=== PATIENT | male | born 1950 | race Caucasian/White ===

== ENCOUNTER 2023-04-10 21:57 | Outpatient (CLI) | payer MEDICARE, BC, SELFPAY | END 2023-04-10 21:58 | disposition home or self-care (01) | LOC: AMB 04-14 18:31 | PROVIDERS: PCP Family Medicine; Visit Provider Family Medicine | DX: R31.9 Hematuria, unspecified (principal); R10.9 Unspecified abdominal pain | CPT/HCPCS: A0425; A0428 ==

== ENCOUNTER 2023-04-10 22:46 | Inpatient (IN) | payer MEDICARE, BC, SELFPAY ==
[2023-04-10 23:15] VITALS: BP 145/103; PULSE 100; RESP 18; TEMP 36.9; O2SAT 95; BMI 27.1
--- NOTE | 2023-04-10 23:36 | PC.NURSE ---
Admission assessment: pt sated he is loosing 1/2 lb of weight per month without trying in the last years or so
--- NOTE | 2023-04-10 23:53 | P.IMHP_ITS ---
Hospitalist- H&P: HPI History of Present Illness Date Seen: 04/10/23 Chief complaint: bowel obstruction Narrative: Sulaiman Alcantara is a 73 year old diabetic male presents with mid abdominal pain starting at 4:00 p.m. on 04/09/2023. He has had ongoing pain. Had 1 emesis of gastric contents without blood. Had 2 small bowel movements last night. Eventually presented to the [facility] Emergency Department for evaluation where he was found to have a small-bowel obstruction. He was transferred here for ongoing care. Previous abdominal surgery includes remote history of bilateral inguinal hernia repair and umbilical hernia repair. No previous small-bowel obstruction. Last colonoscopy was over 10 years ago and had a few small benign polyps. No other history of gastrointestinal illnesses. He has chronic constipation. Besides abdominal pain he has otherwise been doing well. No other recent illness or injury. [facility] Medical History (Updated 04/11/23 @ 00:05 by Mark Valdes MD) 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 - Varicose veins of other specified sites (ICD-10) Small bowel obstruction ?K56.609 - Unspecified intestinal obstruction, unspecified as to partial versus complete obstruction (ICD-10) Hyperlipidemia ?E78.5 - Hyperlipidemia, unspecified (ICD-10) BPH (benign prostatic hyperplasia) ?N40.0 - Benign prostatic hyperplasia without lower urinary tract symptoms (ICD-10) Diabetes mellitus ?E11.9 - Type 2 diabetes mellitus without complications (ICD-10) Surgical History (Updated 04/10/23 @ 23:59 by Mark Valdes MD) History of bunionectomy ?Z98.890 - Other specified postprocedural states (ICD-10) History of arthroplasty of left shoulder ?Z96.612 - Presence of left artificial shoulder joint (ICD-10) H/O umbilical hernia repair ?Z98.890 - Other specified postprocedural states (ICD-10) ?Z87.19 - Personal history of other diseases of the digestive system (ICD-10) H/O bilateral inguinal hernia repair ?Z98.890 - Other specified postprocedural states (ICD-10) ?Z87.19 - Personal history of other diseases of the digestive system (ICD-10) History of bilateral hip replacements ?Z96.643 - Presence of artificial hip joint, bilateral (ICD-10) Family History (Updated 04/11/23 @ 00:00 by Mark Valdes MD) Father Diabetes Mother CHF (congestive heart failure) Stroke Other Prostate cancer Social History (Updated 04/11/23 @ 00:01 by Mark Valdes MD) Narrative: He lives with his in the farm house [place] the [place] near [place]. 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 He does not smoke. He does not drink alcohol. Code status is DNR. 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 What is your current living situation?: I presently have a place to live Problems where you live: no known problems Problems where you live details: NA In the past 12 months, utilities in danger of being shut off: no In past 12 months, lack of transportation kept you from medical appts, meetings, work, or getting things needed for daily living: no In the past 12 mos, have been you worried that your food would run out before you had money to buy more?: never true In the past 12 mos, the food you bought just didn't last and you didn't have money to buy more?: never true Highest level of school completed/degree received: Bachelor's degree Smoking Status: Never smoker Do you use any of these nicotine containing products: None Second hand tobacco smoke exposure: No How often do you have a drink containing alcohol: never How often do you have six or more drinks on one occasion: Never AUDIT-C Alcohol total score: 0 Non-prescribed substance use: denies use Caffeine: No How often does anyone, including family, friends and others, physically hurt you : never How often does anyone, including family, friends and others, insult or talk down to you: never How often does anyone, including family, friends and others, threaten you with harm: never How often does anyone, including family, friends and others, scream or curse at you: never service: No Meds Home Medications and Allergies Home Medications Medication Instructions Recorded Confirmed Type aspirin 325 mg tablet 325 mg PO DAILY 04/10/23 04/10/23 History glipizide 10 mg tablet 10 mg PO BID 04/10/23 04/10/23 History metformin 500 mg tablet 1,000 mg PO BID 04/10/23 04/10/23 History semaglutide 2 mg/dose (8 mg/3 mL) 2 mg subcut QWEEK 04/10/23 04/10/23 History subcutaneous pen injector (Ozempic) simvastatin 40 mg tablet 40 mg PO QPM 04/10/23 04/10/23 History Exam 2 Narrative: Exam Narrative: He is alert and appears in no distress. He gives his own history. NG tube in place. Draining a clear yellowish gastric fluid. Oropharynx with dry mucous membranes. Neck is supple without mass or adenopathy. Respirations are clear to auscultation. Cardiovascular: S1, S2, regular rate and rhythm. No murmur gallop or rub. Abdomen: Bowel sounds diminished. Abdomen is soft with minimal tenderness. No mass. No peritonitis. Extremities with good pulses and sensation. Good perfusion. No edema. No rash Const: Vital Signs, click to edit/add: Vital Signs - 24 hr 04/10/23 23:15 Temperature 98.5 F Pulse Rate [Pulse Oximeter] 100 Respiratory Rate 18 Blood Pressure [Le ft Radial Artery] 145/103 H Pulse Oximetry 95 Oxygen Delivery Me thod Room Air Documenting provider has reviewed patient's vital signs: yes Hospitalist - H&P: Result Imaging CT scan - abdomen: Radiologist's impression: CT of the abdomen and pelvis with IV contrast from [facility] shows the following: Lung bases are clear. There are multiple bilateral renal cysts. There is abdominal dilatation of the small bowel to an area of bowel wall thickening in the left lower quadrant image 418 of series 7. There is a low dense lesion with in the tail of the pancreas measuring 3.1 x 2.4 cm. There is a diffuse gastric and abdominal varices noted. There is no upper abdominal adenopathy. The upper abdominal vasculature is patent. There is no free fluid in the pelvis. There is moderate prostate enlargement. There is moderate stool burden in the colon. The distal small bowel is dilated. There is no nephro or ureterolithiasis noted. There is arthritic change of the visualized skeleton. There is severe arthritic change of the right sacroiliac joint. There is no worrisome bone lesion. Impression: 1. Small-bowel obstruction with transition point in the mid small bowel in the left lower quadrant. 2. Hypodense mass in the tail the pancreas. Differential diagnosis includes pancreatic malignancy. Recommend multiphasic MRI or CT for further Evaluation. 3. Moderate prostatomegaly. Assessment and Plan Assessment and plan (1) Small bowel obstruction: Problem comment: Suspect this is due to prior hernia surgery, postop adhesions Status: Acute (2) Diabetes mellitus: Problem comment: 02/24/2023 hemoglobin A1c 8.1 Status: Acute (3) BPH (benign prostatic hyperplasia): Problem comment: Nocturia Status: Acute (4) Intra-abdominal varices: Problem comment: Unknown cause. No history of liver disease or portal hypertension. No history of GI bleeding. Status: Acute Plan Admit to the hospital for management of small bowel obstruction, IV fluids, IV antiemetics and pain medicine. Monitoring of electrolytes and blood sugars. Surgical consult. Total time spent is 80 minutes, 50 minutes in coordination of care and discussing with patient and other providers management of small bowel obstruction.
[2023-04-11] VITALS (8 sets, daily range): BP systolic 134–149; BP diastolic 93–107; PULSE 88–100; RESP 16–18; TEMP 36.1–36.9; O2SAT 93–97; BMI 27.1
[2023-04-11] MEDS: LACTATED RINGERS 500 ML 500 ML IV (00:22)
[2023-04-11] MEDS: LACTATED RINGERS 1000 ML 1,000 ML 125 ML IV ×3 (00:22→18:20)
[2023-04-11] MEDS: HYDROmorphone 0.5 mg/0.5 ml inj IVP ×3 (00:56→21:17)
--- NOTE | 2023-04-11 07:02 | PC.NURSE ---
Shift note: Ng tube present on admission, it's at 60cm right nostril. No output since admission, pain treated per eMAR with relief. Pt is independent in the room, alert and oriented. Bowel sounds hypoactive, almost absent, no gas, lots of burps.
--- NOTE | 2023-04-11 07:29 | CRLHL7_ITS ---
For Patients: As a result of the Century Cures Act, medical imaging exams and procedure reports are released immediately into your electronic medical record. You may view this report before your referring provider. If you have questions, please contact your health care provider. Indication: NG tube removed, re-evaluate position Technique: Supine view abdomen was obtained. Comparison: None available. Findings: Satisfactory position of nasogastric tube. Moderate stool seen within the colon. No evidence of free air. Impression: Satisfactory position of nasogastric tube. Dictated by Gustavo Harris MD @ 04/11/2023 8:42:50 AM (Electronically Signed)
[2023-04-11 08:07] LABS: Basophils Absolute Auto 0.03 K/uL (0.00-0.30); Basophils Percent Auto 0.3 % (0.0-3.0); Eosinophils Absolute Auto 0.01 K/uL (0.00-0.50); Eosinophils Percent Auto 0.1 % (0.0-7.0); Hematocrit 40.8 % (37.0-53.0); Hemoglobin* 13.8 gm/dL (13.5-17.5); Immature Granulocytes Abs Auto 0.02 K/uL (0.00-0.30); Immature Granulocytes Pct Auto 0.2 %; Lymphocytes Percent Auto 11.1 % (20-44); Mean Corpuscular HGB Conc 34 gm/dL (32-36); Mean Corpuscular Hemoglobin 31 pg (26-34); Mean Corpuscular Volume 92 fL (80-100); Monocytes Percent Auto 6.6 % (0.0-11.0); Neutrophils Percent Auto 81.7 % (42.0-72.0); Platelet Count* 238 K/uL (140-440); Red Blood Count 4.44 m/uL (4.30-5.90); Slide Review Reflex No; White Blood Count* 8.94 K/uL (4.50-11.00)
[2023-04-11 08:19] LABS: Chloride* 100 mmol/L (96-114); Potassium* 4.5 mmol/L (3.6-5.1); Sodium* 135 mmol/L (135-149)
[2023-04-11 08:22] LABS: Anion Gap 6 mEq/L (7-15); Blood Urea Nitrogen* 21 mg/dL (7-30); Calcium* 9.4 mg/dL (8.4-10.6); Carbon Dioxide* 29 mmol/L (20-32); Creatinine* 0.9 mg/dL (0.5-1.5); Est. Creatinine Clearance* 69.03; Estimated Glomerular Filt Rate 90 ml/min; Glucose* 191 mg/dL (60-115)
--- NOTE | 2023-04-11 12:03 | P.IMPN_ITS ---
Progress Note: A&P Assessment and plan (1) Small bowel obstruction: Problem details: -CT shows SBO with transition point mid small bowel LLQ -suspect due to prior hernia surgery, postop adhesions -NGT in place, plain film shows proper placement, however marginal output noted, nursing staff has attempted adjustment and flushing, continue to monitor -pain and nausea management as needed -NPO, bowel rest, LR IVF -General Surgery consulted, labs appropriate, belly exam benign, recommend ongoing bowel rest, repeat flush NGT, continue to monitor Status: Acute (2) Diabetes mellitus: Problem details: -most recent A1c 8.1 -glucose checks q.6 hours -insulin protocol while NPO -hold Ozempic, glipizide, metformin Status: Acute (3) BPH (benign prostatic hyperplasia): Problem details: -CT shows moderate prostatomegaly. I do not see that he is on an alpha reductase inhibitor. Outpatient follow-up with PCP Status: Acute (4) Mass of pancreas: Problem details: -CT shows hypodense mass tail of the pancreas -discussed with General Surgery, will need outpatient MRI and follow-up Status: Acute Plan CODE: DNR/DNI VTE PPX: Enoxaparin Disposition: Inpatient Time Spent With Patient Total time spent: Total time spent caring for the patient today was 45 minutes. This includes time spent for the visit reviewing the chart, time spent during the visit, time spent after the visit and documentation and planning in coordination of care. Subjective Date Seen: 04/11/23 Interval history: Patient reports feeling better this morning. Pain has improved, now only intermittent and mild. Improves with ambulation. Nausea has resolved. Last vomited at 4:00 a.m. 04/10. Reports passing gas this morning. Has been belching. Last BM also at 4:00 a.m. 04/10. Exam Narrative: Exam Narrative: PHYSICAL EXAM General: Pleasant, conversant, NAD HEENT: Normocephalic, atraumatic, sclera white, EOMI, oral mucosa moist Cardiovascular: RRR, S1S2. No pitting edema Pulmonary: CTA bilaterally without rhonchi, rales, expiratory wheezes. No dyspnea Abdominal: Soft, nondistended, NTTP, no guarding Neurological: Alert, answering questions appropriately, cranial nerves intact, no focal findings Extremities: No gross joint deformity or swelling. AROMI Skin: Warm, dry. No rash Const: Vital Signs, click to edit/add: Vital Signs - 24 hr 04/10/23 23:15 04/11/23 03:00 04/11/23 07:15 Temperature 98.5 F 98.5 F Pulse Rate [Pulse Oximeter] 100 88 97 Respiratory Rate 18 16 16 Blood Pressure [Le ft Radial Artery] 145/103 H 134/93 H 140/97 H Pulse Oximetry 95 95 97 Oxygen Delivery Me thod Room Air Room Air Room Air 04/11/23 07:15 Temperature Pulse Rate [Pulse Oximeter] 97 Respiratory Rate 16 Blood Pressure [Le ft Radial Artery] Pulse Oximetry Oxygen Delivery Me thod Labs Labs: Laboratory Results - last 24 hr 04/11/23 07:58 WBC 8.94 RBC 4.44 Hgb 13.8 Hct 40.8 MCV 92 MCH 31 MCHC 34 RDW Coeff of [place] 12.0 Plt Count 238 Neut % (Auto) 81.7 H Lymph % (Auto) 11.1 L [place] % (Auto) 6.6 Eos % (Auto) 0.1 Baso % (Auto) 0.3 Neut # (Auto) 7.30 H Lymph # (Auto) 1.00 [place] # (Auto) 0.60 Eos # (Auto) 0.01 Baso # (Auto) 0.03 Abs Immat Gran (auto) 0.02 Imm/Tot Granulo (auto) 0.2 Sodium 135 Potassium 4.5 Chloride 100 Carbon Dioxide 29 Anion Gap 6 L BUN 21 Creatinine 0.9 Estimated Creat Clear 69.03 Estimated GFR 90 Glucose 191 H Calcium 9.4
--- NOTE | 2023-04-11 12:30 | PM.GSCN ---
History of Present Illness Consult details Date Seen: 04/11/23 Consult date: 04/11/23 Narrative: patient initially presented to an outside hospital with worsening lower abdominal pain. He states the pain started on Monday during the day. Monday night into Monday he reports that the pain was very severe and he was unable to sleep. He has never had pain like this before. Does report some associated nausea and 1 episode of emesis on Monday. No appetite. His last bowel movement was Monday morning, he had 2 small bowel movements at that time. No diarrhea or constipation. He does report passing a little of gas overnight. His abdominal surgical history is positive for bilateral inguinal hernias and umbilical hernia repair. An NG tube was placed at the outside hospital, minimal output since admission here. Review of Systems Status of ROS: Reports: 10 or more systems reviewed and unremarkable except as noted in History and below [facility] Medical History (Updated 04/11/23 @ 12:22 by Payton Ramirez PA-C) 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 - Varicose veins of other specified sites (ICD-10) Small bowel obstruction ?K56.609 - Unspecified intestinal obstruction, unspecified as to partial versus complete obstruction (ICD-10) Hyperlipidemia ?E78.5 - Hyperlipidemia, unspecified (ICD-10) BPH (benign prostatic hyperplasia) ?N40.0 - Benign prostatic hyperplasia without lower urinary tract symptoms (ICD-10) Diabetes mellitus ?E11.9 - Type 2 diabetes mellitus without complications (ICD-10) Surgical History (Updated 04/10/23 @ 23:59 by Mark Valdes MD) History of bunionectomy ?Z98.890 - Other specified postprocedural states (ICD-10) History of arthroplasty of left shoulder ?Z96.612 - Presence of left artificial shoulder joint (ICD-10) H/O umbilical hernia repair ?Z98.890 - Other specified postprocedural states (ICD-10) ?Z87.19 - Personal history of other diseases of the digestive system (ICD-10) H/O bilateral inguinal hernia repair ?Z98.890 - Other specified postprocedural states (ICD-10) ?Z87.19 - Personal history of other diseases of the digestive system (ICD-10) History of bilateral hip replacements ?Z96.643 - Presence of artificial hip joint, bilateral (ICD-10) Family History (Updated 04/11/23 @ 00:00 by Mark Valdes MD) Father Diabetes Mother CHF (congestive heart failure) Stroke Other Prostate cancer Social History (Updated 04/11/23 @ 00:01 by Mark Valdes MD) Narrative: He lives with his in the farm house [place] the [place] near [place]. 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 He does not smoke. He does not drink alcohol. Code status is DNR. 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 What is your current living situation?: I presently have a place to live Problems where you live: no known problems Problems where you live details: NA In the past 12 months, utilities in danger of being shut off: no In past 12 months, lack of transportation kept you from medical appts, meetings, work, or getting things needed for daily living: no In the past 12 mos, have been you worried that your food would run out before you had money to buy more?: never true In the past 12 mos, the food you bought just didn't last and you didn't have money to buy more?: never true Highest level of school completed/degree received: Bachelor's degree Smoking Status: Never smoker Do you use any of these nicotine containing products: None Second hand tobacco smoke exposure: No How often do you have a drink containing alcohol: never How often do you have six or more drinks on one occasion: Never AUDIT-C Alcohol total score: 0 Non-prescribed substance use: denies use Caffeine: No How often does anyone, including family, friends and others, physically hurt you: never How often does anyone, including family, friends and others, insult or talk down to you: never How often does anyone, including family, friends and others, threaten you with harm: never How often does anyone, including family, friends and others, scream or curse at you: never service: No Meds Home Medications and Allergies Home Medications Medication Instructions Recorded Confirmed Type aspirin 325 mg tablet 325 mg PO DAILY 04/10/23 04/10/23 History glipizide 10 mg tablet 10 mg PO BID 04/10/23 04/10/23 History metformin 500 mg tablet 1,000 mg PO BID 04/10/23 04/10/23 History semaglutide 2 mg/dose (8 mg/3 mL) 2 mg subcut QWEEK 04/10/23 04/10/23 History subcutaneous pen injector (Ozempic) simvastatin 40 mg tablet 40 mg PO QPM 04/10/23 04/10/23 History Allergies Allergy/AdvReac Type Severity Reaction Status Date / Time No Known Drug Allergies Allergy Verified 04/11/23 00:33 Exam Narrative: Exam Narrative: General: Alert and oriented, no acute distress. Nontoxic in appearance. HEENT: NG tube in place, no output present within tube or canister respiratory: Equal breath rise bilaterally, maintained on room air CV: Regular rhythm and rate, well perfused abdomen: Soft, tender to Deep palpation lower quadrants with no guarding or rebound. Nondistended. Const: Vital Signs, click to edit/add: Vital Signs - 24 hr 04/10/23 23:15 04/11/23 03:00 04/11/23 07:15 Temperature 98.5 F 98.5 F Pulse Rate [Pulse Oximeter] 100 88 97 Respiratory Rate 18 16 16 Blood Pressure [Le ft Radial Artery] 145/103 H 134/93 H 140/97 H Pulse Oximetry 95 95 97 Oxygen Delivery Me thod Room Air Room Air Room Air 04/11/23 07:15 Temperature Pulse Rate [Pulse Oximeter] 97 Respiratory Rate 16 Blood Pressure [Le ft Radial Artery] Pulse Oximetry Oxygen Delivery Me thod Results Labs Labs: Abnormal lab results 04/11/23 Range/Units 07:58 Neut % (Auto) 81.7 H (42.0-72.0) % Lymph % (Auto) 11.1 L (20-44) % Neut # (Auto) 7.30 H (1.7-7.0) K/uL Anion Gap 6 L (7-15) mEq/L Glucose 191 H (60-115) mg/dL Diabetes panel 04/11/23 Range/Units 07:58 Sodium 135 (135-149) mmol/L Potassium 4.5 (3.6-5.1) mmol/L Chloride 100 (96-114) mmol/L Carbon Dioxide 29 (20-32) mmol/L BUN 21 (7-30) mg/dL Creatinine 0.9 (0.5-1.5) mg/dL Glucose 191 H (60-115) mg/dL Calcium 9.4 (8.4-10.6) mg/dL Calcium panel 04/11/23 Range/Units 07:58 Calcium 9.4 (8.4-10.6) mg/dL Pituitary panel 04/11/23 Range/Units 07:58 Sodium 135 (135-149) mmol/L Potassium 4.5 (3.6-5.1) mmol/L Chloride 100 (96-114) mmol/L Carbon Dioxide 29 (20-32) mmol/L BUN 21 (7-30) mg/dL Creatinine 0.9 (0.5-1.5) mg/dL Glucose 191 H (60-115) mg/dL Calcium 9.4 (8.4-10.6) mg/dL Adrenal panel 04/11/23 Range/Units 07:58 Sodium 135 (135-149) mmol/L Potassium 4.5 (3.6-5.1) mmol/L Chloride 100 (96-114) mmol/L Carbon Dioxide 29 (20-32) mmol/L BUN 21 (7-30) mg/dL Creatinine 0.9 (0.5-1.5) mg/dL Glucose 191 H (60-115) mg/dL Calcium 9.4 (8.4-10.6) mg/dL All other labs normal. Imaging Abdominal x-ray: report reviewed and image reviewed Abdomen CT scan report/results: report reviewed and image reviewed Assessment and Plan Assessment and plan (1) Small bowel obstruction: Problem comment: -CT shows SBO with transition point mid small bowel LLQ -suspect due to prior hernia surgery, postop adhesions -NGT in place, plain film shows proper placement, however marginal output noted, nursing staff has attempted adjustment and flushing, continue to monitor -pain and nausea management as needed -NPO, bowel rest, LR IVF -General Surgery consulted, labs appropriate, belly exam benign, recommend ongoing bowel rest, repeat flush NGT, continue to monitor Status: Acute Assessment and Plan: Patient is a 73-year-old male who presents with a small-bowel obstruction. Transition point on CT imaging shows within the left lower quadrant. Etiology is likely secondary to adhesions. Currently pursuing medical management with NG tube in place, NPO and encourage ambulation. Benign his exam at this time, vital signs stable and labs within normal limits. Would recommend continuing with the NG tube and medical management with re-evaluation in the morning. Surgery will continue to follow. Please call with any acute clinical changes, questions or concerns. (2) Mass of pancreas: Problem comment: -CT shows hypodense mass tail of the pancreas -discussed with General Surgery, will need outpatient MRI and follow-up Status: Acute Assessment and Plan: Incidentally found hypodense mass of the tail of the pancreas. Recommend outpatient MRI for further evaluation and referral to hepatobiliary surgery.
[2023-04-11] MEDS: PANTOPRAZOLE SODIUM 40 MG INJ IVP ×2 (13:04→20:08)
--- NOTE | 2023-04-11 18:10 | PC.NURSE ---
end of shift. pt has been very pleasant. abd pain over the umbilicus 1-10/31./ he is getting IV pain meds as requested. NG is at LIS. it was at 70 at the right nare and was pulled back to 65 per PA Payton. tired to flush it was water per md and output has not changed much. it was clear liquid and now it is more green/brown. md has been updated on output/ he can have ice chips per md. ,BS are abesnt. he has walked 5 times. he had gas once and is burping alot. bs Q6 and he is getting insulin. IV is patent. abd is soft. xray this am to check placement on NG.
[2023-04-11] MEDS: ENOXAPARIN 40 MG/0.4 ML INJ SUBCUT (20:08)
[2023-04-11] MEDS: SODIUM CHLORIDE 0.9 % (FLUSH) 10 ML SYRINGE 5 ML IVF (20:08)
[2023-04-12] VITALS (9 sets, daily range): BP systolic 128–157; BP diastolic 94–108; PULSE 90–107; RESP 16; TEMP 36.7–37; O2SAT 94–96
[2023-04-12] MEDS: LACTATED RINGERS 1000 ML 1,000 ML 125 ML IV ×2 (01:52→09:45)
--- NOTE | 2023-04-12 02:51 | PC.NURSE ---
Pt rested well this night. Pain controlled. Pt up Walking halls. NG placed at 65cm. Pt states he is passing gas but no BM. NPO with ice chips only.
[2023-04-12 06:18] LABS: Hemoglobin* 13.5 gm/dL (13.5-17.5); Mean Corpuscular HGB Conc 35 gm/dL (32-36); Mean Corpuscular Hemoglobin 32 pg (26-34); Mean Corpuscular Volume 92 fL (80-100); Platelet Count* 224 K/uL (140-440); Red Blood Count 4.23 m/uL (4.30-5.90); White Blood Count* 8.51 K/uL (4.50-11.00)
[2023-04-12 06:20] LABS: Slide Review Reflex No
[2023-04-12 07:00] LABS: Chloride* 101 mmol/L (96-114); Sodium* 135 mmol/L (135-149)
[2023-04-12 07:03] LABS: Anion Gap 7 mEq/L (7-15); Carbon Dioxide* 27 mmol/L (20-32); Creatinine* 0.8 mg/dL (0.5-1.5); Est. Creatinine Clearance* 69.03; Estimated Glomerular Filt Rate 93 ml/min
[2023-04-12 07:04] LABS: Blood Urea Nitrogen* 25 mg/dL (7-30); Calcium* 9.1 mg/dL (8.4-10.6); Glucose* 194 mg/dL (60-115)
[2023-04-12] MEDS: PANTOPRAZOLE SODIUM 40 MG INJ IVP ×2 (07:45→21:28)
[2023-04-12] MEDS: bisacodyL 10 MG SUPP.RECT PR (09:45)
[2023-04-12] MEDS: HYDRALAZINE HCL 20 MG/ML inj 5 MG IVP (11:13)
--- NOTE | 2023-04-12 11:19 | PM.GSPN ---
Subjective Subjective Date Seen: 04/12/23 Interval history: Patient overall doing ok. Pain is still present but has improved. Is ambulating independently. Has passed gas 8-9 times. Minimal output from NGT and denies any nausea. No BM yet, but open to trying a suppository. No concerns. Exam Narrative: Exam Narrative: Gen: Alert and oriented, NAD Abd: soft, non tender and non distended. Const: Vital Signs, click to edit/add: Vital Signs - 24 hr 04/11/23 12:15 04/11/23 15:40 04/11/23 15:40 Temperature 97.0 F L 97.0 F L Pulse Rate [Pulse Oximeter] 100 100 100 Respiratory Rate 18 18 18 Blood Pressure [Le ft Radial Artery] 143/107 H 143/107 H Pulse Oximetry 97 97 Oxygen Delivery Me thod Room Air Room Air 04/11/23 19:07 04/11/23 22:10 04/11/23 22:54 Temperature 97.0 F L 98.3 F Pulse Rate [Pulse Oximeter] 91 91 89 Respiratory Rate 18 18 16 Blood Pressure [Le ft Radial Artery] 145/98 H 149/95 H Pulse Oximetry 94 93 Oxygen Delivery Me thod Room Air Room Air 04/11/23 23:04 04/12/23 04:41 04/12/23 05:31 Temperature Pulse Rate [Pulse Oximeter] Respiratory Rate 16 16 16 Blood Pressure [Le ft Radial Artery] Pulse Oximetry Oxygen Delivery Me thod 04/12/23 07:43 04/12/23 11:04 Temperature 98.1 F 98.2 F Pulse Rate [Pulse Oximeter] 92 107 H Respiratory Rate 16 16 Blood Pressure [Le ft Radial Artery] 143/97 H 157/108 H Pulse Oximetry 94 96 Oxygen Delivery Me thod Room Air Room Air Labs/Imaging Labs Labs: WNL Progress Note: A&P Assessment and plan (1) Small bowel obstruction: Problem details: -CT shows SBO with transition point mid small bowel LLQ -suspect due to prior hernia surgery, postop adhesions -NGT in place, plain film shows proper placement, however marginal output noted, nursing staff has attempted adjustment and flushing, continue to monitor -pain and nausea management as needed -NPO, bowel rest, LR IVF -General Surgery consulted, labs appropriate, belly exam benign, recommend ongoing bowel rest, repeat flush NGT, continue to monitor Status: Acute Assessment and Plan: Patient HD#3 for SBO. Is passing gas with minimal NGT output. Clamping trial this morning with patient reporting no increase in abdominal pain or nausea. NG was removed at bedside and patient started on clears. A moderate BM this morning x2 after suppository. No other concerns.
--- NOTE | 2023-04-12 12:52 | PM.IMPN1 ---
Progress Note: A&P Assessment and plan (1) Small bowel obstruction: Problem details: -CT shows SBO with transition point mid small bowel LLQ -suspect due to prior hernia surgery, postop adhesions -NG tube output essentially only with flushes overnight -General surgery recommendations 04/12: NGT trial clamp and suppository, resulted in BM x2. NGT removed, clear liquid diet ordered, continue to monitor with plan to reassess tomorrow morning -continue IV PPI b.i.d., IVF, encourage ambulation -patient noted to be mildly hypertensive, denies previous history, suspected in setting of acute illness with NG tube. P.r.n. hydralazine for DBP >100, continue to monitor Status: Acute (2) Mass of pancreas: Problem details: -CT shows hypodense mass tail of the pancreas -discussed with General Surgery, will need outpatient MRI and follow-up Status: Acute (3) BPH (benign prostatic hyperplasia): Problem details: -CT shows moderate prostatomegaly. I do not see that he is on an alpha reductase inhibitor. Outpatient follow-up with PCP Status: Acute (4) Diabetes mellitus: Problem details: -most recent A1c 8.1 -glucose checks q.6 hours -insulin protocol in place -hold Ozempic, glipizide, metformin Status: Acute Plan CODE: DNR VTE PPX: Enoxaparin Disposition: Inpatient Time Spent With Patient Total time spent: Total time spent caring for the patient today was 45 minutes. This includes time spent for the visit reviewing the chart, time spent during the visit, time spent after the visit and documentation and planning in coordination of care. Subjective Date Seen: 04/12/23 Interval history: Patient reports feeling about the same this morning. Denies abdominal pain. No further nausea. Tolerating ice chips. Passing gas. Continues to ambulate in the hallways. Exam Narrative: Exam Narrative: PHYSICAL EXAM General: Pleasant, conversant, NAD HEENT: Normocephalic, atraumatic, sclera white, EOMI, oral mucosa moist Cardiovascular: RRR, S1S2. No pitting edema Pulmonary: CTA bilaterally without rhonchi, rales, expiratory wheezes. No dyspnea Abdominal: Soft, nondistended, NTTP, no guarding Neurological: Alert, answering questions appropriately, cranial nerves intact, no focal findings Extremities: No gross joint deformity or swelling. AROMI Skin: Warm, dry. No rash Const: Vital Signs, click to edit/add: Vital Signs - 24 hr 04/11/23 15:40 04/11/23 15:40 04/11/23 19:07 Temperature 97.0 F L 97.0 F L Pulse Rate [Pulse Oximeter] 100 100 91 Respiratory Rate 18 18 18 Blood Pressure [Le ft Radial Artery] 143/107 H 145/98 H Pulse Oximetry 97 94 Oxygen Delivery Me thod Room Air Room Air 04/11/23 22:10 04/11/23 22:54 04/11/23 23:04 Temperature 98.3 F Pulse Rate [Pulse Oximeter] 91 89 Respiratory Rate 18 16 16 Blood Pressure [Le ft Radial Artery] 149/95 H Pulse Oximetry 93 Oxygen Delivery Sc thod Room Air 04/12/23 04:41 04/12/23 05:31 04/12/23 07:43 Temperature 98.1 F Pulse Rate [Pulse Oximeter] 92 Respiratory Rate 16 16 16 Blood Pressure [Le ft Radial Artery] 143/97 H Pulse Oximetry 94 Oxygen Delivery Sc thod Room Air 04/12/23 11:04 04/12/23 12:44 Temperature 98.2 F Pulse Rate [Pulse Oximeter] 107 H Respiratory Rate 16 Blood Pressure [Le ft Radial Artery] 157/108 H 147/107 H Pulse Oximetry 96 Oxygen Delivery Sc thod Room Air Labs Labs: Laboratory Results - last 24 hr 04/12/23 05:55 WBC 8.51 RBC 4.23 L Hgb 13.5 Hct 39.0 MCV 92 MCH 32 MCHC 35 Plt Count 224 Sodium 135 Potassium 4.0 Chloride 101 Carbon Dioxide 27 Anion Gap 7 BUN 25 Creatinine 0.8 Estimated Creat Clear 69.03 Estimated GFR 93 Glucose 194 H Calcium 9.1
[2023-04-12] MEDS: LACTATED RINGERS 1000 ML 1,000 ML 75 ML IV ×2 (13:08→21:29)
--- NOTE | 2023-04-12 13:18 | PC.NURSE ---
End of shift note: Patient is passing gas and has had 2 soft, formed BMs. NGT was removed at 1200. On clear liquids now. Fluids are at 75/hr. Blood sugars QID. Voiding without difficulty. Has been ambulating in hallway independently. Patient is QUINAULT. BP was elevated today. Hydralazine IV X1 given. Hospitalist is aware. PIV patent and intact. Denies nausea. Abdomen soft but patient stated it was tender from being so upset. Able to push without wincing. bowel sounds are hypoactive. Lung sounds clear. Shower set up but pt stated he will do that later.
[2023-04-12] MEDS: SODIUM CHLORIDE 0.9 % (FLUSH) 10 ML SYRINGE 5 ML IVF (21:28)
[2023-04-12] MEDS: ENOXAPARIN 40 MG/0.4 ML INJ SUBCUT (21:28)
--- NOTE | 2023-04-12 22:23 | PC.NURSE ---
Elevated BP, tachycardic, otherwise VSS. RA. Minimal pain, score of 1. Tolerating small amounts of clears, 120 cc in. Insulin given x2- 2 units w/ dinner, 4 units at bedtime. Abdomen soft, slightly distended, upper quadrant hyperactive, lower quadrant hypoactive- no gas or bowel movement this shift. PIV in right FA- LR infusing @ 75 cc/hr. Up independently, frequent walks. Showered. Family visited this evening. Will continue to monitor, follow POC, and keep pt and family updated. Jadyn Renner RN
[2023-04-13] VITALS (8 sets, daily range): BP systolic 143–161; BP diastolic 89–107; PULSE 84–114; RESP 16–22; TEMP 36.6–37.2; O2SAT 94–98
[2023-04-13] MEDS: HYDROmorphone 0.5 mg/0.5 ml inj IVP ×4 (01:26→19:42)
--- NOTE | 2023-04-13 06:17 | PC.NURSE ---
Shift note: At the beginning of the shift pt was active, energetic, bowel sounds (BS) were active, however did not pass gas. After 3 am pt complain of increased bloating/pressure in his abdomen, increased burping, BS are now hyperactive and pt requesting pain medications for his discomfort. He is walking in the hallway independently.
[2023-04-13 06:24] LABS: Hematocrit 40.6 % (37.0-53.0); Mean Corpuscular HGB Conc 35 gm/dL (32-36); Mean Corpuscular Hemoglobin 32 pg (26-34); Mean Corpuscular Volume 92 fL (80-100); Platelet Count* 277 K/uL (140-440); Red Blood Count 4.43 m/uL (4.30-5.90); White Blood Count* 9.13 K/uL (4.50-11.00)
[2023-04-13 06:32] LABS: Chloride* 99 mmol/L (96-114); Sodium* 135 mmol/L (135-149)
[2023-04-13 06:35] LABS: Anion Gap 10 mEq/L (7-15); Carbon Dioxide* 26 mmol/L (20-32); Creatinine* 0.8 mg/dL (0.5-1.5); Est. Creatinine Clearance* 69.03; Estimated Glomerular Filt Rate 93 ml/min
[2023-04-13 06:36] LABS: Blood Urea Nitrogen* 28 mg/dL (7-30); Calcium* 9.4 mg/dL (8.4-10.6); Glucose* 226 mg/dL (60-115)
[2023-04-13 06:42] LABS: Slide Review Reflex No
--- NOTE | 2023-04-13 09:24 | CRLHL7_ITS ---
For Patients: As a result of the Century Cures Act, medical imaging exams and procedure reports are released immediately into your electronic medical record. You may view this report before your referring provider. If you have questions, please contact your health care provider. Indication: Small-bowel obstruction Technique: Abdomen 1 view. Comparison: 04/11/2023 Findings: Bilateral hip replacement hardware. Chronic densities adjacent to the right hip. Degenerative changes lower lumbar spine. Left pelvic phlebolith. Spurring at the left greater trochanter. Atelectasis at the left lung base. Possible trace left pleural effusion. Distended small bowel loops in the midline. Impression: Distended gas-filled loops of small bowel in the midline measuring up to 7 cm consistent with small bowel obstruction. NG tube is no longer present. Dictated by Nicolas Alcantara MD @ 04/13/2023 11:14:49 AM (Electronically Signed)
[2023-04-13] MEDS: PANTOPRAZOLE SODIUM 40 MG INJ IVP ×2 (09:30→20:52)
[2023-04-13] MEDS: SODIUM CHLORIDE 0.9 % (FLUSH) 10 ML SYRINGE 5 ML IVF ×2 (09:33→20:53)
--- NOTE | 2023-04-13 11:32 | P.IMPN_ITS ---
Progress Note: A&P Assessment and plan (1) Small bowel obstruction: Problem details: -updated XR today shows gas-filled loops up to 7cm -suspect due to prior hernia surgery, postop adhesions -NG tube d/c 04/12/23 with resultant increased in abdominal distension. -General surgery recommendations 04/13: check abd film - order gastrograffin study -continue IV PPI b.i.d., IVF, encourage ambulation -patient noted to be mildly hypertensive, denies previous history, suspected in setting of acute illness with NG tube. P.r.n. hydralazine for DBP >100, continue to monitor Status: Acute (2) Mass of pancreas: Problem details: -CT shows hypodense mass tail of the pancreas -discussed with General Surgery, will need outpatient MRI and follow-up Status: Acute (3) BPH (benign prostatic hyperplasia): Problem details: -CT shows moderate prostatomegaly. I do not see that he is on an alpha reductase inhibitor. Outpatient follow-up with PCP Status: Acute (4) Diabetes mellitus: Problem details: -most recent A1c 8.1 -glucose checks q.6 hours -insulin protocol in place -hold Ozempic, glipizide, metformin Status: Acute Subjective Date Seen: 04/13/23 Interval history: Daily Progress Note - Hospital Medicine Day #: 4 CC: SBO OVERNIGHT UPDATES FROM STAFF & MED, LAB, IMAGING UPDATES more pain overnight. less/minimal flatus until this am. no vomiting. rec'd IV narcotics. Objective: Vitals: see above Lungs: Clear. Cardiac: S1S2. Abdomen: more distended by his and general surgeon's report. tenderness minimal. Abdomen 1V Distended gas-filled loops of small bowel in the midline measuring up to 7 cm consistent with small bowel obstruction. NG tube is no longer present. Disposition/Potential discharge - Likely to return to previous living situation. Today I spent 50minutes seeing the patient, reviewing Expanse and EPIC notes/diagnostics, discussing the care plan with our care time that includes social work, PT/OT, pharmacy, RT, residential and documenting my impressions and plan in the medical record. Exam Const: Vital Signs, click to edit/add: Vital Signs - 24 hr 04/12/23 12:44 04/12/23 15:00 04/12/23 15:00 Temperature 98.5 F Pulse Rate [Pulse Oximeter] 105 H Respiratory Rate 16 16 Blood Pressure [Le ft Radial Artery] 147/107 H 154/94 H Pulse Oximetry 96 Oxygen Delivery Me thod Room Air 04/12/23 19:00 04/12/23 23:00 04/12/23 23:00 Temperature 98.6 F 98.6 F Pulse Rate [Pulse Oximeter] 90 95 Respiratory Rate 16 16 16 Blood Pressure [Le ft Radial Artery] 128/94 H 154/98 H Pulse Oximetry 94 94 Oxygen Delivery Dc thod Room Air Room Air 04/12/23 23:30 04/13/23 03:00 04/13/23 05:26 Temperature Pulse Rate [Pulse Oximeter] Respiratory Rate 16 18 16 Blood Pressure [Le ft Radial Artery] Pulse Oximetry Oxygen Delivery Dc thod Labs Labs: Laboratory Results - last 24 hr 04/13/23 06:03 WBC 9.13 RBC 4.43 Hgb 14.0 Hct 40.6 MCV 92 MCH 32 MCHC 35 Plt Count 277 Sodium 135 Potassium 4.0 Chloride 99 Carbon Dioxide 26 Anion Gap 10 BUN 28 Creatinine 0.8 Estimated Creat Clear 69.03 Estimated GFR 93 Glucose 226 H Calcium 9.4
--- NOTE | 2023-04-13 12:30 | CRLHL7_ITS ---
For Patients: As a result of the Century Cures Act, medical imaging exams and procedure reports are released immediately into your electronic medical record. You may view this report before your referring provider. If you have questions, please contact your health care provider. Indication: Small-bowel obstruction. Technique: Abdomen 1 view (2 images). Comparison: 04/13/2023 at 10:21 a.m.. Findings: Oral contrast material is seen within the fundus of the stomach, nondilated duodenum and nondilated proximal jejunum. Persistent dilated loops of small bowel in the epigastric region are noted measuring up to 5.9 cm in caliber. Gas is identified throughout the colon. Intact total bilateral hip prostheses. Lumbar spondylosis. Left pelvic phleboliths. Impression: Oral contrast material is seen within the fundus of the stomach, nondilated duodenum and nondilated proximal jejunum. Persistent dilated loops of small bowel in the epigastric region are noted measuring up to 5.9 cm in caliber. Gas is identified throughout the colon. Dictated by Nav Ortiz MD @ 04/13/2023 1:57:51 PM (Electronically Signed)
--- NOTE | 2023-04-13 18:57 | PC.NURSE ---
shift note: pt up in [place] ambulated x4. Pt medicated x1 with dilaudid this a.m for 4/10 abd pain. pt BS hypo on lt side and absent on rt. pt abd is soft on palpation but tender in RUQ. Dr. Okeefe updated this a.m on pt's condition. pt NPO this afternoon. Gastrograph given and initial KUB done. Pt to have 2nd KUB @ 2039. IV patent. vss stable. pt afeb.
[2023-04-13] MEDS: ONDANSETRON 2 MG/ML inj 4 MG IVP (19:49)
--- NOTE | 2023-04-13 20:29 | PC.NURSE ---
Pt noted to be in w/c going to radiology.
--- NOTE | 2023-04-13 20:40 | CRLHL7_ITS ---
For Patients: As a result of the Century Cures Act, medical imaging exams and procedure reports are released immediately into your electronic medical record. You may view this report before your referring provider. If you have questions, please contact your health care provider. Indication: Small bowel obstruction. Gastrografin challenge. Technique: Abdomen 2 views. Comparison: 04/13/2023. Findings/Impression: A bolus of oral contrast remains in the gastric fundus. Diluted contrast appears in the mid to distal small bowel. Contrast does not appear to have reached the colon. Small bowel obstruction pattern appears to have worsened. No other significant changes. Dictated by Brenden Gooden MD @ 04/14/2023 4:13:38 AM (Electronically Signed)
[2023-04-13] MEDS: ENOXAPARIN 40 MG/0.4 ML INJ SUBCUT (20:52)
[2023-04-13] MEDS: LACTATED RINGERS 1000 ML 1,000 ML 100 ML IV (22:41)
[2023-04-13] MEDS: HYDRALAZINE HCL 20 MG/ML inj 5 MG IVP (22:41)
[2023-04-14] VITALS (28 sets, daily range): BP systolic 128–176; BP diastolic 80–115; PULSE 84–115; RESP 14–20; TEMP 36.6–37.2; O2SAT 91–98; BMI 27.1
[2023-04-14] MEDS: ONDANSETRON 2 MG/ML inj 4 MG IVP ×3 (00:07→16:01)
[2023-04-14] MEDS: HYDROmorphone 0.5 mg/0.5 ml inj IVP ×6 (00:10→17:47)
--- NOTE | 2023-04-14 03:25 | CRLHL7_ITS ---
For Patients: As a result of the Century Cures Act, medical imaging exams and procedure reports are released immediately into your electronic medical record. You may view this report before your referring provider. If you have questions, please contact your health care provider. Indication: Small bowel obstruction. Increased abdominal pain. Technique: Abdomen 4 views. Comparison: 04/13/2023. Findings/Impression: Oral Gastrografin is seen throughout much of the small bowel. The contrast does not appear to have reached the colon. Small bowel obstruction pattern is unchanged. No new abnormality. Dictated by Brenden Gooden MD @ 04/14/2023 4:15:09 AM (Electronically Signed)
[2023-04-14] MEDS: HYDRALAZINE HCL 20 MG/ML inj 5 MG IVP (03:32)
[2023-04-14 06:28] LABS: Hematocrit 39.4 % (37.0-53.0); Hemoglobin* 13.4 gm/dL (13.5-17.5); Mean Corpuscular HGB Conc 34 gm/dL (32-36); Mean Corpuscular Hemoglobin 31 pg (26-34); Mean Corpuscular Volume 92 fL (80-100); Platelet Count* 234 K/uL (140-440); Red Blood Count 4.28 m/uL (4.30-5.90); White Blood Count* 7.95 K/uL (4.50-11.00)
[2023-04-14 07:09] LABS: Chloride* 99 mmol/L (96-114)
[2023-04-14 07:10] LABS: Potassium* 4.3 mmol/L (3.6-5.1); Sodium* 135 mmol/L (135-149)
[2023-04-14 07:12] LABS: Anion Gap 7 mEq/L (7-15); Carbon Dioxide* 29 mmol/L (20-32); Creatinine* 0.8 mg/dL (0.5-1.5); Est. Creatinine Clearance* 69.03; Estimated Glomerular Filt Rate 93 ml/min
[2023-04-14 07:13] LABS: Blood Urea Nitrogen* 33 mg/dL (7-30); Calcium* 9.3 mg/dL (8.4-10.6); Glucose* 270 mg/dL (60-115)
[2023-04-14 07:14] LABS: Slide Review Reflex No
--- NOTE | 2023-04-14 07:27 | PC.NURSE ---
pleasant and cooperative. Indep. 200mL emesis at beginning of shift, Zofran given x 2. c/o pain in abd, prn dilaudid given x 2, aqua K pad on abd. HR 100-115.?BP remained elevated after prn hydralazine given, horizon updated, gave the OK to give another 5mg hydralazine. Pt belching throughout shift, bowels hypoactive at beginning of shift, at 0600 bowels more active and pt stated he feels less bloated. Abd distended.
[2023-04-14] MEDS: SODIUM CHLORIDE 0.9 % (FLUSH) 10 ML SYRINGE 5 ML IVF ×2 (07:49→21:20)
[2023-04-14] MEDS: PANTOPRAZOLE SODIUM 40 MG INJ IVP ×2 (09:02→21:20)
--- NOTE | 2023-04-14 10:53 | PM.GSPN ---
Subjective Subjective Date Seen: 04/14/23 Interval history: Patient had a difficult time yesterday and overnight. He reported increased abdominal pain and distension. One episode of emesis around 4:00 a.m. this morning. Since surrounding up his abdomen ?does feel better?. He did pass gas 1 time this morning. No further bowel movements. Still no appetite. Has been up ambulating and walking the halls. Exam Narrative: Exam Narrative: General: Alert and oriented, no acute distress Respiratory: Equal breath rise bilaterally, maintained on room air CV: Regular rhythm rate, well perfused Abdomen: Soft, tender to palpation left lower quadrant, no guarding or rebound. Mild distention. Const: Vital Signs, click to edit/add: Vital Signs - 24 hr 04/13/23 11:00 04/13/23 15:00 04/13/23 19:00 Temperature 97.8 F 97.9 F 98.8 F Pulse Rate [Pulse Oximeter] 94 88 114 H Respiratory Rate 18 18 22 Blood Pressure [Le ft Radial Artery] 143/105 H 158/89 H 154/105 H Pulse Oximetry 98 94 94 Oxygen Delivery Me thod Room Air Room Air Room Air 04/13/23 22:49 04/13/23 22:49 04/13/23 23:30 Temperature 99 F Pulse Rate [Pulse Oximeter] 104 H 104 H Respiratory Rate 22 20 20 Blood Pressure [Le ft Radial Artery] 161/107 H Pulse Oximetry 95 Oxygen Delivery Me thod Room Air 04/14/23 02:51 04/14/23 06:00 04/14/23 07:39 Temperature 98.2 F 98.1 F Pulse Rate [Pulse Oximeter] 115 H 101 H Respiratory Rate 20 20 14 Blood Pressure [Le ft Radial Artery] 176/115 H 170/103 H Pulse Oximetry 96 95 Oxygen Delivery Me thod Room Air Room Air 04/14/23 07:39 04/14/23 09:07 Temperature Pulse Rate [Pulse Oximeter] 114 H 114 H Respiratory Rate 14 Blood Pressure [Le ft Radial Artery] 128/90 H Pulse Oximetry Oxygen Delivery Me thod Labs/Imaging Labs Labs: No leukocytosis Imaging Imaging: Abdominal x-ray this morning demonstrates contrast within the small bowel, this is not travel to the colon. Progress Note: A&P Assessment and plan (1) Small bowel obstruction: Problem details: -updated XR today shows gas-filled loops up to 7cm -suspect due to prior hernia surgery, postop adhesions -NG tube d/c 04/12/23 with resultant increased in abdominal distension. -General surgery recommendations 04/13: check abd film - order gastrograffin study -continue IV PPI b.i.d., IVF, encourage ambulation -patient noted to be mildly hypertensive, denies previous history, suspected in setting of acute illness with NG tube. P.r.n. hydralazine for DBP >100, continue to monitor Status: Acute Assessment and Plan: Patient HD#4 for SBO. Gastrografin challenge was performed yesterday, with no evidence of contrast to the colon within 24 hours. Patient is also reporting increased abdominal pain and distention. On review of vitals he does have some tachycardia and hypertension this morning. Labs remained within normal limits. Recommend patient go to the operating room for exploratory laparotomy, possible small-bowel obstruction. Risks and benefits of the procedure were discussed at length with the patient. All questions were addressed with him agreeing to proceed.
[2023-04-14] MEDS: LACTATED RINGERS 1000 ML 1,000 ML 100 ML IV (11:24)
[2023-04-14] MEDS: PIPERACILLIN/TAZOBACTAM 3.375 GM in 0.9 % SODIUM CHLORIDE Mini-bag 100 ML IVPB (12:00)
--- NOTE | 2023-04-14 12:20 | P.IMPN_ITS ---
Progress Note: A&P Assessment and plan (1) Small bowel obstruction: Problem details: -failed gastrografin for therapeutic reasons -to the OR with general surgy -ECG reviewed. RBBB. no cardiac concerns. Status: Acute (2) BPH (benign prostatic hyperplasia): Problem details: -CT shows moderate prostatomegaly. I do not see that he is on an alpha reductase inhibitor. 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 No history of liver disease or portal hypertension. No history of GI bleeding. Status: Acute (5) Mass of pancreas: Problem details: -CT shows hypodense mass tail of the pancreas -discussed with General Surgery, will need outpatient MRI and follow-up Status: Acute Subjective Date Seen: 04/14/23 Interval history: Daily Progress Note - Hospital Medicine Day #: 5 CC: SBO OVERNIGHT UPDATES FROM STAFF & MED, LAB, IMAGING UPDATES pain continues overnight. gastrograffin did not pass thru small bowel. emesis, pain, belching. d/w gen surg - to OR Blood sugars have been over 200 since arrival Mildly hypertensive, otherwise vitals stable. No elevation the white blood cell count. Hemoglobin 13.4. Normal electrolytes. Objective: looks miserable with belching and fatigue. Vitals: see above Lungs: Clear. Cardiac: S1S2. Abdomen: generally distended, tender. Disposition/Potential discharge - Likely to return to previous living situation. Today I spent 50minutes seeing the patient, reviewing Expanse and EPIC notes/diagnostics, discussing the care plan with our care time that includes social work, PT/OT, pharmacy, RT, long term and documenting my impressions and plan in the medical record. Exam Const: Vital Signs, click to edit/add: Vital Signs - 24 hr 04/13/23 15:00 04/13/23 19:00 04/13/23 22:49 Temperature 97.9 F 98.8 F Pulse Rate [Pulse Oximeter] 88 114 H 104 H Respiratory Rate 18 22 22 Blood Pressure [Le ft Radial Artery] 158/89 H 154/105 H Pulse Oximetry 94 94 Oxygen Delivery Me thod Room Air Room Air 04/13/23 22:49 04/13/23 23:30 04/14/23 02:51 Temperature 99 F 98.2 F Pulse Rate [Pulse Oximeter] 104 H 115 H Respiratory Rate 20 20 20 Blood Pressure [Le ft Radial Artery] 161/107 H 176/115 H Pulse Oximetry 95 96 Oxygen Delivery Ut thod Room Air Room Air 04/14/23 06:00 04/14/23 07:39 04/14/23 07:39 Temperature 98.1 F Pulse Rate [Pulse Oximeter] 101 H 114 H Respiratory Rate 20 14 14 Blood Pressure [Le ft Radial Artery] 170/103 H Pulse Oximetry 95 Oxygen Delivery Ut thod Room Air 04/14/23 09:07 04/14/23 11:15 Temperature 98.3 F Pulse Rate [Pulse Oximeter] 114 H 90 Respiratory Rate 16 Blood Pressure [Le ft Radial Artery] 128/90 H 145/87 H Pulse Oximetry 95 Oxygen Delivery Ut thod Room Air Labs Labs: Laboratory Results - last 24 hr 04/14/23 06:05 WBC 7.95 RBC 4.28 L Hgb 13.4 L Hct 39.4 MCV 92 MCH 31 MCHC 34 Plt Count 234 Sodium 135 Potassium 4.3 Chloride 99 Carbon Dioxide 29 Anion Gap 7 BUN 33 H Creatinine 0.8 Estimated Creat Clear 69.03 Estimated GFR 93 Glucose 270 H Calcium 9.3
--- NOTE | 2023-04-14 13:28 | W.PM.NB ---
Nerve Block Nerve Block Time Seen by Provider: 11:50 Date Seen: 04/14/23 Type of block requested by surgeon for post-operative analgesia: TAP Side: bilateral Time out performed: Yes Verification of patient name: Yes Verification of date of : Yes Site marking: site marked Name of person performing procedure: Jose Carlos Continuous monitoring Was continuous monitoring of O2 sat, B/P, color television console monitor, recorded every 15 minutes?: Yes Procedure Checklist: sterile prep, needles and gloves Ultrasound guided. Images saved: Yes Medications given in 5ml increments after negative aspiration: Marcaine %: 0.25 mL: 30 Needle gauge: 20 and Exparel mL: 10 Patient tolerated procedure well: Yes Additional comments: Needle noted adjacent to nerve Block Charges Block Charge (with Pro Fee): TAP Bilateral Use of Ultrasound Machine for Block: Yes- US Guidance/pain block
--- NOTE | 2023-04-14 13:29 | W.ANESCHARGE ---
Anesthesia Charges Start Date/Time Anesthesia Start Date: 04/14/23 Anesthesia Start Time: 11:40 Stop Date/Time Anesthesia Stop Date: 04/14/23 Anesthesia Stop Time: 14:17 Summary Extremes of Age - Over 70 or under 1: MDA
--- NOTE | 2023-04-14 14:10 | P.GSOP_ITS ---
Operative Note Pre-op diagnosis: Small bowel obstruction Post-op diagnosis: Same Type of Procedure: 1. Exploratory laparotomy 2. Resection of small bowel with anastomosis Indications: Patient is a 73-year-old male who has been in the hospital with a small-bowel obstruction. A Gastrografin challenge was performed the following day, with no evidence of contrast going into the colon. Patient also is reporting increased abdominal pain and had some tachycardia on his vital signs. Recommendation was to proceed with operative intervention. Risks and benefits of operative intervention were discussed at length with the patient. Risks included but was not limited to: Bleeding, infection, risk of damage to surrounding structures, possible need for additional procedures and postoperative complications such as pneumonia, pulmonary emboli or ND. All questions and concerns were addressed with the patient agreeing to proceed. Procedure Description: After discussing the risks and benefits of the procedure, the patient signed informed consent.? The operative site was marked and the patient was brought to the operating room and placed on the operating table in supine position.? Care was taken to pad the patient's pressure points.?? The patient was then intubated by anesthesia.?? The operative site was then prepped and draped in the usual sterile fashion.? A time-out was then performed. A lower midline incision was made with a 10 blade scalpel. Subcutaneous tissue was dissected down to the anterior fascia with electrocautery. The anterior fascia was incised with electrocautery superior and inferior. The peritoneum had a large varices on it. This was ligated with 3-0 Vicryl ties. The peritoneal layer was then sharply incised to enter into the abdomen. Palpation revealed no adhesions along the anterior abdominal wall. The peritoneal incision was then extended inferior and superior. A large Salo wound retractor was placed within the abdomen. A large amount of serous fluid was found within the abdomen and suctioned. The overlying small bowel was significantly dilated and erythematous, but did not appear ischemic. The bowel was then eviscerated and evaluated. A dilated segment of bowel was twisted within the mesentery, which was elongated. With gentle traction this was able to, loose and become untwisted. Evaluation of this segment revealed a transition point with a small knuckle of ischemic bowel from where at the small bowel was chronically compressed. There was no evidence of internal hernia wi thin that mesentery, this appeared to be caused due to twisting around omentum and an elongated mesentery causing a kink in the bowel and reduced flow. The distal bowel was then followed to the terminal ileum. As it was run more distally it did become of normal caliber and appeared well perfused. The bowel was then run proximally towards terminal ileum. Proximal the bowel was viable but significantly dilated and erythematous. The chronically compressed segment in the proximal ileum was ischemic in appearance and the decision was made to resect this portion of small bowel and perform a primary anastomosis. A healthy segment of small bowel was identified proximal and distal to this area. A mesenteric defect was created along the edge of the small bowel and an 80 mm handheld staple load used to transect small bowel distally and proximally. A few areas of pinpoint bleeding was controlled with 3-0 Vicryl. The mesentery was then sequentially ligated with 2-0 silk ties. The segment of bowel removed was approximately 20 cm in length and passed off to the back table to be sent to pathology. The anti mesenteric border of each small bowel limb was lined up. A small enterotomy was made on each limb of the bowel about 1 cm away from the previous staple line. An 80 mm handheld staple load was placed within the enterotomies and fired to create a [id number], functional end-to-end anastomosis. As the staple apparatus was removed the staple line was inspected with excellent hemostasis. The common enterotomy was then closed with Lembert suture of 0 silk. A single crotch stit ch was applied to relieve tension on the staple line. The mesenteric defect was closed with 3-0 Vicryl. The anastomosis was palpated, appeared patent and widely open. There was adequate perfusion to the newly made anastomosis from the remaining mesentery. The anastomosis was then gently placed back into the abdomen. The abdomen was irrigated with warm normal saline. The fascial defect was cl osed with 2 looped 0 Maxon sutures. During closure the patient's previously placed umbilical mesh was palpated. This was covered with preperitoneal fat. Once the abdominal fascia incision was closed it was cleansed with a mixture of Betadine and saline. The subcutaneous tissue was then closed with interrupted 3 0 Vicryl and running 4-0 Monocryl stitch. Steri-Strips and sterile dressings were applied. ? The patient was then woken and transported to the recovery area in stable condition. ? The patient tolerated the procedure well. Findings: Portion of ischemic bowel of the proximal ileum secondary to twisting of the bowel within the small bowel mesentery and omentum. A portion of small bowel was resected with creation of primary anastomosis. Anesthesia: GETA Surgeon: Otilia Castro MD Estimated blood loss (mL): 10 Additional Specimen Information: Proximal ileum Condition: stable Disposition: PACU Date of procedure: 04/14/23
--- NOTE | 2023-04-14 14:21 | P.ANES_ITS ---
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
[2023-04-14] MEDS: fentaNYL 100 MCG/2 ML inj 50 MCG IVP ×2 (14:40→14:50)
--- NOTE | 2023-04-14 15:12 | CRLHL7_ITS ---
For Patients: As a result of the Century Cures Act, medical imaging exams and procedure reports are released immediately into your electronic medical record. You may view this report before your referring provider. If you have questions, please contact your health care provider. INDICATION: Tube placement. TECHNIQUE: Chest-abdomen 1 view. COMPARISON: Earlier same day. IMPRESSION: NG tube tip projects over the mid stomach. Right upper quadrant pneumoperitoneum, which may relate to recent surgery. Nonspecific bowel gas pattern. Dictated by Pradeep John MD @ 04/14/2023 4:44:32 PM (Electronically Signed)
--- NOTE | 2023-04-14 15:47 | PM.EN ---
Chart Event Note Chart Event Note: discussed case with general surgery. discussed details of the case. -NG to LIS -XR ordered to confirm placement -PICC line ordered -TPN per nutrition and pharmacy -routine labs ordered
[2023-04-14] MEDS: LACTATED RINGERS 1000 ML 1,000 ML 35 ML IV (16:00)
[2023-04-14] MEDS: KETOROLAC 15 MG/ML inj IVP (17:46)
[2023-04-14] MEDS: ACETAMINOPHEN INJ 1,000 MG/100 ML VIAL 400 MG IVPB (18:54)
--- NOTE | 2023-04-14 19:00 | CRLHL7_ITS ---
For Patients: As a result of the Century Cures Act, medical imaging exams and procedure reports are released immediately into your electronic medical record. You may view this report before your referring provider. If you have questions, please contact your health care provider. INDICATION: PICC placement. TECHNIQUE: Chest 1 views. COMPARISON: None. FINDINGS: Cardiovascular and mediastinum: Heart size and vasculature are normal in caliber and appearance. Right PICC with tip in the superior cavoatrial junction. Subdiaphragmatic enteric tube with tip and proximal port in the stomach. Lungs and pleural spaces: Low lung volumes. No sign of infiltrate or mass. No sign of pleural effusion. No pneumothorax. Bones and soft tissues: No significant findings. IMPRESSION: Right PICC with tip in the superior cavoatrial junction. Subdiaphragmatic enteric tube with tip and proximal port in the stomach. Dictated by Darryl Nuñez MD @ 04/14/2023 8:13:38 PM (Electronically Signed)
--- NOTE | 2023-04-14 19:00 | CRLHL7_ITS ---
For Patients: As a result of the Century Cures Act, medical imaging exams and procedure reports are released immediately into your electronic medical record. You may view this report before your referring provider. If you have questions, please contact your health care provider. Indication: PICC line placed Technique: Grayscale images of the right brachial vein and right internal jugular vein. IMPRESSION: Sonographic guidance for right arm PICC line placement. Dictated by Nicolas Alcantara MD @ 04/17/2023 8:23:28 AM (Electronically Signed)
--- NOTE | 2023-04-14 19:36 | PC.NURSE ---
End of Shift: Patient pleasant and cooperative. Patient vitally stable, lungs clear, BS WNL, IV running LR at 100. Patient has urinated once since surgery 525ml, up to side of bed with urinal. NG has had out 140cc from return of surgery til. NG at 74cm in right nare. 1854. Patient has reported abdominal pain at most 6/10, dilauded given x3, toradol x1, and tylenol x1. Patient reports pain to be tolerable. Patient abdominal incision C/D/I.
[2023-04-14] MEDS: AA 5 %/CALCIUM/LYTES/DEXT 20 % 2,000 ML 40 ML IV (21:12)
[2023-04-14] MEDS: LACTATED RINGERS 1000 ML 1,000 ML 60 ML IV (21:19)
[2023-04-14] MEDS: ENOXAPARIN 40 MG/0.4 ML INJ SUBCUT (21:19)
[2023-04-15] VITALS (8 sets, daily range): BP systolic 134–148; BP diastolic 86–99; PULSE 92–115; RESP 16–22; TEMP 36.7–37; O2SAT 92–94
[2023-04-15] MEDS: KETOROLAC 15 MG/ML inj IVP ×4 (00:08→20:48)
[2023-04-15] MEDS: ACETAMINOPHEN INJ 1,000 MG/100 ML VIAL 400 MG IVPB ×4 (02:29→23:42)
[2023-04-15] MEDS: LACTATED RINGERS 1000 ML 1,000 ML 20 ML IV (04:46)
[2023-04-15] MEDS: AA 5 %/CALCIUM/LYTES/DEXT 20 % 2,000 ML 85 ML IV ×2 (05:06→21:06)
[2023-04-15 05:29] LABS: HCO3 VBG 28 mmol/L (21-28); PCO2 VBG 43 mmHG (40-50); PO2 VBG 46.1 mmHG (25-47); pH VBG 7.414 (7.32-7.43)
[2023-04-15 05:31] LABS: Hematocrit 41.7 % (37.0-53.0); Hemoglobin* 13.9 gm/dL (13.5-17.5); Mean Corpuscular HGB Conc 33 gm/dL (32-36); Mean Corpuscular Hemoglobin 31 pg (26-34); Mean Corpuscular Volume 93 fL (80-100); Platelet Count* 257 K/uL (140-440); Red Blood Count 4.48 m/uL (4.30-5.90); White Blood Count* 7.37 K/uL (4.50-11.00)
[2023-04-15 05:32] LABS: Slide Review Reflex No
[2023-04-15 05:49] LABS: Albumin* 3.4 g/dL (3.3-5.0); Chloride* 100 mmol/L (96-114)
[2023-04-15 05:50] LABS: Potassium* 3.6 mmol/L (3.6-5.1); Sodium* 136 mmol/L (135-149)
[2023-04-15 05:52] LABS: Alkaline Phosphatase* 61 U/L (40-150); Anion Gap 8 mEq/L (7-15); Aspartate Amino Transferase* 25 U/L (12-35); Bilirubin Total* 0.8 mg/dL (0.1-1.5); Blood Urea Nitrogen* 32 mg/dL (7-30); Carbon Dioxide* 28 mmol/L (20-32); Creatinine* 0.9 mg/dL (0.5-1.5); Est. Creatinine Clearance* 69.03; Estimated Glomerular Filt Rate 90 ml/min; Lipase* 41 U/L (23-300); Total Protein* 6.2 g/dL (6.0-8.3)
[2023-04-15 05:53] LABS: Alanine Aminotransferase* 16 U/L (4-50); Calcium* 8.6 mg/dL (8.4-10.6); Magnesium* 2.2 mg/dL (1.5-2.6); Phosphorus* 3.6 mg/dL (2.5-4.5)
[2023-04-15 06:00] LABS: Glucose* 370 mg/dL (60-115)
--- NOTE | 2023-04-15 06:45 | PC.NURSE ---
End of shift nursing note, care provided from [id number]: Pt alert and oriented, pleasant and cooperative. KENAITZE. Vitals stable, BP slightly elevated at times sys 140s and diastolic 80-90s. Pt rates pain 2-4/10 this shift, pt states tolerable. PRN Tylenol IVF admin x1 and PRN Toradol 15mg IV x1. Pt amb in room and rosario this AM, con't to belch which pt states improves abd discomfort/pressure. Dressing to abd CDI. Pt started on TPN and Lipids in evening to patent and verified PICC. Blood glucose elevated, 217 prior to TPN 285 after TPN started and 378 at last check, SSI admin per order, continues on Q4hr BG checks per order. Ice pack applied to abd throughout shift. NG tube in place, con't on LIS, 20ml output total overnight. Pt voiding, using urinal, light marlene. Had some nare irritation and scant bleeding in AM, cares done, pt declined to change gown until after he shaves in AM. LR con't, rate now 20ml/hr per order, TPN at goal rate of 85ml/hr and fat at 14ml/hr. Labs obtained this AM. Pt states he slept better than prior nights, slept in between cares. Call light within pt reach, uses appropriately.
[2023-04-15] MEDS: PANTOPRAZOLE SODIUM 40 MG INJ IVP ×2 (09:08→21:03)
[2023-04-15] MEDS: SODIUM CHLORIDE 0.9 % (FLUSH) 10 ML SYRINGE 5 ML IVF ×2 (09:09→21:02)
[2023-04-15] MEDS: HYDROmorphone 0.5 mg/0.5 ml inj IVP (09:23)
--- NOTE | 2023-04-15 10:20 | PM.GSPN ---
Subjective Subjective Date Seen: 04/15/23 Interval history: Patient is postop day 1 exploratory laparotomy with small-bowel resection. Overall doing okay. He was able to sleep on and off last night. He has already walked the rosario twice. His pain is in his lower abdomen around the incision, this is currently well managed. Dressing in place and abdominal binder in place. He continues with the NG tube. He does report feeling very bloated. When he was walking the halls earlier he burped quite a bit, which helped relieve some of this distension. Exam Narrative: Exam Narrative: General: Alert and oriented, no acute distress Respiratory: Equal breath rise, maintained on nasal cannula while laying in bed and resting CV: Regular rhythm and rate Abdomen: Dressing in place clean/dry/intact. Lower abdominal distension was some tenderness to palpation, mild guarding but no rebound. No bowel sounds. Const: Vital Signs, click to edit/add: Vital Signs - 24 hr 04/14/23 11:15 04/14/23 14:15 04/14/23 14:20 Temperature 98.3 F 97.9 F Pulse Rate 90 90 Pulse Rate [Pulse Oximeter] 90 Respiratory Rate 16 18 18 Blood Pressure 156/93 H 158/98 H Blood Pressure [Le ft Arm] Blood Pressure [Le ft Radial Artery] 145/87 H Pulse Oximetry 95 91 97 Oxygen Delivery Me thod Room Air Room Air Nasal Cannula Oxygen Flow Rate 3 04/14/23 14:25 04/14/23 14:30 04/14/23 14:35 Temperature Pulse Rate 100 86 92 Pulse Rate [Pulse Oximeter] Respiratory Rate 18 18 18 Blood Pressure 157/105 H 162/98 H 162/108 H Blood Pressure [Le ft Arm] Blood Pressure [Le ft Radial Artery] Pulse Oximetry 95 95 96 Oxygen Delivery Me thod Nasal Cannula Nasal Cannula Nasal Cannula Oxygen Flow Rate 3 3 3 04/14/23 14:40 04/14/23 14:45 04/14/23 14:50 Temperature Pulse Rate 93 95 87 Pulse Rate [Pulse Oximeter] Respiratory Rate 18 16 16 Blood Pressure 160/99 H 159/97 H 160/96 H Blood Pressure [Le ft Arm] Blood Pressure [Le ft Radial Artery] Pulse Oximetry 97 96 96 Oxygen Delivery Me thod Nasal Cannula Nasal Cannula Nasal Cannula Oxygen Flow Rate 3 3 3 04/14/23 14:55 04/14/23 15:00 04/14/23 15:00 Temperature 98.6 F Pulse Rate 91 91 Pulse Rate [Pulse Oximeter] 94 Respiratory Rate 16 16 16 Blood Pressure 152/97 H 148/92 H Blood Pressure [Le ft Arm] Blood Pressure [Le ft Radial Artery] Pulse Oximetry 98 98 Oxygen Delivery Me thod Nasal Cannula Nasal Cannula Oxygen Flow Rate 3 3 04/14/23 15:14 04/14/23 15:30 04/14/23 15:45 Temperature 98.3 F 98.2 F 98.2 F Pulse Rate 97 Pulse Rate [Pulse Oximeter] 102 H 100 Respiratory Rate 18 16 16 Blood Pressure Blood Pressure [Le ft Arm] Blood Pressure [Le ft Radial Artery] 169/99 H 148/96 H 148/96 H Pulse Oximetry 95 92 Oxygen Delivery Me thod Room Air Room Air Room Air Oxygen Flow Rate 04/14/23 16:00 04/14/23 16:15 04/14/23 16:45 Temperature 98.7 F 98.3 F 98.7 F Pulse Rate Pulse Rate [Pulse Oximeter] 100 102 H 103 H Respiratory Rate 16 16 16 Blood Pressure Blood Pressure [Le ft Arm] Blood Pressure [Le ft Radial Artery] 161/83 H 153/89 H 160/97 H Pulse Oximetry 92 93 94 Oxygen Delivery Me thod Room Air Room Air Room Air Oxygen Flow Rate 04/14/23 17:15 04/14/23 18:15 04/14/23 19:15 Temperature 98.9 F 98.9 F 98.2 F Pulse Rate Pulse Rate [Pulse Oximeter] 94 95 96 Respiratory Rate 16 16 16 Blood Pressure Blood Pressure [Le ft Arm] 153/95 H Blood Pressure [Le ft Radial Artery] 146/81 H 140/80 H Pulse Oximetry 94 93 95 Oxygen Delivery Me thod Room Air Room Air Room Air Oxygen Flow Rate 04/14/23 20:15 04/14/23 21:15 04/14/23 23:00 Temperature 98.2 F 98.5 F Pulse Rate Pulse Rate [Pulse Oximeter] 84 90 93 Respiratory Rate 16 16 16 Blood Pressure Blood Pressure [Le ft Arm] 141/83 H 145/93 H Blood Pressure [Le ft Radial Artery] Pulse Oximetry 95 94 Oxygen Delivery Me thod Room Air Room Air Oxygen Flow Rate 0 0 04/14/23 23:00 04/14/23 23:30 04/15/23 04:15 Temperature 98.5 F 98.6 F Pulse Rate Pulse Rate [Pulse Oximeter] 90 100 Respiratory Rate 16 16 18 Blood Pressure Blood Pressure [Le ft Arm] 148/94 H Blood Pressure [Le ft Radial Artery] 139/88 Pulse Oximetry 93 Oxygen Delivery Me thod Room Air Oxygen Flow Rate 0 04/15/23 06:00 04/15/23 07:48 04/15/23 07:48 Temperature 98.3 F Pulse Rate Pulse Rate [Pulse Oximeter] 115 H 115 H Respiratory Rate 18 20 20 Blood Pressure Blood Pressure [Le ft Arm] 148/99 H Blood Pressure [Le ft Radial Artery] Pulse Oximetry 92 Oxygen Delivery Me thod Room Air Oxygen Flow Rate Labs/Imaging Labs Labs: No evidence of leukocytosis. Imaging Imaging: No new abdominal imaging today. Progress Note: A&P Assessment and plan (1) Small bowel obstruction: Problem details: -failed gastrografin for therapeutic reasons -to the OR with general surgy -ECG reviewed. RBBB. no cardiac concerns. Status: Acute Assessment and Plan: Patient HD#5 for SBO and postop day 1 exploratory laparotomy with small-bowel resection. NG tube remains in place, but 300 mL is in the canister of dark bilious material. Q shift flushes were ordered to prevent clogging. Would expect more output than that given the amount of distention of the small bowel noted intraoperatively. He did have 950 mL via NG removed during the operation. He was started on TPN yesterday for nutrition. Okay for some ice chips and sips of water for comfort, nursing instructed to subtract from total NG tube amount. -encourage ambulation -IV and p.o. pain meds, patient is currently on IV Tylenol and Toradol for nonnarcotic. Creatinine 0.9 this morning, will continue to monitor and DC Toradol if needed. -NG tube low intermittent suction -NPO, TPN. Okay for ice chips and sips of water for comfort -SCDs and Lovenox for DVT prophylaxis Hospitalist continuing to follow for diabetes management and hypertension, appreciate their assistance.
--- NOTE | 2023-04-15 14:14 | PM.IMPN1 ---
Progress Note: A&P Assessment and plan (1) Small bowel obstruction: Problem details: -failed gastrografin challenge 04/14/2023 for therapeutic reasons -postop day 1. Status post exploratory laparotomy and partial resection of affected region of small bowel -ECG reviewed. RBBB. no cardiac concerns. Status: Acute (2) Mass of pancreas: Problem details: -CT shows hypodense mass tail of the pancreas -discussed with General Surgery, will need outpatient MRI and follow-up Status: Acute (3) Intra-abdominal varices: Problem details: Unknown cause. No history of liver disease or portal hypertension. No history of GI bleeding. Status: Acute (4) Diabetes mellitus: Problem details: -most recent A1c 8.1 -glucose checks q.6 hours -insulin protocol in place -hold Ozempic, glipizide, metformin Status: Acute (5) BPH (benign prostatic hyperplasia): Problem details: -CT shows moderate prostatomegaly. I do not see that he is on an alpha reductase inhibitor. Outpatient follow-up with PCP Status: Acute Plan 1. Reviewed impression with patient 2. Ambulating hallways minima 6 times daily 3. Continue with NG tube at low intermittent suctioning 4. Will increase insulin dosing 5. Will continue to follow with General surgery Time Spent With Patient Total time spent: 40 minutes Subjective Time Seen by Provider: 09:00 Date Seen: 04/15/23 Interval history: Hospital day 6. Postoperative day 1, status post exploratory laparotomy and partial excision of small bowel. Generally improved. Notes some postoperative incisional pain. Earlier had gas pain that improved after belching. Tolerating increased activities in hallways. Exam Narrative: Exam Narrative: Exam patient in his hospital room. Appears comfortable and in no acute distress. Hard of hearing with vision grossly normal. Able to engage in conversation easily. NG tube in place. Lungs clear to auscultation. Heart tones with regular rhythm. Scattered bowel sounds. Abdomen distended. Tolerating increased physical activity. No focal motor neurologic deficits aside. Const: Vital Signs, click to edit/add: Vital Signs - 24 hr 04/14/23 14:15 04/14/23 14:20 04/14/23 14:25 Temperature 97.9 F Pulse Rate 90 90 100 Pulse Rate [Pulse Oximeter] Respiratory Rate 18 18 18 Blood Pressure 156/93 H 158/98 H 157/105 H Blood Pressure [Le ft Arm] Blood Pressure [Le ft Radial Artery] Pulse Oximetry 91 97 95 Oxygen Delivery Me thod Room Air Nasal Cannula Nasal Cannula Oxygen Flow Rate 3 3 04/14/23 14:30 04/14/23 14:35 04/14/23 14:40 Temperature Pulse Rate 86 92 93 Pulse Rate [Pulse Oximeter] Respiratory Rate 18 18 18 Blood Pressure 162/98 H 162/108 H 160/99 H Blood Pressure [Le ft Arm] Blood Pressure [Le ft Radial Artery] Pulse Oximetry 95 96 97 Oxygen Delivery Me thod Nasal Cannula Nasal Cannula Nasal Cannula Oxygen Flow Rate 3 3 3 04/14/23 14:45 04/14/23 14:50 04/14/23 14:55 Temperature Pulse Rate 95 87 91 Pulse Rate [Pulse Oximeter] Respiratory Rate 16 16 16 Blood Pressure 159/97 H 160/96 H 152/97 H Blood Pressure [Le ft Arm] Blood Pressure [Le ft Radial Artery] Pulse Oximetry 96 96 98 Oxygen Delivery Me thod Nasal Cannula Nasal Cannula Nasal Cannula Oxygen Flow Rate 3 3 3 04/14/23 15:00 04/14/23 15:00 04/14/23 15:14 Temperature 98.6 F 98.3 F Pulse Rate 91 97 Pulse Rate [Pulse Oximeter] 94 Respiratory Rate 16 16 18 Blood Pressure 148/92 H Blood Pressure [Le ft Arm] Blood Pressure [Le ft Radial Artery] 169/99 H Pulse Oximetry 98 Oxygen Delivery Me thod Nasal Cannula Room Air Oxygen Flow Rate 3 04/14/23 15:30 04/14/23 15:45 04/14/23 16:00 Temperature 98.2 F 98.2 F 98.7 F Pulse Rate Pulse Rate [Pulse Oximeter] 102 H 100 100 Respiratory Rate 16 16 16 Blood Pressure Blood Pressure [Le ft Arm] Blood Pressure [Le ft Radial Artery] 148/96 H 148/96 H 161/83 H Pulse Oximetry 95 92 92 Oxygen Delivery Me thod Room Air Room Air Room Air Oxygen Flow Rate 04/14/23 16:15 04/14/23 16:45 04/14/23 17:15 Temperature 98.3 F 98.7 F 98.9 F Pulse Rate Pulse Rate [Pulse Oximeter] 102 H 103 H 94 Respiratory Rate 16 16 16 Blood Pressure Blood Pressure [Le ft Arm] Blood Pressure [Le ft Radial Artery] 153/89 H 160/97 H 146/81 H Pulse Oximetry 93 94 94 Oxygen Delivery Me thod Room Air Room Air Room Air Oxygen Flow Rate 04/14/23 18:15 04/14/23 19:15 04/14/23 20:15 Temperature 98.9 F 98.2 F 98.2 F Pulse Rate Pulse Rate [Pulse Oximeter] 95 96 84 Respiratory Rate 16 16 16 Blood Pressure Blood Pressure [Le ft Arm] 153/95 H 141/83 H Blood Pressure [Le ft Radial Artery] 140/80 H Pulse Oximetry 93 95 95 Oxygen Delivery Me thod Room Air Room Air Room Air Oxygen Flow Rate 0 04/14/23 21:15 04/14/23 23:00 04/14/23 23:00 Temperature 98.5 F 98.5 F Pulse Rate Pulse Rate [Pulse Oximeter] 90 93 90 Respiratory Rate 16 16 16 Blood Pressure Blood Pressure [Le ft Arm] 145/93 H Blood Pressure [Le ft Radial Artery] 139/88 Pulse Oximetry 94 93 Oxygen Delivery Me thod Room Air Room Air Oxygen Flow Rate 0 0 04/14/23 23:30 04/15/23 04:15 04/15/23 06:00 Temperature 98.6 F Pulse Rate Pulse Rate [Pulse Oximeter] 100 Respiratory Rate 16 18 18 Blood Pressure Blood Pressure [Le ft Arm] 148/94 H Blood Pressure [Le ft Radial Artery] Pulse Oximetry Oxygen Delivery Me thod Oxygen Flow Rate 04/15/23 07:48 04/15/23 07:48 04/15/23 11:02 Temperature 98.3 F 98.1 F Pulse Rate Pulse Rate [Pulse Oximeter] 115 H 115 H 109 H Respiratory Rate 20 20 20 Blood Pressure Blood Pressure [Le ft Arm] 148/99 H 134/88 Blood Pressure [Le ft Radial Artery] Pulse Oximetry 92 92 Oxygen Delivery Me thod Room Air Room Air Oxygen Flow Rate 0 Labs Labs: Laboratory Results - last 24 hr 04/15/23 05:20 WBC 7.37 RBC 4.48 Hgb 13.9 Hct 41.7 MCV 93 MCH 31 MCHC 33 Plt Count 257 VBG pH 7.414 VBG pCO2 43 VBG pO2 46.1 VBG HCO3 28 Sodium 136 Potassium 3.6 Chloride 100 Carbon Dioxide 28 Anion Gap 8 BUN 32 H Creatinine 0.9 Estimated Creat Clear 69.03 Estimated GFR 90 Glucose 370 H* Calcium 8.6 Phosphorus 3.6 Magnesium 2.2 Total Bilirubin 0.8 AST 25 ALT 16 Alkaline Phosphatase 61 Total Protein 6.2 Albumin 3.4 Lipase 41
--- NOTE | 2023-04-15 19:13 | PC.NURSE ---
End of Shift: Patient pleasant and cooperative. Patient vitally stable, lungs clear, BS WNL, IV running LR at 20 and TPN at 85. Patient has rated a pain at most 4/10, tylenol given twice, toradol given twice and dilauded given once. Patient independent in room besides when needing assistance with NG. Patient has walked the halls several times today. Patient urinating and tolerating water and ice chips. Patient's blood sugars were 369, 445, and 359. Patient had total output of 260cc this shift. Patient abdominal dressing, C/D/I. Abdominal binder applied, and active ice used.
[2023-04-15] MEDS: ENOXAPARIN 40 MG/0.4 ML INJ SUBCUT (21:02)
[2023-04-16] VITALS (8 sets, daily range): BP systolic 134–153; BP diastolic 91–99; PULSE 86–119; RESP 14–22; TEMP 36.6–37.5; O2SAT 93–94
[2023-04-16] MEDS: KETOROLAC 15 MG/ML inj IVP (02:44)
[2023-04-16 06:32] LABS: Chloride* 101 mmol/L (96-114); Potassium* 3.6 mmol/L (3.6-5.1); Sodium* 135 mmol/L (135-149)
[2023-04-16 06:34] LABS: Creatinine* 0.8 mg/dL (0.5-1.5); Est. Creatinine Clearance* 69.03; Estimated Glomerular Filt Rate 93 ml/min
[2023-04-16 06:35] LABS: Anion Gap 3 mEq/L (7-15); Blood Urea Nitrogen* 32 mg/dL (7-30); Calcium* 8.4 mg/dL (8.4-10.6); Carbon Dioxide* 31 mmol/L (20-32); Glucose* 308 mg/dL (60-115)
--- NOTE | 2023-04-16 06:36 | PC.NURSE ---
End of shift nursing note, care provided from [id number]: Pt had more restful night. Vitals stable, on RA, afebrile. Pt con?t on TPN, new bag and tubing. BG 301, 304, and 323, SSI admin per order. Tolerating ice chips and sips, and Q shift 60ml flush of NG, intake and output recorded. Suction canister changed. Pt up and amb in hallway and entire unit x2 during shift, pt request SCDs to be off for sleep promotion. Abd dressing CDI. Pt passing flatus. PRN Toradol and Tylenol admin this shift, pt rating pain tolerable at 0-2/10 this shift, at max dose for Tylenol after last admin. Slept in between cares and at rounding checks. Pt voiding. Pt has call light within reach, uses appropriately.
[2023-04-16] MEDS: PANTOPRAZOLE SODIUM 40 MG INJ IVP ×2 (09:22→20:37)
[2023-04-16] MEDS: SODIUM CHLORIDE 0.9 % (FLUSH) 10 ML SYRINGE 5 ML IVF (09:25)
[2023-04-16] MEDS: ACETAMINOPHEN INJ 1,000 MG/100 ML VIAL 400 MG IVPB (13:00)
--- NOTE | 2023-04-16 13:05 | PM.IMPN1 ---
Progress Note: A&P Assessment and plan (1) Small bowel obstruction: Problem details: -failed gastrografin challenge 04/14/2023 for therapeutic reasons -postop day 2. Status post exploratory laparotomy and partial resection of affected region of small bowel -ECG reviewed. RBBB. no cardiac concerns. 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 No history of liver disease or portal hypertension. No history of GI bleeding. Status: Acute (4) Diabetes mellitus: Problem details: -most recent A1c 8.1 -glucose checks q.4 hours -insulin protocol in place plus increasing doses of detemir insulin while on TPN -hold Ozempic, glipizide, metformin Status: Acute (5) BPH (benign prostatic hyperplasia): Problem details: -CT shows moderate prostatomegaly. I do not see that he is on an alpha reductase inhibitor. Outpatient follow-up with PCP Status: Acute (6) Volume overload: Problem details: Due to postop 3rd spacing. Decrease IV fluids being administered, continue TPN at 85 mL/hour and stop lactated Ringer's at 20 mL/hour. Will give a single 1 time dose of furosemide 20 mg IV. Monitor electrolytes. Status: Acute Plan 1. Continue with TPN. Increase phosphorus in TPN. Continue with monitoring of electrolytes. 2. Surgeon will continue to monitor and guide patient's oral intake and NG tube 3. Increase physical activity to walking in the halls minimum 6 times daily 4. Patient agreeable Time Spent With Patient Total time spent: 40 minute Subjective Time Seen by Provider: 08:00 Date Seen: 04/16/23 Interval history: Hospital day 7. Postoperative day 2, status post exploratory laparotomy and partial excision of small bowel due to small bowel obstruction. Minimally improved from yesterday. Postoperative incisional pain. Now passing flatus and belching. Tolerating increased activities in hallways. Exam Narrative: Exam Narrative: Examined patient in his hospital room and as he walks in the hallway. Appears comfortable and in no acute distress. Vision is grossly normal and hearing is chronically decreased but sufficient to carry on a conversation. Alert, oriented to self, place, time, situation. Articulate and cooperative. Mood and affect are congruent. Lungs are clear to auscultation without wheezing, rhonchi, rales. Heart tones with regular rhythm, normal S1-S2, without murmur, gallop, or rub. Abdomen with active bowel sounds. Trace edema in upper and lower extremities. Independent in transfer, station, and gait. No focal motor neurologic deficits. Weight today is 93 kg. Yesterday's weight was 92.3 kg. Admission weight was 88.3 kg. He has gained a total of 4.7 kg since admission. Const: Vital Signs, click to edit/add: Vital Signs - 24 hr 04/15/23 15:00 04/15/23 15:00 04/15/23 19:45 Temperature 98.5 F 98.0 F Pulse Rate [Pulse Oximeter] 101 H 101 H 97 Respiratory Rate 22 22 16 Blood Pressure [Le ft Arm] 142/93 H 146/93 H Pulse Oximetry 92 93 Oxygen Delivery Me thod Room Air Room Air Oxygen Flow Rate 04/15/23 23:30 04/15/23 23:45 04/15/23 23:45 Temperature 98.5 F Pulse Rate [Pulse Oximeter] 92 92 Respiratory Rate 16 16 16 Blood Pressure [Le ft Arm] 134/86 Pulse Oximetry 94 Oxygen Delivery Me thod Room Air Oxygen Flow Rate 0 04/16/23 04:15 04/16/23 06:00 04/16/23 07:00 Temperature 98.6 F 99 F Pulse Rate [Pulse Oximeter] 86 108 H Respiratory Rate 14 14 20 Blood Pressure [Le ft Arm] 144/93 H 153/99 H Pulse Oximetry 94 93 Oxygen Delivery Me thod Room Air Room Air Oxygen Flow Rate 0 04/16/23 07:00 04/16/23 11:58 Temperature 97.9 F Pulse Rate [Pulse Oximeter] 108 H 119 H Respiratory Rate 20 22 Blood Pressure [Le ft Arm] 134/95 H Pulse Oximetry 94 Oxygen Delivery Me thod Room Air Oxygen Flow Rate Labs Labs: Laboratory Results - last 24 hr 04/16/23 06:10 Sodium 135 Potassium 3.6 Chloride 101 Carbon Dioxide 31 Anion Gap 3 L BUN 32 H Creatinine 0.8 Estimated Creat Clear 69.03 Estimated GFR 93 Glucose 308 H Calcium 8.4 Phosphorus 2.0 L
[2023-04-16] MEDS: FUROSEMIDE 10 MG/ML inj 20 MG IVP (13:55)
--- NOTE | 2023-04-16 15:46 | PM.GSPN ---
Subjective Subjective Date Seen: 04/16/23 Interval history: Patient is doing well today. He was able to walk the hallways several times. He has passed gas ?at least 10 times?. He does still feel very distended. Denies any appetite. He is most bothered by the NG tube, which continues to have a large amount of dark bilious output. Denies any fevers. No other concerns. Exam Narrative: Exam Narrative: General: Alert and oriented, no acute distress. Lying comfortably in bed. Respiratory: Equal breath rise bilaterally, maintained on room air HEENT: NG tube in place dark bilious output CV: Regular rhythm and rate Abdomen: Distended abdomen, tympanic. No bowel sounds. Outer dressing removed incision clean/dry/intact with Steri-Strips in place. Nontender to palpation and soft. Const: Vital Signs, click to edit/add: Vital Signs - 24 hr 04/15/23 19:45 04/15/23 23:30 04/15/23 23:45 Temperature 98.0 F Pulse Rate [Pulse Oximeter] 97 92 Respiratory Rate 16 16 16 Blood Pressure [Le ft Arm] 146/93 H Pulse Oximetry 93 Oxygen Delivery Me thod Room Air Oxygen Flow Rate 04/15/23 23:45 04/16/23 04:15 04/16/23 06:00 Temperature 98.5 F 98.6 F Pulse Rate [Pulse Oximeter] 92 86 Respiratory Rate 16 14 14 Blood Pressure [Le ft Arm] 134/86 144/93 H Pulse Oximetry 94 94 Oxygen Delivery Me thod Room Air Room Air Oxygen Flow Rate 0 04/16/23 07:00 04/16/23 07:00 04/16/23 11:58 Temperature 99 F 97.9 F Pulse Rate [Pulse Oximeter] 108 H 108 H 119 H Respiratory Rate 20 20 22 Blood Pressure [Le ft Arm] 153/99 H 134/95 H Pulse Oximetry 93 94 Oxygen Delivery Me thod Room Air Room Air Oxygen Flow Rate 0 Labs/Imaging Labs Labs: Reviewed, hypophosphatemia. No leukocytosis. Imaging Imaging: No new imaging Progress Note: A&P Assessment and plan (1) Small bowel obstruction: Problem details: -failed gastrografin challenge 04/14/2023 for therapeutic reasons -postop day 2. Status post exploratory laparotomy and partial resection of affected region of small bowel -ECG reviewed. RBBB. no cardiac concerns. -ambulate in hallways a minimum of 6 times daily Status: Acute Assessment and Plan: Patient HD#6 for SBO and postop day 2 exploratory laparotomy with small-bowel resection. NG tube remains in place, continues to have dark bilious output. Patient does report passing gas but abdomen is still distended. Will continue with NG tube to low intermittent suction. Vital signs demonstrate persistent tachycardia, hypertension and Afebrile. Spoke with hospitalist who is managing TPN and fluids. He was given Lasix this afternoon, retention of fluids is likely secondary to the operation would expect diuresis over the next 1-2 days. -encourage ambulation -IV and p.o. pain meds, patient is currently on IV Tylenol and IV narcotic as needed -NG tube low intermittent suction -NPO, TPN -SCDs and Lovenox for DVT prophylaxis Hospitalist continuing to follow for diabetes management and hypertension, appreciate their assistance.
[2023-04-16] MEDS: BENZOCAINE/MENTHOL 1 EACH LOZENGE MUCOUS MEM (18:55)
--- NOTE | 2023-04-16 19:15 | PC.NURSE ---
End of Shift: Patient pleasant and cooperative. Patient vitally stable, lungs clear, BS WNL, abdomen distended, PICC running TPN at 85, IV SL. Patient has rated pain at most 1/10, tylenol given once. Patient has walked the halls multiple times today and urinating. Patient now NPO, may use mouth swabs. Patient has had much more sleep today. NG at 77, intact and draining, dark brown almost black output.
[2023-04-16] MEDS: AA 5 %/CALCIUM/LYTES/DEXT 20 % 2,000 ML 85 ML IV (20:37)
[2023-04-16] MEDS: ENOXAPARIN 40 MG/0.4 ML INJ SUBCUT (20:37)
[2023-04-17] VITALS (8 sets, daily range): BP systolic 133–150; BP diastolic 87–98; PULSE 94–123; RESP 16–24; TEMP 36.8–37.4; O2SAT 92–96
[2023-04-17] MEDS: AA 5 %/CALCIUM/LYTES/DEXT 20 % 2,000 ML 85 ML IV ×2 (01:26→18:24)
[2023-04-17] MEDS: SODIUM CHLORIDE 0.9 % (FLUSH) 10 ML SYRINGE 5 ML IVF ×3 (01:30→21:09)
[2023-04-17] MEDS: BENZOCAINE/MENTHOL 1 EACH LOZENGE MUCOUS MEM ×3 (01:36→19:11)
[2023-04-17] MEDS: ACETAMINOPHEN INJ 1,000 MG/100 ML VIAL 400 MG IVPB ×2 (04:49→11:26)
--- NOTE | 2023-04-17 06:44 | PC.NURSE ---
End of shift nursing summary, care provided from [id number]: Pt alert and oriented, vitals stable, on RA. Pt c/o pain rating as high of 2-3/10, PRN Tylenol IV admin. Pt declined need/offer for PRN Dilaudid. Had x1 walk in hallway during night, helped with abd discomfort by belching. Total NG output 200ml, con't to be dark in color, con't on LIS. Ice pack applied to abd. Steri-strips to abd intact, small old drainage present. PICC and IV patent. Labs drawn in AM. TPN infusing at 85ml/hr. BS 239 and 256, SSI admin per order. Pt up voiding in urinal. Weight 203.4lb this AM, down from 205.0lb yesterday AM. Pt has call light within reach and uses appropriately.
[2023-04-17 07:01] LABS: Albumin* 2.9 g/dL (3.3-5.0); Chloride* 102 mmol/L (96-114); Sodium* 137 mmol/L (135-149)
[2023-04-17 07:02] LABS: Potassium* 3.5 mmol/L (3.6-5.1)
[2023-04-17 07:04] LABS: Alkaline Phosphatase* 49 U/L (40-150); Anion Gap 5 mEq/L (7-15); Aspartate Amino Transferase* 18 U/L (12-35); Bilirubin Total* 0.3 mg/dL (0.1-1.5); Blood Urea Nitrogen* 27 mg/dL (7-30); Carbon Dioxide* 30 mmol/L (20-32); Creatinine* 0.6 mg/dL (0.5-1.5); Est. Creatinine Clearance* 69.03; Estimated Glomerular Filt Rate 101 ml/min; Total Protein* 5.7 g/dL (6.0-8.3)
[2023-04-17 07:05] LABS: Alanine Aminotransferase* 15 U/L (4-50); Calcium* 8.5 mg/dL (8.4-10.6); Glucose* 208 mg/dL (60-115); Phosphorus* 2.5 mg/dL (2.5-4.5)
[2023-04-17] MEDS: HYDROmorphone 0.5 mg/0.5 ml inj IVP (07:13)
[2023-04-17] MEDS: PANTOPRAZOLE SODIUM 40 MG INJ IVP ×2 (09:12→21:08)
--- NOTE | 2023-04-17 11:43 | CRLHL7_ITS ---
For Patients: As a result of the Cures Act, medical imaging exams and procedure reports are released immediately into your electronic medical record. You may view this report before your referring provider. If you have questions, please contact your health care provider. INDICATION: tachycardia TECHNIQUE: Chest 1 view COMPARISON: 04/14/2023 FINDINGS: Left shoulder replacement. Degenerative changes at the right shoulder. Right-sided PICC line. Aortic tortuosity. NG tube. No dense infiltrate. No CHF or effusion. IMPRESSION: No acute findings. Dictated by Nicolas Alcantara MD @ 04/17/2023 3:15:35 PM (Electronically Signed)
--- NOTE | 2023-04-17 12:13 | P.GSPN_ITS ---
Subjective Subjective Date Seen: 04/17/23 Interval history: Patient is having some more abdominal pain this morning, needing narcotic pain medicine x1. Was able to walk the hallways three times. Overall feels more fatigued and did not get good sleep overnight. Still feels bloated. Is passing gas, but doing a lot of belching as well. No appetite. Exam Narrative: Exam Narrative: Gen: Patient lying in bed, non toxic Resp: maintained on RA CV: Tachycadric, sinus rhythm HEENT: dark green output, 200cc since this morning Abd: Moderate distension, tender to palpation RUQ and over incision site. Steri strips in place c/d/i Const: Vital Signs, click to edit/add: Vital Signs - 24 hr 04/16/23 15:38 04/16/23 15:38 04/16/23 19:00 Temperature 99.5 F Pulse Rate [Pulse Oximeter] 113 H 113 H 95 Respiratory Rate 20 20 16 Blood Pressure [Le ft Arm] 134/91 H Pulse Oximetry 93 93 Oxygen Delivery Me thod Room Air Room Air Oxygen Flow Rate 0 04/16/23 23:30 04/17/23 04:15 04/17/23 06:00 Temperature 98.6 F Pulse Rate [Pulse Oximeter] 99 Respiratory Rate 16 16 16 Blood Pressure [Le ft Arm] 144/98 H Pulse Oximetry 94 Oxygen Delivery Me thod Room Air Oxygen Flow Rate 04/17/23 08:33 04/17/23 11:00 Temperature 98.5 F 99.4 F Pulse Rate [Pulse Oximeter] 108 H 123 H Respiratory Rate 20 20 Blood Pressure [Le ft Arm] 150/96 H 138/87 Pulse Oximetry 96 92 Oxygen Delivery Me thod Room Air Room Air Oxygen Flow Rate Labs/Imaging Labs Labs: CBC pending this morning Imaging Imaging: CXR: small amount of air under the liver, expected in post op state. NGT in the stomach. Atelectasis bilateral lower lungs Progress Note: A&P Assessment and plan (1) Small bowel obstruction: Problem details: -failed gastrografin challenge 04/14/2023 for therapeutic reasons -postop day 2. Status post exploratory laparotomy and partial resection of affected region of small bowel -ECG reviewed. RBBB. no cardiac concerns. -ambulate in hallways a minimum of 6 times daily Status: Acute Assessment and Plan: Patient HD#7 for SBO and postop day 3 exploratory laparotomy with small-bowel resection. Abdominal distension and pain worse this morning. NGT continues to put out dark bilious output. Tachycardic, sinus rhythm, adequate pressure with low grade temp this afternoon 99.6. CXR was obtained, final read pending. There is a small amount of pneumoperitoneum within the abdomen, not unexpected in light of recent surgery. NGT in stomach. CBC added on to morning labs and pending. Fever and tachycardia could be secondary to intravascular depletion. Patient did receive a one time dose of lasix yesterday and has increased insensible losses associated with NGT. Differential also includes atelectasis, blood clot, UTI. No evidence of wound infection at this time on exam. I am also concerned about a possible anastomotic leak given clinical picture described above. Abdomen is currently not peritoneal with no emergent indication to proceed to the operating room. Will continue to trend fever curve, CBC and abdominal exam. -encourage ambulation - trend WBC and fever curve -IV and p.o. 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
--- NOTE | 2023-04-17 12:20 | PM.IMPN1 ---
Progress Note: A&P Assessment and plan (1) Small bowel obstruction: Problem details: -failed gastrografin challenge 04/14/2023 for therapeutic reasons -postop day 2. Status post exploratory laparotomy and partial resection of affected region of small bowel -ECG reviewed. RBBB. no cardiac concerns. -ambulate in hallways a minimum of 6 times daily Status: Acute (2) Volume overload: Problem details: Due to postop 3rd spacing. Decrease IV fluids being administered, continue TPN at 85 mL/hour and stop lactated Ringer's at 20 mL/hour. Will give a single 1 time dose of furosemide 20 mg IV. Monitor electrolytes. Status: Acute (3) Mass of pancreas: Problem details: -CT shows hypodense mass tail of the pancreas -discussed with General Surgery, will need outpatient MRI and follow-up Status: Acute (4) Intra-abdominal varices: Problem details: Unknown cause. No history of liver disease or portal hypertension. No history of GI bleeding. Status: Acute (5) BPH (benign prostatic hyperplasia): Problem details: -CT shows moderate prostatomegaly. I do not see that he is on an alpha reductase inhibitor. Outpatient follow-up with PCP Status: Acute (6) Diabetes mellitus: Problem details: -most recent A1c 8.1 -glucose checks q.4 hours -insulin protocol in place plus increasing doses of detemir insulin while on TPN -hold Ozempic, glipizide, metformin Status: Acute Plan 1. Reviewed impression with patient. 2. Discuss situation with patient's general surgeon, Dr. Castro. 3. Continue close monitoring of patient condition with Dr. Castro. 4. Patient agreeable to above stated plans and recommendations. Time Spent With Patient Total time spent: 50 minutes Subjective Date Seen: 04/17/23 Interval history: Hospital day 8. Postoperative day 3, status post exploratory laparotomy and partial excision of small bowel due to small bowel obstruction. Subjectively not improved from yesterday. Persistent postoperative incisional pain and minimal to moderate abdominal distension. Still passing flatus and belching. NG tube in place and attached to suction with dark green output. Tolerating increased activities in hallways, but with persistent sign tachycardia. Was administered 20 mg IV dose of furosemide yesterday evening. Denies orthostasis, chest heaviness, pressure, tightness, or pain, syncope or near syncope, nausea vomiting, cough, dyspnea, palpitations. No fever. Exam Narrative: Exam Narrative: I examine him in his hospital room and also as he walks in the hallway. Appears comfortable and in no acute distress. Vision and hearing are grossly adequate. Alert and oriented to self, place, time, situation. Remains talkative, alert, articulate. Appropriately anxious. T-max yesterday 99.5? F. Most recent temperature today 99.4? F. Lungs actually clear to auscultation. Heart tones with regular rhythm, tachycardia. Abdomen is [id number] distended with active bowel sounds. Subjective discomfort to palpation. Extremities without edema. Independent transfer, station, and gait. No focal motor neurologic deficit. Const: Vital Signs, click to edit/add: Vital Signs - 24 hr 04/16/23 15:38 04/16/23 15:38 04/16/23 19:00 Temperature 99.5 F Pulse Rate [Pulse Oximeter] 113 H 113 H 95 Respiratory Rate 20 20 16 Blood Pressure [Le ft Arm] 134/91 H Pulse Oximetry 93 93 Oxygen Delivery Me thod Room Air Room Air Oxygen Flow Rate 0 04/16/23 23:30 04/17/23 04:15 04/17/23 06:00 Temperature 98.6 F Pulse Rate [Pulse Oximeter] 99 Respiratory Rate 16 16 16 Blood Pressure [Le ft Arm] 144/98 H Pulse Oximetry 94 Oxygen Delivery Me thod Room Air Oxygen Flow Rate 04/17/23 08:33 04/17/23 11:00 Temperature 98.5 F 99.4 F Pulse Rate [Pulse Oximeter] 108 H 123 H Respiratory Rate 20 20 Blood Pressure [Le ft Arm] 150/96 H 138/87 Pulse Oximetry 96 92 Oxygen Delivery Me thod Room Air Room Air Oxygen Flow Rate Labs Labs: Laboratory Results - last 24 hr 04/17/23 04/17/23 04/17/23 10:33 12:02 Unknown Sodium 137 Potassium 3.5 L Chloride 102 Carbon Dioxide 30 Anion Gap 5 L BUN 27 Creatinine 0.6 Estimated Creat Clear 69.03 Estimated GFR 101 Glucose 208 H Calcium 8.5 Phosphorus 2.5 Magnesium 2.0 Total Bilirubin 0.3 AST 18 ALT 15 Alkaline Phosphatase 49 Total Protein 5.7 L Albumin 2.9 L Lab Acknowledgement Test Added Test Added Imaging Chest x-ray: Attestation: I have reviewed the pertinent imaging results. Radiologist's impression: Radiologist report not available yet. My own review of the x-ray suggests mild volume overloaded state, minimal free air under the diaphragm consistent with recent exploratory laparotomy, no pneumothorax, minimal bilateral atelectasis, possible mild left pleural effusion. NG tube in place. Central line in place. ECG Attestation: I personally reviewed and interpreted this ECG as follows: Interpretation: Sinus tachycardia, heart rate 125-128, without ischemic changes or infarction pattern.
[2023-04-17 12:54] LABS: NT Pro B Type NatriureticPept* 264 pg/mL; Troponin I* < 0.01 ng/mL (0.01-0.04)
[2023-04-17] MEDS: 0.9 % SODIUM CHLORIDE 500 ML 500 ML IV ×2 (13:52→15:39)
[2023-04-17 14:20] LABS: Basophils Percent Auto 0.3 % (0.0-3.0); Eosinophils Percent Auto 2.4 % (0.0-7.0); Lymphocytes Percent Auto 13.6 % (20-44); Mean Corpuscular HGB Conc 33 gm/dL (32-36); Mean Corpuscular Hemoglobin 32 pg (26-34); Mean Corpuscular Volume 95 fL (80-100); Monocytes Percent Auto 11.5 % (0.0-11.0); Neutrophils Percent Auto 72.2 % (42.0-72.0); Platelet Count* 186 K/uL (140-440); RDW Coefficient of Variation % 12.4 % (11.5-15.5); Red Blood Count 3.78 m/uL (4.30-5.90); White Blood Count* 3.75 K/uL (4.50-11.00)
[2023-04-17 14:54] LABS: Slide Review Reflex No
--- NOTE | 2023-04-17 16:40 | PC.NURSE ---
Pt alert and oriented to person, place, and time. Pt ambulates independently, requests help to maneuver IV pole. Pt voids independently using urinal, last reported BM on 04/12/2023. Pt has NG tube in place, length verified during shift. NG is connected to intermittent suction, fluid is dark green/black in color. Pt reports passing flatus and burping frequently. Pt reports of pain and discomfort addressed per orders in MAR and with ice pack, improvement verbalized by patient. Pt on NPO diet, can have ice chips per orders, and is tolerating well. Consulted MD regarding increase in resting heart rate during shift, applied interventions per MD orders.
[2023-04-17 17:24] LABS: Lactate* 1.2 mmol/L (0.5-1.9)
[2023-04-17] MEDS: ENOXAPARIN 40 MG/0.4 ML INJ SUBCUT (21:09)
[2023-04-17] MEDS: diphenhydrAMINE 50 MG/ML inj 25 MG IVP (21:09)
--- NOTE | 2023-04-17 21:47 | CRLHL7_ITS ---
For Patients: As a result of the Century Cures Act, medical imaging exams and procedure reports are released immediately into your electronic medical record. You may view this report before your referring provider. If you have questions, please contact your health care provider. INDICATION: abdominal distention post 8 inches of intestine recently removed and current NG TECHNIQUE: CT abdomen and pelvis acquired with 100 cc Isovue 370 IV contrast. Permanently recorded images are archived. COMPARISON: None. FINDINGS: Lower chest: Tiny bilateral pleural effusions with passive atelectasis. Coronary artery calcification. Liver: Unremarkable. Normal in size and attenuation. No suspicious masses. Gallbladder and bile ducts: Unremarkable. No stones or inflammation. No biliary dilatation. Pancreas: Unremarkable. No mass or inflammation. Spleen: Unremarkable. Normal in size. No masses. Adrenal glands: Unremarkable. No nodules. Kidneys, Ureters, and Bladder: Bilateral simple renal cysts, measuring up to 6.4 cm on the right. No suspicious masses, stones, or hydronephrosis. The proximal ureters are unremarkable. Evaluation of the distal ureters and urinary bladder is limited due to streak artifact. GI tract: Enteric tube tip in the stomach. Oral contrast within the colon. Chain suture in the left lower quadrant anteriorly, compatible with prior bowel resection. Multiple dilated loops of small bowel without a discrete transition point. No pneumatosis. The appendix is not visualized. Vasculature: Abdominal aorta is normal in caliber. Mesenteric arteries are patent. Lymph nodes: No lymphadenopathy. Peritoneum/Abdominal Wall: Small volume pneumomediastinum. Small amount of free fluid throughout the abdomen and pelvis. No focal drainable fluid collection. Postsurgical changes of the anterior abdominal wall, to include the periumbilical region. Pelvis: Not well evaluated due to streak artifact Bones: Bilateral total hip prostheses. Right sacroiliac joint ankylosis. Otherwise, unremarkable for age. IMPRESSION: Postsurgical changes of recent partial bowel resection, to include small volume pneumoperitoneum and small volume free fluid throughout the abdomen. Multiple dilated loops of small bowel without discrete transition point, likely representing a postoperative ileus. No pneumatosis or evidence for an intra-abdominal abscess. Please note that all CT scans at this facility use dose modulation, iterative reconstruction, and/or weight-based dosing when appropriate to reduce radiation dose to as low as reasonably achievable. Dictated by Sukhdev Bronson MD @ 04/17/2023 11:36:22 PM (Electronically Signed)
--- NOTE | 2023-04-17 21:51 | W.PM.CROSSCO ---
Subjective Subjective Interval history: patient with abdominal pain and distention; lactate ordered but continues to have pain at this point discussed with patient re ct ap, patient agreeable; Dr Aparicio telehospitalist sign out given for f/u CT AP with notification of surgery as warranted
--- NOTE | 2023-04-17 23:32 | PC.NURSE ---
Elevated BP, tachycardic, otherwise VSS. RA. Pt c/o increase in pain- some relief w/ IV tylenol, aqua K. Abdomen distended, firm, tender upon palpation- abdominal binder on. NG to LIS- 500 cc, black/brown output. Blood sugars elevated. LS coarse. Ice chips- did not take any in on evening shift. 400 cc dark yellow urine out. PICC in right UA- TPN infusing at 85 cc/hr, lipids @ 14 cc/hr. PIV in right AC, SL'd. Incision with steri-strips & moderate dried blood. CT ordered- awaiting results. Will continue to monitor, follow POC, and keep pt and family updated. Jadyn Renner RN
[2023-04-18 03:00] VITALS: BP 150/85; PULSE 103; RESP 16; TEMP 37.1; O2SAT 95
--- NOTE | 2023-04-18 05:25 | PC.NURSE ---
End of Shift Note: Took over patient's care at 0300. When I first arrived took his blood sugar 221 and gave insulin see MAR. NG output at this time was 200. 0515 took patient for a walk and he is now sitting up in his chair. Will continue to monitor.
[2023-04-18 06:36] LABS: Hematocrit 34.7 % (37.0-53.0); Hemoglobin* 11.6 gm/dL (13.5-17.5); Mean Corpuscular HGB Conc 33 gm/dL (32-36); Mean Corpuscular Hemoglobin 32 pg (26-34); Mean Corpuscular Volume 95 fL (80-100); Platelet Count* 218 K/uL (140-440); Red Blood Count 3.66 m/uL (4.30-5.90); White Blood Count* 5.36 K/uL (4.50-11.00)
[2023-04-18 06:43] LABS: Slide Review Reflex No
[2023-04-18 06:53] LABS: Chloride* 102 mmol/L (96-114); Potassium* 3.5 mmol/L (3.6-5.1); Sodium* 137 mmol/L (135-149)
[2023-04-18 06:56] LABS: Anion Gap 5 mEq/L (7-15); Blood Urea Nitrogen* 24 mg/dL (7-30); Calcium* 8.3 mg/dL (8.4-10.6); Carbon Dioxide* 30 mmol/L (20-32); Creatinine* 0.6 mg/dL (0.5-1.5); Est. Creatinine Clearance* 69.03; Estimated Glomerular Filt Rate 101 ml/min; Glucose* 164 mg/dL (60-115); Phosphorus* 2.9 mg/dL (2.5-4.5)
[2023-04-18 07:19] VITALS: BP 149/88; PULSE 102; RESP 24; TEMP 37.4; O2SAT 93
[2023-04-18] MEDS: ACETAMINOPHEN INJ 1,000 MG/100 ML VIAL 400 MG IVPB ×3 (07:45→22:18)
[2023-04-18] MEDS: 0.9 % SODIUM CHLORIDE 250 ml IV (07:45)
[2023-04-18] MEDS: SODIUM CHLORIDE 0.9 % (FLUSH) 10 ML SYRINGE 5 ML IVF (07:46)
[2023-04-18] MEDS: PANTOPRAZOLE SODIUM 40 MG INJ IVP ×2 (08:48→20:22)
--- NOTE | 2023-04-18 09:36 | P.GSPN_ITS ---
Subjective Subjective Date Seen: 04/18/23 Interval history: Patient reports that he ?feels much better this morning?. He has walked the halls several times. He did have a bowel movement this morning, which made him feel much better. Still feels slightly bloated, abdominal pain is there but he describes it as 2/10. Overnight per nursing report he did have increasing abdominal pain and distension. Patient reports that is largest frustration overnight was being unable to sleep. He denies feeling hungry. Continues to pass gas. Denies any nausea or vomiting. Is bothered by the NG tube. No fevers overnight. Exam Narrative: Exam Narrative: General: Alert and oriented, no acute distress. Sitting in bed Respiratory: Equal breath rise bilaterally, maintained on room air CV: Regular rhythm rate HEENT: NG tube right nares, output is bile tinged Abdomen: Mild distention, appropriately tender to palpation with no guarding or rebound. Soft Const: Vital Signs, click to edit/add: Vital Signs - 24 hr 04/17/23 11:00 04/17/23 14:53 04/17/23 15:00 Temperature 99.4 F 98.2 F Pulse Rate [Pulse Oximeter] 123 H 110 H 110 H Respiratory Rate 20 24 20 Blood Pressure [Le ft Arm] 138/87 133/92 H Pulse Oximetry 92 94 Oxygen Delivery Me thod Room Air Room Air Oxygen Flow Rate 04/17/23 19:00 04/17/23 23:00 04/17/23 23:00 Temperature 98.3 F 98.6 F Pulse Rate [Pulse Oximeter] 111 H 99 94 Respiratory Rate 18 18 18 Blood Pressure [Le ft Arm] 145/94 H 148/93 H Pulse Oximetry 93 94 Oxygen Delivery Me thod Room Air Room Air Oxygen Flow Rate 0 04/18/23 03:00 04/18/23 07:19 04/18/23 07:19 Temperature 98.8 F 99.4 F Pulse Rate [Pulse Oximeter] 103 H 102 H 102 H Respiratory Rate 16 24 24 Blood Pressure [Le ft Arm] 150/85 H 149/88 H Pulse Oximetry 95 93 Oxygen Delivery Me thod Room Air Room Air Oxygen Flow Rate Labs/Imaging Labs Labs: No leukocytosis. Lactate 1.2 Imaging Imaging: CT abdomen/pelvis. Small amount fluid in the abdomen and air, consistent with recent surgery. Diffusely dilated small bowel with no transition point consistent with postop ileus. Anastomosis visualized, no large fluid collection or air surrounding it. Progress Note: A&P Assessment and plan (1) Small bowel obstruction: Status: Acute Assessment and Plan: Patient HD#8 for SBO and postop day 4 exploratory laparotomy with small-bowel resection. Vital signs are stable, mild tachycardia but improved compared to yesterday. Pressures remain elevated (140-150). Afebrile, no leukocytosis. Patient did have a bowel movement this morning and abdominal exam is improved. Will continue with NG tube to low intermittent suction at this time. On CT imaging there was evidence of postoperative ileus and diffusely dilated small bowel. He also continues to have large output from his NG tube with a bile tinged color. Possible clamping trial tomorrow. -encourage ambulation - trend WBC and fever curve -IV and p.o. pain meds, patient is currently on IV Tylenol and IV narcotic as needed -NG tube low intermittent suction -NPO, TPN -SCDs and Lovenox for DVT prophylaxis Please call digital solutions architect surgeon with any acute clinical changes or concerns.
[2023-04-18 11:41] VITALS: BP 148/92; PULSE 103; RESP 18; TEMP 36.7; O2SAT 95
--- NOTE | 2023-04-18 13:16 | PM.IMPN1 ---
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 No history of liver disease or portal hypertension. No history of GI bleeding. Status: Acute (4) Diabetes mellitus: Problem details: -most recent A1c 8.1 -glucose checks q.4 hours -insulin protocol in place plus increasing doses of detemir insulin while on TPN -hold Ozempic, glipizide, metformin Status: Acute (5) Mass of pancreas: Problem details: -CT shows hypodense mass tail of the pancreas -discussed with General Surgery, will need outpatient MRI and follow-up Status: Acute (6) BPH (benign prostatic hyperplasia): Problem details: -CT shows moderate prostatomegaly. I do not see that he is on an alpha reductase inhibitor. Outpatient follow-up with PCP Status: Acute (7) Protein-calorie malnutrition, moderate: Problem details: on TPN Status: Acute (8) Fluid imbalance: Problem details: 3rd spacing due to small-bowel obstruction, surgery, and postoperative paralytic ileus Status: Acute Plan 1. Continue TPN. 2. Decrease dose of detemir insulin. 3. Continue with mobilization efforts. 4. Per general surgery, continue with NG tube for now. 5. Will increase IV fluids. 6. Patient agreeable Time Spent With Patient Total time spent: 35 minutes Subjective Time Seen by Provider: 09:00 Date Seen: 04/18/23 Interval history: Hospital day 9. Postoperative day 4. Had increasing abdominal distension yesterday evening with accompanying pain. CT scan of abdomen and pelvis demonstrated diffusely dilated loops of small bowel without any transition point, consistent with postop ileus. Today continues to have belching and flatus. Past small bowel movement earlier today for the 1st time. Still has NG tube in place. Actually feels a little better today. Continues to tolerate walking in the halls. Anxious to have NG tube removed. No other complaints. Exam Narrative: Exam Narrative: Examining patient room and hallway. Appears comfortable and in no acute distress. Appropriately anxious about his clinical situation stating he would like to get better. NG tube in place. Vision and hearing are grossly adequate. Alert and oriented to self, place, time, situation. Lungs clear to auscultation. Heart tones with regular rhythm, rate 100. Active bowel sounds. Less distended. Independent transfer, station, and gait. Intake and output yesterday were 5700/2000 Weight today 92.8 kg, yesterday 92.7 kg, admission weight 89.9 kg. Const: Vital Signs, click to edit/add: Vital Signs - 24 hr 04/17/23 14:53 04/17/23 15:00 04/17/23 19:00 Temperature 98.2 F 98.3 F Pulse Rate [Pulse Oximeter] 110 H 110 H 111 H Respiratory Rate 24 20 18 Blood Pressure [Le ft Arm] 133/92 H 145/94 H Pulse Oximetry 94 93 Oxygen Delivery Me thod Room Air Room Air Oxygen Flow Rate 04/17/23 23:00 04/17/23 23:00 04/18/23 03:00 Temperature 98.6 F 98.8 F Pulse Rate [Pulse Oximeter] 99 94 103 H Respiratory Rate 18 18 16 Blood Pressure [Le ft Arm] 148/93 H 150/85 H Pulse Oximetry 94 95 Oxygen Delivery Me thod Room Air Room Air Oxygen Flow Rate 0 04/18/23 07:19 04/18/23 07:19 04/18/23 11:41 Temperature 99.4 F 98.1 F Pulse Rate [Pulse Oximeter] 102 H 102 H 103 H Respiratory Rate 24 24 18 Blood Pressure [Le ft Arm] 149/88 H 148/92 H Pulse Oximetry 93 95 Oxygen Delivery Me thod Room Air Room Air Oxygen Flow Rate 0 Documenting provider has reviewed patient's vital signs: yes Labs Labs: Laboratory Results - last 24 hr 04/17/23 04/17/23 04/18/23 17:20 Unknown Unknown WBC 3.75 L 5.36 RBC 3.78 L 3.66 L Hgb 12.0 L 11.6 L Hct 36.0 L 34.7 L MCV 95 95 MCH 32 32 MCHC 33 33 RDW Coeff of [place] 12.4 Plt Count 186 218 Neut % (Auto) 72.2 H Lymph % (Auto) 13.6 L [place] % (Auto) 11.5 H Eos % (Auto) 2.4 Baso % (Auto) 0.3 Neut # (Auto) 2.70 Lymph # (Auto) 0.50 L [place] # (Auto) 0.40 Eos # (Auto) 0.10 Baso # (Auto) 0.00 Abs Immat Gran (auto) 0.00 Imm/Tot Granulo (auto) 0.0 Sodium 137 Potassium 3.5 L Chloride 102 Carbon Dioxide 30 Anion Gap 5 L BUN 24 Creatinine 0.6 Estimated Creat Clear 69.03 Estimated GFR 101 Glucose 164 H Lactate 1.2 Calcium 8.3 L Phosphorus 2.[address] scan - abdomen: Attestation: I have reviewed the pertinent imaging results. Radiologist's impression: IMPRESSION: Postsurgical changes of recent partial bowel resection, to include small volume pneumoperitoneum and small volume free fluid throughout the abdomen. Multiple dilated loops of small bowel without discrete transition point, likely representing a postoperative ileus. No pneumatosis or evidence for an intra-abdominal abscess.
--- NOTE | 2023-04-18 14:02 | PC.NURSE ---
INSECTICIDE SPRAYER ATTEMPTED 20G IV START TO LEFT INNER FOREARM THOUGH WAS UNSUCCESSFUL UPON FIRST ATTEMPT. SCRAP HANDLER THEN ATTEMPTED 18G IV START AND WAS SUCCESSFUL WITH STARTING IV TO LEFT INNER FOREARM. IV TO L INNER FOREARM FLUSHED WITHOUT DIFFICULTY. INSECTICIDE SPRAYER ALSO REMOVED NONFUNCTIONAL 20G IV FROM R INNER FOREARM- CATHETER NOTED TO BE INTACT. PRESSURE HELD ON SITE BEFORE COVERING WITH 2X2 GAUZE AND BAND-AID.
[2023-04-18] MEDS: 0.9 % SODIUM CHLORIDE 1000 ml 1,000 ML 75 ML IV (14:16)
[2023-04-18] MEDS: 0.9 % SODIUM CHLORIDE 500 ML 500 ML IV (14:17)
[2023-04-18] MEDS: POTASSIUM CHLORIDE 10 MEQ/100 ML PIGGYBACK 100 MEQ IVPB ×4 (15:29→18:53)
--- NOTE | 2023-04-18 15:36 | PC.NURSE ---
End of Shift: Patient pleasant and cooperative. Patient vitally stable, lungs course, BS WNL, IV running TPN at 85 and NS at 75 with an NS bolus currently running. Patient rates pain 1/10, tylenol given once. Patient has walked the halls and showered today. NG at 74, draining light green/brown output per in tubing. Patient has 1 large/mod formed BM. Patient had 1 purple popsicle this shift. Abdominal incision C/D/I.
[2023-04-18 15:40] VITALS: BP 157/96; PULSE 92; RESP 18; TEMP 37.1; O2SAT 94
[2023-04-18] MEDS: AA 5 %/CALCIUM/LYTES/DEXT 20 % 2,000 ML 85 ML IV (18:49)
[2023-04-18 19:00] VITALS: BP 139/98; PULSE 96; RESP 18; TEMP 36.6; O2SAT 97
[2023-04-18] MEDS: ENOXAPARIN 40 MG/0.4 ML INJ SUBCUT (20:22)
[2023-04-18 23:00] VITALS: BP 147/90; PULSE 92; RESP 18; TEMP 37.2; O2SAT 96
--- NOTE | 2023-04-18 23:33 | PC.NURSE ---
Shift [id number]- Patient is up with SBA/independent and is proactive about walking hallways. He is somewhat distended in abdomen- bowel sounds active, ab binder in place. Incision to abdomen with steri strips and open to air. He states eating popsicle earlier made him feel hungry. He does not complain of nausea. Requests tylenol for pain management.
--- NOTE | 2023-04-18 23:43 | PC.NURSE ---
Patient has 175mLs output from NG tube from [id number].
[2023-04-19] MEDS: MELATONIN 3 MG TABLET PO (00:20)
[2023-04-19] MEDS: LORazepam 2 MG/ML inj 0.5 MG IVP (01:39)
[2023-04-19 04:00] VITALS: BP 157/90; PULSE 98; RESP 18; TEMP 37.2; O2SAT 95
[2023-04-19] MEDS: ACETAMINOPHEN INJ 1,000 MG/100 ML VIAL 400 MG IVPB ×3 (04:02→18:35)
--- NOTE | 2023-04-19 06:41 | PC.NURSE ---
SHIFT NOTE 23-: Pt pleasant and cooperative, reported minimal pain 1-2/10. PRN IV Tylenol administered with pt reporting adequate relief. Up SBA, took one walk around the unit this AM. Blood sugars 173 and 173, SS insulin given per eMAR. Pt denies N/V, SOB, and CP. NG patent hooked to LIS at 74 in the right nare, 450ml greenish colored ouput from NG overnight.
[2023-04-19 07:13] LABS: Chloride* 103 mmol/L (96-114); Potassium* 3.9 mmol/L (3.6-5.1); Sodium* 135 mmol/L (135-149)
[2023-04-19 07:16] LABS: Anion Gap 3 mEq/L (7-15); Blood Urea Nitrogen* 20 mg/dL (7-30); Carbon Dioxide* 29 mmol/L (20-32); Creatinine* 0.6 mg/dL (0.5-1.5); Est. Creatinine Clearance* 69.03; Estimated Glomerular Filt Rate 101 ml/min
[2023-04-19 07:17] LABS: Calcium* 8.2 mg/dL (8.4-10.6); Glucose* 159 mg/dL (60-115); Phosphorus* 3.2 mg/dL (2.5-4.5)
[2023-04-19 07:45] VITALS: BP 146/94; PULSE 99; RESP 18; TEMP 36.6; O2SAT 96
--- NOTE | 2023-04-19 08:15 | CRLHL7_ITS ---
For Patients: As a result of the Cures Act, medical imaging exams and procedure reports are released immediately into your electronic medical record. You may view this report before your referring provider. If you have questions, please contact your health care provider. Indication: checking dilation of bowel Technique: Abdomen 1 view. Comparison: CT 04/17/2023 Findings: Postop changes of partial small-bowel resection. Residual contrast within the colon. Gaseous distention of small bowel loops in the mid abdomen are similar to the prior CT. No free air. NG tube in the stomach. Impression: Postoperative adynamic ileus remains similar. Dictated by Nicolas Alcantara MD @ 04/19/2023 9:50:16 AM (Electronically Signed)
[2023-04-19] MEDS: SODIUM CHLORIDE 0.9 % (FLUSH) 10 ML SYRINGE 5 ML IVF ×2 (09:13→21:07)
[2023-04-19] MEDS: PANTOPRAZOLE SODIUM 40 MG INJ IVP ×2 (09:14→21:07)
--- NOTE | 2023-04-19 10:01 | PM.GSPN ---
Subjective Subjective Date Seen: 04/19/23 Interval history: Patient was able to sleep well last night. Feels good this morning, is getting tired of being in the hospital. Continues to pass gas and walk the halls. Exam Narrative: Exam Narrative: Gen: alert and oriented, sitting in chair Abd: mild distension some tenderness with palpation, no guarding or rebound. Exam stable compared to yesterday. Steri strips in place c/d/i. Const: Vital Signs, click to edit/add: Vital Signs - 24 hr 04/18/23 11:41 04/18/23 15:40 04/18/23 19:00 Temperature 98.1 F 98.7 F 97.9 F Pulse Rate [Pulse Oximeter] 103 H 92 96 Respiratory Rate 18 18 18 Blood Pressure [Le ft Arm] 148/92 H 157/96 H 139/98 H Pulse Oximetry 95 94 97 Oxygen Delivery Me thod Room Air Room Air Room Air Oxygen Flow Rate 0 04/18/23 23:00 04/19/23 04:00 04/19/23 07:45 Temperature 98.9 F 99 F Pulse Rate [Pulse Oximeter] 92 98 99 Respiratory Rate 18 18 18 Blood Pressure [Le ft Arm] 147/90 H 157/90 H Pulse Oximetry 96 95 Oxygen Delivery Me thod Room Air Room Air Oxygen Flow Rate 0 0 04/19/23 07:45 Temperature 97.8 F Pulse Rate [Pulse Oximeter] 99 Respiratory Rate 18 Blood Pressure [Le ft Arm] 146/94 H Pulse Oximetry 96 Oxygen Delivery Me thod Room Air Oxygen Flow Rate 0 Labs/Imaging Imaging Imaging: AXR: contrast within colon. Small bowel remains dilated, but no air fluid levels, no evidence of transition point and does appear improved compared to CT scan. Some air within rectum. Progress Note: A&P Assessment and plan (1) Small bowel obstruction: Problem details: s/p expl lap and partial sm bowel resection 04/14/2023 Status: Acute Assessment and Plan: Patient HD#9 for SBO and postop day 5 exploratory laparotomy with small-bowel resection. VSS. Did have one bowel movement yesterday morning and continues to pass gas. High NGT outputs overnight (450), with 150 already on morning shift. Bile tinged fluid. AXR does show continued diffuse dilation and contrast within colon consistent with adynamic process/post op ileus. Will continue with NGT to LIS and TPN. -encourage ambulation -IV and p.o. pain meds, patient is currently on IV Tylenol and IV narcotic as needed -NG tube low intermittent suction -NPO, TPN -SCDs and Lovenox for DVT prophylaxis Please call mechatronics technologist surgeon with any acute clinical changes or concerns.
[2023-04-19 10:19] VITALS: BMI 29.1
[2023-04-19 11:10] VITALS: BP 146/90; PULSE 98; RESP 18; TEMP 36.8; O2SAT 96
--- NOTE | 2023-04-19 12:11 | PM.IMPN1 ---
Progress Note: A&P Assessment and plan (1) Small bowel obstruction: Problem details: s/p expl lap and partial sm bowel resection 04/14/2023 Status: Acute (2) Postoperative paralytic ileus: Problem details: Continue with NG tube for now per general surgery Status: Acute (3) Protein-calorie malnutrition, moderate: Problem details: on TPN, continue Status: Acute (4) Fluid imbalance: Problem details: 3rd spacing due to small-bowel obstruction, surgery, and postoperative paralytic ileus Status: Acute (5) Mass of pancreas: Problem details: -CT shows hypodense mass tail of the pancreas -discussed with General Surgery, will need outpatient MRI and follow-up Status: Acute (6) Intra-abdominal varices: Problem details: Unknown cause. No history of liver disease or portal hypertension. No history of GI bleeding. Status: Acute (7) BPH (benign prostatic hyperplasia): Problem details: -CT shows moderate prostatomegaly. I do not see that he is on an alpha reductase inhibitor. Outpatient follow-up with PCP Status: Acute (8) Diabetes mellitus: Problem details: -most recent A1c 8.1 -glucose checks q.4 hours -insulin protocol in place plus increasing doses of detemir insulin while on TPN -hold Ozempic, glipizide, metformin Status: Acute Plan 1. Reviewed above with patient. 2. Answered his questions. 3. Continue with current plan. 4. Continue with insulin dosing adjustments as warranted Time Spent With Patient Total time spent: 30 minutes Subjective Time Seen by Provider: 09:00 Date Seen: 04/19/23 Interval history: Hospital day 10. Postoperative day 5, status post exploratory laparotomy and resection of portion of small bowel. Still has postoperative ileus with NG tube in. Still passing flatus and belching. Had 1 episode of bowel movement yesterday, none since. NG tube output 700 mL yesterday. Appropriately anxious to have NG tube removed. Tolerating ambulating in hospital hallways. Exam Narrative: Exam Narrative: Examined patient in his hospital room and as he walks in the hallways. Appears comfortable and in no acute distress. NG tube still in place. NG tube output yesterday was 700 mL. Intake and output yesterday was 3000/2100. T-max yesterday 99.4? F. His temperature this morning still 99? F. Weight today 94.8 kg. Yesterday's weight was 92.8 kg. Admission weight was 88.3 kg. Alert and oriented to self, place, time, situation. Friendly, articulate, cooperative. Mood and affect are congruent. Lungs are clear to auscultation. Heart tones with regular rhythm, normal S1-S2. Abdomen with active bowel sounds, mildly distended, no rebound or guarding. Extremities without edema. Independent transfer, station, and gait. Skin is warm, dry, intact. I do not examine the surgical site. Const: Vital Signs, click to edit/add: Vital Signs - 24 hr 04/18/23 15:40 04/18/23 19:00 04/18/23 23:00 Temperature 98.7 F 97.9 F 98.9 F Pulse Rate [Pulse Oximeter] 92 96 92 Respiratory Rate 18 18 18 Blood Pressure [Le ft Arm] 157/96 H 139/98 H 147/90 H Pulse Oximetry 94 97 96 Oxygen Delivery Me thod Room Air Room Air Room Air Oxygen Flow Rate 0 04/19/23 04:00 04/19/23 07:45 04/19/23 07:45 Temperature 99 F 97.8 F Pulse Rate [Pulse Oximeter] 98 99 99 Respiratory Rate 18 18 18 Blood Pressure [Le ft Arm] 157/90 H 146/94 H Pulse Oximetry 95 96 Oxygen Delivery Me thod Room Air Room Air Oxygen Flow Rate 0 0 Documenting provider has reviewed patient's vital signs: yes Labs Labs: Laboratory Results - last 24 hr 04/19/23 06:20 Sodium 135 Potassium 3.9 Chloride 103 Carbon Dioxide 29 Anion Gap 3 L BUN 20 Creatinine 0.6 Estimated Creat Clear 69.03 Estimated GFR 101 Glucose 159 H Calcium 8.2 L Phosphorus 3.2 Imaging Abdominal x-ray: Attestation: I have reviewed the pertinent imaging results. Radiologist's impression: Comparison: CT 04/17/2023 Findings: Postop changes of partial small-bowel resection. Residual contrast within the colon. Gaseous distention of small bowel loops in the mid abdomen are similar to the prior CT. No free air. NG tube in the stomach. Impression: Postoperative adynamic ileus remains similar.
--- NOTE | 2023-04-19 15:37 | PC.NURSE ---
End of shift nursing note, care provided from [id number]: Pt alert and oriented, pleasant and cooperative. Vitals stable, on RA. Pain 1-2/10, PRN Tylenol admin. Pt con't on TPN at 85ml/hr. Blood glucose 166 and 217, SSI admin. Had small formed BM this AM. 600ml output total today per NG tube, lotteries agent in color, lotteries agent brown. Abd XR done this AM, reviewed. Order for NG tube to be clamped at 1400 for clamping trial, pt updated and educated on being mindful to go slow and minimal with ice chips to avoid distention. Pt con't to amb on unit, voiding. Pt has call light within reach, able to use approprately.
[2023-04-19 15:45] VITALS: BP 148/80; PULSE 96; RESP 18; TEMP 36.9; O2SAT 95
[2023-04-19] MEDS: AA 5 %/CALCIUM/LYTES/DEXT 20 % 1,000 ML 85 ML IV (17:43)
[2023-04-19 19:03] VITALS: BP 144/90; PULSE 99; RESP 18; TEMP 36.6; O2SAT 95
[2023-04-19] MEDS: ENOXAPARIN 40 MG/0.4 ML INJ SUBCUT (21:07)
[2023-04-19 23:00] VITALS: BP 155/102; PULSE 100; RESP 18; TEMP 37; O2SAT 96
--- NOTE | 2023-04-19 23:20 | PC.NURSE ---
Shift [id number]- Patient states pain is not particularly increased throughout shift, also denies nausea. NG remains clamped. Small BM this evening. He is up and walking in the hallways. Tolerating ice chips without issue.
[2023-04-20] MEDS: diphenhydrAMINE 50 MG/ML inj 25 MG IVP (00:13)
[2023-04-20] MEDS: MELATONIN 3 MG TABLET PO ×2 (00:13→19:58)
[2023-04-20] MEDS: HYDRALAZINE HCL 20 MG/ML inj 5 MG IVP (00:13)
[2023-04-20 03:00] VITALS: BP 146/94; PULSE 100; RESP 22; TEMP 37.1; O2SAT 94
[2023-04-20] MEDS: AA 5 %/CALCIUM/LYTES/DEXT 20 % 1,000 ML 85 ML IV (05:19)
[2023-04-20] MEDS: ACETAMINOPHEN INJ 1,000 MG/100 ML VIAL 400 MG IVPB ×2 (05:43→12:33)
[2023-04-20 06:53] LABS: Basophils Absolute Auto 0.01 K/uL (0.00-0.30); Basophils Percent Auto 0.1 % (0.0-3.0); Eosinophils Absolute Auto 0.22 K/uL (0.00-0.50); Eosinophils Percent Auto 2.8 % (0.0-7.0); Hematocrit 33.7 % (37.0-53.0); Hemoglobin* 11.2 gm/dL (13.5-17.5); Immature Granulocytes Abs Auto 0.08 K/uL (0.00-0.30); Lymphocytes Percent Auto 9.9 % (20-44); Mean Corpuscular HGB Conc 33 gm/dL (32-36); Mean Corpuscular Hemoglobin 31 pg (26-34); Mean Corpuscular Volume 94 fL (80-100); Monocytes Percent Auto 12.1 % (0.0-11.0); Neutrophils Percent Auto 74.1 % (42.0-72.0); Platelet Count* 258 K/uL (140-440); RDW Coefficient of Variation % 12.4 % (11.5-15.5); Red Blood Count 3.57 m/uL (4.30-5.90)
--- NOTE | 2023-04-20 06:54 | PC.NURSE ---
End of shift report [id number]: Alert and oriented x 4. Pain to medial abdomen reported at 1/10 throughout the shift, pain managed with positioning, heat and PRN tylenol. Patient reporting pain is managed at an acceptable rate. Up ad dia in room, patient will utilize call light appropriately for assistance with managing IV pole. Incision to abdomen clean, dry and open to air. Abdomen is firm, slight tenderness with palpation. Denies passing flatus but patient did have a bowel movement on evening shift. Ambulated hallway with assist of KALEY. NG continued to be clamped throughout the night, denies any nausea or vomiting. Tolerating ice chips and one popsicle.
[2023-04-20 07:02] LABS: Slide Review Reflex No
[2023-04-20 07:32] LABS: Albumin* 2.7 g/dL (3.3-5.0)
[2023-04-20 07:33] LABS: Chloride* 100 mmol/L (96-114); Potassium* 3.9 mmol/L (3.6-5.1); Sodium* 134 mmol/L (135-149)
[2023-04-20 07:35] LABS: Alkaline Phosphatase* 59 U/L (40-150); Anion Gap 10 mEq/L (7-15); Aspartate Amino Transferase* 17 U/L (12-35); Bilirubin Total* 0.3 mg/dL (0.1-1.5); Blood Urea Nitrogen* 17 mg/dL (7-30); Carbon Dioxide* 24 mmol/L (20-32); Creatinine* 0.6 mg/dL (0.5-1.5); Est. Creatinine Clearance* 69.03; Estimated Glomerular Filt Rate 101 ml/min; Total Protein* 5.6 g/dL (6.0-8.3)
[2023-04-20 07:36] LABS: Alanine Aminotransferase* 17 U/L (4-50); Calcium* 8.3 mg/dL (8.4-10.6); Glucose* 192 mg/dL (60-115); Phosphorus* 3.3 mg/dL (2.5-4.5); Triglycerides* 155 mg/dL (40-149)
[2023-04-20 07:50] LABS: INR 1.04 (0.91-1.10); Prothrombin Time 14.2 Seconds
[2023-04-20 08:00] VITALS: BP 145/92; PULSE 100; RESP 18; RESP 20; TEMP 36.6; O2SAT 96
[2023-04-20] MEDS: PANTOPRAZOLE SODIUM 40 MG INJ IVP ×2 (09:06→19:59)
[2023-04-20] MEDS: SODIUM CHLORIDE 0.9 % (FLUSH) 10 ML SYRINGE 5 ML IVF ×2 (09:07→19:59)
--- NOTE | 2023-04-20 09:42 | PM.GSPN ---
Subjective Subjective Date Seen: 04/20/23 Interval history: Patient is doing great this morning. NGT was clamped overnight with no nausea or abdominal distension. Had some gas pain around 430 am, this improved with passing gas. He had a bowel movement overnight and a large one this morning. Is feeling hungry. Continues to walk the halls. Family is in room and supportive. Exam Narrative: Exam Narrative: Gen: alert and oriented, NAD Abd: soft, non tender to palpation with no guarding or rebound. distension improved compared to yesterday. Const: Vital Signs, click to edit/add: Vital Signs - 24 hr 04/19/23 11:10 04/19/23 15:45 04/19/23 19:03 Temperature 98.2 F 98.4 F 98 F Pulse Rate [Pulse Oximeter] 98 96 99 Respiratory Rate 18 18 18 Blood Pressure [Le ft Arm] 146/90 H 148/80 H 144/90 H Pulse Oximetry 96 95 95 Oxygen Delivery Me thod Room Air Room Air Room Air Oxygen Flow Rate 0 04/19/23 23:00 04/20/23 03:00 Temperature 98.6 F 98.7 F Pulse Rate [Pulse Oximeter] 100 100 Respiratory Rate 18 22 Blood Pressure [Le ft Arm] 155/102 H 146/94 H Pulse Oximetry 96 94 Oxygen Delivery Me thod Room Air Room Air Oxygen Flow Rate Labs/Imaging Labs Labs: No leukocytosis Imaging Imaging: No new imaging. Progress Note: A&P Assessment and plan (1) Small bowel obstruction: Problem details: s/p expl lap and partial sm bowel resection 04/14/2023 Status: Acute Assessment and Plan: Patient HD#10 for SBO and postop day 6 exploratory laparotomy with small-bowel resection. VSS. Clamping trial overnight with patient tolerating well. BM overnight and this morning, continues to pass gas. NGT removed at bedside this morning. -encourage ambulation -IV and p.o. pain meds, patient is currently on IV Tylenol and IV narcotic as needed - clear liquid diabetic diet, ADAT - hospitalist to taper off TPN -SCDs and Lovenox for DVT prophylaxis Anticipate discharge in next 1-2 days.
[2023-04-20] MEDS: AA 5 %/CALCIUM/LYTES/DEXT 20 % 1,000 ML 40 ML IV (10:30)
[2023-04-20 12:00] VITALS: BP 138/89; PULSE 97; RESP 16; TEMP 36.6; O2SAT 97
--- NOTE | 2023-04-20 14:02 | PM.IMPN1 ---
Progress Note: A&P Assessment and plan (1) Small bowel obstruction: Problem details: s/p expl lap and partial sm bowel resection 04/14/2023 Status: Acute Assessment and Plan: Improving. NG tube removed today. (2) Protein-calorie malnutrition, moderate: Problem details: on TPN. Will decrease the dose to 40 mL/hour and stop TPN when this bag runs out. Status: Acute (3) Postoperative paralytic ileus: Problem details: NG tube removed 04/20/2023. Status: Acute (4) Mass of pancreas: Problem details: -CT shows hypodense mass tail of the pancreas -discussed with General Surgery, will need outpatient MRI and follow-up Status: Acute (5) Intra-abdominal varices: Problem details: Unknown cause. No history of liver disease or portal hypertension. No history of GI bleeding. Status: Acute (6) BPH (benign prostatic hyperplasia): Problem details: -CT shows moderate prostatomegaly. I do not see that he is on an alpha reductase inhibitor. Outpatient follow-up with PCP Status: Acute (7) Diabetes mellitus: Problem details: -most recent A1c 8.1 -glucose checks q.4 hours -insulin sliding scale protocol in place plus detemir insulin while on TPN - will discontinue detemir insulin at midnight and continue with sliding scale only, given that the TPN will be stopped -hold Ozempic, glipizide, metformin Status: Acute (8) Fluid imbalance: Problem details: 3rd spacing due to small-bowel obstruction, surgery, and postoperative paralytic ileus. Starting to mobilize fluids as of 04/20/2023, weight 93.3 kilos compared to 94.8 kilos yesterday. Status: Acute Plan 1. Reviewed above with patient. 2. Reviewed above with Dr. Castro. 3. Proceed as indicated. 4. Consider restarting oral hypoglycemic and anti-hyperglycemic agents in the near future. 5. Will continue to follow with General surgery while in hospital. Time Spent With Patient Total time spent: 40 minutes Subjective Time Seen by Provider: 08:30 Date Seen: 04/20/23 Interval history: Hospital day 11. Postoperative day 6, status post exploratory laparotomy and resection of portion of small bowel. Post-op ileus is resolving. Passing flatus, belching, and passing stool. NGT clamped overnight without symptoms, tolerated well. NGT removed today and doing well. Tolerating a clear liquid diet. Continues to be active, walking the hallways easily and without difficulties. Denies angina, syncope, N/V, palpitations, diaphoresis, palpitations, or claudication. Exam Narrative: Exam Narrative: Examined patient in his hospital room and as he is walking in the hallways. Appears comfortable and in no acute distress. Vision and hearing are grossly normal. Alert and oriented to self, place, time, situation. Friendly, articulate, cooperative. Mood and affect congruent. More hopeful. NG tube in place this morning. NG tube removed by this afternoon. He much prefers to not have the NG tube in place. TPN still running. Lungs remain clear to auscultation. Heart tones with regular rhythm, normal S1-S2. Abdomen with active bowel sounds, soft, nontender. Much less distention than previously. Extremities with minimal edema. Independent in transfer, station, and gait. No focal motor neurologic deficits. Const: Vital Signs, click to edit/add: Vital Signs - 24 hr 04/19/23 15:45 04/19/23 19:03 04/19/23 23:00 Temperature 98.4 F 98 F 98.6 F Pulse Rate [Pulse Oximeter] 96 99 100 Respiratory Rate 18 18 18 Blood Pressure [Le ft Arm] 148/80 H 144/90 H 155/102 H Pulse Oximetry 95 95 96 Oxygen Delivery Me thod Room Air Room Air Room Air Oxygen Flow Rate 04/20/23 03:00 04/20/23 08:00 04/20/23 08:00 Temperature 98.7 F 97.9 F Pulse Rate [Pulse Oximeter] 100 100 100 Respiratory Rate 22 18 20 Blood Pressure [Le ft Arm] 146/94 H 145/92 H Pulse Oximetry 94 96 Oxygen Delivery Me thod Room Air Room Air Oxygen Flow Rate 0 04/20/23 12:00 Temperature 97.8 F Pulse Rate [Pulse Oximeter] 97 Respiratory Rate 16 Blood Pressure [Le ft Arm] 138/89 Pulse Oximetry 97 Oxygen Delivery Me thod Room Air Oxygen Flow Rate Documenting provider has reviewed patient's vital signs: yes Labs Labs: Laboratory Results - last 24 hr 04/20/23 06:39 WBC 7.80 RBC 3.57 L Hgb 11.2 L Hct 33.7 L MCV 94 MCH 31 MCHC 33 RDW Coeff of Torey 12.4 Plt Count 258 Neut % (Auto) 74.1 H Lymph % (Auto) 9.9 L Kingfisher % (Auto) 12.1 H Eos % (Auto) 2.8 Baso % (Auto) 0.1 Neut # (Auto) 5.80 Lymph # (Auto) 0.80 L [place]isher # (Auto) 0.90 Eos # (Auto) 0.22 Baso # (Auto) 0.01 Abs Immat Gran (auto) 0.08 Imm/Tot Granulo (auto) 1.0 INR 1.04 Sodium 134 L Potassium 3.9 Chloride 100 Carbon Dioxide 24 Anion Gap 10 BUN 17 Creatinine 0.6 Estimated Creat Clear 69.03 Estimated GFR 101 Glucose 192 H Calcium 8.3 L Phosphorus 3.3 Total Bilirubin 0.3 AST 17 ALT 17 Alkaline Phosphatase 59 Total Protein 5.6 L Albumin 2.7 L Triglycerides 155 H
[2023-04-20 15:19] VITALS: BP 138/86; PULSE 92; RESP 16; TEMP 36.8; O2SAT 98
--- NOTE | 2023-04-20 15:31 | PC.NURSE ---
End of shift nursing note: Pt alert and oriented, pleasant. Vitals stable, on RA. Pain 0-2/10 to abd, PRN IV Tylenol admin and Aqua K pad utilized. NG tube removed this AM by surgeon, pt placed on clear liquid diabetic diet w/ ADAT. Pt up ambulating in hallway. BG 165 and 188, SSI admin per order. Pt had x3 BMs on day shift, voiding. Uses call light appropriately.
--- NOTE | 2023-04-20 18:37 | PC.NURSE ---
End of Shift (0350-0510): Patient pleasant and cooperative. Patient vitally stable, lungs clear, BS WNL, PICC running TPN at 40, left arm IV SL. Patient rates pain 1/10, no pain med given this shift. Patient tolerating full liquids. Patient showered this shift, and patient went for a walk outside with family. Abdominal incision C/D/I.
[2023-04-20 19:43] VITALS: BP 146/94; PULSE 99; RESP 16; TEMP 36.8; O2SAT 98
[2023-04-20] MEDS: ACETAMINOPHEN 325 MG TABLET 650 MG PO (19:57)
[2023-04-20] MEDS: LORazepam 0.5 MG TABLET PO (19:58)
[2023-04-20] MEDS: ENOXAPARIN 40 MG/0.4 ML INJ SUBCUT (20:00)
[2023-04-20 20:52] VITALS: TEMP 36.8
[2023-04-21 01:20] VITALS: BP 149/88; PULSE 95; PULSE 99; RESP 16; TEMP 36.9; O2SAT 95
[2023-04-21] MEDS: ACETAMINOPHEN 325 MG TABLET 650 MG PO ×2 (03:26→09:48)
[2023-04-21 03:50] VITALS: BP 131/78; PULSE 111; RESP 16; TEMP 36.8; O2SAT 96
[2023-04-21 07:18] LABS: Chloride* 100 mmol/L (96-114)
[2023-04-21 07:19] LABS: Potassium* 4.3 mmol/L (3.6-5.1); Sodium* 134 mmol/L (135-149)
[2023-04-21 07:21] LABS: Creatinine* 0.6 mg/dL (0.5-1.5); Est. Creatinine Clearance* 69.03; Estimated Glomerular Filt Rate 101 ml/min
[2023-04-21 07:22] LABS: Anion Gap 5 mEq/L (7-15); Blood Urea Nitrogen* 16 mg/dL (7-30); Carbon Dioxide* 29 mmol/L (20-32); Glucose* 83 mg/dL (60-115); Phosphorus* 3.5 mg/dL (2.5-4.5)
[2023-04-21 07:23] LABS: Calcium* 8.7 mg/dL (8.4-10.6)
[2023-04-21 07:33] VITALS: BP 118/80; PULSE 118; RESP 22; TEMP 36.8; O2SAT 95
--- NOTE | 2023-04-21 08:23 | PC.NURSE ---
Shift report [id number]: Pt is alert and oriented x3. Afebrile. Pt reports 1/10 pain in abdomen, pain managed with PRN Tylenol. Pt was taken off TPN 04/21/23 around 0500. Pt PICC line in right upper arm is patent and saline locked. Pt's abdominal dressing is CDI. Pt is up IND, took x3 walks overnight. Pt is tolerating a full liquid diet. Pt slept intermittently throughout night.
[2023-04-21] MEDS: PANTOPRAZOLE SODIUM 40 MG INJ IVP (08:46)
[2023-04-21] MEDS: SODIUM CHLORIDE 0.9 % (FLUSH) 10 ML SYRINGE 5 ML IVF (08:46)
--- NOTE | 2023-04-21 09:05 | PM.DS1 ---
DS: Providers Provider Date Seen: 04/21/23 Date of admission: 04/10/23 23:42 Primary care physician: Mark Valdes MD Admitting Clinician: Mark Valdes MD Consults: 04/10/23 23:44 Consult to Physician [CONS] Routine Comment: Consulting Provider: Otilia Castro Has provider been notified: Yes 04/14/23 14:27 Consult to Nutrition [CONS] Routine Comment: Reason for consult:: Miscellaneous Comment: TPN for surgical SBO patient Attending Physician on discharge: Mark Valdes MD DS: Diagnosis Discharge Diagnosis (1) Small bowel obstruction: Status: Acute Problem details: s/p expl lap and partial sm bowel resection 04/14/2023 DS: Summary Hospital Course Hospital Course: Patient was admitted to the hospital with small-bowel obstruction. Patient was initially managed conservatively but then underwent exploratory laparotomy with small-bowel resection for small-bowel obstruction. Patient was slow to recover from his postoperative ileus. Patient's nutrition was managed with TPN. Patient's bowel function returned and his diet was advanced. On the day of discharge he was tolerating regular diet. Time Spent with Patient Time attestation: Total time spent providing and/or coordinating discharge services: Exam Narrative: Exam Narrative: Abdomen is soft, slightly distended, not tender to palpation. Surgical incision is healing well with no surrounding erythema. Const: Vital Signs, click to edit/add: Vital Signs - 24 hr 04/20/23 12:00 04/20/23 15:19 04/20/23 15:19 Temperature 97.8 F 98.2 F Pulse Rate [Pulse Oximeter] 97 92 92 Respiratory Rate 16 16 16 Blood Pressure [Le ft Arm] 138/89 138/86 Pulse Oximetry 97 98 Oxygen Delivery Me thod Room Air Room Air Oxygen Flow Rate 04/20/23 19:43 04/20/23 20:52 04/21/23 01:20 Temperature 98.2 F 98.2 F Pulse Rate [Pulse Oximeter] 99 99 Respiratory Rate 16 16 Blood Pressure [Le ft Arm] 146/94 H Pulse Oximetry 98 Oxygen Delivery Me thod Room Air Oxygen Flow Rate 0 04/21/23 01:20 04/21/23 03:50 04/21/23 07:33 Temperature 98.4 F 98.3 F 98.2 F Pulse Rate [Pulse Oximeter] 95 111 H 118 H Respiratory Rate 16 16 22 Blood Pressure [Le ft Arm] 149/88 H 131/78 118/80 Pulse Oximetry 95 96 95 Oxygen Delivery Me thod Room Air Room Air Room Air Oxygen Flow Rate 0 04/21/23 07:33 Temperature Pulse Rate [Pulse Oximeter] 118 H Respiratory Rate 22 Blood Pressure [Le ft Arm] Pulse Oximetry Oxygen Delivery Me thod Oxygen Flow Rate DS: Data Data Completed and Pending Labs on day of discharge: Labs from last 24 hours 04/21/23 06:48 Sodium 134 L Potassium 4.3 Chloride 100 Carbon Dioxide 29 Anion Gap 5 L BUN 16 Creatinine 0.6 Estimated Creat Clear 69.03 Estimated GFR 101 Glucose 83 Calcium 8.7 Phosphorus 3.5 Discharge Plan Discharge Disposition: Home, Self-Care Date of Admission: 04/10/23 23:42 Attending Provider on Discharge: Tisha East Consulting Providers: Otilia Castro Primary Care Provider: Mark Valdes Condition: Improved Anticipated Discharge Date/Time: 04/21/23 12:00 Discharge Medications: Continued simvastatin 40 mg tablet 40 mg PO QPM aspirin 325 mg tablet 325 mg PO DAILY Discontinued metformin 500 mg tablet 1,000 mg PO BID glipizide 10 mg tablet 10 mg PO BID Ozempic 2 mg/dose (8 mg/3 mL) pen injector 2 mg subcut QWEEK Discharge Orders: Discharge Order (Routine); Ordered 04/21/23 Ordered By: Tisha East Consulting provider completed their portion of the discharge: Yes Patient Education: Aspirin (By mouth), Simvastatin (By mouth), Bowel Obstruction (DC) Additional Instructions: You were prescribed a narcotic pain medication. In addition you may supplement with Tylenol and/or ibuprofen. Be sure to not exceed greater than 4 g of Tylenol in a 24 hour period. While on narcotic pain medicine you can become constipated. If you have not had a bowel movement or have harder stools please take an [id number] stool softener. You can shower. Do not soak in a bathtub or swim for 2 weeks. Allow Steri-Strips to fall off on their own. There was a pancreatic mass seen on your CT imaging. This was found incidentally, but should be worked up further. An order for an MRI of the abdomen has been placed, for you to complete as an outpatient. Activity Level: No strenuous activity Activity Detail: Activity as tolerated. Avoid strenuous activity. No lifting greater than 20 lb for 6 weeks. Discharge Diet: Regular Follow Up Appointments: Otilia Castro MD [Staff Physician] - 05/04/23 2:45 pm (Follow-up in 2 weeks, [facility]) Forms: [employer] Info Instructions Discharge Comments: Schedule follow-up appointment with PCP early next week
[2023-04-21 11:13] VITALS: BMI 29.1
[2023-04-21 11:25] VITALS: BP 127/82; PULSE 97; RESP 18; TEMP 36.7; O2SAT 95
--- NOTE | 2023-04-21 12:43 | PC.NURSE ---
Discharge: Patient pleasant and cooperative. Patient vitally stable, lungs clear, BS WNL, IV and PICC removed, catheters intact. Patient independent in room, rating abdominal pain /10, tylenol given once. Patient abdominal incision with steri strips C/D/I. Patient had 1 small BM and urinating. Patient tolerating regular diet eating an omelette and hot cereal. Patient showered today. Patient signed belongings sheet and discharge form. Patient had no further questions regarding discharge. Patient left the floor by foot to home at 1240.
--- NOTE | 2023-04-21 15:36 | PM.DS1 ---
DS: Providers Provider Time Seen by Provider: 10:00 Date Seen: 04/21/23 Date of admission: 04/10/23 23:42 Primary care physician: Mark Valdes MD Admitting Clinician: Mark Valdes MD Consults: 04/10/23 23:44 Consult to Physician [CONS] Routine Comment: Consulting Provider: Otilia Castro Has provider been notified: Yes 04/14/23 14:27 Consult to Nutrition [CONS] Routine Comment: Reason for consult:: Miscellaneous Comment: TPN for surgical SBO patient Attending Physician on discharge: Preston Rodriguez MD Date of Discharge: 04/21/23 DS: Diagnosis Discharge Diagnosis (1) Small bowel obstruction: Status: Acute Problem details: s/p expl lap and partial sm bowel resection 04/14/2023 (2) Postoperative paralytic ileus: Status: Acute Problem details: NG tube removed 04/20/2023. (3) Protein-calorie malnutrition, moderate: Status: Acute Problem details: on TPN. Will decrease the dose to 40 mL/hour and stop TPN when this bag runs out. (4) Fluid imbalance: Status: Acute Problem details: 3rd spacing due to small-bowel obstruction, surgery, and postoperative paralytic ileus. Starting to mobilize fluids as of 04/20/2023, weight 93.3 kilos compared to 94.8 kilos yesterday. (5) Mass of pancreas: Status: Acute Problem details: -CT shows hypodense mass tail of the pancreas -discussed with General Surgery, will need outpatient MRI and follow-up (6) Intra-abdominal varices: Status: Acute Problem details: Unknown cause. No history of liver disease or portal hypertension. No history of GI bleeding. (7) Diabetes mellitus: Status: Acute Problem details: -most recent A1c 8.1 -glucose checks q.4 hours -insulin sliding scale protocol in place plus detemir insulin while on TPN - will discontinue detemir insulin at midnight and continue with sliding scale only, given that the TPN will be stopped -hold Ozempic, glipizide, metformin (8) BPH (benign prostatic hyperplasia): Status: Acute Problem details: -CT shows moderate prostatomegaly. I do not see that he is on an alpha reductase inhibitor. Outpatient follow-up with PCP DS: Summary Hospital Course Hospital Course: Patient was admitted to the hospital with small-bowel obstruction. Patient was initially managed conservatively but then underwent exploratory laparotomy with small-bowel resection for small-bowel obstruction. Patient was slow to recover from his postoperative ileus. Patient's nutrition was managed with TPN. Patient's bowel function returned and his diet was advanced. On the day of discharge he was tolerating regular diet. Status at Discharge Functional status at discharge: independent ambulation Overall status at discharge: patient is progressing back to baseline Time Spent with Patient Time attestation: Total time spent providing and/or coordinating discharge services: Time spent: Greater than 30 minutes Exam Narrative: Exam Narrative: Examined patient in his hospital room and as he is walking in the hallways. Appears comfortable and in no acute distress. Vision and hearing are grossly normal. Alert and oriented to self, place, time, situation. Friendly, articulate, cooperative. Mood and affect congruent. More hopeful. NG tube has been out for greater than 24 hours, with patient tolerating. TPN is no longer running, having completed roughly 24 hours ago. Lungs remain clear to auscultation. Heart tones with regular rhythm, normal S1-S2. Abdomen with active bowel sounds, soft, nontender. Much less distention than previously. Extremities with minimal edema. Independent in transfer, station, and gait. No focal motor neurologic deficits. Const: Vital Signs, click to edit/add: Vital Signs - 24 hr 04/20/23 19:43 04/20/23 20:52 04/21/23 01:20 Temperature 98.2 F 98.2 F Pulse Rate [Pulse Oximeter] 99 99 Respiratory Rate 16 16 Blood Pressure [Le ft Arm] 146/94 H Pulse Oximetry 98 Oxygen Delivery Me thod Room Air Oxygen Flow Rate 0 04/21/23 01:20 04/21/23 03:50 04/21/23 07:33 Temperature 98.4 F 98.3 F 98.2 F Pulse Rate [Pulse Oximeter] 95 111 H 118 H Respiratory Rate 16 16 22 Blood Pressure [Le ft Arm] 149/88 H 131/78 118/80 Pulse Oximetry 95 96 95 Oxygen Delivery Me thod Room Air Room Air Room Air Oxygen Flow Rate 0 04/21/23 07:33 04/21/23 11:25 Temperature 98.1 F Pulse Rate [Pulse Oximeter] 118 H 97 Respiratory Rate 22 18 Blood Pressure [Le ft Arm] 127/82 Pulse Oximetry 95 Oxygen Delivery Me thod Room Air Oxygen Flow Rate Documenting provider has reviewed patient's vital signs: yes DS: Data Data Completed and Pending Labs on day of discharge: Labs from last 24 hours 04/21/23 06:48 Sodium 134 L Potassium 4.3 Chloride 100 Carbon Dioxide 29 Anion Gap 5 L BUN 16 Creatinine 0.6 Estimated Creat Clear 69.03 Estimated GFR 101 Glucose 83 Calcium 8.7 Phosphorus 3.5 Discharge Plan Discharge Disposition: Home, Self-Care Date of Admission: 04/10/23 23:42 Attending Provider on Discharge: Tisha East Consulting Providers: Otilia Castro Primary Care Provider: Mark Valdes Condition: Improved Anticipated Discharge Date/Time: 04/21/23 12:00 Discharge Medications: Continued simvastatin 40 mg tablet 40 mg PO QPM aspirin 325 mg tablet 325 mg PO DAILY Discontinued metformin 500 mg tablet 1,000 mg PO BID glipizide 10 mg tablet 10 mg PO BID Ozempic 2 mg/dose (8 mg/3 mL) pen injector 2 mg subcut QWEEK Discharge Orders: Discharge Order (Routine); Ordered 04/21/23 Ordered By: Tisha East Consulting provider completed their portion of the discharge: Yes Patient Education: Aspirin (By mouth), Simvastatin (By mouth), Bowel Obstruction (DC) Additional Instructions: You were prescribed a narcotic pain medication. In addition you may supplement with Tylenol and/or ibuprofen. Be sure to not exceed greater than 4 g of Tylenol in a 24 hour period. While on narcotic pain medicine you can become constipated. If you have not had a bowel movement or have harder stools please take an [id number] stool softener. You can shower. Do not soak in a bathtub or swim for 2 weeks. Allow Steri-Strips to fall off on their own. There was a pancreatic mass seen on your CT imaging. This was found incidentally, but should be worked up further. An order for an MRI of the abdomen has been placed, for you to complete as an outpatient. Activity Level: No strenuous activity Activity Detail: Activity as tolerated. Avoid strenuous activity. No lifting greater than 20 lb for 6 weeks. Discharge Diet: Regular Follow Up Appointments: Otilia Castro MD [Staff Physician] - 05/04/23 2:45 pm (Follow-up in 2 weeks, [facility]) Forms: MyHealth Info Instructions Discharge Comments: Schedule follow-up appointment with PCP early next week
[2023-04-21 23:44] LABS: Prealbumin 11.8 mg/dL (20.0-40.0)
== END 2023-04-21 12:40 | disposition home or self-care (01) | DRG 330 ==
PROVIDERS: Family Medicine; Hospitalist; Internal Medicine; Physician Assistant; Surgery; Admitting Provider Family Medicine; PCP Family Medicine; Visit Provider Family Medicine
PROC: 0DTB0ZZ Resection of Ileum, Open Approach (ICD-10-PCS; CPT 49000; principal; 2023-04-14 12:00)
DX: K56.609 Unspecified intestinal obstruction, unspecified as to partial versus complete obstruction (principal); E44.0 Moderate protein-calorie malnutrition; J98.11 Atelectasis; K55.9 Vascular disorder of intestine, unspecified; K56.2 Volvulus; K56.0 Paralytic ileus; K86.89 Other specified diseases of pancreas; G89.18 Other acute postprocedural pain; E87.70 Fluid overload, unspecified; R00.0 Tachycardia, unspecified; E11.9 Type 2 diabetes mellitus without complications; Z96.643 Presence of artificial hip joint, bilateral; Z96.612 Presence of left artificial shoulder joint; N40.1 Benign prostatic hyperplasia with lower urinary tract symptoms; R35.1 Nocturia; I86.4 Gastric varices; I86.8 Varicose veins of other specified sites; Z79.85 Long-term (current) use of injectable non-insulin antidiabetic drugs; Z79.84 Long term (current) use of oral hypoglycemic drugs; I10 Essential (primary) hypertension; Z68.28 Body mass index [BMI] 28.0-28.9, adult; E78.5 Hyperlipidemia, unspecified
CPT/HCPCS: 00790; 00840; 36415; 36573; 64488; 71045; 74018; 74019; 74177; 76942; 80048; 80053; 82803; 82962; 83605; 83690; 83735; 83880; 84100; 84134; 84478; 84484; 85025; 85027; 85610; 88307; 93005; 99100; A4221; A4467; A9270; B4185; B4189; C1751; C9113; C9290; J0131; J0330; J0360; J0665; J1100; J1170; J1200; J1650; J1885; J1940; J2060; J2405; J2543; J2704; J3010; J3475; J3480; J3490; J7030; J7050; J7120; Q9967

== ENCOUNTER 2023-05-01 16:23 | Inpatient (IN) | payer MEDICARE, BC, SELFPAY ==
[2023-05-01] VITALS (22 sets, daily range): BP systolic 119–141; BP diastolic 74–87; PULSE 94–122; RESP 18–20; TEMP 36.9; O2SAT 93–96; BMI 26.5; BMI 28.0
--- NOTE | 2023-05-01 17:09 | ED_ITS ---
HPI - General Adult General Time Seen by Provider: 17:09 Date Seen: 05/01/23 Chief complaint: Abdominal Pain Stated complaint: Bowel surgery 2 weeks ago-pain in abdomen and temp Time Seen by Provider: 05/01/23 16:59 History of Present Illness HPI narrative: This is a 73-year-old gentleman with a past medical history including recent small-bowel obstruction with laparotomy and small-bowel resection, also previous inguinal hernia, umbilical hernia, abdominal varices, BPH, bilateral hip replacements, pancreatic mass. Hospital Course: Patient was admitted to the hospital with small-bowel obstruction. Patient was initially managed conservatively but then underwent exploratory laparotomy with small-bowel resection for small-bowel obstruction. Patient was slow to recover from his postoperative ileus. Patient's nutrition was managed with TPN. Patient's bowel function returned and his diet was advanced. On the day of discharge he was tolerating regular diet. Since the patient was discharged from the hospital about a week ago he has been doing reasonably well. He has been down to taking 4 doses of Tylenol per day up until Monday when he has had a little bit more pain so now he has been taking 6 doses of Tylenol per day. He notes that his bowel movements are much less frequent than preoperatively. He is booked roughly once every 3 days. When he poops his bowel movements are normal-brown, formed, nonmelanotic, nonbloody, not diarrhea. His pattern is that he will experience about 12-24 hours of abdominal cramping and pain, primary lower pain, and then have a bowel movement. That causes improvement in his pain. He will then be pretty good for a day or 2 and then have escalating pain that then gets better after he passes a BM.. He had pain picking up on Monday and did have a bowel movement on Monday. However this time his pain did not get better. He still having some bilateral lower abdominal pain. He also notes that he has urinary burning. This is worse when he is constipated but is present even on days when he has not needed past a BM. He has had a fever up to 101.4 at home. Heart rate has been elevated. He is feeling a bit weaker than normal, but that is not really changed since he left the hospital. No cough. No sore throat. No earache. No shortness of breath. No swelling in his legs. No rash. His daughter is a nurse and she has been helping check his postoperative wound. It has been well apposed. No drainage or bleeding. There is a small 1 cm rim of erythema affecting the skin on the upper and the incision that they had not noted at home, but is present on my exam today. Related Data Home Medications Medication Instructions Recorded Confirmed aspirin 325 mg tablet 325 mg PO DAILY 04/10/23 04/10/23 simvastatin 40 mg tablet 40 mg PO QPM 04/10/23 04/10/23 Allergies Allergy/AdvReac Type Severity Reaction Status Date / Time No Known Drug Allergies Allergy Verified 05/01/23 18:18 [facility] Medical History (Updated 05/01/23 @ 21:33 by Preston Rodriguez MD) Volume overload ?E87.70 - Fluid overload, unspecified (ICD-10) 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 - Varicose veins of other specified sites (ICD-10) Small bowel obstruction ?K56.609 - Unspecified intestinal obstruction, unspecified as to partial versus complete obstruction (ICD-10) Hyperlipidemia ?E78.5 - Hyperlipidemia, unspecified (ICD-10) BPH (benign prostatic hyperplasia) ?N40.0 - Benign prostatic hyperplasia without lower urinary tract symptoms (ICD-10) Diabetes mellitus ?E11.9 - Type 2 diabetes mellitus without complications (ICD-10) Surgical History History of bunionectomy ?Z98.890 - Other specified postprocedural states (ICD-10) History of arthroplasty of left shoulder ?Z96.612 - Presence of left artificial shoulder joint (ICD-10) H/O umbilical hernia repair ?Z98.890 - Other specified postprocedural states (ICD-10) ?Z87.19 - Personal history of other diseases of the digestive system (ICD-10) H/O bilateral inguinal hernia repair ?Z98.890 - Other specified postprocedural states (ICD-10) ?Z87.19 - Personal history of other diseases of the digestive system (ICD-10) History of bilateral hip replacements ?Z96.643 - Presence of artificial hip joint, bilateral (ICD-10) Family History Father Diabetes Mother CHF (congestive heart failure) Stroke Other Prostate cancer Social History Narrative: He lives with his in [place]. 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 He does not smoke. He does not drink alcohol. Code status is DNR. 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 What is your current living situation?: I presently have a place to live Problems where you live: no known problems Problems where you live details: NA In the past 12 months, utilities in danger of being shut off: no In past 12 months, lack of transportation kept you from medical appts, meetings, work, or getting things needed for daily living: no In the past 12 mos, have been you worried that your food would run out before you had money to buy more?: never true In the past 12 mos, the food you bought just didn't last and you didn't have money to buy more?: never true Smoking Status: Never smoker Do you use any of these nicotine containing products: None Second hand tobacco smoke exposure: No How often do you have a drink containing alcohol: never How often do you have six or more drinks on one occasion: Never AUDIT-C Alcohol total score: 0 Non-prescribed substance use: denies use Caffeine: No How often does anyone, including family, friends and others, physically hurt you : never How often does anyone, including family, friends and others, insult or talk down to you: never How often does anyone, including family, friends and others, threaten you with harm: never How often does anyone, including family, friends and others, scream or curse at you: never service: No Exam Narrative: Exam Narrative: Constitutional: Appears well-developed and well-nourished. Alert. Conversant. Non toxic. HENT: Head: Atraumatic. Nose: Nose normal. Mouth/Throat: Oral mucosa is clear . Lips and mucous membranes are dry. no trismus. Pharynx normal. Tonsils symmetric. No tonsillar enlargement, erythema, or exudate. Eyes: Conjunctivae normal. EOM normal. Pupils equal, round, and reactive to light. No scleral icterus. Neck: Normal range of motion. Neck supple. No tracheal deviation present. Cardiovascular: Normal rate, regular rhythm. No gallop. No friction rub. No murmur heard. Symmetric radial artery pulses Pulmonary/Chest: Effort normal. No stridor. No respiratory distress. No wheezes. No rales. No rhonchi . No tenderness. Abdominal: Soft. Bowel sounds normal. No distension. No mass. Mild left lower quadrant> right lower quadrant tenderness. Midline lower incision. Steri- Strips present. Wound is dry and well opposed. There is a 1 cm rim of erythema affecting the upper 1/3 of his incision. No rebound. No guarding. No CVA tenderness Musculoskeletal: RUE: Normal range of motion. No tenderness. No deformity LUE: Normal range of motion. No tenderness. No deformity RLE: Normal range of motion. No edema. No tenderness. No deformity LLE: Normal range of motion. No edema. No tenderness. No deformity Lymph: No cervical adenopathy. Neurological: Alert and oriented to person, place, and time. Normal strength. CN II-VII intact. No sensory deficit. GCS eye subscore is 4. GCS verbal subscore is 5. GCS motor subscore is 6. Normal coordination Skin: Skin is warm and dry. No rash noted. No pallor. Normal capillary refill. Psychiatric: Normal mood. Normal affect. Const: Vital Signs, click to edit/add: Vital Signs - 24 hr 05/01/23 16:32 05/01/23 17:21 05/01/23 17:30 Temperature 98.5 F Pulse Rate 112 H 109 H Pulse Rate [Right Pulse Oximeter] 122 H Respiratory Rate 18 Blood Pressure Blood Pressure [Ri ght Upper Arm] 131/74 Pulse Oximetry 96 95 95 Oxygen Delivery Me thod Room Air 05/01/23 17:31 05/01/23 17:32 05/01/23 18:00 Temperature Pulse Rate 112 H 111 H 105 H Pulse Rate [Right Pulse Oximeter] Respiratory Rate Blood Pressure 129/81 Blood Pressure [Ri ght Upper Arm] Pulse Oximetry 94 95 94 Oxygen Delivery Me thod 05/01/23 18:01 05/01/23 18:31 05/01/23 18:32 Temperature Pulse Rate 109 H 110 H 111 H Pulse Rate [Right Pulse Oximeter] Respiratory Rate Blood Pressure 129/82 141/82 H Blood Pressure [Ri ght Upper Arm] Pulse Oximetry 94 94 94 Oxygen Delivery Ri thod 05/01/23 19:00 05/01/23 19:01 05/01/23 19:02 Temperature Pulse Rate 109 H 110 H 109 H Pulse Rate [Right Pulse Oximeter] Respiratory Rate Blood Pressure 121/80 Blood Pressure [Ri ght Upper Arm] Pulse Oximetry 94 94 94 Oxygen Delivery Me thod 05/01/23 19:32 05/01/23 19:34 05/01/23 20:11 Temperature Pulse Rate 94 Pulse Rate [Right Pulse Oximeter] Respiratory Rate Blood Pressure 119/77 139/87 Blood Pressure [Ri ght Upper Arm] Pulse Oximetry 94 Oxygen Delivery Me thod 05/01/23 20:31 05/01/23 21:01 05/01/23 21:02 Temperature Pulse Rate 103 H 105 H Pulse Rate [Right Pulse Oximeter] Respiratory Rate Blood Pressure 125/78 140/84 H Blood Pressure [Ri ght Upper Arm] Pulse Oximetry 93 94 Oxygen Delivery Me thod 05/01/23 21:30 05/01/23 21:31 Temperature Pulse Rate 99 102 H Pulse Rate [Right Pulse Oximeter] Respiratory Rate Blood Pressure 129/85 Blood Pressure [Ri ght Upper Arm] Pulse Oximetry 94 95 Oxygen Delivery Me thod Course Vital Signs Vital signs: Initial Vital Signs Temperature 98.5 F 05/01/23 16:32 Temperature Source Temporal Artery Scan 05/01/23 16:32 Pulse Rate 122 H 05/01/23 16:32 Respiratory Rate 18 05/01/23 16:32 Blood Pressure 131/74 05/01/23 16:32 Blood Pressure Mean 93 05/01/23 16:32 Blood Pressure Position Sitting 05/01/23 16:32 Pulse Oximetry 96 05/01/23 16:32 Oxygen Delivery Method Room Air 05/01/23 16:32 Vital Signs Temperature 98.5 F 05/01/23 16:32 Pulse Rate 122 H 05/01/23 16:32 Respiratory Rate 18 05/01/23 16:32 Blood Pressure 131/74 05/01/23 16:32 Pulse Oximetry 96 05/01/23 16:32 Oxygen Delivery Method Room Air 05/01/23 16:32 Temperature 98.5 F 05/01/23 21:50 Pulse Rate 99 05/01/23 22:26 Respiratory Rate 20 05/01/23 21:50 Blood Pressure 140/85 H 05/01/23 21:50 Pulse Oximetry 94 05/01/23 21:50 Oxygen Delivery Method Room Air 05/01/23 21:50 Medical Decision Making MDM Narrative Medical decision making narrative: Procedure: Incision and drainage Indication: Abdominal wall abscess Procedure: Verbal consent obtained from the patient and his daughter. Sterile preparation using Betadine on the skin. We initiated local anesthesia with local injection of 5 mL of 0.5% bupivacaine. Good anesthesia was achieved. I removed the Steri-Strips. The wound did not dehisce. Using 11 blade scalpel we made a 2 cm linear stab incision following the course of the healing surgical incision. We encountered copious amounts of purulent drainage. We were able to express purulent drainage from the of abscess cavity by applying gentle pressure to the abdominal wall. We then irrigated the patient's abscess cavity with sterile saline until return was clear to pink. We obtained a wound culture using sterile technique from the abscess cavity after irrigation. I packed the patient's abscess cavity with half-inch iodoform gauze. A dressing was applied to the abdominal wall of. Patient tolerated the procedure without discomfort. No complications noted. This is a very pleasant 73-year-old male presenting to the ER today about 2 weeks status post small-bowel surgery for small bowel obstruction now with worsening abdominal pain and fever. Differential for his fever was broad including intra-abdominal infection, postop infection, urinary tract infection, pulmonary infection, cellulitis, among others. Workup here in the ER so far shows evidence for an abdominal wall abscess just below his lower abdominal incision. Discussed with surgery. She requests that I open up the abscess here in the ER, wash it out, culture, and start antibiotics, specifically Cipro and Flagyl. I did incise the the patient's abdominal wall abscess, as above. Patient was started on IV antibiotics here in the ER. He was tachycardic but heart rate improving after 1 L of IV fluids. 2 L infusing at the time of admission. Lactic acid is normal. White blood cell count 9.8. He also has diabetes. Labs show glucose of 280. No evidence for DKA are nonketotic hyperosmolar state. Sodium slightly low at 131, likely corresponding to hyperglycemia. He is accepted for admission by the hospitalist. Lab Data Labs: Lab Results 05/01/23 05/01/23 05/01/23 Range/Units 18:00 18:11 18:23 WBC 9.86 (4.50-11.00) K/uL RBC 3.15 L (4.30-5.90) m/uL Hgb 10.0 L (13.5-17.5) gm/dL Hct 30.0 L (37.0-53.0) % MCV 95 (80-100) fL MCH 32 (26-34) pg MCHC 33 (32-36) gm/dL RDW Coeff of Torey 12.2 (11.5-15.5) % Plt Count 456 H (140-440) K/uL Neut % (Auto) 83.2 H (42.0-72.0) % Lymph % (Auto) 8.2 L (20-44) % [place] % (Auto) 7.9 (0.0-11.0) % Eos % (Auto) 0.4 (0.0-7.0) % Baso % (Auto) 0.1 (0.0-3.0) % Neut # (Auto) 8.20 H (1.7-7.0) K/uL Lymph # (Auto) 0.80 L (0.90-2.90) K/uL [place] # (Auto) 0.80 (0.00-0.90) K/UL Eos # (Auto) 0.04 (0.00-0.50) K/uL Baso # (Auto) 0.01 (0.00-0.30) K/uL Abs Immat Gran (auto) 0.02 (0.00-0.30) K/uL Imm/Tot Granulo (auto) 0.2 % VBG pH 7.427 (7.32-7.43) VBG pCO2 46 (40-50) mmHG VBG pO2 24.0 L (25-47) mmHG VBG HCO3 30 H (21-28) mmol/L Sodium 131 L (135-149) mmol/L Potassium 4.1 (3.6-5.1) mmol/L Chloride 95 L (96-114) mmol/L Carbon Dioxide 28 (20-32) mmol/L Anion Gap 8 (7-15) mEq/L BUN 18 (7-30) mg/dL Creatinine 0.8 (0.5-1.5) mg/dL Estimated Creat Clear 69.03 Estimated GFR 93 ml/min Glucose 260 H (60-115) mg/dL Lactate 0.8 (0.5-1.9) mmol/L Calcium 8.3 L (8.4-10.6) mg/dL Total Bilirubin 0.4 (0.1-1.5) mg/dL AST 17 (12-35) U/L ALT 16 (4-50) U/L Alkaline Phosphatase 84 (40-150) U/L Total Protein 6.3 (6.0-8.3) g/dL Albumin 3.1 L (3.3-5.0) g/dL Lipase 71 (23-300) U/L Urine Color Yellow (Yellow) Urine Appearance Clear (Clear) Urine pH 7.0 (5.0-8.5) Ur Specific Lotus 1.020 (1.000-1.030) Urine Protein Negative (Negative) Urine Glucose (UA) Trace A (Negative) Urine Ketones Trace A (Negative) Urine Blood Trace-lysed A (Negative) Urine Nitrite Negative (Negative) Urine Bilirubin Negative (Negative) Urine Urobilinogen 1.0 (0.2-1.0) Ur Leukocyte Esterase Negative (Negative) Urine RBC 0-2 (0-2) Urine WBC 0-2 (0-5) Ur Squamous Epith Cells Few (None-Few) Urine Bacteria None (None) SARS-CoV-2 (PCR) Negative SARS-CoV-2 (Negative) Influenza Type A (PCR) Negative PCR FLU A (Negative) Influenza Type B (PCR) Negative PCR FLU B (Negative) RSV (PCR) Negative PCR RSV (Negative) Imaging Data CT scan - abdomen: Attestation: I have reviewed the pertinent imaging results. My impression: I reviewed the images with Dr. Castro, surgery. It does show evidence for a fluid collection in the anterior lower midline consistent with an incisional abscess. Radiologist's impression: Impression: Demonstration of a 4.2 x 5.0 centimeter rim enhancing abscess within the superficial subcutaneous soft tissues of the low midline abdomen without definite evidence of additional intra-abdominal abscess. Otherwise postoperative change status post bowel resection without evidence of recurrent obstruction. Discharge Plan Discharge Patient Disposition: Admitted As Observation
--- NOTE | 2023-05-01 17:37 | CRLHL7_ITS ---
For Patients: As a result of the 21st Century Cures Act, medical imaging exams and procedure reports are released immediately into your electronic medical record. You may view this report before your referring provider. If you have questions, please contact your health care provider. Indication: Abdominal pain, fever, 2 weeks status post laparotomy for SBO, history of pancreatic mass Technique: Volumetric multidetector CT images of the abdomen and pelvis were obtained after the administration of intravenous contrast. 93 cc Isovue 370 low osmolar intravenous contrast Comparison: CT abdomen and pelvis April 17, 2023 Findings: The lung bases are clear. The liver is enlarged with subcentimeter hypodensities in the right liver. There is no other focal abnormality. The portal vein is patent. Extensive varices within left upper quadrant abdomen are appreciated similar to previous exam. The gallbladder is unremarkable without evidence of radiopaque calculus. There is no significant common biliary ductal dilatation or abrupt cut off. The spleen is normal in enhancement and size. The stomach and duodenum are grossly unremarkable. There is mild prominence of the main pancreatic duct. Redemonstration of pancreatic mass within the tail measuring 3.3 centimeters. The adrenal glands are unremarkable. Cystic changes of the kidneys are appreciated with otherwise preserved corticomedullary differentiation. There is overall decompressed appearance of the small bowel from comparison consistent with history of small-bowel obstruction and surgical change. There is moderate stool seen throughout the colon. The appendix is not visualized. There is no significant mesenteric, retroperitoneal, or pelvic sidewall lymph nodes. The aorta is nonaneurysmal. There is no significant atherosclerotic disease appreciated. Beam hardening artifact obscures the central pelvis with thickening of the bladder lumen. There is no free fluid or free air. There is demonstration of a rim enhancing abscess within the low midline anterior abdominal wall measuring 4.2 x 5.0 centimeters in greatest axial dimension. This appears superficial to the rectus musculature without definite evidence of additional rim enhancing fluid within the intra-abdominal compartment. However, lack of oral contrast mildly limits evaluation of mesenteric spaces between bowel loops. The lumbar vertebral body heights are grossly maintained in satisfactory alignment without evidence of displaced fracture, lytic or blastic lesion. Impression: Demonstration of a 4.2 x 5.0 centimeter rim enhancing abscess within the superficial subcutaneous soft tissues of the low midline abdomen without definite evidence of additional intra-abdominal abscess. Otherwise postoperative change status post bowel resection without evidence of recurrent obstruction. Please note that all CT scans at this facility use dose modulation, iterative reconstruction, and/or weight-based dosing when appropriate to reduce radiation dose to as low as reasonably achievable. Dictated by Gustavo Harris MD @ 05/01/2023 7:11:21 PM (Electronically Signed)
[2023-05-01] MEDS: ACETAMINOPHEN 500 MG TABLET 1000 MG PO (18:00)
[2023-05-01 18:16] LABS: Basophils Absolute Auto 0.01 K/uL (0.00-0.30); Basophils Percent Auto 0.1 % (0.0-3.0); Eosinophils Absolute Auto 0.04 K/uL (0.00-0.50); Eosinophils Percent Auto 0.4 % (0.0-7.0); HCO3 VBG 30 mmol/L (21-28); Immature Granulocytes Abs Auto 0.02 K/uL (0.00-0.30); Immature Granulocytes Pct Auto 0.2 %; Lactate* 0.8 mmol/L (0.5-1.9); Lymphocytes Percent Auto 8.2 % (20-44); Mean Corpuscular HGB Conc 33 gm/dL (32-36); Mean Corpuscular Hemoglobin 32 pg (26-34); Mean Corpuscular Volume 95 fL (80-100); Monocytes Percent Auto 7.9 % (0.0-11.0); Neutrophils Percent Auto 83.2 % (42.0-72.0); PCO2 VBG 46 mmHG (40-50); Platelet Count* 456 K/uL (140-440); RDW Coefficient of Variation % 12.2 % (11.5-15.5); Red Blood Count 3.15 m/uL (4.30-5.90); White Blood Count* 9.86 K/uL (4.50-11.00); pH VBG 7.427 (7.32-7.43)
[2023-05-01 18:19] LABS: Slide Review Reflex No
[2023-05-01 18:31] LABS: Appearance Urine Clear (Clear); Bilirubin Urine Negative (Negative); Blood Urine Trace-lysed (Negative); Color Urine Yellow (Yellow); Glucose Urine Trace (Negative); Ketones Urine Trace (Negative); Leukocyte Esterase Urine Negative (Negative); Nitrite Urine Negative (Negative); Protein Urine Negative (Negative)
[2023-05-01 18:32] LABS: Albumin* 3.1 g/dL (3.3-5.0); Chloride* 95 mmol/L (96-114); Potassium* 4.1 mmol/L (3.6-5.1); Sodium* 131 mmol/L (135-149)
[2023-05-01 18:34] LABS: Creatinine* 0.8 mg/dL (0.5-1.5); Est. Creatinine Clearance* 69.03; Estimated Glomerular Filt Rate 93 ml/min
[2023-05-01 18:35] LABS: Alanine Aminotransferase* 16 U/L (4-50); Alkaline Phosphatase* 84 U/L (40-150); Anion Gap 8 mEq/L (7-15); Aspartate Amino Transferase* 17 U/L (12-35); Bilirubin Total* 0.4 mg/dL (0.1-1.5); Blood Urea Nitrogen* 18 mg/dL (7-30); Calcium* 8.3 mg/dL (8.4-10.6); Carbon Dioxide* 28 mmol/L (20-32); Glucose* 260 mg/dL (60-115); Lipase* 71 U/L (23-300); Total Protein* 6.3 g/dL (6.0-8.3)
[2023-05-01] MEDS: 0.9 % SODIUM CHLORIDE 1000 ml 1,000 ML IV (18:36)
[2023-05-01 18:53] LABS: RBC Urine 0-2 (0-2); Squamous Epithelial Cell Urine Few (None-Few); WBC Urine 0-2 (0-5)
[2023-05-01 19:09] LABS: PCR FLU A Negative PCR FLU A (Negative); PCR FLU B Negative PCR FLU B (Negative); PCR RSV Negative PCR RSV (Negative); SARS PCR* Negative SARS-CoV-2 (Negative)
--- NOTE | 2023-05-01 20:57 | PM.IMHP1 ---
Hospitalist- H&P: HPI History of Present Illness Time Seen by Provider: 20:00 Date Seen: 05/01/23 Chief complaint: abd pain and fever Narrative: Sulaiman Alcantara is a 73 year old man who presented with a small-bowel obstruction and mid to latter portion of March 2023, ultimately underwent an exploratory laparoscopy with excision of short-segment of small bowel and lysis of adhesions due to bowel obstruction on 04/14/2023, then had a protracted hospitalization due to slow to recover postoperative ileus. Was treated with TPN during that hospitalization until such time as his diet normalized. Did require insulin therapy while on TPN. Ultimately was discharged home on 04/21/2023, doing well at that time. Has had less frequent bowel movements since discharge from the hospital, approximately once every 3 days. He has had a pattern of his abdominal discomfort slowly worsening until such time as he has a bowel movement, then the abdominal discomfort subsides, and the pattern would repeat itself. Oral intake has been less than what he ordinarily consumes. This pattern continued until yesterday when he developed a fever at home with a temperature of a 101.4? F and increasing abdominal pain despite having had a bowel movement. He continued to have a fever today and abdominal discomfort did not resolve even after bowel movement, thus he comes in for assessment in the emergency department. Denies diarrhea, blood loss. Denies nausea or vomiting. Incision wound has been monitored throughout this recovery time and had been doing well until this morning there was obvious rim of erythema around the incision. Additionally his blood sugars at home have been monitored and they have started to rise over the last 2-3 days despite him having a decreased appetite and decreased oral intake. Specifically denies fevers, rigors, diaphoresis. Acknowledges that he remains weak compared to usual, but indicates he has generally starting to feel little stronger than when he 1st left the hospital on 04/21/2023.. Review of Systems Status of ROS: Reports: 10 or more systems reviewed and unremarkable except as noted in History and below Narrative: Denies angina, syncope, lightheadedness, dizziness, vomiting, diarrhea, palpitations or chest fluttering, cough, shortness of breath, dysuria, urgency, frequency, hematuria. No focal motor neurologic deficits. 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 - Varicose veins of other specified sites (ICD-10) Small bowel obstruction ?K56.609 - Unspecified intestinal obstruction, unspecified as to partial versus complete obstruction (ICD-10) Hyperlipidemia ?E78.5 - Hyperlipidemia, unspecified (ICD-10) BPH (benign prostatic hyperplasia) ?N40.0 - Benign prostatic hyperplasia without lower urinary tract symptoms (ICD-10) Diabetes mellitus ?E11.9 - Type 2 diabetes mellitus without complications (ICD-10) Surgical History History of bunionectomy ?Z98.890 - Other specified postprocedural states (ICD-10) History of arthroplasty of left shoulder ?Z96.612 - Presence of left artificial shoulder joint (ICD-10) H/O umbilical hernia repair ?Z98.890 - Other specified postprocedural states (ICD-10) ?Z87.19 - Personal history of other diseases of the digestive system (ICD-10) H/O bilateral inguinal hernia repair ?Z98.890 - Other specified postprocedural states (ICD-10) ?Z87.19 - Personal history of other diseases of the digestive system (ICD-10) History of bilateral hip replacements ?Z96.643 - Presence of artificial hip joint, bilateral (ICD-10) Family History Father Diabetes Mother CHF (congestive heart failure) Stroke Other Prostate cancer Social History Narrative: He lives with his in the [place] near [place]. 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 He does not smoke. He does not drink alcohol. Code status is DNR. is healthcare power of [place] attorney. What is your current living situation?: I presently have a place to live Problems where you live: no known problems Problems where you live details: NA In the past 12 months, utilities in danger of being shut off: no In past 12 months, lack of transportation kept you from medical appts, meetings, work, or getting things needed for daily living: no In the past 12 mos, have been you worried that your food would run out before you had money to buy more?: never true In the past 12 mos, the food you bought just didn't last and you didn't have money to buy more?: never true Highest level of school completed/degree received: Bachelor's degree Smoking Status: Never smoker Do you use any of these nicotine containing products: None Second hand tobacco smoke exposure: No How often do you have a drink containing alcohol: never How often do you have six or more drinks on one occasion: Never AUDIT-C Alcohol total score: 0 Non-prescribed substance use: denies use Caffeine: No How often does anyone, including family, friends and others, physically hurt you: never How often does anyone, including family, friends and others, insult or talk down to you: never How often does anyone, including family, friends and others, threaten you with harm: never How often does anyone, including family, friends and others, scream or curse at you: never service: No Meds Home Medications and Allergies Home Medications Medication Instructions Recorded Confirmed Type aspirin 325 mg tablet 325 mg PO DAILY 04/10/23 04/10/23 History simvastatin 40 mg tablet 40 mg PO QPM 04/10/23 04/10/23 History Allergies Allergy/AdvReac Type Severity Reaction Status Date / Time No Known Drug Allergies Allergy Verified 05/01/23 18:18 Exam Narrative: Exam Narrative: I examined him in the emergency department. He appears comfortable and in no acute distress. Is moderately hard of hearing with vision grossly normal. Alert and oriented to self, place, time, situation. Friendly, articulate, cooperative. Mood and affect are congruent. Midline nasal septum, normal nasal mucosa. Buccal mucosa is moist. Dentition in good repair. Neck is supple. Midline trachea. No JVD or hepatojugular reflux. No head and neck lymphadenopathy. Lungs are clear to auscultation without wheezing, rhonchi, or rales. Chest wall excursions are full. Heart tones with regular rhythm, normal S1-S2, without murmur, gallop, or rub. PMI is not laterally displaced. Abdomen with active bowel sounds, soft. Subjective discomfort to palpation below the umbilicus. Incision wound below the umbilicus has mild rim of erythema extending about 1 cm on either side. No obvious fluctuance, induration, but with mild warmth around the abdominal incision site below the umbilicus. Independent in transfer, station, gait. No focal motor neurologic deficits. Cranial nerves 3-12 grossly normal. No tremor, asterixis, or ataxia. Const: Vital Signs, click to edit/add: Vital Signs - 24 hr 05/01/23 16:32 05/01/23 17:21 05/01/23 17:30 Temperature 98.5 F Pulse Rate 112 H 109 H Pulse Rate [Right Pulse Oximeter] 122 H Respiratory Rate 18 Blood Pressure Blood Pressure [Ri ght Upper Arm] 131/74 Pulse Oximetry 96 95 95 Oxygen Delivery Me thod Room Air 05/01/23 17:31 05/01/23 17:32 05/01/23 18:00 Temperature Pulse Rate 112 H 111 H 105 H Pulse Rate [Right Pulse Oximeter] Respiratory Rate Blood Pressure 129/81 Blood Pressure [Ri ght Upper Arm] Pulse Oximetry 94 95 94 Oxygen Delivery Me thod 05/01/23 18:01 05/01/23 18:31 05/01/23 18:32 Temperature Pulse Rate 109 H 110 H 111 H Pulse Rate [Right Pulse Oximeter] Respiratory Rate Blood Pressure 129/82 141/82 H Blood Pressure [Ri ght Upper Arm] Pulse Oximetry 94 94 94 Oxygen Delivery Me thod 05/01/23 19:00 05/01/23 19:01 Temperature Pulse Rate 109 H 110 H Pulse Rate [Right Pulse Oximeter] Respiratory Rate Blood Pressure 121/80 Blood Pressure [Ri ght Upper Arm] Pulse Oximetry 94 94 Oxygen Delivery Me thod Documenting provider has reviewed patient's vital signs: yes Hospitalist - H&P: Result Labs Labs: Short CBC 05/01/23 Range/Units 18:11 WBC 9.86 (4.50-11.00) K/uL Hgb 10.0 L (13.5-17.5) gm/dL Hct 30.0 L (37.0-53.0) % Plt Count 456 H (140-440) K/uL BMP 05/01/23 18:11 Sodium 131 L Potassium 4.1 Chloride 95 L Carbon Dioxide 28 BUN 18 Creatinine 0.8 Glucose 260 H Calcium 8.3 L Liver Function 05/01/23 Range/Units 18:11 Total Bilirubin 0.4 (0.1-1.5) mg/dL AST 17 (12-35) U/L ALT 16 (4-50) U/L Alkaline Phosphatase 84 (40-150) U/L Albumin 3.1 L (3.3-5.0) g/dL Urine 05/01/23 Range/Units 18:23 Urine Color Yellow (Yellow) Urine Appearance Clear (Clear) Urine pH 7.0 (5.0-8.5) Ur Specific [place] 1.020 (1.000-1.030) Urine Protein Negative (Negative) Urine Glucose (UA) Trace A (Negative) Imaging CT scan - abdomen: Attestation: I have reviewed the pertinent imaging results. Radiologist's impression: Impression: Demonstration of a 4.2 x 5.0 centimeter rim enhancing abscess within the superficial subcutaneous soft tissues of the low midline abdomen without definite evidence of additional intra-abdominal abscess. Otherwise postoperative change status post bowel resection without evidence of recurrent obstruction. Assessment and Plan Assessment and plan (1) Postoperative fever: Problem comment: - urine and blood cultures ordered - likely due to abdominal wall abscess at surgical wound site Status: Acute (2) Postoperative abdominal pain with fever: Status: Acute (3) Abdominal wall abscess at site of surgical wound: Problem comment: - CT scan of abdomen and pelvis, on 05/01/2023: Demonstrates a 4.2 x 5.0 centimeter rim enhancing abscess within the superficial subcutaneous soft tissues of the low midline abdomen without definite evidence of additional intra-abdominal abscess. Otherwise postoperative change status post bowel resection without evidence of recurrent obstruction. - emergency department physician, Dr. Sukhdev Carroll, will be removing the Steri-Strips and the sutures, opening up the surgical wound, washing it out, obtain wound culture, then employ appropriate dressing - general surgeon, Dr. Castro, will be consulting in the morning - for now initiate IV ciprofloxacin 400 mg q.12 hours and IV metronidazole 500 mg q.8 hours Status: Acute (4) Diabetes mellitus: Problem comment: -most recent A1c 8.1 -glucose checks QID ac/hs -insulin sliding scale protocol in place -hold Ozempic, glipizide, metformin Status: Acute (5) Hyponatremia: Problem comment: - normal saline IV for now - monitor serum sodium - consider fluid restriction diet Status: Acute Plan 1. Reviewed impression with patient and his daughter who accompanies him 2. Answered their questions 3. Proceed with plan as outlined above
[2023-05-01] MEDS: 0.9 % SODIUM CHLORIDE 1000 ml 1,000 ML 125 ML IV (22:44)
[2023-05-01] MEDS: metroNIDAZOLE 500 MG/100 ML PIGGYBACK 100 MG IVPB (22:45)
[2023-05-02] MEDS: CIPROFLOXACIN 400 MG/200 ML PIGGYBACK 200 MG IVPB ×2 (00:29→13:12)
[2023-05-02 03:00] VITALS: BP 126/84; PULSE 89; RESP 20; TEMP 36.8; O2SAT 93
[2023-05-02 04:23] VITALS: BP 126/79; BP 126/84; BP 144/91; PULSE 102; PULSE 111; PULSE 89
[2023-05-02] MEDS: metroNIDAZOLE 500 MG/100 ML PIGGYBACK 100 MG IVPB ×2 (05:44→14:22)
[2023-05-02 07:03] LABS: Lactate* 0.6 mmol/L (0.5-1.9)
--- NOTE | 2023-05-02 07:05 | PC.NURSE ---
[id number] Pt to floor at 2150. Pleasant and cooperative. No c/o pain. Pt refused SCDs, pt walks halls frequently. NPO since midnight. BG was 184, 2 units given per sliding scale. Pt states he checks his BG at home 3x/day (high 200s, he stated it has been elevated the last couple days), pt stated he gives himself 25units of long-acting insulin at 6pm daily and that this is new for him, he started this on Monday, 04/28. Medial abd incision covered with ABD pad, moderate amount drainage. New ABD dressing applied. Bowel tones active. Last bm 10/8 am, states BM Q3days has been his new normal. Tele ? NSR. BLE pitting edema, pt states it is normal for his legs to swell up by HS, & by morning the swelling is gone. AFebrile. ? EKG shows NSR.
[2023-05-02 07:12] LABS: Hematocrit 31.6 % (37.0-53.0); Hemoglobin* 10.3 gm/dL (13.5-17.5); Mean Corpuscular HGB Conc 33 gm/dL (32-36); Mean Corpuscular Hemoglobin 31 pg (26-34); Mean Corpuscular Volume 95 fL (80-100); Platelet Count* 405 K/uL (140-440); Red Blood Count 3.33 m/uL (4.30-5.90); Slide Review Reflex No; White Blood Count* 7.53 K/uL (4.50-11.00)
[2023-05-02 07:29] LABS: Chloride* 100 mmol/L (96-114); Sodium* 132 mmol/L (135-149)
[2023-05-02 07:30] LABS: Potassium* 4.2 mmol/L (3.6-5.1)
[2023-05-02 07:32] LABS: Creatinine* 0.6 mg/dL (0.5-1.5); Est. Creatinine Clearance* 69.03; Estimated Glomerular Filt Rate 101 ml/min
[2023-05-02 07:33] LABS: Anion Gap 4 mEq/L (7-15); Blood Urea Nitrogen* 11 mg/dL (7-30); Calcium* 8.1 mg/dL (8.4-10.6); Carbon Dioxide* 28 mmol/L (20-32); Glucose* 236 mg/dL (60-115); Lipase* 56 U/L (23-300); Magnesium* 1.7 mg/dL (1.5-2.6); Phosphorus* 2.8 mg/dL (2.5-4.5)
[2023-05-02 07:36] LABS: C Reactive Protein* 8.7 mg/dL (0.5-1.0)
[2023-05-02 08:17] VITALS: BP 152/82; PULSE 94; RESP 16; TEMP 36.6; O2SAT 93
[2023-05-02] MEDS: ACETAMINOPHEN 325 MG TABLET 650 MG PO ×2 (09:04→16:14)
[2023-05-02] MEDS: polyethylene glycoL 3350 17 GM PACK PO (09:04)
[2023-05-02] MEDS: 0.9 % SODIUM CHLORIDE 1000 ml 1,000 ML 125 ML IV (09:04)
--- NOTE | 2023-05-02 09:33 | P.GSCN_ITS ---
History of Present Illness Consult details Date Seen: 05/02/23 Consult date: 05/02/23 Narrative: Patient presented to the emergency department last night with abdominal pain and fevers. Initially he states that he was doing well after surgery. He had been tolerating a regular diet and suffering from constipation, but having regular bowel movements about once every 2-3 days. He has been intermittently taking stool softeners to help with this. On Monday he started to have a little bit more pain around his incision and yesterday developed a fever (101.4) at home. He has been taking Tylenol for pain control. Denies any nausea or vomiting. Has a good appetite this morning. No other concerns. Workup was performed in the emergency department, no evidence of leukocytosis. CT scan demonstrated a surgical site infection of the lower midline incision w ith subcutaneous abscess measuring 6 x 5 cm in size. A small incision the previously well-healed incision was made in the emergency department with drainage of the abscess. Since being drained he has had saturation of the dressings x2. No fevers since admission and pain has improved. 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 - Varicose veins of other specified sites (ICD-10) Small bowel obstruction ?K56.609 - Unspecified intestinal obstruction, unspecified as to partial versus complete obstruction (ICD-10) Hyperlipidemia ?E78.5 - Hyperlipidemia, unspecified (ICD-10) BPH (benign prostatic hyperplasia) ?N40.0 - Benign prostatic hyperplasia without lower urinary tract symptoms (ICD-10) Diabetes mellitus ?E11.9 - Type 2 diabetes mellitus without complications (ICD-10) Surgical History History of bunionectomy ?Z98.890 - Other specified postprocedural states (ICD-10) History of arthroplasty of left shoulder ?Z96.612 - Presence of left artificial shoulder joint (ICD-10) H/O umbilical hernia repair ?Z98.890 - Other specified postprocedural states (ICD-10) ?Z87.19 - Personal history of other diseases of the digestive system (ICD-10) H/O bilateral inguinal hernia repair ?Z98.890 - Other specified postprocedural states (ICD-10) ?Z87.19 - Personal history of other diseases of the digestive system (ICD-10) History of bilateral hip replacements ?Z96.643 - Presence of artificial hip joint, bilateral (ICD-10) Family History Father Diabetes Mother CHF (congestive heart failure) Stroke Other Prostate cancer Social History Narrative: He lives with his [place]. 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 He does not smoke. He does not drink alcohol. Code status is DNR. 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 What is your current living situation?: I presently have a place to live Problems where you live: no known problems Problems where you live details: NA In the past 12 months, utilities in danger of being shut off: no In past 12 months, lack of transportation kept you from medical appts, meetings, work, or getting things needed for daily living: no In the past 12 mos, have been you worried that your food would run out before you had money to buy more?: never true In the past 12 mos, the food you bought just didn't last and you didn't have money to buy more?: never true Smoking Status: Never smoker Do you use any of these nicotine containing products: None Second hand tobacco smoke exposure: No How often do you have a drink containing alcohol: never How often do you have six or more drinks on one occasion: Never AUDIT-C Alcohol total score: 0 Non-prescribed substance use: denies use Caffeine: No How often does anyone, including family, friends and others, physically hurt you : never How often does anyone, including family, friends and others, insult or talk down to you: never How often does anyone, including family, friends and others, threaten you with harm: never How often does anyone, including family, friends and others, scream or curse at you: never service: No Meds Home Medications and Allergies Home Medications Medication Instructions Recorded Confirmed Type aspirin 325 mg tablet 325 mg PO DAILY 04/10/23 05/02/23 History simvastatin 40 mg tablet 40 mg PO QPM 04/10/23 05/02/23 History Allergies Allergy/AdvReac Type Severity Reaction Status Date / Time No Known Drug Allergies Allergy Verified 05/01/23 18:18 Exam Narrative: Exam Narrative: General: Alert and oriented, no acute distress. Nontoxic in appearance. Respiratory: Equal breath rise bilaterally, maintained on room air CV: Well perfused Abdomen: Dressings removed from lower midline incision. No surrounding erythema or induration concerning for cellulitis. A 2 cm incision of the upper portion of the scar is present, there is expulsion of purulent material with palpation. The incision was extended at bedside and area irrigated thoroughly. The underlying fascia was palpated, I am able to palpate the fascial sutures, but there is no communication within the abdomen. Const: Vital Signs, click to edit/add: Vital Signs - 24 hr 05/01/23 16:32 05/01/23 17:21 05/01/23 17:30 Temperature 98.5 F Pulse Rate 112 H 109 H Pulse Rate [Pulse Oximeter] Pulse Rate [Right Pulse Oximeter] 122 H Pulse Rate [orthos tatic lying Pulse Oximeter] Pulse Rate [orthos tatic sitting Puls e Oximeter] Pulse Rate [orthos tatic standing Pul se Oximeter] Respiratory Rate 18 Blood Pressure Blood Pressure [Ri ght Arm] Blood Pressure [Ri ght Upper Arm] 131/74 Blood Pressure [or thostatic lying Ri ght Arm] Blood Pressure [or thostatic standing Right Arm] Pulse Oximetry 96 95 95 Oxygen Delivery Me thod Room Air 05/01/23 17:31 05/01/23 17:32 05/01/23 18:00 Temperature Pulse Rate 112 H 111 H 105 H Pulse Rate [Pulse Oximeter] Pulse Rate [Right Pulse Oximeter] Pulse Rate [orthos tatic lying Pulse Oximeter] Pulse Rate [orthos tatic sitting Puls e Oximeter] Pulse Rate [orthos tatic standing Pul se Oximeter] Respiratory Rate Blood Pressure 129/81 Blood Pressure [Ri ght Arm] Blood Pressure [Ri ght Upper Arm] Blood Pressure [or thostatic lying Ri ght Arm] Blood Pressure [or thostatic standing Right Arm] Pulse Oximetry 94 95 94 Oxygen Delivery Me thod 05/01/23 18:01 05/01/23 18:31 05/01/23 18:32 Temperature Pulse Rate 109 H 110 H 111 H Pulse Rate [Pulse Oximeter] Pulse Rate [Right Pulse Oximeter] Pulse Rate [orthos tatic lying Pulse Oximeter] Pulse Rate [orthos tatic sitting Puls e Oximeter] Pulse Rate [orthos tatic standing Pul se Oximeter] Respiratory Rate Blood Pressure 129/82 141/82 H Blood Pressure [Ri ght Arm] Blood Pressure [Ri ght Upper Arm] Blood Pressure [or thostatic lying Ri ght Arm] Blood Pressure [or thostatic standing Right Arm] Pulse Oximetry [address] thod 05/01/23 19:00 05/01/23 19:01 05/01/23 19:02 Temperature Pulse Rate 109 H 110 H 109 H Pulse Rate [Pulse Oximeter] Pulse Rate [Right Pulse Oximeter] Pulse Rate [orthos tatic lying Pulse Oximeter] Pulse Rate [orthos tatic sitting Puls e Oximeter] Pulse Rate [orthos tatic standing Pul se Oximeter] Respiratory Rate Blood Pressure 121/80 Blood Pressure [Ri ght Arm] Blood Pressure [Ri ght Upper Arm] Blood Pressure [or thostatic lying Ri ght Arm] Blood Pressure [or thostatic standing Right Arm] Pulse Oximetry 94 [address] thod 05/01/23 19:32 05/01/23 19:34 05/01/23 20:11 Temperature Pulse Rate 94 Pulse Rate [Pulse Oximeter] Pulse Rate [Right Pulse Oximeter] Pulse Rate [orthos tatic lying Pulse Oximeter] Pulse Rate [orthos tatic sitting Puls e Oximeter] Pulse Rate [orthos tatic standing Pul se Oximeter] Respiratory Rate Blood Pressure 119/77 139/87 Blood Pressure [Ri ght Arm] Blood Pressure [Ri ght Upper Arm] Blood Pressure [or thostatic lying Ri ght Arm] Blood Pressure [or thostatic standing Right Arm] Pulse Oximetry [address] thod 05/01/23 20:31 05/01/23 21:01 05/01/23 21:02 Temperature Pulse Rate 103 H 105 H Pulse Rate [Pulse Oximeter] Pulse Rate [Right Pulse Oximeter] Pulse Rate [orthos tatic lying Pulse Oximeter] Pulse Rate [orthos tatic sitting Puls e Oximeter] Pulse Rate [orthos tatic standing Pul se Oximeter] Respiratory Rate Blood Pressure 125/78 140/84 H Blood Pressure [Ri ght Arm] Blood Pressure [Ri ght Upper Arm] Blood Pressure [or thostatic lying Ri ght Arm] Blood Pressure [or thostatic standing Right Arm] Pulse Oximetry 93 94 Oxygen Delivery Me thod 05/01/23 21:30 05/01/23 21:31 05/01/23 21:50 Temperature 98.5 F Pulse Rate 99 102 H Pulse Rate [Pulse Oximeter] 97 Pulse Rate [Right Pulse Oximeter] Pulse Rate [orthos tatic lying Pulse Oximeter] Pulse Rate [orthos tatic sitting Puls e Oximeter] Pulse Rate [orthos tatic standing Pul se Oximeter] Respiratory Rate 20 Blood Pressure 129/85 Blood Pressure [Ri ght Arm] 140/85 H Blood Pressure [Ri ght Upper Arm] Blood Pressure [or thostatic lying Ri ght Arm] Blood Pressure [or thostatic standing Right Arm] Pulse Oximetry 94 95 94 Oxygen Delivery Me thod Room Air 05/01/23 22:26 05/02/23 03:00 05/02/23 04:23 Temperature 98.2 F Pulse Rate 99 Pulse Rate [Pulse Oximeter] 89 Pulse Rate [Right Pulse Oximeter] Pulse Rate [orthos tatic lying Pulse Oximeter] 89 Pulse Rate [orthos tatic sitting Puls e Oximeter] 102 H Pulse Rate [orthos tatic standing Pul se Oximeter] 111 H Respiratory Rate 20 Blood Pressure Blood Pressure [Ri ght Arm] 126/84 126/79 Blood Pressure [Ri ght Upper Arm] Blood Pressure [or thostatic lying Ri ght Arm] 126/84 Blood Pressure [or thostatic standing Right Arm] 144/91 H Pulse Oximetry 93 Oxygen Delivery Me thod Room Air Results Labs Labs: Abnormal lab results 05/01/23 05/01/23 05/02/23 Range/Units 18:11 18:23 06:19 RBC 3.15 L 3.33 L (4.30-5.90) m/uL Hgb 10.0 L 10.3 L (13.5-17.5) gm/dL Hct 30.0 L 31.6 L (37.0-53.0) % Plt Count 456 H (140-440) K/uL Neut % (Auto) 83.2 H (42.0-72.0) % Lymph % (Auto) 8.2 L (20-44) % Neut # (Auto) 8.20 H (1.7-7.0) K/uL Lymph # (Auto) 0.80 L (0.90-2.90) K/uL VBG pO2 24.0 L (25-47) mmHG VBG HCO3 30 H (21-28) mmol/L Sodium 131 L 132 L (135-149) mmol/L Chloride 95 L (96-114) mmol/L Anion Gap 4 L (7-15) mEq/L Glucose 260 H 236 H (60-115) mg/dL Calcium 8.3 L 8.1 L (8.4-10.6) mg/dL C-Reactive Protein 8.7 H (0.5-1.0) mg/dL Albumin 3.1 L (3.3-5.0) g/dL Urine Glucose (UA) Trace A (Negative) Urine Ketones Trace A (Negative) Urine Blood Trace-lysed A (Negative) Diabetes panel 05/01/23 05/02/23 Range/Units 18:11 06:19 Sodium 131 L 132 L (135-149) mmol/L Potassium 4.1 4.2 (3.6-5.1) mmol/L Chloride 95 L 100 (96-114) mmol/L Carbon Dioxide 28 28 (20-32) mmol/L BUN 18 11 (7-30) mg/dL Creatinine 0.8 0.6 (0.5-1.5) mg/dL Glucose 260 H 236 H (60-115) mg/dL Calcium 8.3 L 8.1 L (8.4-10.6) mg/dL AST 17 (12-35) U/L ALT 16 (4-50) U/L Alkaline Phosphatase 84 (40-150) U/L Total Protein 6.3 (6.0-8.3) g/dL Albumin 3.1 L (3.3-5.0) g/dL Calcium panel 05/01/23 05/02/23 Range/Units 18:11 06:19 Calcium 8.3 L 8.1 L (8.4-10.6) mg/dL Phosphorus 2.8 (2.5-4.5) mg/dL Albumin 3.1 L (3.3-5.0) g/dL Pituitary panel 05/01/23 05/02/23 Range/Units 18:11 06:19 Sodium 131 L 132 L (135-149) mmol/L Potassium 4.1 4.2 (3.6-5.1) mmol/L Chloride 95 L 100 (96-114) mmol/L Carbon Dioxide 28 28 (20-32) mmol/L BUN 18 11 (7-30) mg/dL Creatinine 0.8 0.6 (0.5-1.5) mg/dL Glucose 260 H 236 H (60-115) mg/dL Calcium 8.3 L 8.1 L (8.4-10.6) mg/dL Adrenal panel 05/01/23 05/02/23 Range/Units 18:11 06:19 Sodium 131 L 132 L (135-149) mmol/L Potassium 4.1 4.2 (3.6-5.1) mmol/L Chloride 95 L 100 (96-114) mmol/L Carbon Dioxide 28 28 (20-32) mmol/L BUN 18 11 (7-30) mg/dL Creatinine 0.8 0.6 (0.5-1.5) mg/dL Glucose 260 H 236 H (60-115) mg/dL Calcium 8.3 L 8.1 L (8.4-10.6) mg/dL Total Bilirubin 0.4 (0.1-1.5) mg/dL AST 17 (12-35) U/L ALT 16 (4-50) U/L Alkaline Phosphatase 84 (40-150) U/L Total Protein 6.3 (6.0-8.3) g/dL Albumin 3.1 L (3.3-5.0) g/dL All other labs normal. Imaging Additional studies: Cultures are pending. A swab with Gram stain was sent this morning. Assessment and Plan Assessment and plan (1) Abdominal wall abscess at site of surgical wound: Problem comment: - CT scan of abdomen and pelvis, on 05/01/2023: Demonstrates a 4.2 x 5.0 centimeter rim enhancing abscess within the superficial subcutaneous soft tissues of the low midline abdomen without definite evidence of additional intra-abdominal abscess. Otherwise postoperative change status post bowel resection without evidence of recurrent obstruction. - emergency department physician, Dr. Sukhdev Carroll, will be removing the Steri-Strips and the sutures, opening up the surgical wound, washing it out, obtain wound culture, then employ appropriate dressing - general surgeon, Dr. Castro, will be consulting in the morning - for now initiate IV ciprofloxacin 400 mg q.12 hours and IV metronidazole 500 mg q.8 hours Status: Acute Plan Patient is status post exploratory laparotomy and small-bowel resection from 2 weeks earlier. He presented to the emergency department last night with evidence of a surgical site infection. The incision was opened at bedside drained and irrigated. Packing of Vashe soaked Kerlix was placed into the area with an outer dressing of 4 x 4 and ABD. His daughter is a nurse and will be doing dressing changes at home. Recommend b.i.d. dressing changes for the next few days. Patient already has an appointment to see me in surgery clinic , will keep this appointment to evaluate the wound. Would recommend a course of antibiotics. Gram stain is pending, but will likely need Gram-negative and positive coverage. Okay for regular diet, encourage ambulation. Anticipate discharge later today. General Surgery Procedures I/D Type: abscess Site: abdomen Anesthetic used: lidocaine 1% Amount of fluid (mL): 25 Irrigation: Yes Packing used?: plain (Kerlix soaked in Vashe)
[2023-05-02 09:50] VITALS: PULSE 91
--- NOTE | 2023-05-02 12:19 | P.DS_ITS ---
DS: Providers Provider Date Seen: 05/02/23 Date of admission: 05/02/23 09:07 Primary care physician: Mark Valdes MD Admitting Clinician: Preston Rodriguez MD Consults: 05/01/23 21:35 Consult to Physician [CONS] Urgent Comment: Consulting Provider: Otilia Castro Has provider been notified: Yes Attending Physician on discharge: Payton Ramirez [facility] [place] [facility] Date of Discharge: 05/02/23 DS: Diagnosis Discharge Diagnosis (1) Abdominal wall abscess at site of surgical wound: Status: Acute Problem details: - CT scan of abdomen and pelvis, on 05/01/2023: Demonstrates a 4.2 x 5.0 centimeter rim enhancing abscess within the superficial subcutaneous soft tissues of the low midline abdomen without definite evidence of additional intra-abdominal abscess. Otherwise postoperative change status post bowel resection without evidence of recurrent obstruction. - emergency department physician, Dr. Sukhdev Carroll, will be removing the Steri-Strips and the sutures, opening up the surgical wound, washing it out, obtain wound culture, then employ appropriate dressing - initiated on IV ciprofloxacin 400 mg q.12 hours and IV metronidazole 500 mg q.8 hours -General Surgery consulted, Dr. Castro. Incision was opened at bedside drained and irrigated. Packing of Vashe soaked Kerlix was placed into the area with an outer dressing of 4 x 4 and ABD. Gram stain of the wound was obtained showing MODERATE GRAM NEG LUCERO, MANY GRAM POS COCCI MA & IN CHAINs, MANY WHITE BLOOD CELLS. -General Surgery recommendations as follows: Recommend b.i.d. dressing changes for the next few days (daughter will assist with this). Follow-up appointment in surgery clinic afternoon (05/04/2023) to evaluate the wound. Augmentin and doxycycline twice daily x7 day course. -Pain management as needed with Tylenol and oxycodone. (2) Postoperative abdominal pain with fever: Status: Acute Problem details: -findings and management as above. Fever resolved. (3) Hyponatremia: Status: Acute Problem details: -sodium 131 on admission, 132 on recheck the morning of discharge following normal saline IV hydration. Noted previously 134 DS: Summary Hospital Course Hospital Course: [age] year old male past medical history significant for diabetes mellitus type 2, BPH, pancreatic mass, malnutrition, small-bowel obstruction/ileus with surgical intervention (03/2023) was admitted to the medical floor for management of postoperative fever with surgical site infection of the lower midline incision with subcutaneous abscess. Course of care and details as noted above. Remainder of chronic medical comorbidities were monitored and managed with home medications. Status at Discharge Functional status at discharge: independent ambulation Overall status at discharge: patient is back to baseline Time Spent with Patient Time attestation: Total time spent providing and/or coordinating discharge services: Time spent: Greater than 30 minutes Exam Narrative: Exam Narrative: PHYSICAL EXAM General: Very pleasant, conversant, NAD HEENT: Normocephalic, atraumatic, sclera white, EOMI, oral mucosa moist Cardiovascular: RRR, S1S2. No pitting edema Pulmonary: CTA bilaterally without rhonchi, rales, expiratory wheezes. No dyspnea Abdominal: Soft, new, clean abdominal packing and dressing in place, dry without drainage. No surrounding erythema or tenderness Neurological: Alert, answering questions appropriately, cranial nerves intact, no focal findings Extremities: No gross joint deformity or swelling. AROMI. Neurovascularly intact Skin: Warm, dry. Const: Vital Signs, click to edit/add: Vital Signs - 24 hr 05/01/23 16:32 05/01/23 17:21 05/01/23 17:30 Temperature 98.5 F Pulse Rate 112 H 109 H Pulse Rate [Pulse Oximeter] Pulse Rate [Right Pulse Oximeter] 122 H Pulse Rate [orthos tatic lying Pulse Oximeter] Pulse Rate [orthos tatic sitting Puls e Oximeter] Pulse Rate [orthos tatic standing Pul se Oximeter] Respiratory Rate 18 Blood Pressure Blood Pressure [Ri ght Arm] Blood Pressure [Ri ght Upper Arm] 131/74 Blood Pressure [or thostatic lying Ri ght Arm] Blood Pressure [or thostatic standing Right Arm] Pulse Oximetry 96 95 95 Oxygen Delivery Me thod Room Air 05/01/23 17:31 05/01/23 17:32 05/01/23 18:00 Temperature Pulse Rate 112 H 111 H 105 H Pulse Rate [Pulse Oximeter] Pulse Rate [Right Pulse Oximeter] Pulse Rate [orthos tatic lying Pulse Oximeter] Pulse Rate [orthos tatic sitting Puls e Oximeter] Pulse Rate [orthos tatic standing Pul se Oximeter] Respiratory Rate Blood Pressure 129/81 Blood Pressure [Ri ght Arm] Blood Pressure [Ri ght Upper Arm] Blood Pressure [or thostatic lying Ri ght Arm] Blood Pressure [or thostatic standing Right Arm] Pulse Oximetry 94 95 94 Oxygen Delivery Me thod 05/01/23 18:01 05/01/23 18:31 05/01/23 18:32 Temperature Pulse Rate 109 H 110 H 111 H Pulse Rate [Pulse Oximeter] Pulse Rate [Right Pulse Oximeter] Pulse Rate [orthos tatic lying Pulse Oximeter] Pulse Rate [orthos tatic sitting Puls e Oximeter] Pulse Rate [orthos tatic standing Pul se Oximeter] Respiratory Rate Blood Pressure 129/82 141/82 H Blood Pressure [Ri ght Arm] Blood Pressure [Ri ght Upper Arm] Blood Pressure [or thostatic lying Ri ght Arm] Blood Pressure [or thostatic standing Right Arm] Pulse Oximetry 94 94 94 Oxygen Delivery Mt thod 05/01/23 19:00 05/01/23 19:01 05/01/23 19:02 Temperature Pulse Rate 109 H 110 H 109 H Pulse Rate [Pulse Oximeter] Pulse Rate [Right Pulse Oximeter] Pulse Rate [orthos tatic lying Pulse Oximeter] Pulse Rate [orthos tatic sitting Puls e Oximeter] Pulse Rate [orthos tatic standing Pul se Oximeter] Respiratory Rate Blood Pressure 121/80 Blood Pressure [Ri ght Arm] Blood Pressure [Ri ght Upper Arm] Blood Pressure [or thostatic lying Ri ght Arm] Blood Pressure [or thostatic standing Right Arm] Pulse Oximetry 94 94 94 Oxygen Delivery Me thod 05/01/23 19:32 05/01/23 19:34 05/01/23 20:11 Temperature Pulse Rate 94 Pulse Rate [Pulse Oximeter] Pulse Rate [Right Pulse Oximeter] Pulse Rate [orthos tatic lying Pulse Oximeter] Pulse Rate [orthos tatic sitting Puls e Oximeter] Pulse Rate [orthos tatic standing Pul se Oximeter] Respiratory Rate Blood Pressure 119/77 139/87 Blood Pressure [Ri ght Arm] Blood Pressure [Ri ght Upper Arm] Blood Pressure [or thostatic lying Ri ght Arm] Blood Pressure [or thostatic standing Right Arm] Pulse Oximetry 94 Oxygen Delivery Me thod 05/01/23 20:31 05/01/23 21:01 05/01/23 21:02 Temperature Pulse Rate 103 H 105 H Pulse Rate [Pulse Oximeter] Pulse Rate [Right Pulse Oximeter] Pulse Rate [orthos tatic lying Pulse Oximeter] Pulse Rate [orthos tatic sitting Puls e Oximeter] Pulse Rate [orthos tatic standing Pul se Oximeter] Respiratory Rate Blood Pressure 125/78 140/84 H Blood Pressure [Ri ght Arm] Blood Pressure [Ri ght Upper Arm] Blood Pressure [or thostatic lying Ri ght Arm] Blood Pressure [or thostatic standing Right Arm] Pulse Oximetry 93 94 Oxygen Delivery Me thod 05/01/23 21:30 05/01/23 21:31 05/01/23 21:50 Temperature 98.5 F Pulse Rate 99 102 H Pulse Rate [Pulse Oximeter] 97 Pulse Rate [Right Pulse Oximeter] Pulse Rate [orthos tatic lying Pulse Oximeter] Pulse Rate [orthos tatic sitting Puls e Oximeter] Pulse Rate [orthos tatic standing Pul se Oximeter] Respiratory Rate 20 Blood Pressure 129/85 Blood Pressure [Ri ght Arm] 140/85 H Blood Pressure [Ri ght Upper Arm] Blood Pressure [or thostatic lying Ri ght Arm] Blood Pressure [or thostatic standing Right Arm] Pulse Oximetry 94 95 94 Oxygen Delivery Me thod Room Air 05/01/23 22:26 05/02/23 03:00 05/02/23 04:23 Temperature 98.2 F Pulse Rate 99 Pulse Rate [Pulse Oximeter] 89 Pulse Rate [Right Pulse Oximeter] Pulse Rate [orthos tatic lying Pulse Oximeter] 89 Pulse Rate [orthos tatic sitting Puls e Oximeter] 102 H Pulse Rate [orthos tatic standing Pul se Oximeter] 111 H Respiratory Rate 20 Blood Pressure Blood Pressure [Ri ght Arm] 126/84 126/79 Blood Pressure [Ri ght Upper Arm] Blood Pressure [or thostatic lying Ri ght Arm] 126/84 Blood Pressure [or thostatic standing Right Arm] 144/91 H Pulse Oximetry 93 Oxygen Delivery Me thod Room Air 05/02/23 08:17 05/02/23 09:50 Temperature 97.9 F Pulse Rate 91 Pulse Rate [Pulse Oximeter] 94 Pulse Rate [Right Pulse Oximeter] Pulse Rate [orthos tatic lying Pulse Oximeter] Pulse Rate [orthos tatic sitting Puls e Oximeter] Pulse Rate [orthos tatic standing Pul se Oximeter] Respiratory Rate 16 Blood Pressure Blood Pressure [Ri ght Arm] 152/82 H Blood Pressure [Ri ght Upper Arm] Blood Pressure [or thostatic lying Ri ght Arm] Blood Pressure [or thostatic standing Right Arm] Pulse Oximetry 93 Oxygen Delivery Me thod Room Air DS: Data Data Completed and Pending Completed studies during hospitalization: Procedures Drainage of Stomach with Drainage Device, Via Natural or Artificial Opening (04/10/23) Insertion of Infusion Device into Superior Vena Cava, Percutaneous Approach (04/10/23) Resection of Ileum, Open Approach (04/10/23) Ultrasonography of Superior Vena Cava, Guidance (04/10/23) Labs on day of discharge: Labs from last 24 hours 05/02/23 05/01/23 05/01/23 06:19 18:23 18:11 WBC 7.53 9.86 RBC 3.33 L 3.15 L Hgb 10.3 L 10.0 L Hct 31.6 L 30.0 L MCV 95 95 MCH 31 32 MCHC 33 33 RDW Coeff of [place] 12.2 Plt Count 405 456 H Neut % (Auto) 83.2 H Lymph % (Auto) 8.2 L [place] % (Auto) 7.9 Eos % (Auto) 0.4 Baso % (Auto) 0.1 Neut # (Auto) 8.20 H Lymph # (Auto) 0.80 L [place] # (Auto) 0.80 Eos # (Auto) 0.04 Baso # (Auto) 0.01 Abs Immat Gran (auto) 0.02 Imm/Tot Granulo (auto) 0.2 VBG pH 7.427 VBG pCO2 46 VBG pO2 24.0 L VBG HCO3 30 H Sodium 132 L 131 L Potassium 4.2 4.1 Chloride 100 95 L Carbon Dioxide 28 28 Anion Gap 4 L 8 BUN 11 18 Creatinine 0.6 0.8 Estimated Creat Clear 69.03 69.03 Estimated GFR 101 93 Glucose 236 H 260 H Lactate 0.6 0.8 Calcium 8.1 L 8.3 L Phosphorus 2.8 Magnesium 1.7 Total Bilirubin 0.4 AST 17 ALT 16 Alkaline Phosphatase 84 C-Reactive Protein 8.7 H Total Protein 6.3 Albumin 3.1 L Lipase 56 71 Urine Color Yellow Urine Appearance Clear Urine pH 7.0 Ur Specific [place] 1.020 Urine Protein Negative Urine Glucose (UA) Trace A Urine Ketones Trace A Urine Blood Trace-lysed A Urine Nitrite Negative Urine Bilirubin Negative Urine Urobilinogen 1.0 Ur Leukocyte Esterase Negative Urine RBC 0-2 Urine WBC 0-2 Ur Squamous Epith Cells Few Urine Bacteria None SARS-CoV-2 (PCR) Influenza Type A (PCR) Influenza Type B (PCR) RSV (PCR) 05/01/23 18:00 WBC RBC Hgb Hct MCV MCH MCHC RDW Coeff of [place] Plt Count Neut % (Auto) Lymph % (Auto) [place] % (Auto) Eos % (Auto) Baso % (Auto) Neut # (Auto) Lymph # (Auto) [place] # (Auto) Eos # (Auto) Baso # (Auto) Abs Immat Gran (auto) Imm/Tot Granulo (auto) VBG pH VBG pCO2 VBG pO2 VBG HCO3 Sodium Potassium Chloride Carbon Dioxide Anion Gap BUN Creatinine Estimated Creat Clear Estimated GFR Glucose Lactate Calcium Phosphorus Magnesium Total Bilirubin AST ALT Alkaline Phosphatase C-Reactive Protein Total Protein Albumin Lipase Urine Color Urine Appearance Urine pH Ur Specific [place] Urine Protein Urine Glucose (UA) Urine Ketones Urine Blood Urine Nitrite Urine Bilirubin Urine Urobilinogen Ur Leukocyte Esterase Urine RBC Urine WBC Ur Squamous Epith Cells Urine Bacteria SARS-CoV-2 (PCR) Negative SARS-CoV-2 Influenza Type A (PCR) Negative PCR FLU A Influenza Type B (PCR) Negative PCR FLU B RSV (PCR) Negative PCR RSV Preliminary micro results at discharge 05/02/23 00:15 Urine Culture - Preliminary Urine,Clean Catch Culture in Progress 05/01/23 19:14 Wound Culture - Preliminary Abdomen Culture in Progress Discharge Plan Discharge Disposition: Home, Self-Care Date of Admission: 05/02/23 09:07 Attending Provider on Discharge: Payton Ramirez Consulting Providers: Otilia Castro Primary Care Provider: Mark Valdes Condition: Improved Anticipated Discharge Date/Time: 05/02/23 11:44 Discharge Medications: New oxycodone 5 mg Tablet 5 mg PO Q4H PRNQty: 12 0RF amoxicillin-pot clavulanate [Augmentin] 500-125 mg tablet 1 tab PO BID Qty: 14 0RF doxycycline hyclate 100 mg capsule 100 mg PO BID Qty: 14 0RF Continued simvastatin 40 mg tablet 40 mg PO QPM aspirin 325 mg tablet 325 mg PO DAILY Discharge Orders: Discharge Order (Routine); Ordered 05/02/23 Ordered By: Payton Ramirez Patient Education: Doxycycline (By mouth), Amoxicillin/Clavulanate Potassium (By mouth), Oxycodone, Rapid Release (By mouth), Abscess (GEN) Additional Instructions: Wound cares: Pack wound with Vashe soaked Kerlix. Then dress with 4x4s and ABD pad. Do this twice daily as instructed by General Surgery. Keep area clean and dry. Follow up in the General Surgery clinic on 05/04/23. Restricted activity as below. Complete your antibiotics. You may take Tylenol 1000mg every 6 hours as needed for pain. Oxycodone as needed for increased pain. Consider taking Senna twice daily to keep stools soft while you heal this abdominal wound. May remove dressing shower and then replace dressing. Activity Level: No strenuous activity Activity Detail: No lifting, pushing, pulling until follow up with General Sugery and further recommendations provided Discharge Diet: Regular Follow Up Appointments: Otilia Castro MD [Staff Physician] - 05/04/23 (Post hospital follow up) Mark Valdes MD [Primary Care Provider] - Forms: [facility] Info Instructions
[2023-05-02] MEDS: OXYCODONE 5 MG TABLET PO (14:39)
[2023-05-02 15:30] VITALS: BP 132/84; PULSE 93; RESP 18; TEMP 36.5; O2SAT 95
--- NOTE | 2023-05-02 16:48 | PC.NURSE ---
Discharge 1615- Patient abdominal dressing changed with daughter Barbara RN at discharge. IV removed with catheter intact. He states some pain with dressing change and positional changes. Discharge instructions given verbally and in-print to patient and daughter. PRN tylenol given before discharge. He is wheeled out with all belongings.
== END 2023-05-02 16:15 | disposition home or self-care (01) | DRG 863 ==
LOC: ED 21:00 → MEDSURG 21:45
PROVIDERS: Admitting Provider Internal Medicine; Emergency Provider Emergency Medicine; PCP Family Medicine; Visit Provider Internal Medicine
DX: T81.41XA Infection following a procedure, superficial incisional surgical site, initial encounter (principal); L02.211 Cutaneous abscess of abdominal wall; E87.1 Hypo-osmolality and hyponatremia; B96.1 Klebsiella pneumoniae [K. pneumoniae] as the cause of diseases classified elsewhere; R10.9 Unspecified abdominal pain; E86.0 Dehydration; E11.9 Type 2 diabetes mellitus without complications; N40.0 Benign prostatic hyperplasia without lower urinary tract symptoms; E78.5 Hyperlipidemia, unspecified
CPT/HCPCS: 10060; 36415; 74177; 80048; 80053; 81001; 82803; 82962; 83605; 83690; 83735; 84100; 85025; 85027; 86140; 87040; 87070; 87086; 87186; 87205; 87631; 93005; 99284; 99285; G0378; A9270; J0744; J7030; Q9967; S0030

== ENCOUNTER 2023-05-04 09:03 | Outpatient (CLI) | payer MEDICARE, BC, SELFPAY ==
--- OUTSIDE RECORDS SUMMARY | 2023-05-04 09:10 | XMS_ITS | Continuity of Care Document ---
Author Name Unknown Organization [facility] Address [address] [address] [place] [address] Phone Care Team Providers Care Trimming Assembler Name Role Phone Nicolas Curry MD Unavailable Unavailable Procedures Procedure Date Colonoscopy Flex; W/remov Les- 08 Advance Directives Directive Yes / No Effective Date File Name No Information Encounters Encounter Description Practice Location Reason(s) For Visit Diagnoses Date Provider Providers Copied on Encounter [facility], [address] [address], [place], [place], [id number], [place] tel:[phone] [facility] Jeanette No Information Patricio Valenzuela. [address] [facility], [place] [address], [place], [place], [id number], [place]. tel:[phone] Referring Provider: Rio Powell, [address] [place] [address], [address]. tel:[phone] Family History Family Member Type Diagnosis Age At Onset No Information Payers Payer name Insurance type Covered democrat ID Authorarnoldoa tinasra(s) [employer] Of [facility] [id number] Social History Type Description Quantity Date Captured Comments Sex Male Smoking Status No Information Chief Complaint And Reason For Visit No Information Reason For Referral Reason For Referral No Information History Of Present Illness Encounter Date Complaint History Of Prese nt Illness No Information Functional Status Date Functional Assessmen t No Information Instructions Date Instruction Additional Infor mation No Information Assessments Type Assessment Date No Information Patient Care Teams Name Effective Dates (start - stop) Status Members No Information
--- NOTE | 2023-05-04 09:15 | CRLHL7_ITS ---
For Patients: As a result of the Century Cures Act, medical imaging exams and procedure reports are released immediately into your electronic medical record. You may view this report before your referring provider. If you have questions, please contact your health care provider. INDICATION: Abdominal mass; rule out neoplasm. COMPARISON: CT abdomen and pelvis with intravenous contrast April 17, 2023 and May 01, 2023. TECHNIQUE: Precontrast T1 and T2 weighted imaging; T2 haste imaging; diffusion weighted imaging; in and out of phase imaging; postcontrast imaging including subtraction; 15 cc of Dotarem contrast was injected. Findings: A 3.7 x 3.3 cm septated lobulated cystic lesion tail of the pancreas with high signal on the precontrast T2 haste imaging and intermediate signal on the precontrast T1 weighted imaging without any enhancement postcontrast administration. Rim enhancement identified surrounding this mass. Pancreatic duct measures 6.6 mm in diameter. No obvious peripancreatic inflammatory changes. 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 Mild diffuse fatty infiltration of the liver. No splenic pathology. Gallbladder is unremarkable. Nondilated common bile duct without any evidence of choledocholithiasis. A 6.6 x 5.8 cm cortical cyst upper pole right kidney. A 5.5 x 4.3 cm cortical cyst lower pole left kidney. 6.1 x 3 cm fluid collections possibly with enhancing rim identified in the anterior abdominal wall below the umbilicus in the midline; presumed infected fluid collection. Impression : 1. A 3.7 x 3.3 cm septated complex fluid collection in the tail of the pancreas possibly with some hemorrhagic components and enhancement of the rim; rule out pancreatic pseudocyst; this need to be followed closely until resolution to make sure there is no underlying neoplasm. 2. 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 3. Mild dilatation of the pancreatic duct measuring 6.6 mm in diameter. 4. A 6.1 x 3 cm fluid collection in the anterior abdominal wall midline below the umbilicus; rule out infected fluid collection. Dictated by Iraj Allen MD @ 05/07/2023 1:13:11 PM (Electronically Signed)
== END 2023-05-04 09:04 | disposition home or self-care (01) ==
LOC: MRI 09:05
PROVIDERS: PCP Family Medicine; Visit Provider Surgery
DX: R19.00 Intra-abdominal and pelvic swelling, mass and lump, unspecified site (principal)
CPT/HCPCS: 74183; A9575

== ENCOUNTER 2023-06-29 13:43 | Outpatient (CLI) | payer MEDICARE, BC, SELFPAY ==
--- NOTE | 2023-06-29 14:00 | CRLHL7_ITS ---
For Patients: As a result of the Century Cures Act, medical imaging exams and procedure reports are released immediately into your electronic medical record. You may view this report before your referring provider. If you have questions, please contact your health care provider. INDICATION: Follow up pancreatic fluid signal lesion in splenic vein occlusion. TECHNIQUE : Abdominal MRI. T1 in phase and out of phase. T2 weighted imaging and diffusion/ADC. Fat suppressed T1 weighted images obtained after injection of IV gadolinium. 20 cc DOTAREM IV. COMPARISON : MRI abdomen 05/04/2023 IMPRESSION : 1. Stable fluid signal lesion in the pancreatic tail possibly a pseudocyst. Continued follow-up. This could be obtained in 6-12 months. 2. 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 3. No additional fluid collections. FINDINGS: Pancreas: Stable fluid signal lesion septations pancreatic tail 3.0 x 1.8 cm. No overall change. Mildly prominent pancreatic duct. Atrophic tissue in the pancreatic tail. No additional pancreatic mass. Liver: No change. Small lesion in segment VII medial is either a cyst or a cavernous hemangioma. Spleen: No change. Splenic vein occlusion with collateral vessels. Gallbladder: No change. Biliary tree: Normal caliber. Kidneys and adrenal glands: Large renal cysts right greater than left. No hydronephrosis. Adrenal glands are Unremarkable. Ascites: Absent. Fluid collections: No additional abdominal fluid collections. The infraumbilical region was not included on this imaging exam (there was a previous described fluid collection). Lymph nodes: No suspicious enlargement. Dictated by Isaias Alberto MD @ 07/02/2023 12:27:15 PM (Electronically Signed)
== END 2023-06-29 13:44 | disposition home or self-care (01) ==
LOC: MRI 13:44
PROVIDERS: PCP Family Medicine; Visit Provider Surgery
DX: K86.89 Other specified diseases of pancreas (principal)
CPT/HCPCS: 74183; A9575

== ENCOUNTER 2024-04-24 08:47 | Outpatient (CLI) | payer MEDICARE, BC, SELFPAY ==
--- OUTSIDE RECORDS SUMMARY | 2024-04-24 08:52 | XMS_ITS | Continuity of Care Document ---
Author Organization [facility] Address [address] [place] [address] Care Team Providers Care Communications Controller Name Role Phone Rio Duggan M.D. Primary Care Provider [phone] Source Comments Patient records contain information from all sites at [facility]. For routine questions regarding patient records, call [phone] during business hours, M-F 8:00 AM - 5:00 PM Central Time. Record requests for emergency care only can be directed to [phone] at any time.[facility] Encounters Date Type Department Care Team Description 02/27/2024 Orders Only [facility] Rio Duggan M.D. Diabetes Mellitus Type 2 (HCC) 12/26/2023 10:30 AM CDT Office Visit Department of Family Medicine in [place], [place] [address] [place] [address] Rio Duggan M.D. Diabetes Mellitus Type 2 Without Complication (HCC) (Primary Dx) 12/26/2023 10:00 AM CDT Office Visit Department of Family Medicine in [place], [place] [address] [place] [phone] Rio Duggan M.D. Fonseca, Nicole A, R.N. Annual Medicare Examination Return (Primary Dx) 12/26/2023 9:30 AM CDT - 12/26/2023 11:59 PM CDT Hospital Encounter Department of Laboratory Medicine in [place], [place] [address] [place] [address] Rio Duggan M.D. Diabetes Mellitus Type 2 (HCC) Discharge Disposition: Home or Self Care 11/30/2023 8:35 AM CDT - 11/30/2023 11:59 PM CDT Hospital Encounter Department of Laboratory Medicine in [address] [phone] Rio Duggan M.D. Diabetes Mellitus Type 2 (HCC) Discharge Disposition: Home or Self Care 11/30/2023 8:00 AM CDT Nurse Only Department of Urology in [address] [phone] Raul Acevedo M.D. Mayer, Paula R REsteban Nurse Visit (Pt is here today for fill and pull per order after HoLEP procedure with Dr. Acevedo on 11/29/23.) Discharge Disposition: Home or Self Care 11/29/2023 10:15 AM CDT Ancillary Procedure Department of General Surgery 11/29/2023 10:26 AM CDT - 11/29/2023 12:46 PM CDT Surgery Outpatient Procedure Center in [address] [phone] Raul Acevedo M.D. ENUCLEATION HOLMIUM LASER PROSTATE 70 - 150 GRAMS (100 cc) 11/29/2023 10:45 AM CDT Anesthesia Event Outpatient Procedure Center in [address] [phone] Veronica Bowman APRN, Vaishali Drummond APRN, CRNA 11/29/2023 8:53 AM CDT - 11/29/2023 3:57 PM CDT Hospital Encounter Outpatient Procedure Center in [address] [phone] Raul Acevedo M.D. Benign Prostatic Hyperplasia With Lower Urinary Tract Symptom (Primary Dx) Discharge Disposition: Home or Self Care 11/14/2023 9:30 AM CDT Nurse Only Department of Urology in [place], [place] [address] [place] [address] Raul Acevedo M.D. Mayer, Paula R, R.N. Nurse Visit (Pt is here today with daughter Kendra for HoLEP procedure surgery education teaching for upcoming procedure on 11/29/[address] Acevedo. ) Discharge Disposition: Home or Self Care 11/14/2023 9:14 AM CDT Hospital Encounter Department of Laboratory Medicine in [place], [place] [address] [place] [address] Raul Acevedo M.D. Benign Prostatic Hyperplasia With Lower Urinary Tract Symptom Discharge Disposition: Home or Self Care 11/14/2023 9:15 AM CDT - 11/14/2023 11:59 PM CDT Hospital Encounter Department of Laboratory Medicine in [place] [address] [place] [address] Raul Acevedo M.D. Benign Prostatic Hyperplasia With Lower Urinary Tract Symptom Discharge Disposition: Home or Self Care 11/14/2023 9:15 AM CDT - 11/14/2023 11:59 PM CDT Hospital Encounter Department of Laboratory Medicine in [place] [address] [place] [address] Raul Acevedo M.D. Benign Prostatic Hyperplasia With Lower Urinary Tract Symptom Discharge Disposition: Home or Self Care 11/07/2023 Orders Only Department of Urology in [address] [address] Raul Acevedo M.D. Benign Prostatic Hyperplasia With Lower Urinary Tract Symptom (Primary Dx) 11/06/2023 Clinical Communication Department of Urology in [address] [address] Raul Acevedo M.D. 11/06/2023 1:30 PM CDT Office Visit Department of Family Medicine in [place], [place] [address] [place] [address] Kris Vargas M.D. Preoperative Exam (Primary Dx); Retention Urinary; Hematuria Gross; Hyperplasia Prostate Benign Localized Without Obstruction 10/30/2023 Clinical Communication Department of Urology in [address] [address] Raul Acevedo M.D. Upcoming appts 10/23/2023 Clinical Communication Department of Urology in [place] [address] [place] [address] Raul Acevedo M.D. 10/19/2023 10:00 AM CDT Procedure visit Department of Urology in [address] [address] Raul Acevedo M.D. Hematuria Gross Discharge Disposition: Home or Self Care 10/19/2023 10:30 AM CDT Office Visit Department of Urology in [address] [address] Raul Acevedo M.D. Retention Urinary (Primary Dx); Benign Prostatic Hyperplasia With Lower Urinary Tract Symptom; Hematuria Gross; Diabetes Mellitus Type 2 (HCC) 09/27/2023 2:00 PM [facility] Comprehensive Visit Department of Urology in [address] [address] Alejandro oLpez M.D. Hematuria Gross (Primary Dx); Retention Urinary; Benign Prostatic Hyperplasia With Lower Urinary Tract Symptom Discharge Disposition: Home or Self Care 09/26/2023 2:26 PM [facility] - 09/26/2023 11:59 PM [facility] Hospital Encounter Department of Laboratory Medicine in [address] [address] Rio Duggan M.D. Hematuria Gross Discharge Disposition: Home or Self Care 09/26/2023 Clinical Communication Department of Family Medicine in [place] [address] [place] [address] Rio Duggan M.D. Follow-up (Rx discrepency) 09/19/2023 3:40 PM [facility] - 09/19/2023 11:59 PM [facility] Hospital Encounter Department of Radiology in [place], [place] [address] [place] [address] Rio Duggan M.D. Hematuria Gross Discharge Disposition: Home or Self Care 09/14/2023 9:30 AM [facility] Office Visit Department of Family Medicine in [place], [place] [address] [place] [address] Rio Duggan M.D. Hematuria Gross (Primary Dx); Diabetes Mellitus Type 2 (HCC) 09/07/2023 12:15 PM [facility] Office Visit Urgent Care, [facility], in [place], [place] [address] [place] [phone] Saba Lerma APRN, C.N.P., D.N.P., M.S.N. Hematuria (Primary Dx) Discharge Disposition: Home or Self Care 09/07/2023 Nurse Triage Department of Family Medicine in [place], [place] [address] [place] [address] Ekta Moy M.S., R.N. Blood in Urine 09/01/2023 Orders Only Department of Family Medicine in [place], [place] [address] [place] [address] Rio Duggan M.D. 09/01/2023 Clinical Communication Department of Family Medicine in [place], [place] [address] [place] [address] Rio Duggan M.D. 09/01/2023 8:22 AM [facility] - 09/01/2023 11:59 PM [facility] Hospital Encounter Department of Laboratory Medicine in [place], [place] [address] [place] [address] Rio Duggan M.D. Diabetes Mellitus Type 2 (HCC) Discharge Disposition: Home or Self Care 08/29/2023 Orders Only [facility] Rio Duggan M.D. Diabetes Mellitus Type 2 (HCC) 07/11/2023 Orders Only [facility] [address] [place] [address] Rio Duggan M.D. Screening Cancer Colon 06/27/2023 Orders Only [facility] SELF TEST [facility] [address] [place] [address] Rio Duggan M.D. Screening Cancer Colon 06/19/2023 3:30 PM [facility] Virtual Visit Department of Family Medicine in [place], [place] [address] [place] [address] Rio Duggan M.D. Kelly, Ellen S, Tom., R.Ph. Diabetes Mellitus Type 2 (HCC) (Primary Dx) 06/05/2023 Refill Department of Family Medicine in [place] [address] [place] [address] Rio Duggan M.D. Med Refill 06/02/2023 1:30 PM [facility] Office Visit Department of Family Medicine in [place] [address] [place] [address] Rio Duggan M.D. Frequency Urinary (Primary Dx) 05/30/2023 Refill Department of Family Medicine in [place] [address] [place] [address] Rio Duggan M.D. Med Refill 05/30/2023 Clinical Communication Department of Family [facility] in [address] [address] Rio Duggan M.D. 05/29/2023 Refill Department of Family [facility] in [place] [address] [place] [address] Rio Duggan M.D. Med Refill 05/26/2023 2:00 PM CDT Virtual Visit Department of Family Medicine in [place] [address] [place] [address] Rio Duggan M.D. Kelly, Ellen S, Pharm.D., R.Ph. Diabetes Mellitus Type 2 (HCC) (Primary Dx) 05/16/2023 2:00 PM CDT Virtual Visit Department of Family Medicine in [place] [address] [place] [address] Rio Duggan M.D. Courtney Nielson, Pharm.D., R.Ph. Diabetes Mellitus Type 2 (HCC) (Primary Dx) 05/10/2023 Clinical Communication Department of Family [facility] in [place] [address] [place] [address] Courtney Nielson, Pharm.D., R.Ph. 05/04/2023 Clinical Communication Department of Family [facility] in [address] [address] Rio Duggan M.D. High Blood sugars 05/01/2023 Nurse Triage Department of Family [facility] in [place] [address] [place] [address] Puja Malcolm RAlli. Nurse Assessment 05/01/2023 Clinical Communication Department of Family [facility] in [address] [address] Rio Duggan M.D. After Visit Question 04/28/2023 Clinical Communication Department of Family [facility] in [address] [address] Rio Duggan M.D. Med Question 04/28/2023 2:00 PM CDT Office Visit Department of Family [facility] in [address] [phone] Rio Duggan M.D. Diabetes Mellitus Type 2 (HCC) (Primary Dx); Laparotomy Exploratory Status Post 04/25/2023 Nurse Triage Department of Family Medicine in [place], [place] [address] [place] [address] Puja Fox R.N. Blood Sugar Problem 04/24/2023 3:30 PM CDT Virtual Visit Department of Family Medicine in [place], [place] [address] [place] [address] Rio Duggan M.D. Kelly, Ellen S, Pharm.D., R.Ph. Diabetes Mellitus Type 2 (HCC) (Primary Dx) 04/10/2023 Intake T TRAN[facility] 04/10/2023 2:42 PM CDT - 04/10/2023 9:58 PM CDT Emergency [facility] [address] [place] [address] Bebo Allison M.D. Nancy De Dios M.D., M.P.H. Hematuria (Primary Dx); Obstruction Intestinal (HCC) Discharge Disposition: Acute Care Hospital 04/10/2023 Nurse Triage Department of Family Medicine in [place], [place] [address] [place] [address] Buster Diaz R.N. Abdominal Pain 03/03/2023 10:30 AM CDT Virtual Visit Department of Family Medicine in [place], [place] [address] [place] [address] Rio Duggan M.D. Kelly, Ellen S, Pharm.D., R.Ph. Diabetes Mellitus Type 2 (HCC) (Primary Dx) 02/24/2023 8:32 AM CDT - 02/24/2023 11:59 PM CDT Hospital Encounter Department of Laboratory Medicine in [place], [place] [address] [place] [address] Rio Duggan M.D. Diabetes Mellitus Type 2 (HCC) Discharge Disposition: Home or Self Care 02/07/2023 Refill Department of Family Medicine in [place], [place] [address] [place] [address] Rio Duggan M.D. Med Refill 12/16/2022 10:30 AM CDT Virtual Visit Department of Family Medicine in [place] [address] [place] [address] Rio Duggan M.D. Kelly, Ellen S, Pharm.D., R.Ph. Diabetes Mellitus Type 2 (HCC) (Primary Dx) 12/15/2022 Orders Only [facility] Rio Duggan M.D. 11/24/2022 Orders Only Department of Family Medicine in [place], [place] [address] [place] [address] Rio Duggan M.D. Diabetes Mellitus Type 2 (HCC) (Primary Dx) 11/23/2022 Orders Only Department of Family Medicine in [place], [place] [address] [place] [address] Rio Duggan M.D. 11/16/2022 1:00 PM CDT Virtual Visit Department of Family Medicine in [place] [address] [place] [address] Rio Duggan M.D. Kelly, Ellen S, PharmAnnieD., R.Ph. Diabetes Mellitus Type 2 (HCC) (Primary Dx) 11/14/2022 8:37 AM CDT - 11/14/2022 11:59 PM CDT Hospital Encounter Department of Laboratory Medicine in [place], [place] [address] [place] [address] Rio Duggan M.D. Diabetes Mellitus Type 2 (HCC); Diabetes Mellitus Type 2 (HCC) Discharge Disposition: Home or Self Care 09/19/2022 1:00 PM [facility] Virtual Visit Department of Family Medicine in [place] [address] [place] [address] Rio Duggan M.D. Kelly, Ellen S, Pharm.D., R.Ph. Diabetes Mellitus Type 2 (HCC) (Primary Dx) 08/30/2022 Orders Only [facility] Rio Duggan M.D. Diabetes Mellitus Type 2 (HCC) 08/16/2022 11:30 AM [facility] Office Visit Department of Family Medicine in [place], [place] [address] [place] [address] Rio Duggan M.D. Diabetes Mellitus Type 2 (HCC) 08/05/2022 9:30 AM [facility] Virtual Visit Department of Family Medicine in [place], [place] [address] [place] [address] Rio Duggan M.D. Kelly, Ellen S, Pharm.D., R.Ph. Diabetes Mellitus Type 2 (HCC) (Primary Dx) 08/02/2022 10:05 AM [facility] - 08/02/2022 11:59 PM [facility] Hospital Encounter Department of Laboratory Medicine in [place], [place] [address] [place] [address] Rio Duggan M.D. Diabetes Mellitus Type 2 (HCC) Discharge Disposition: Home or Self Care 07/11/2022 1:30 PM [facility] Virtual Visit Department of Family Medicine in [place] [address] [place] [address] Rio Duggan M.D. Kelly, Ellen S, Pharm.D., R.Ph. Diabetes Mellitus Type 2 (HCC) 06/21/2022 1:00 PM [facility] Office Visit Department of Family Medicine in [place], [place] [address] [place] [address] Rio Duggan M.D. Kelly, Ellen S, Pharm.D., R.Ph. Diabetes Mellitus Type 2 (HCC) 06/07/2022 Orders Only [facility] [address] [place] [address] Rio Duggan M.D. Screening Cancer Colon 05/24/2022 Orders Only [facility]F [facility] [address] [place] [address] Rio Duggan M.D. Screening Cancer Colon 05/24/2022 2:00 PM CDT Office Visit Department of Family Medicine in [place], [place] [address] [place] [address] Rio Duggan M.D. Kelly, Ellen S, Pharm.D., R.Ph. Diabetes Mellitus Type 2 (HCC) (Primary Dx) 05/03/2022 Refill Department of Family Medicine in [place], [place] [address] [place] [address] Rio Duggan M.D. Med Refill 04/12/2022 Orders Only Department of Family Medicine in [place], [place] [address] [place] [address] Rio Duggan M.D. Diabetes Mellitus Type 2 (HCC) (Primary Dx) 04/08/2022 8:23 AM CDT - 04/08/2022 11:59 PM CDT Hospital Encounter Department of Laboratory Medicine in [place], [place] [address] [place] [address] Rio Duggan M.D. Diabetes Mellitus Type 2 (HCC) Discharge Disposition: Home or Self Care 02/27/2022 Refill Department of Family Medicine in [place], [place] [address] [place] [address] Rio Duggan M.D. Med Refill 12/14/2021 Orders Only Department of Family Medicine in [place], [place] [address] [place] [address] Rio Duggan M.D. Diabetes Mellitus Type 2 (HCC) (Primary Dx) 12/14/2021 Orders Only Department of Family Medicine in [address] [address] Rio Duggan M.D. 12/13/2021 8:12 AM CDT - 12/13/2021 11:59 PM CDT Hospital Encounter Department of Laboratory Medicine in [address] [address] Rio Duggan M.D. Diabetes Mellitus Type 2 (HCC) Discharge Disposition: Home or Self Care 09/13/2021 9:00 AM [facility] Office Visit Department of Family Medicine in [address] [address] Rio Duggan M.D. Hyperlipidemia (Primary Dx); Diabetes Mellitus Type 2 (HCC) 09/10/2021 8:29 AM [facility] - 09/10/2021 11:59 PM [facility] Hospital Encounter Department of Laboratory Medicine in [address] [address] Rio Duggan M.D. Diabetes Mellitus Type 2 (HCC); Hyperlipidemia Discharge Disposition: Home or Self Care 06/08/2021 Orders Only Department of Family Medicine in [address] [address] Rio Duggan M.D. Diabetes Mellitus Type 2 (HCC) (Primary Dx); Hyperlipidemia 06/04/2021 Refill Department of Family Medicine in [address] [address] Rio Duggan M.D. Med Refill 06/04/2021 8:40 AM [facility] - 06/04/2021 11:59 PM [facility] Hospital Encounter Department of Laboratory Medicine in [address] [address] Rio Duggan M.D. Diabetes Mellitus Type 2 (HCC) Discharge Disposition: Home or Self Care 03/04/2021 Orders Only Department of Family Medicine [place] [address] [place] [address] Rio Duggan M.D. Diabetes Mellitus Type 2 (HCC) (Primary Dx) 03/01/2021 Orders Only [facility]CP [facility] Rio Zheng M.D. Diabetes Mellitus Type 2 (HCC) 02/22/2021 8:55 AM CDT - 02/22/2021 11:59 PM CDT Hospital Encounter Department of Laboratory Medicine in [address] [address] Rio Duggan M.D. Diabetes Mellitus Type 2 (HCC) Discharge Disposition: Home or Self Care 10/21/2020 12:46 PM CDT - 10/21/2020 11:59 PM CDT Hospital Encounter Department of Laboratory Medicine in [address] [address] Rio Duggan M.D. Screening Cancer Colon Discharge Disposition: Home or Self Care 09/16/2020 Orders Only [facility] Juan Luis Sanchez Jr., M.D. 08/24/2020 9:15 AM [facility] Office Visit Department of Family Medicine in [address] [address] Rio Duggan M.D. Screening Cancer Colon (Primary Dx); Diabetes Mellitus Type 2 (HCC); Hyperlipidemia 08/21/2020 8:37 AM [facility] - 08/21/2020 11:59 PM [facility] Hospital Encounter Department of Laboratory Medicine in [address] [address] Rio Duggan M.D. Diabetes Mellitus Type 2 (HCC) Discharge Disposition: Home or Self Care 06/27/2020 Refill Department of Family Medicine in [address] [address] Emely Douglass APRN, C.N.P. Med Refill 05/28/2020 Refill Department of Family Medicine in [place] [address] [place] [address] Rio Duggan M.D. Med Refill 05/21/2020 Orders Only Department of Family Medicine in [place] [address] [place] [address] Rio Duggan M.D. Diabetes Mellitus Type 2 (HCC) (Primary Dx) 05/19/2020 8:30 AM CDT - 05/19/2020 11:59 PM CDT Hospital Encounter Department of Laboratory Medicine in [place] [address] [place] [address] Rio Duggan M.D. Diabetes Mellitus Type 2 (HCC); Hyperlipidemia Discharge Disposition: Home or Self Care 11/18/2019 Orders Only Department of Family Medicine in [place] [address] [place] [address] Rio Duggan M.D. Hyperlipidemia (Primary Dx); Diabetes Mellitus Type 2 (HCC) 11/18/2019 9:10 AM CDT - 11/18/2019 11:59 PM CDT Hospital Encounter Department of Laboratory Medicine in [address] [address] Rio Duggan M.D. Diabetes Mellitus Type 2 (HCC) Discharge Disposition: Home or Self Care 09/17/2019 Clinical Communication Department of Nutrition in [place] [address] [place] [address] Liliam Augustine, R.NAnnie Diabetes ( 3 month A1C follow up) 09/17/2019 10:00 AM [facility] Clinical Support Department of Nutrition in [place] [address] [place] [address] Rio Duggan M.D. Schema, Julie A, R.NAnnie Diabetes Mellitus Type 2 (HCC) (Primary Dx) 09/03/2019 12:30 PM [facility] Clinical Support Department of Nutrition in [place] [address] [place] [address] Rio Duggan M.D. Schema, Julie A, R.N. Diabetes Mellitus Type 2 (HCC) 08/22/2019 Orders Only Department of Family Medicine in [address] [address] Rio Duggan M.D. Diabetes Mellitus Type 2 (HCC) (Primary Dx) 08/19/2019 8:25 AM [facility] - 08/19/2019 11:59 PM [facility] Hospital Encounter Department of Laboratory Medicine in [address] [address] Rio Duggan M.D. Screening Colon Cancer Average Risk Discharge Disposition: Home or Self Care 08/19/2019 8:24 AM [facility] Hospital Encounter Department of Laboratory Medicine in [address] [address] Rio Duggan M.D. Diabetes Mellitus Type 2 (HCC) Discharge Disposition: Home or Self Care 05/20/2019 9:30 AM CDT Office Visit Department of Family Medicine in [address] [address] Rio Duggan M.D. Diabetes Mellitus Type 2 (HCC) (Primary Dx); Hyperlipidemia; Screening Colon Cancer Average Risk; Need Vaccine Immunization 05/06/2019 8:26 AM CDT - 05/06/2019 11:59 PM CDT Hospital Encounter Department of Laboratory Medicine in [address] [address] Rio Duggan M.D. Diabetes Mellitus Type 2 (HCC) Discharge Disposition: Home or Self Care 11/30/2018 Orders Only Department of Family Medicine in [address] [address] Tamar Nguyễn 11/06/2018 9:00 AM CDT Office Visit Department of Family Medicine in [address] [address] Rio Duggan M.D. Screening Cancer Colon (Primary Dx); Diabetes Mellitus Type 2 (HCC) 10/31/2018 9:15 AM CDT Office Visit Department of Family Medicine in [address] [address] Rio Duggan M.D. [place], Nancy A, R.N. Annual Medicare Examination Return 10/31/2018 8:51 AM CDT - 10/31/2018 11:59 PM CDT Hospital Encounter Department of Laboratory Medicine in [address] [address] Rio Duggan M.D. Diabetes Mellitus Type 2 (HCC) Discharge Disposition: Home or Self Care 09/21/2018 Clinical Communication Department of Family [facility] in [address] [address] Christine Simms R.N., [facility]- RN Medicare Visit 08/21/2018 Clinical Communication Department of Family Medicine in [address] [address] Rio Duggan M.D. 08/09/2018 Clinical Communication Department of Family Medicine in [address] [address] Rio Duggan M.D. Communication (change of pharmacy) 05/28/2018 Refill Department of Family Medicine in [address] [address] Rio Duggan M.D. Med Refill (Januvia and Simastatin) 05/02/2018 2:45 PM CDT Office Visit Department of Family Medicine in [address] [address] Rio Duggan M.D. Hyperlipidemia (Primary Dx); Diabetes Mellitus Type 2 (HCC) 04/26/2018 8:58 AM CDT - 04/26/2018 11:59 PM CDT Hospital Encounter Department of Laboratory Medicine in [place] [address] [place] [address] Rio Duggan M.D. Diabetes Mellitus Type 2 Without Complication (HCC) Discharge Disposition: Home or Self Care 04/26/2018 8:58 AM CDT - 04/26/2018 11:59 PM CDT Hospital Encounter Department of Laboratory Medicine in [place] [address] [place] [address] Rio Duggan M.D. Diabetes Mellitus Type 2 Without Complication (HCC) Discharge Disposition: Home or Self Care 02/14/2018 Refill Department of Family Medicine in [place] [address] [place] [address] Rio Duggan M.D. Med Refill 01/31/2018 Clinical Communication Department of Family Medicine in [place] [address] [place] [address] Teagan Carroll R.N. 01/31/2018 Clinical Communication Department of Family Medicine in [address] [address] Rio Santos Med Refill 11/30/2017 Orders Only Department of Family Medicine in [place] [address] [place] [address] Tamar Nguyễn 10/18/2017 1:12 PM CDT - 10/18/2017 11:59 PM CDT Hospital Encounter Department of Radiology, [facility], in [place], [place] [address] [place] [address] Archie Hernández M.D. Aftercare Total Hip Arthroplasty Discharge Disposition: Home or Self Care 10/18/2017 1:15 PM CDT Comprehensive Visit Department of Orthopedic Surgery in [place], [place] [address] [place] [address] Archie Hernández M.D. Aftercare Total Hip Arthroplasty (Primary Dx) 10/17/2017 11:30 AM CDT Office Visit Department of Family Medicine in [place], [place] [address] [place] [address] Rio Duggan M.D. Need Vaccine Immunization (Primary Dx); Diabetes Mellitus Type 2 Without Complication (HCC) 09/25/2017 Refill Department of Family Medicine in [place], [place] [address] [place] [address] Rio Duggan M.D. Med Refill 06/05/2017 Refill Department of Family Medicine in [place], [place] [address] [place] [address] Gabriela Swan LAnnieP.N. Med Refill 06/01/2017 Refill Department of Family Medicine in [place], [place] [address] [place] [address] Katherine Isaacs LAnnieP.N. Med Refill 05/29/2017 Abstract Department of Family Medicine in [place], [place] [address] [place] [address] Provider, Historical 05/05/2017 Orders Only Department of Family Medicine in [place], [place] [address] [place] [address] Rio Duggan M.D. Diabetes Mellitus Type 2 Without Complication (HCC) 04/18/2017 4:34 AM CDT - 04/18/2017 11:59 PM CDT Hospital Encounter HX NO MAPPING Rio Duggan M.D. 04/18/2017 8:47 AM CDT - 04/18/2017 11:59 PM CDT Hospital Encounter HX [facility] Rio Reyes M.D. 02/06/2017 4:56 AM CDT - 02/06/2017 11:59 PM CDT Hospital Encounter HX NO MAPPING Marissa Banks, YANETH, C.N.P. 02/06/2017 9:19 AM CDT - 02/06/2017 11:59 PM CDT Hospital Encounter [facility] Marissa Banks APRN, C.N.PAnnie 01/27/2017 1:15 PM CDT - 01/27/2017 11:59 PM CDT Hospital Encounter [facility]X [facility] Layton Santiago D.O. 01/11/2017 9:01 AM CDT - 01/11/2017 11:59 PM CDT Hospital Encounter [facility] Rio Reyes M.D. 2017 9:25 AM CDT - 2017 11:59 PM CDT Hospital Encounter [facility]X [facility] Rio Duggan M.D. 07/15/2016 8:56 AM [facility] - 07/15/2016 11:59 PM [facility] Hospital Encounter [facility]X [facility] Rio Duggan M.D. 04/11/2016 10:21 AM CDT - 04/11/2016 11:59 PM CDT Hospital Encounter [facility]X [facility] Rio Reyes M.D. 04/11/2016 6:17 AM CDT - 04/11/2016 11:59 PM CDT Hospital Encounter [facility]X [facility] Rio Duggan M.D. 10/02/2015 8:28 AM [employer] - 10/02/2015 11:59 PM [facility] Hospital Encounter HX [facility] Rio Hayward M.D. 06/29/2015 9:25 AM [employer] - 06/29/2015 11:59 PM [facility] Hospital Encounter [facility]X [facility] Rio Reyes M.D. 06/22/2015 8:33 AM [employer] - 06/22/2015 11:59 PM [facility] Hospital Encounter [facility] Rio Duggan M.D. 12/16/2014 1:47 PM CDT - 12/16/2014 11:59 PM CDT Hospital Encounter [facility]X [facility] Rio Reyes M.D. 12/08/2014 8:54 AM CDT - 12/08/2014 11:59 PM CDT Hospital Encounter [facility]X [facility] Rio Hayward M.D. 12/08/2014 12:04 AM CDT - 12/08/2014 11:59 PM CDT Hospital Encounter [facility]X [facility] Rio Duggan M.D. 08/15/2014 8:15 AM [employer] - 08/15/2014 11:59 PM [facility] Duggan M.[facility]. 04/17/2014 8:23 AM CDT - 04/17/2014 11:59 PM CDT Hospital Encounter [facility] Rio Duggan M.D. 01/10/2014 1:11 PM CDT - 01/10/2014 11:59 PM CDT Hospital Encounter [facility]X [facility] PERDOMORio Mckenna M.D. 01/10/2014 8:22 AM CDT - 01/10/2014 11:59 PM CDT Hospital Encounter [facility] Rio Duggan M.D. 06/17/2013 1:13 PM [employer] - 06/17/2013 11:59 PM [facility] Hospital Encounter [facility] DEBRAIVELISSERio Mckenna M.D. 06/05/2013 9:23 AM [employer] [facility] - 06/05/2013 11:59 PM [employer] Hospital Encounter [facility]X [facility] Rio Duggan M.D. 03/08/2013 7:04 AM CDT - 03/08/2013 11:59 PM CDT Hospital Encounter [facility] GOSIARio Martell M.D. 02/18/2013 7:57 AM CDT - 02/18/2013 11:59 PM CDT Hospital Encounter [facility]X [facility] LESRio Haywood M.D. 01/30/2013 1:38 PM CDT - 01/30/2013 11:59 PM CDT Hospital Encounter [facility]X [facility] Rio Reyes M.D. 01/10/2013 8:55 AM CDT - 01/10/2013 11:59 PM CDT Hospital Encounter [facility]X [facility] Rio Hayward M.D. 09/03/2012 2:15 PM [employer] - 11/16/2012 5:00 PM CDT Hospital Encounter [facility]X [facility] Vijay Martínez M.D. 11/14/2012 12:14 PM CDT - 11/14/2012 11:59 PM CDT Hospital Encounter HX NO MAPPING Archie Hernández M.D. 08/23/2012 3:04 PM [employer] - 08/23/2012 11:59 PM [employer] [employer] Hospital Encounter [facility]X [facility] Emely Martinez APRN, C.N.P. 08/03/2012 12:37 AM [employer] [facility] - 08/03/2012 11:59 PM [employer] Hospital Encounter HX NO MAPPING Vijay Underwood M.D. 07/04/2012 1:03 AM [employer] [facility] - 07/04/2012 11:59 PM [employer] Hospital Encounter HX NO MAPPING Archie Hernández M.D. Allergies Active Allergy Reactions Criticality Noted Date Comments Yitsalh-Beh-Adb Reductase Inhibitors Hepatic Failure High 12/26/2023 Medications Medication Sig Dispensed Refills Start Date End Date Status amoxicillin (AMOXIL) 500 mg capsule Take 2,000 mg by mouth once. 1 hour before dental appointment 1 04/11/2018 Active pen needle, diabetic (Pen Needle) 31 gauge x 5/16 needleIndications:D iabetes Mellitus Type 2 (HCC) Inject 2 Injection under the skin daily. Use to inject Levemir 100 each 11 06/19/2023 Active insulin glargine (Lantus Solostar U-100 Insulin) 100 unit/mL (3 mL) injection Inject 28 Units under the skin 2 (two) times a day. 28 units twice a day 15 mL 11 09/26/2023 Active acetaminophen (TYLENOL) 500 mg tablet Take 1 tablet (500 mg total) by mouth every 6 (six) hours as needed for pain, mild pain or score 1-3 of 10 or moderate pain or score 4-6 of 10. Do not take continuously for more than 2 weeks Do not take more than 4000 mg in one day 11/29/2023 Active aspirin 325 mg tablet Take 325 mg by mouth every 6 (six) hours as needed for pain. Active Hospital, Clinic, or Other Facility Administered Medication Ordered Dose Route Frequency Start Date End Date Status lidocaine HCL 2 % topical jelly 1 Application (GLYDO) 1 Application urethral Once 11/08/2023 Active Active Problems Problem Noted Date Diagnosed Date Varicose Veins Of Other Specified Sites 12/26/19 24 Obstruction Intestinal 12/26/2023 Malnutrition Moderate Protein-Calorie 12/26/2023 Hyponatremia 12/26/2023 Fluid Overload Unspecified 12/26/2023 Fluid And Electrolyte Disorder 12/26/2023 Fever Postprocedural 12/26/2023 Abdominal Pain 12/26/2023 Benign Prostatic Hyperplasia With Lower Urinary Tract Symptom 11/07/2023 Nodule Prostate 10/19/2023 Laparotomy Exploratory Status Post 05/02/2023 Overview (05/02/2023): SBO with small bowel resection - 04/15. [facility]. Opacity Vitreous Right 03/31/2021 Age Related Nuclear Cataract Bilateral 0 Astigmatism Regular Bilateral 09/25/2017 Diabetes Mellitus Type 2 Without Complication Presbyopia 09/25/2017 Hyperopia Bilateral 09/25/2017 Hyperlipidemia 06/17/2013 Resolved Problems Problem Noted Date Diagnosed Date Resolved Date Infection Following A Proced ure Other Surgical Site Initial Encounter 10/19/2023 12/26/19 24 Other Specified Diseases Of Pancreas 10/19/2023 12/26/2023 Retention Urinary 09/27/2023 12/26/2023 Diabetes Mellitus Type 2 08/27/201210/2023 Overview (12/13/2016): Diabetes Mellitus Type 2 (250.00) Immunizations Name Administration Dates Next Due HepB Adult 08/24/2020(Deferred: Patient Ref used) Influenza, Unspecified 04/18/2017 PCV13 04/11/2016 PPSV23 10/17/2017 RZV (SHINGRIX) 08/24/2020(Deferred: Patient Ref used) Td (Adult), adsorbed 10/03/2003,11/18/1992 Tdap 12/16/2014 influenza trivalent high dose (HD)(PF) 9,04/18/2017 Family History Medical History Relation Name Comments Prostate Brother Diabetes Father Heart failure Mother Stroke Mother Relation Name Status Comments Brother Father Mother Social History Smoking Status as of 04/24/2024 Tobacco Use Types Packs/Day Years Used Date Smoking Tobacco: Never Assessed [facility] Utilities Answer Date Recorded In the past 12 months has th e [employer], gas, oil, or water company threatened to shut off services in your home? No 11/06/2023 PHQ-2 Answer Date Recorded PHQ-2 Score 0 11/06/2023 Exercise Vital Sign Answer Date Recorde d On average, how many days pe r week do you engage in moderate to strenuous exercise (like a brisk walk)? 0 days Minutes of Exercise per Session Not on file 11/06/2023 Hunger Vital Sign Answer Date Recorded Within the past 12 months, y ou worried that your food would run out before you got the money to buy more. Never true 11/06/19 Within the past 12 months, t he food you bought just didn't last and you didn't have money to get more. Never true 11/06/2023 PRAPARE - Transportation Answer Date Re corded In the past 12 months, has l ack of transportation kept you from medical appointments or from getting medications? No 10/22 In the past 12 months, has l ack of transportation kept you from meetings, work, or from getting things needed for daily living? No 11/06/2023 Nutrition Answer Date Recorded On average, how many serving s of fruits and vegetables do you eat per day (serving size is equal to 1 cup or approximately the size of a tennis ball)? 5 or more 11/06/2023 Dental Answer Date Recorded Dental: Regular Dentist Yes 11/06/19 Employment Answer Date Recorded Employment status Retired 11/06/2023 Housing Stability Answer Date Recorded What is your living situation today? I have a [facility] place to live 11/06/2023 Sex and Gender Information Value Date Recorded Sex Assigned at Male 11/06/2023 1:20 PM CDT Gender Identity Male 11/06/2023 1:27 PM CDT Sexual Orientation Straight 11/06/2023 1: 27 PM CDT Last Filed Vital Signs Vital Sign Reading Time Taken Comments Blood Pressure 110/64 12/26/2023 10:00 AM CDT Pulse 60 12/26/2023 10:00 AM CDT Temperature 36.4 ??C (97.5 ??F) 11/29/2023 2:14 PM CD T Respiratory Rate 18 11/29/2023 3:00 PM CDT Oxygen Saturation 96% 12/26/2023 10:00 AM CDT Inhaled Oxygen Concentration - - Weight 94.8 kg (209 lb) 12/26/2023 10:00 AM CDT Height 181 cm (5' 11.26) 12/26/2023 10:00 AM CD T Body Mass Index 28.94 12/26/2023 10:00 AM CDT Plan of Treatment Upcoming Encounters Date Type Department Care Team (Late st Contact Info) Description 05/03/2024 8:50 AM CDT Appointment Department of Laboratory Medicine in [place], [place] [address] [place] [address] Rio Duggan M.D. [address] [place] [address] Procedures Procedure Name Priority Date/Time Associated Diagnosis Comments ALBUMIN, RANDOM, U Routine 12/26/2023 10:06 AM CDT Diabetes Mellitus Type 2 (HCC) HEMOGLOBIN A1C, B Routine 11/30/2023 8:41 AM CDT Diabetes Mellitus Type 2 (HCC) GLUCOSE POCT, B Routine 11/29/2023 1:49 PM CDT SURGICAL PATHOLOGY Routine 11/29/2023 11:08 AM CDT Benign Prostatic Hyperplasia With Lower Urinary Tract Symptom LDA ANE NON-SURGICAL AIRWAY Routine 11/29/2023 10:54 AM CDT ENUCLEATION HOLMIUM LASER PROSTATE 70 - 150 GRAMS 11/29/2023 10:45 AM CDT Benign Prostatic Hyperplasia With Lower Urinary Tract Symptom Case Notes 5/3 PM sent LP 5/1 LM, 4/29 LM BMI 30 GENERAL SURGERY IMAGE EXAM Routine 11/29/2023 10:15 AM CDT GLUCOSE POCT, B Routine 11/29/2023 9:25 AM CDT URINALYSIS WITH MICROSCOPIC Routine 11/14/2023 10:58 AM CDT Benign Prostatic Hyperplasia With Lower Urinary Tract Symptom BACTERIAL CULTURE, AEROBIC + SUSC, URINE Routine 11/14/2023 10:58 AM CDT Benign Prostatic Hyperplasia With Lower Urinary Tract Symptom BASIC METABOLIC PANEL, S/P Routine 11/14/2023 9:34 AM CDT Benign Prostatic Hyperplasia With Lower Urinary Tract Symptom ECG Routine 11/14/2023 9:14 AM CDT Benign Prostatic Hyperplasia With Lower Urinary Tract Symptom VT CYSTOURETHROSCOPY Routine 10/19/2023 10:00 AM CDT Hematuria Gross URINALYSIS WITH MICROSCOPIC Routine 09/26/2023 2:46 PM [employer] [facility] Hematuria Gross CT UROGRAM WITHOUT AND WITH IV CONTRAST RAD - Routine (most inpatients and all outpatients) 09/19/2023 4:20 PM [employer] [facility] Hematuria Gross CREATININE WITH EGFR, S/P Routine 09/14/2023 10:11 AM [employer] [facility] Hematuria Gross HC URINALYSIS AUTO W MICRO STAT 09/07/2023 12:09 PM [employer] [facility] URINALYSIS WITH MICROSCOPIC IF INDICATED, U STAT 09/07/2023 12:09 PM [employer] [facility] Hematuria BACTERIAL CULTURE, AEROBIC + SUSC, URINE STAT 09/07/2023 12:09 PM [employer] [facility] Hematuria HEMOGLOBIN A1C, B Routine 09/01/2023 8:40 AM [employer] Diabetes Mellitus Type 2 (HCC) COLOGUARD Routine 07/18/2023 8:30 AM [employer] Screening Cancer Colon PROSTATE-SPECIFIC AG (PSA) DIAGNOSTIC, S Routine 06/02/2023 2:16 PM [employer] Frequency Urinary GLUCOSE POCT, B Routine 04/10/2023 9:40 PM CDT LACTATE, B/P STAT 04/10/2023 8:16 PM CDT GLUCOSE POCT, B Routine 04/10/2023 7:37 PM CDT DX ABDOMEN PORTABLE ANTERIOR POSTERIOR 1 VIEW RAD - Semiurgent (Fast; most ED patients; some inpatients) 04/10/2023 7:[address] ABDOMEN PELVIS WITH IV CONTRAST RAD - Semiurgent (Fast; most ED patients; some inpatients) 04/10/2023 4:17 PM CDT LIPASE, S/P STAT 04/10/2023 3:25 PM CDT COMPREHENSIVE METABOLIC PANEL, S/P STAT 04/10/2023 3:25 PM CDT CBC WITH DIFFERENTIAL, B STAT 04/10/2023 3:25 PM CDT HC URINALYSIS AUTO W MICRO STAT 04/10/2023 3:13 PM CDT URINALYSIS WITH MICROSCOPIC IF INDICATED, U STAT 04/10/2023 3:13 PM CDT HEMOGLOBIN A1C, B Routine 02/24/2023 8:37 AM CDT Diabetes Mellitus Type 2 (HCC) BASIC METABOLIC PANEL, S/P Routine 11/14/2022 8:57 AM CDT Diabetes Mellitus Type 2 (HCC) ALBUMIN, RANDOM, U Routine 11/14/2022 8:57 AM CDT Diabetes Mellitus Type 2 (HCC) HEMOGLOBIN A1C, B Routine 11/14/2022 8:57 AM CDT Diabetes Mellitus Type 2 (HCC) HEMOGLOBIN A1C, B Routine 08/02/2022 10:14 AM [facility] Diabetes Mellitus Type 2 (HCC) HEMOGLOBIN A1C, B Routine 04/08/2022 8:31 AM CDT Diabetes Mellitus Type 2 (HCC) HEMOGLOBIN A1C, B Routine 12/13/2021 8:16 AM CDT Diabetes Mellitus Type 2 (HCC) HEMOGLOBIN A1C, B Routine 09/10/2021 8:35 AM [facility] Diabetes Mellitus Type 2 (HCC) LIPID PANEL, S Routine 09/10/2021 8:35 AM [employer] Hyperlipidemia COMPREHENSIVE METABOLIC PANEL, S/P Routine 09/10/2021 8:35 AM [employer] [facility] Diabetes Mellitus Type 2 (HCC) Hyperlipidemia CBC WITHOUT DIFFERENTIAL, B Routine 09/10/2021 8:35 AM [employer] [facility] Diabetes Mellitus Type 2 (HCC) ALBUMIN, RANDOM, U Routine 09/10/2021 8:34 AM [employer] [facility] Diabetes Mellitus Type 2 (HCC) HEMOGLOBIN A1C, B Routine 06/04/2021 8:43 AM [employer] [facility] Diabetes Mellitus Type 2 (HCC) HEMOGLOBIN A1C, B Routine 02/22/2021 8:59 AM CDT Diabetes Mellitus Type 2 (HCC) OCCULT BLOOD, QL, IMMUNOCHEMICAL, F Routine 10/21/2020 1:46 PM CDT Screening Cancer Colon HEMOGLOBIN A1C, B Routine 08/21/2020 8:42 AM [employer] [facility] Diabetes Mellitus Type 2 (HCC) ALBUMIN, RANDOM, U Routine 05/19/2020 8:40 AM CDT Diabetes Mellitus Type 2 (HCC) BASIC METABOLIC PANEL, S/P Routine 05/19/2020 8:40 AM CDT Diabetes Mellitus Type 2 (HCC) ALANINE AMINOTRANSFERASE (ALT), S/P Routine 05/19/2020 8:40 AM CDT Hyperlipidemia ASPARTATE AMINOTRANSFERASE (AST), S/P Routine 05/19/2020 8:40 AM CDT Hyperlipidemia LIPID PANEL, S Routine 05/19/2020 8:40 AM CDT Hyperlipidemia HEMOGLOBIN A1C, B Routine 05/19/2020 8:40 AM CDT Diabetes Mellitus Type 2 (HCC) HEMOGLOBIN A1C, B Routine 11/18/2019 9:22 AM CDT Diabetes Mellitus Type 2 (HCC) OCCULT BLOOD, QL, IMMUNOCHEMICAL, F Routine 08/19/2019 8:35 AM [employer] Screening Colon Cancer Average Risk HEMOGLOBIN A1C, B Routine 08/19/2019 8:27 AM [employer] [facility] Diabetes Mellitus Type 2 (HCC) ALBUMIN, RANDOM, U Routine 05/06/2019 8:31 AM CDT Diabetes Mellitus Type 2 (HCC) HEMOGLOBIN A1C, B Routine 05/06/2019 8:31 AM CDT Diabetes Mellitus Type 2 (HCC) LIPID PANEL, S Routine 05/06/2019 8:31 AM CDT Diabetes Mellitus Type 2 (HCC) COMPREHENSIVE METABOLIC PANEL, S/P Routine 05/06/2019 8:31 AM CDT Diabetes Mellitus Type 2 (HCC) CBC WITHOUT DIFFERENTIAL, B Routine 05/06/2019 8:31 AM CDT Diabetes Mellitus Type 2 (HCC) HEMOGLOBIN A1C, B Routine 10/31/2018 9:05 AM CDT Diabetes Mellitus Type 2 (HCC) ALBUMIN, RANDOM, U Routine 04/26/2018 9:08 AM CDT Diabetes Mellitus Type 2 Without Complication (HCC) HEMOGLOBIN A1C, B Routine 04/26/2018 9:08 AM CDT Diabetes Mellitus Type 2 Without Complication (HCC) LIPID PANEL, S Routine 04/26/2018 9:08 AM CDT Diabetes Mellitus Type 2 Without Complication (HCC) CBC WITHOUT DIFFERENTIAL, B Routine 04/26/2018 9:08 AM CDT Diabetes Mellitus Type 2 Without Complication (HCC) COMPREHENSIVE METABOLIC PANEL, S/P Routine 04/26/2018 9:08 AM CDT Diabetes Mellitus Type 2 Without Complication (HCC) DX HIP BILATERAL 2+ VIEWS RAD - Routine (most inpatients and all outpatients) 10/18/2017 1:31 PM CDT Aftercare Total Hip Arthroplasty HEMOGLOBIN A1C, B Routine 10/17/2017 12:05 PM CDT Diabetes Mellitus Type 2 Without Complication (HCC) ALBUMIN, RANDOM, U Routine 04/18/2017 9:35 AM CDT LIPID PANEL, S Routine 04/18/2017 9:30 AM CDT HEMOGLOBIN A1C, B Routine 04/18/2017 9:30 AM CDT URINE MICROSCOPIC Routine 02/06/2017 10:05 AM CDT URINALYSIS, ROUTINE Routine 02/06/2017 10:05 AM CDT AUTOMATED DIFFERENTIAL, B Routine 02/06/2017 9:55 AM CDT CBC WITH DIFFERENTIAL, B Routine 02/06/2017 9:55 AM CDT LIPASE, S/P Routine 02/06/2017 9:55 AM CDT COMPREHENSIVE METABOLIC PANEL, S/P Routine 02/06/2017 9:55 AM CDT DX WRIST LEFT 3+ VIEWS Routine 7 1:44 PM CDT HEMOGLOBIN A1C, B Routine 2017 9:30 AM CDT HEMOGLOBIN A1C, B Routine 07/15/2016 8:55 AM [employer] LIPID PANEL, S Routine 04/11/2016 11:10 AM CDT HEMOGLOBIN A1C, B Routine 04/11/2016 11:10 AM CDT COMPREHENSIVE METABOLIC PANEL, S/P Routine 04/11/2016 11:10 AM CDT ALBUMIN, RANDOM, U Routine 04/11/2016 11:00 AM CDT HEMOGLOBIN A1C, B Routine 10/02/2015 8:30 AM [employer] [facility] HEMOGLOBIN A1C, B Routine 06/22/2015 8:40 AM [employer] ALBUMIN, RANDOM, U Routine 12/08/2014 9:00 AM CDT COMPREHENSIVE METABOLIC PANEL, S/P Routine 12/08/2014 8:55 AM CDT LIPID PANEL, S Routine 12/08/2014 8:55 AM CDT HEMOGLOBIN A1C, B Routine 12/08/2014 8:55 AM CDT HEMOGLOBIN A1C, B Routine 08/15/2014 8:20 AM [employer] HEMOGLOBIN A1C, B Routine 04/17/2014 8:25 AM CDT ALBUMIN, RANDOM, U Routine 01/10/2014 8:30 AM CDT HEMOGLOBIN A1C, B Routine 01/10/2014 8:25 AM CDT LIPID PANEL, S Routine 01/10/2014 8:25 AM CDT COMPREHENSIVE METABOLIC PANEL, S/P Routine 01/10/2014 8:25 AM CDT HEMOGLOBIN A1C, B Routine 06/05/2013 9:25 AM [employer] HEMOGLOBIN A1C, B Routine 01/10/2013 9:05 AM CDT ALANINE AMINOTRANSFERASE (ALT), S/P Routine 01/10/2013 9:05 AM CDT ASPARTATE AMINOTRANSFERASE (AST), S/P Routine 01/10/2013 9:05 AM CDT LIPID PANEL, S Routine 01/10/2013 9:05 AM CDT DX HIP LEFT 2-3 VIEWS Routine 11/14/2012 1:17 PM CDT DX FEMUR RIGHT 2 VIEWS Routine 3 1:15 PM CDT DX HIP RIGHT 2-3 VIEWS Routine 3 1:13 PM CDT ECG Routine 08/23/2012 3:56 PM [employer] AUTOMATED DIFFERENTIAL, B Routine 08/23/2012 3:45 PM [employer] CBC WITH DIFFERENTIAL, B Routine 08/23/2012 3:45 PM [employer] PROTHROMBIN TIME (PT), P Routine 08/23/2012 3:45 PM [employer] HEMOGLOBIN A1C, B Routine 08/23/2012 3:45 PM [employer] BASIC METABOLIC PANEL, S/P Routine 08/23/2012 3:45 PM [employer] MR SHOULDER LEFT WITHOUT IV CONTRAST Routine 08/03/2012 12:19 PM [employer] DX SHOULDER LEFT 2+ VIEWS Routine 07/04/2012 1:13 PM [employer] Results * (ABNORMAL) Albumin, Random, Urine (12/26/2023 10:06 AM CDT) Only the most recent of10 resultswithin the time period is included. Microalbumin 41.0 mg/L 12/26/2023 4:23 PM CDT NPRG Creatinine 72 mg/dL 12/26/2023 4:23 PM CDT NPRG Albumin/Creatinin e Ratio 57(H) <17 mg/g 12/26/2023 4:23 PM CDT NPRG Urine (Urine, Midstream) 12/26/2023 10:06 AM CDT 12/26/2023 3:40 PM CDT Rio Duggan M.D. LAB URINE ORDERAB LES [facility] [address] [place] [address], [facility] NPRG [facility] [address] [place] [address] * (ABNORMAL) Hemoglobin A1c (11/30/2023 8:41 AM CDT) Only the most recent of31 resultswithin the time period is included. Hemoglobin A1c, B 7.8(H) 4.2 - 5.6 % 11/30/2023 9:03 AM CDT NPRG Comment: Hemoglobin A1c values greater than or equal to 6.5 percent are diagnostic for diabetes mellitus. ??Diagnosis should be confirmed by repeat testing. ??In diabetic patients, HbA1c goals should be discussed with healthcare provider. Blood (Blood, Venous) 11/30/2023 8:41 AM CDT 11/30/2023 8:47 AM CDT Rio Duggan M.D. LAB BLOOD ADD-ON [facility] [address] [place] [address], [facility] NPRG [facility] [address] [place] [address] * Glucose, POCT (11/29/2023 1:49 PM CDT) Only the most recent of4 resultswithin the time period is included. Glucose, POCT, B 99 70 - 140 mg/dL 11/29/2023 1:49 PM CDT NPRG Blood 11/29/2023 1:49 PM CDT 11/29/2023 2:01 PM CDT Generic Rals LAB POCT ORDERABLES- MANUAL Performing Organization Address City/[facility]/ZIP Co de Phone Number [facility] [address] [place] [address], [facility] NPRG [facility] [address] [place] [address] * Surgical Pathology (11/29/2023 11:08 AM CDT) 11/30/2023 2:36 PM CDT MKTO Report electronically signed by Nuria Dale MD 11/30/2023 2:36 PM CDT [facility] Specimen Received A. Prostate transurethral (TURP) holmium laser enucleation 11/30/2023 2:36 PM CDT MKTO Clinical History Benign prostatic hyperplasia with lower urinary tract symptom 11/30/2023 2:36 PM CDT MKTO Gross Description Submitted as prostate are light yadav cores, 77 grams and loosely aggregating to 6 x 6 x 2.5 cm. RS, 12 blocks. bh/nm 11/30/2023 2:36 PM CDT MKTO Interpretation FINAL DIAGNOSIS Prostate, holmium laser enucleation of the prostate: Benign prostate tissue with features of hypertrophy / hyperplasia and inflammation. 11/30/2023 2:36 PM CDT MKTO Tissue (Prostate) 11/29/2023 11:08 AM CDT Raul Acevedo M.D. LAB SURG PATH ORDER JAMIR Performing Organization Address City/[facility]/ZIP Co de Phone Number [facility] [address] [place] [address], [facility] MKTO [id number] [place] [address] * LDA ANE NON-SURGICAL AIRWAY (11/29/2023 10:54 AM CDT) Narrative Veronica Bowman APRN CT TECHNICIAN - 11/29/2023 10:54 AM CDT Veronica Bowman APRN, CT TECHNICIAN ? 11/29/2023 11:04 AM Airway Date/Time: 11/29/2023 10:54 AM Performed by: Veronica Bowman APRN, CRNA Authorized by: Veronica Bowman APRN, CRNA ?? Patient location during procedure: OR / Procedure Area PROCEDURE DETAILS: Mask difficulty assessment: easy mask Final airway type: supraglottic airway Device size: 5 Number of attempt to successful placement: 2 Supraglottic device: igel ?? Supraglottic device size: 5 ?? Airway confirmation: bilateral breath sounds, positive ETCO2 and bilateral chest rise Other previous techniques attempted: none PRE PROCEDURE DETAILS: Pre evaluation for airway management: procedure Urgency: elective Preop assessment of probable difficulty: no difficulty anticipated Preoxygenation: bag valve mask SEDATION / ANESTHESIA Anesthesia method: anesthesia POST PROCEDURE DETAILS: ? Procedure outcome: successful ?? Notable Events: no complications Veronica Bowman APRN, CRNA ANESTHESIA ORDER JAMIR * General Surgery Image Exam-General Surgery Image Exam (11/29/2023 10:15 AM CDT) 11/29/2023 10:1 1 AM CDT Narrative IIMS - 11/29/2023 12:26 PM CDT This order has been created and auto-finalized to support the import of images acquired without order. The clinical documentation to support these images can be found on the encounter that produced images. Provider Not In System IMG NON RAD IMAGI NG PROCEDURES Performing Organization Address [facility] Co de Phone Number IINY NA * Bacterial Culture, Aerobic + Susceptibility, Urine (11/14/2023 10:58 AM CDT) Only the most recent of2 resultswithin the time period is included. Urine Culture No growth after 1 day of incubation. 11/15/2023 12:24 PM CDT MKTO Urine (Urine, Midstream) 11/14/2023 10:58 AM CDT 11/14/2023 3:12 PM CDT Comment:Specimen Source Site : Urine Raul Acevedo M.D. LAB MICROBIOLOGY - GENERAL ORDERABLES [facility] [address] [place] [address], [place] MKTO [facility] [place] [address] [place] [address] * Urinalysis, with Microscopic: Urine, Midstream (11/14/2023 10:58 AM CDT) Only the most recent of2 resultswithin the time period is included. Source Urine, Urine, Midstream 11/14/2023 10:58 AM CDT NPRG Clarity Clear Clear 11/14/2023 11:03 AM CDT NPRG Color Yellow 11/14/2023 11:03 AM CDT NPRG Comment: ----REFERENCE VALUE---- Colorless Yellow Gayle Blood Negative Negative 11/14/2023 11:03 AM CDT NPRG Nitrite Negative Negative 11/14/2023 11:03 AM CDT NPRG Leukocyte Esterase Negative Negative 11/14/2023 11:03 AM CDT NPRG Protein Negative mg/dL 11/14/2023 11:03 AM CDT NPRG Comment: ----REFERENCE VALUE---- Negative Trace Glucose Negative Negative mg/dL 11/14/2023 11:03 AM CDT NPRG Ketones, QI(U) Negative Negative mg/dL 11/14/2023 11:03 AM CDT NPRG Bilirubin Negative Negative 11/14/2023 11:03 AM CDT NPRG pH 6.0 5.0 - 8.0 11/14/2023 11:03 AM CDT NPRG Specific [place] 1.015 1.001 - 1.035 11/14/2023 11:03 AM CDT NPRG Urobilinogen 0.2 0.2 - 1.0 mg/dL 11/14/2023 11:03 AM CDT NPRG White Blood Cells None Seen /hpf 11/14/2023 11:36 AM CDT NPRG Comment: ----REFERENCE VALUE---- Males: 0-3 Females: 0-10 Unknown: 0-10 Red Blood Cells None Seen 0 - 2 /hpf 11:36 AM CDT NPRG Urine (Urine, Midstream) 11/14/2023 10:58 AM CDT 11/14/2023 10:58 AM CDT Raul Acevedo M.D. LAB URINE ORDERABLE S [facility] [address] [place] [address], [place] NPRG [facility] [address] [place] [address] * (ABNORMAL) Basic Metabolic Panel (11/14/2023 9:34 AM CDT) Only the most recent of4 resultswithin the time period is included. Potassium, P 4.7 3.6 - 5.2 mmol/L 11/14/2023 10:11 AM CDT NPRG Sodium, P 140 135 - 145 mmol/L 11/14/2023 10:11 AM CDT NPRG Chloride, P 103 98 - 107 mmol/L 11/14/2023 10:11 AM CDT NPRG Bicarbonate, P 29 22 - 29 mmol/L 11/14/2023 10:11 AM CDT NPRG Anion Gap, P 8 7 - 15 11/14/2023 10:11 AM CDT NPRG BUN (Blood Urea Nitrogen), P 24 8 - 24 mg/dL 11/14/2023 10:11 AM CDT NPRG Creatinine 1.02 0.74 - 1.35 mg/dL 11/14/2023 10:11 AM CDT NPRG Estimated GFR (eGFR) 77 >=60 mL/min/BSA 11/14/2023 10:11 AM CDT NPRG Comment: Estimated GFR calculated using the 2020 CKD_EPI creatinine equation. Calcium, Total, P 9.4 8.8 - 10.2 mg/dL 11/14/2023 10:11 AM CDT NPRG Glucose, P 163(H) 70 - 140 mg/dL 11/14/2023 10:11 AM CDT NPRG Blood (Blood, Venous) 11/14/2023 9:34 AM CDT 11/14/2023 9:47 AM CDT Raul Acevedo M.D. LAB BLOOD ADD-ON [facility] [address] [place] [address], [place] NPRG [facility] [address] [place] [address] * ECG 12 Lead (11/14/2023 9:14 AM CDT) Only the most recent of2 resultswithin the time period is included. Ventricular Rate ECG/Min 54 BPM MUSE VT Interval 182 ms MUSE QRSD Interval 104 ms MUSE QT Interval 448 ms MUSE QTC Interval 424 ms MUSE P [place] 27 degrees MUSE R [place] 21 degrees MUSE T Wave [place] 41 degrees MUSE 11/14/2023 9:14 AM CDT 11/14/2023 9:35 AM CDT Impressions MUSE - 11/14/2023 9:35 AM CDT Sinus bradycardia Nonspecific ST abnormality When compared with ECG of 23-Aug-2012 15:56, No significant change was found Reviewed by ILSA Rai Narrative Procedure Note Americo Thompson Jr., M.D. - 11/14/2023 IMPRESSION: Sinus bradycardia Nonspecific ST abnormality When compared with ECG of 23-Aug-2012 15:56, No significant change was found Reviewed by ILAS Rai Raul Acevedo M.D. ECG ORDERABLES Performing Organization Address City/[facility] Co de Phone Number MUSE NA * VT CYSTOURETHROSCOPY (10/19/2023 10:00 AM CDT) Narrative Raul Acevedo M.D. - 10/19/2023 10:00 AM CDT Raul Acevedo M.D. ? 10/19/2023 10:22 AM URO Cystoscopy (general) Performed by: Raul Acevedo M.D. Authorized by: Rio Duggan M.D. ?? IMPRESSION negative cystoscopy Additional procedures performed: cystoscopy ?? PROCEDURE DETAILS: Anterior urethra: ??Normal: yes ?? Posterior urethra: ??Normal: yes ?? Prostate: ??Characteristics: ??High riding and hyperplasia - bilobar Sphincter: ??Characteristics: ??Coapting Ureters: ??Characteristics: ??Effluxing clear urine ??Effluxing clear urine - side: ??Bilateral Bladder: ??Normal: yes ?Capacity: ??Moderate ??Quality of urine: ??Clear ??Residual upon entry: ??Small Retroflex view: ??Normal: yes ?Blue light imaging agent used: ??no A flexible cystoscope was inserted through the urethra into the bladder. Cystoscope was removed at the end of procedure. Mr. Alcantara is a 73 y.o. male I recently saw in the clinic for gross hematuria. ??Please see my consult note for full details. Review of system: - independently reviewed the CT urogram recently obtained. ??No renal masses, kidney stones, ureteral filling defects. ??Prostate measures roughly 100-110 cc. Cystoscopy: Appropriate patient identification, patient was prepped draped usual fashion. Placed in supine position. Flexible cystoscopy is performed through viscous jelly. ??Anterior urethra was grossly normal. ??Sphincter coapted appropriately. ??Posterior urethra with evidence of anatomic bladder outlet obstruction bilobar hypertrophy, high-riding bladder neck. ?? Upon into the bladder nix cystoscopy was performed. ??Urine within the bladder was clear. ??There was a significant amount of residual urine retained within the urine at the time of cystoscopy. ??Ureteral orifices were identified in orthotopic position. ??The bladder was without suspicious bladder tumor, bladder lesion, or bladder calculi. ??Scope was retroflexed and bladder neck appeared normal. ??Scope was then unflexed and ultimately removed. ??Multiple pictures were taken. ??Patient tolerated the procedure well. Plan: 1. ??Please see additional consultation note for full details. ??Negative hematuria evaluation. CONSENT Consent obtained: verbal Consent given by: patient The benefits, risks and alternatives to the procedure and the potential need for sedation or anesthesia as well as the names, roles, and responsibilities of healthcare team members performing significant interventional tasks were discussed with the patient and/or decision maker. [employer] All relevant documentation and testing were reviewed and available. All required blood products, implants, devices and or special equipment were made available as applicable. Pre-procedure verification was conducted and the correct site was marked if required. A fire risk assessment was done as applicable. The procedural time-out to verify correct patient, correct side/site, and procedure was conducted prior to performing the procedure and confirmed in a procedural pause. PRE-PROCEDURE DETAILS Procedure purpose: ??Diagnostic Indications: ??Hematuria Appropriate hand hygiene, gown, cap, mask, protective eyewear, sterile gloves, skin preparation, sterile drape, and strict aseptic technique were utilized as applicable for the procedure.: yes ?? Site preparation: ??Povidone-iodine SEDATION / ANESTHESIA Anesthesia method: none POST-PROCEDURE DETAILS Procedure completed successfully: yes ?? Complications: no apparent complications ?? Comments The ordering provider is responsible for reviewing results of the procedure and communicating the findings to the patient. ??Patient was educated on post procedure instructions. ?? Rio Duggan M.D. UROLOGY ORDERABLE S * CT Urogram without and with IV Contrast (09/19/2023 4:20 PM LANDSCAPE GARDENER) Anatomical Region Laterality Modality Abdomen, Pelvis, Abdominal R ST LOS, Abdominal ARZ LOS, Abdominal FLA LOS N/A Computed Tomography 09/19/2023 4:25 PM LANDSCAPE GARDENER Impressions 09/19/2023 5:00 PM LANDSCAPE GARDENER 1. No renal calculus or obstructive uropathy. No suspicious enhancing solid renal mass or urothelial lesion identified. Multiple renal cortical cysts measuring up to 6.5 cm on the right. 2. Prostatic hypertrophy. 3. Interval stability of cystic pancreatic tail lesion measuring up to 3.3 cm. Characteristics favor benign etiology. Continued imaging follow-up is recommended with pancreatic mass protocol CT or MRI imaging in 6-12 months. 4. 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 5. Interval stability of lucency around the acetabular component of the right femoral prosthesis. 6. Partially visualized bilateral hydroceles. 7. Sequela of bowel resection. No evidence of bowel obstruction or acute inflammatory process. Extensive stool throughout the colonic distribution. Narrative 09/19/2023 5:00 PM LANDSCAPE GARDENER EXAM: CT UROGRAM WITHOUT AND WITH IV CONTRAST COMPARISON: CT imaging of April 10, 2023. FINDINGS: The visualized portions of the lung bases demonstrate minimal gravity dependent congestive changes with areas of linear scarring/atelectasis. Coronary arterial calcification noted in a three-vessel distribution with apparent RCA stent. There is no identified renal collecting system or ureteral calculus on the precontrast images. Scattered atherosclerotic vascular calcification present. Beam hardening artifact is present through the pelvis secondary to bilateral hip prostheses. Following contrast there is symmetric renal enhancement. Bilateral renal cysts, largest on the right measuring up to 6.5 cm. No suspicious septation or mural nodularity identified. No solid enhancing mass. Delayed images demonstrate normal contrast opacification of the collecting systems and ureters without suspicious urothelial lesion. No focal bladder wall thickening or mass. The prostate is enlarged. There is mass impression upon the base of the bladder. Prostatic calcification noted. Hypoattenuating subcentimeter lesion of the medial right lobe of the liver is unchanged, finding 2 small to definitively characterize. Gallbladder is contracted. Spleen normal size. The splenic vein is occluded. There is extensive enhancing collateral vasculature within the left upper quadrant draining into the SMV/portal distribution. Pancreatic tail cystic lesion measures 3.3 x 2.6 x 3.1 cm. There is no suspicious enhancing nodularity or septation identified. Pancreatic head and body have a normal appearance with upper normal caliber pancreatic duct. No regional inflammatory changes or pathologically enlarged lymph nodes. Normal adrenal glands. The aorta and mesenteric arterial vasculature enhance normally. Sequela of bowel resection. No bowel obstruction or acute inflammatory changes identified. No ascites of significance. Partially visualized bilateral hydroceles. Lucency surrounds the right hip prosthesis similar to prior. No acute osseous abnormality or suspicious lytic/sclerotic lesion identified. Multilevel disc space narrowing with partially fused L3-L4 vertebra. Multilevel endplate marginal spurring with facet arthropathy. Multilevel neural foraminal narrowing greatest at L4-L5 and L5-S1. Procedure Note Kyle Lopez M.D. - 09/19/2023 EXAM: CT UROGRAM WITHOUT AND WITH IV CONTRAST COMPARISON: CT imaging of April 10, 2023. FINDINGS: The visualized portions of the lung bases demonstrate minimalgravity dependent congestive changes with areas of linearscarring/atelectasis. Coronary arterial calcification noted in athree-vessel distribution with apparent RCA stent. There is no identified renal collecting system or ureteral calculus on theprecontrast images. Scattered atherosclerotic vascular calcification present. Beam hardeningartifact is present through the pelvis secondary to bilateral hipprostheses. Following contrast there is symmetric renal enhancement. Bilateral renalcysts, largest on the right measuring up to 6.5 cm. No suspiciousseptation or mural nodularity identified. No solid enhancing mass. Delayed images demonstrate normal contrast opacification of the collectingsystems and ureters without suspicious urothelial lesion. No focal bladder wall thickening or mass. The prostate is enlarged. There is mass impression upon the base of thebladder. Prostatic calcification noted. Hypoattenuating subcentimeter lesion of the medial right lobe of the liveris unchanged, finding 2 small to definitively characterize. Gallbladder iscontracted. Spleen normal size. The splenic vein is occluded. There is extensiveenhancing collateral vasculature within the left upper quadrant draininginto the SMV/portal distribution. Pancreatic tail cystic lesion measures 3.3 x 2.6 x 3.1 cm. There is nosuspicious enhancing nodularity or septation identified. Pancreatic headand body have a normal appearance with upper normal caliber pancreaticduct. No regional inflammatory changes or pathologically enlarged lymph nodes. Normal adrenal glands. The aorta and mesenteric arterial vasculature enhance normally. Sequela of bowel resection. No bowel obstruction or acute inflammatorychanges identified. No ascites of significance. Partially visualized bilateral hydroceles. Lucency surrounds the right hip prosthesis similar to prior. No acute osseous abnormality or suspicious lytic/sclerotic lesionidentified. Multilevel disc space narrowing with partially fused [id number]. Multilevel endplate marginal spurring with facet arthropathy.Multilevel neural foraminal narrowing greatest at L4-L5 and L5-S1. IMPRESSION: 1. No renal calculus or obstructive uropathy. No suspicious enhancingsolid renal mass or urothelial lesion identified. Multiple renal corticalcysts measuring up to 6.5 cm on the right. 2. Prostatic hypertrophy. 3. Interval stability of cystic pancreatic tail lesion measuring up to 3.3cm. Characteristics favor benign etiology. Continued imaging follow-up isrecommended with pancreatic mass protocol CT or MRI imaging in 6-12months. 4. Chronic occlusion of the splenic vein with large caliber venouscollateral vasculature in the left upper quadrant draining into theSMV/portal distribution. 5. Interval stability of lucency around the acetabular component of theright femoral prosthesis. 6. Partially visualized bilateral hydroceles. 7. Sequela of bowel resection. No evidence of bowel obstruction or acuteinflammatory process. Extensive stool throughout the colonicdistribution. Rio Duggan M.D. IMG CT PROCEDURES * Creatinine with Estimated GFR (09/14/2023 10:11 AM LANDSCAPE GARDENER) Creatinine 0.80 0.74 - 1.35 mg/dL 09/14/2023 4:09 PM LANDSCAPE GARDENER NPRG Estimated GFR (eGFR) >90 >=60 mL/min/BSA 09/14/2023 4:09 PM LANDSCAPE GARDENER NPRG Comment: Estimated GFR calculated using the 2020 CKD_EPI creatinine equation. Blood (Blood, Venous) 09/14/2023 10:11 AM LANDSCAPE GARDENER 09/14/2023 3:30 PM LANDSCAPE GARDENER Rio Duggan M.D. LAB BLOOD ADD-ON [facility] [address] [place] [address], [facility] NPRG [facility] [address] [place] [address] * (ABNORMAL) Urinalysis with Microscopic if Indicated (09/07/2023 12:09 PM LANDSCAPE GARDENER) Only the most recent of2 resultswithin the time period is included. Source Urine, Urine, Midstream 09/07/2023 12:16 PM LANDSCAPE GARDENER NPRG Clarity Clear Clear 09/07/2023 12:25 PM LANDSCAPE GARDENER NPRG Color Yellow 09/07/2023 12:25 PM LANDSCAPE GARDENER NPRG Comment: ----REFERENCE VALUE---- Colorless Yellow Gayle Blood Moderate(A) Negative 09/07/2023 12:25 PM LANDSCAPE GARDENER NPRG Nitrite Negative Negative 09/07/2023 12:25 PM LANDSCAPE GARDENER NPRG Leukocyte Esterase Negative Negative 09/07/2023 12:25 PM LANDSCAPE GARDENER NPRG Protein Negative mg/dL 09/07/2023 12:25 PM LANDSCAPE GARDENER NPRG Comment: ----REFERENCE VALUE---- Negative Trace Glucose Negative Negative mg/dL 09/07/2023 12:25 PM LANDSCAPE GARDENER NPRG Ketones, QI(U) Negative Negative mg/dL 09/07/2023 12:25 PM LANDSCAPE GARDENER NPRG Bilirubin Negative Negative 09/07/2023 12:25 PM LANDSCAPE GARDENER NPRG pH 5.5 5.0 - 8.0 09/07/2023 12:25 PM LANDSCAPE GARDENER NPRG Specific [place] <=1.005 1.001 - 1.035 09/07/2023 12:25 PM LANDSCAPE GARDENER NPRG Urobilinogen 0.2 0.2 - 1.0 mg/dL 09/07/2023 12:25 PM L[facility]SCAPE GARDENER NPRG Urine (Urine, Midstream) 09/07/2023 12:09 PM LANDSCAPE GARDENER 09/07/2023 12:16 PM L[facility]SCAPE GARDENER Aditya Tidwell APRNNLinh, Jayden.N.P., M.S.N . LAB URINE ORDERABLES Performing Organization Address [facility] de Phone Number [facility] [address] [place] [id number], [facility] NPRG [address] [address] * Microscopic Manual (09/07/2023 12:09 PM LANDSCAPE GARDENER) Only the most recent of2 resultswithin the time period is included. White Blood Cells None Seen /hpf 09/07/2023 12:44 PM LANDSCAPE GARDENER NPRG Comment: ----REFERENCE VALUE---- Males: 0-3 Females: 0-10 Unknown: 0-10 Red Blood Cells Occ-2 0 - 2 /hpf 09/07/2023 12:44 PM LANDSCAPE GARDENER NPRG Urine 09/07/2023 12:0 9 PM LANDSCAPE GARDENER 09/07/2023 12:16 PM [employer]SCAPE G[facility]ENER Saba Lerma APRN, C.N.P., Jayden.N.P., M.S.N . LAB URINE ORDERABLES Performing Organization Address [facility] Co de Phone Number [facility] [address] [place] [id number], [facility] NPRG [address] [address] * Cologuard - Sent Out Lab (07/18/2023 8:30 AM LANDSCAPE GARDENER) [facility] Result Negative Negative 07/21/2023 5:12 PM LANDSCAPE GARDENER EXLI Comment: NEGATIVE TEST RESULT. A negative Cologuard result indicates a low likelihood that a colorectal cancer (CRC) or advanced adenoma (adenomatous polyps with more advanced pre-malignant features) ??is present. The chance that a person with a negative Cologuard test has a colorectal cancer is less than 1 in 1500 (negative predictive value >99.9%) or has an ??advanced adenoma is less than ??5.3% (negative predictive value 94.7%). These data are based on a prospective cross-sectional study of 10,000 individuals at average risk for colorectal cancer who were screened with both Cologuard and colonoscopy. (Mariah Palumbo al, N Engl J Med 2014;370(14):8323-2331) The normal value (reference range) for this assay is negative. COLOGUARD RE-SCREENING RECOMMENDATION: Periodic colorectal cancer screening is an important part of preventive healthcare for asymptomatic individuals at average risk for colorectal cancer. ??Following a negative Cologuard result, the [place] Cancer Society and U.S. Multi-Society Task Force screening guidelines recommend a Cologuard re-screening interval of 3 years. References: [place] Cancer Society Guideline for Colorectal Cancer Screening: https://www.cancer.org/cancer/txaxy-hanniq-omtyhv/detection- diagnosis-staging/acs-recommendations.html.; Baljinder DK, Kam CR, Radha PowellK, Colorectal Cancer Screening: Recommendations for Physicians and Patients from the U.S. Multi-Society Task Force on Colorectal Cancer Screening , Am J Gastroenterology 2017; 112:0043-2072. TEST DESCRIPTION: Composite algorithmic analysis of stool DNA-biomarkers with hemoglobin immunoassay. ?? Quantitative values of individual biomarkers are not reportable and are not associated with individual biomarker result reference ranges. Cologuard is intended for colorectal cancer screening of adults of either sex, 45 years or older, who are at average-risk for colorectal cancer (CRC). Cologuard has been approved for use by the U.S. FDA. The performance of Cologuard was established in a cross sectional study of average-risk adults aged 50-84. Cologuard performance in patients ages 45 to 49 years was estimated by sub-group analysis of near-age groups. Colonoscopies performed for a positive result may find as the most clinically significant lesion: colorectal cancer [4.0%], advanced adenoma (including sessile serrated polyps greater than or equal to 1cm diameter) [20%] or non- advanced adenoma [31%]; or no colorectal neoplasia [45%]. These estimates are derived from a prospective cross-sectional screening study of 10,000 individuals at average risk for colorectal cancer who were screened with both Cologuard and colonoscopy. (Mariah Palumbo al, N Engl J Med 2014;370(14):0682-5275.) Cologuard may produce a false negative or false positive result (no colorectal cancer or precancerous polyp present at colonoscopy follow up). A negative Cologuard test result does not guarantee the absence of CRC or advanced adenoma (pre-cancer). The current Cologuard screening interval is every 3 years. ([place] Cancer Society and U.S. Multi-Society Task Force). Cologuard performance data in a 10,000 patient pivotal study using colonoscopy as the reference method can be accessed at the following location: www.[employer]/results. Additional description of the Cologuard test process, warnings and precautions can be found at www.cologuard.com. Stool (Stool) 07/18/2023 8:3 0 AM LANDSCAPE GARDENER 07/19/2023 1:50 PM LANDSCAPE GARDENER Rio Duggan M.D. LAB BODY FLUIDS A ND STOOLS ORDERABLES [employer] [address] [place] [address] EXLI Mir Vracha [address] [facility], [address] [place] [address] * PSA (Prostate-Specific Antigen), Diagnostic (06/02/2023 2:16 PM LANDSCAPE GARDENER) Prostate-Specific Ag 2.2 <=6.5 ng/mL 06/02/2023 7:20 PM LANDSCAPE GARDENER NPRG Comment: ----ADDITIONAL INFORMATION---- The testing method is an electrochemiluminescence assay manufactured by [employer] and performed on the Modular or Paddy system. Values obtained with different assay methods or kits may be different and cannot be used interchangeably. Test results cannot be interpreted as absolute evidence for the presence or absence of malignant disease. Blood (Blood, Venous) 06/02/2023 2:16 PM LANDSCAPE GARDENER 06/02/2023 6:43 PM LANDSCAPE GARDENER Rio Duggan M.D. LAB BLOOD ADD-ON Performing Organization Address City/[facility]/ZIP Co de Phone Number [facility] [address] [place] [id number], [facility] NPRG [address] [address] * Lactate (04/10/2023 8:16 PM CDT) Lactate, P 1.7 0.5 - 2.2 mmol/L 04/10/2023 8:40 PM CDT NPRG Blood (Blood, Venous) 04/10/2023 8:16 PM CDT 04/10/2023 8:19 PM CDT Nancy De Dios M.D., M.P.H. LAB BLOOD N ON ADD-ON Performing Organization Address [facility] Co de Phone Number [facility] [address] [place] [id number], [facility] NPRG [address] [address] * DX Abdomen Portable Anterior Posterior 1 View (04/10/2023 7:04 PM CDT) Anatomical Region Laterality Modality Abdomen, Abdominal RST LOS, Abdominal ARZ LOS, Abdominal FLA LOS N/A Digital Radiography 04/10/2023 7:41 PM CDT Impressions 04/10/2023 7:41 PM CDT Appropriately positioned enteric tube with tube tip and side-port projecting over expected position of the stomach. Narrative 04/10/2023 7:41 PM CDT EXAM: DX ABDOMEN PORTABLE ANTERIOR POSTERIOR 1 VIEW Procedure Note Luis Armando Blackwell M.D. - 04/10/2023 EXAM: DX ABDOMEN PORTABLE ANTERIOR POSTERIOR 1 VIEW IMPRESSION: Appropriately positioned enteric tube with tube tip and side-portprojecting over expected position of the stomach. Bebo Allison M.D. IMG DIAGNOSTIC IMAGI NG PROCEDURES * CT Abdomen Pelvis with IV Contrast (04/10/2023 4:17 PM CDT) Anatomical Region Laterality Modality Abdomen, Pelvis, Abdominal R ST LOS, Abdominal ARZ LOS, Abdominal FLA LOS N/A Computed Tomography 04/10/2023 4:20 PM CDT Impressions 04/10/2023 4:27 PM CDT 1. Small bowel obstruction with transition point mid small bowel in the left lower quadrant. 2. Hypodense mass tail the pancreas. Differential includes pancreatic malignancy, recommend multiphasic MRI or CT for further evaluation. 3. Moderate prostatomegaly. Narrative 04/10/2023 4:27 PM CDT EXAM: CT ABDOMEN PELVIS WITH IV CONTRAST COMPARISON: None FINDINGS: The lung bases are clear. There are multiple bilateral renal cysts. There is abnormal dilatation of the small bowel to an area of bowel wall thickening in the left lower quadrant image 418 of series 7. There is a low dense lesion within the tail the pancreas measuring 3.1 x 2.4 cm. There is diffuse gastric and abdominal varices noted. There is no upper abdominal adenopathy. The upper abdominal vasculature is patent. There is no free fluid in the pelvis. There is moderate prostatomegaly. There is moderate stool burden within the colon. The distal small bowel is dilated. There is no nephro or ureterolithiasis noted. There is arthritic change of the visualized skeleton. There is severe arthritic change of the right sacroiliac joint. There is no worrisome bone lesion. Procedure Note Bret Man M.D. - 04/10/2023 EXAM: CT ABDOMEN PELVIS WITH IV CONTRAST COMPARISON: None FINDINGS: The lung bases are clear. There are multiple bilateral renalcysts. There is abnormal dilatation of the small bowel to an area of bowel wall thickening in theleft lower quadrant image 418 of series 7. There is a low dense lesion within the tail the pancreasmeasuring 3.1 x 2.4 cm. There is diffuse gastric and abdominal varices noted. There is no upperabdominal adenopathy. The upper abdominal vasculature is patent. There is no free fluid in thepelvis. There is moderate prostatomegaly. There is moderate stool burden within the colon. Thedistal small bowel is dilated. There is no nephro or ureterolithiasis noted. There is arthritic change ofthe visualized skeleton. There is severe arthritic change of the right sacroiliac joint. There isno worrisome bone lesion. IMPRESSION: 1. Small bowel obstruction with transition point mid small bowel in theleft lower quadrant. 2. Hypodense mass tail the pancreas. Differential includes pancreaticmalignancy, recommend multiphasic MRI or CT for further evaluation. 3. Moderate prostatomegaly. Bebo Allison M.D. IMG CT PROCEDURES * (ABNORMAL) CBC with Differential, Blood (04/10/2023 3:25 PM CDT) Only the most recent of3 resultswithin the time period is included. Hemoglobin 14.1 13.2 - 16.6 g/dL 04/10/2023 4:20 PM CDT NPRG Hematocrit 41.9 38.3 - 48.6 % 04/10/2023 4:20 PM CDT NPRG Erythrocytes 4.45 4.35 - 5.65 x10(12)/L 04/10/2023 4:20 PM CDT NPRG MCV 94.2 78.2 - 97.9 fL 04/10/2023 4:20 PM CDT NPRG RBC Distrib Width 12.6 11.8 - 14.5 % 04/10/2023 4:20 PM CDT NPRG Platelet Count 250 135 - 317 x10(9)/L 04/10/2023 4:20 PM CDT NPRG Leukocytes 9.2 3.4 - 9.6 x10(9)/L 04/10/2023 4:20 PM CDT NPRG Neutrophils 7.46(H) 1.56 - 6.45 x10(9)/L 04/10/2023 4:20 PM CDT NPRG Lymphocytes 1.00 0.95 - 3.07 x10(9)/L 04/10/2023 4:20 PM CDT NPRG Monocytes 0.75 0.26 - 0.81 x10(9)/L 04/10/2023 4:20 PM CDT NPRG Eosinophils 0.01(L) 0.03 - 0.48 x10(9)/L 04/10/2023 4:20 PM CDT NPRG Basophils 0.01 0.01 - 0.08 x10(9)/L 04/10/2023 4:20 PM CDT NPRG Blood (Blood, Venous) 04/10/2023 3:25 PM CDT 04/10/2023 3:43 PM CDT Bebo Allison M.D. LAB BLOOD ADD-ON Performing Organization Address City/[facility]/ZIP Co de Phone Number [facility] [address] [place] [id number], [address] [address] * Lipase (04/10/2023 3:25 PM CDT) Only the most recent of2 resultswithin the time period is included. [facility] Lipase, P 20 13 - 60 U/L 04/10/2023 4: 01 PM CDT NPRG Blood (Blood, Venous) 04/10/2023 3:25 PM CDT 04/10/2023 3:43 PM CDT Bebo Allison M.D. LAB BLOOD ADD-ON Performing Organization Address City/[facility]/ZIP Co de Phone Number [facility] [address] [place] [address], [address] [address] * (ABNORMAL) Comprehensive Metabolic Panel (04/10/2023 3:25 PM CDT) Only the most recent of8 resultswithin the time period is included. [facility] Potassium, P 4.0 3.6 - 5.2 mmol/L 04/10/2023 4:01 PM CDT NPRG Sodium, P 136 135 - 145 mmol/L 04/10/2023 4:01 PM CDT NPRG Chloride, P 97(L) 98 - 107 mmol/L 04/10/2023 4:01 PM CDT NPRG Bicarbonate, P 28 22 - 29 mmol/L 04/10/2023 4:01 PM CDT NPRG Anion Gap, P 11 7 - 15 04/10/2023 4:01 PM CDT NPRG BUN (Blood Urea Nitrogen), P 16 8 - 24 mg/dL 04/10/2023 4:01 PM CDT NPRG Creatinine 0.85 0.74 - 1.35 mg/dL 04/10/2023 4:01 PM CDT NPRG Estimated GFR (eGFR) >90 >=60 mL/min/BS A 04/10/2023 4:01 PM CDT NPRG Comment: Estimated GFR calculated using the 2020 CKD_EPI creatinine equation. Calcium, Total, P 9.7 8.8 - 10.2 mg/dL 04/10/2023 4:01 PM CDT NPRG Glucose, P 205(H) 70 - 140 mg/dL 04/10/2023 4:01 PM CDT NPRG Protein, Total, P 7.7 6.3 - 7.9 g/dL 04/10/2023 4:01 PM CDT NPRG Albumin, P 4.5 3.5 - 5.0 g/dL 04/10/2023 4:01 PM CDT NPRG Aspartate Aminotransferase (AST), P 18 8 - 48 U/L 04/10/2023 4:01 PM CDT NPRG Alkaline Phosphatase, P 86 40 - 129 U/L 04/10/2023 4:01 PM CDT NPRG Alanine Aminotransferase (ALT), P 15 7 - 55 U/L 04/10/2023 4:01 PM CDT NPRG Bilirubin, Total, P 0.5 <=1.2 mg/dL 04/10/2023 4:01 PM CDT NPRG Blood (Blood, Venous) 04/10/2023 3:25 PM CDT 04/10/2023 3:43 PM CDT Bebo Allison M.D. LAB BLOOD ADD-ON [facility] [address] [place] [address], [facility] NPRG [place] [address] [place] [address] * Lipid Panel (09/10/2021 8:35 AM [employer]SCAPE [employer]ARD[employer]) Only the most recent of9 resultswithin the time period is included. [facility] Cholesterol, Total 117 mg/dL 2021 12:19 PM [employer] NPRG Comment: ----REFERENCE VALUE---- Desirable: < 200 Borderline high: 200 - 239 High: > or = 240 Triglycerides 91 mg/dL 09/10/2021 12:19 PM [employer] NPRG Comment: ----REFERENCE VALUE---- Normal: <150 Borderline high: 150-199 High: 200-499 Very high: > or =500 Cholesterol, HDL 47 >=40 mg/dL 09/10/19 12:19 PM [employer] NPRG Calculated LDL 52 mg/dL 09/10/2021 12:19 PM [employer] NPRG Comment: ----REFERENCE VALUE---- Desirable: <100 mg/dL Above Desirable: 100-129 mg/dL Borderline High: 130-159 mg/dL High: 160-189 mg/dL Very High: >=190 mg/dL Cholesterol, Non-HDL, Calculated 70 mg/dL 09/10/2021 12:19 PM [employer] NPRG Comment: ----REFERENCE VALUE---- Desirable: <130 Above Desirable: 130-159 Borderline high: 160-189 High: 190-219 Very high: > or =220 Blood (Blood, Venous) 09/10/2021 8:35 AM [employer] 09/10/2021 11:45 AM [employer] Rio Duggan M.D. LAB BLOOD ADD-ON [facility] [address] [place] [address], [facility] NPRG [facility] [address] [place] [address] * (ABNORMAL) CBC without Differential (09/10/2021 8:35 AM [employer]) Only the most recent of3 resultswithin the time period is included. Hemoglobin 13.5 13.2 - 16.6 g/dL 09/10/2021 12:13 PM [employer] NPRG Hematocrit 40.3 38.3 - 48.6 % 09/10/2021 12:13 PM [employer] NPRG Erythrocytes 4.24(L) 4.35 - 5.65 x10(12)/L 09/10/2021 12:13 PM [employer] NPRG MCV 95.0 78.2 - 97.9 fL 09/10/2021 12:13 PM [employer] NPRG RBC Distrib Width 12.7 11.8 - 14.5 % 09/10/2021 12:13 PM [employer] NPRG Platelet Count 215 135 - 317 x10(9)/L 09/10/2021 12:13 PM [employer] NPRG Leukocytes 4.3 3.4 - 9.6 x10(9)/L 09/10/2021 12:13 PM [employer] NPRG Blood (Blood, Venous) 09/10/2021 8:35 AM [employer] 09/10/2021 11:45 AM [employer] Rio Duggan M.D. LAB BLOOD ADD-ON [facility] [address] [place] [address], [facility] NPRG [place] [address] [place] [address] * Fecal Occult Blood, Colorectal Cancer Screen, Qualitative, Immunochemical (10/21/2020 1:46 PM CDT) Only the most recent of2 resultswithin the time period is included. Occult Blood, Fecal Negative Negative 10/22/2020 11:39 AM CDT DTL Comment: Negative result. ??This test will not detect upper gastrointestinal bleeding; the HemoQuant test (0945)should be ordered if clinically indicated. Stool (Stool) 10/21/2020 1:4 6 PM CDT 10/22/2020 10:52 AM CDT Rio Duggan M.D. LAB BODY FLUIDS A ND STOOLS ORDERABLES [facility] [address] [place] [address], [place] DTL [facility] [address] [place] [address] * ALT (Alanine Aminotransferase) (05/19/2020 8:40 AM CDT) Only the most recent of2 resultswithin the time period is included. Alanine Aminotransferase (ALT), P 19 7 - 55 U/L 05/19/2020 12:58 PM CDT NPRG Blood (Blood, Venous) 05/19/2020 8:40 AM CDT 05/19/2020 12:09 PM CDT Rio Duggan M.D. LAB BLOOD ADD-ON [facility] [address] [place] [address], [facility] [place] [address] [place] [address] * AST (Aspartate Aminotransferase) (05/19/2020 8:40 AM CDT) Only the most recent of2 resultswithin the time period is included. Aspartate Aminotransferase (AST), P 27 8 - 48 U/L 05/19/2020 12:58 PM CDT NPRG Blood (Blood, Venous) 05/19/2020 8:40 AM CDT 05/19/2020 12:09 PM CDT Rio Duggan M.D. LAB BLOOD ADD-ON [facility] [address] [place] [address], [facility] [address] [place] [address] * DX Hip Bilateral 2+ Views (10/18/2017 1:31 PM CDT) Anatomical Region Laterality Modality Lower Extremity, Hip Bilateral Computed Ra diography 10/18/2017 1:54 PM CDT Impressions 10/18/2017 1:56 PM CDT IMPRESSION: Stable positioning. Narrative 10/18/2017 1:56 PM CDT EXAM: DX HIP BILATERAL 2+ VIEWS COMPARISON: November 14, 2012 FINDINGS: The hip prosthetic elements remain well positioned without indication of loosening. Procedure Note Issa Ramos M.D. - 10/18/2017 EXAM: DX HIP BILATERAL 2+ VIEWS COMPARISON: November 14, 2012 FINDINGS: The hip prosthetic elements remain well positioned withoutindication of loosening. IMPRESSION: Stable positioning. Archie Hernández M.D. IMG DIAGNOSTIC IMAGI NG PROCEDURES * (ABNORMAL) Urinalysis, Routine (02/06/2017 10:05 AM CDT) HXUr Color Yellow Colorless POWERCHART Clarity Clear Clear POWERCHART Glucose Negative Negative MGDL POWERCHART HXBILIRUBIN Negative Negative POWERCHART Ketones, QL(U) Negative Negative MGDL POWERCHART Specific [place], POCT, U 1.020 POWERCHART Comment: Reference Range Specific [place]: 1.000-1.035 HXBLOOD Trace(A) Negative POWERCHART pH, POCT, Urine 6.5 <5.0 POWERCHART Comment: Reference Range pH: 5.0-8.0 Protein, Ur, Dip Negative Negative MGDL POWERCHA RT Urobilinogen 0.2 0.2 MGDL POWERCHART Comment: Reference Range Urobilinogen: 0.2-1.0 mg/dL HXNITRITE Negative Negative POWERCHART Leukocyte Esterase Negative Negative POWERCHART Urine, First Voided 02/06/2017 10:05 AM CDT Marissa Banks APRN C.N.PAnnie LAB URINE ORD ERABLES POWERCHART NA * (ABNORMAL) Urine Microscopic (02/06/2017 10:05 AM CDT) HXUR WBC. Occ-3 None Seen HPF POWERCHART HXUR RBC. Occ-2 None Seen HPF POWERCHART HXUR Bacteria, Present(A) None Seen POWERCHART Squamous Epithelial Occ-3(A) None Seen HPF POWERCHART Urine, First Voided 02/06/2017 10:05 AM CDT 02/06/2017 10:05 AM CDT Aditya Cole APRNN.P. LAB URINE ORD ERABLES Performing Organization Address [facility] de Phone Number POWERCHART NA * Automated Differential (02/06/2017 9:55 AM CDT) Only the most recent of2 resultswithin the time period is included. Absolute Neutrophils 2.53 1.70 - 7.00 109L POWERCHART Lymphocytes 1.25 0.90 - 2.90 X109L POWERCHART Monocytes 0.40 0.30 - 0.90 X109L POWERCHART Eosinophils 0.11 0.05 - 0.50 X109L POWERCHART Absolute Basophil 0.03 0.00 - 0.30 X109L POWERCHART Blood 02/06/2017 9:55 AM CDT 02/06/2017 9:55 AM CDT Marissa Banks APRN C.N.P. LAB BLOOD ADD -ON Performing Organization Address [facility] de Phone Number POWERCHART NA * DX Wrist Left 3+ Views (01/27/2017 1:44 PM CDT) Anatomical Region Laterality Modality Upper Extremity, Wrist Left Radiograp hic Imaging 01/27/2017 1:44 PM CDT Addenda Addendum by ProviderJudd M.D. on 01/27/2017 1:44 PM CDT RAD^^^MA XR Wrist Left 3 or more views 01/27/2017 13:44:13 XR Wrist Left 3 or more views Addendum by Judd Gonzalez M.D. on 01/27/2017 1:44 PM CDT RAD^^^MA XR Wrist Left 3 or more views 01/27/2017 13:44:13 XR Wrist Left 3 or more views Addendum by ProviderJudd M.D. on 01/27/2017 1:44 PM CDT RAD^^^MA XR Wrist Left 3 or more views 01/27/2017 13:44:13 Impressions 01/27/2017 3:11 PM CDT Small chip fracture, dorsal cortex, distal radial metaphysis. Narrative 01/27/2017 3:11 PM CDT EXAM: XR Wrist Left 3 or more views INDICATION: fall outstretched hand from tractor step 2 weeks ago; distal radial pain Multiple views of the left wrist were obtained, demonstrating small calcific densities dorsal to the distal aspect of the radius, consistent with small chip fractures. There are no additional fractures or dislocations. There does not appear to be any intra-articular extension. There is mild surrounding soft tissue swelling. Procedure Note Sukhdev Wyatt M.D. / Judd Gonzalez M.D. - 01/31/2017 EXAM: XR Wrist Left 3 or more views INDICATION: fall outstretched hand from tractor step 2 weeks ago; distal radial pain Multiple views of the left wrist were obtained, demonstrating small calcific densities dorsal to the distal aspect of the radius, consistent with small chip fractures. There are no additional fractures or dislocations. There does not appear to be any intra-articular extension. There is mild surrounding soft tissue swelling. IMPRESSION: Small chip fracture, dorsal cortex, distal radial metaphysis. Lydia Balderrama(Syl) IMG DIAGNOSTIC I MAGING PROCEDURES * DX Hip Left 2+ Views (11/14/2012 1:17 PM CDT) Anatomical Region Laterality Modality Lower Extremity, Hip Left Radiographi c Imaging 11/14/2012 1:17 PM CDT Addenda Addendum by Judd Gonzalez M.D. on 11/14/2012 1:17 PM CDT RAD^^^MA XR Hip Left 2 or more views 11/14/2012 13:17:00 Impressions 11/14/2012 2:25 PM CDT Two-view left hip demonstrates components of left total hip arthroplasty in good position and alignment. Benign-appearing cortical thickening medial aspect of the proximal left femur may be chronic. Comparison with prior exam would be helpful. Degenerative change in the pubic symphysis. Narrative 11/14/2012 2:25 PM CDT EXAM: XR Hip Left 2 or more views INDICATION: hx abimbola FINDINGS/ Procedure Note Siddhartha Orourke M.D. / Judd Gonzalez M.D. - 12/09/2016 EXAM: XR Hip Left 2 or more views INDICATION: hx abimbola FINDINGS/IMPRESSION: Two-view left hip demonstrates components of left total hip arthroplasty in good position and alignment. Benign-appearing cortical thickening medial aspect of the proximal left femur may be chronic. Comparison with prior exam would be helpful. Degenerative change in the pubic symphysis. [place] Gleason R.TAnnie(R)(CT), R.TAnnie(R) IMG DIAGNOSTIC IMAGING PROCEDURES * DX Femur Right 2 Views (11/14/2012 1:15 PM CDT) Anatomical Region Laterality Modality Lower Extremity, Femur Right Radiograp hic Imaging 11/14/2012 1:15 PM CDT Addenda Addendum by Judd Gonzalez M.D. on 11/14/2012 1:15 PM CDT RAD^^^MA XR Femur Right 2 views 11/14/2012 13:15:00 Impressions 11/14/2012 2:23 PM CDT Two-view examination of the right femur does not include the proximal portion of the femur. The tip of the stem of the femoral component of right hip arthroplasty is included on the exam. There is a small region of lucency about the tip of the stem suggesting possible loosening. Comparison with prior exam would be helpful to further evaluate. Mild degenerative arthritis right knee. Narrative 11/14/2012 2:23 PM CDT EXAM: XR Femur Right 2 views INDICATION: pain FINDINGS/ Procedure Note Siddhartha Orourke M.D. / Judd Gonzalez M.D. - 12/09/2016 EXAM: XR Femur Right 2 views INDICATION: pain FINDINGS/IMPRESSION: Two-view examination of the right femur does not include the proximal portion of the femur. The tip of the stem of the femoral component of right hip arthroplasty is included on the exam. There is a small region of lucency about the tip of the stem suggesting possible loosening. Comparison with prior exam would be helpful to further evaluate. Mild degenerative arthritis right knee. [place] Gleason R.T.(R)(CT), R.T.(R) IMG DIAGNOSTIC IMAGING PROCEDURES * DX Hip Right 2+ Views (11/14/2012 1:13 PM CDT) Anatomical Region Laterality Modality Lower Extremity, Hip Right Radiographi c Imaging 11/14/2012 1:13 PM CDT Addenda Addendum by Judd Gonzalez M.D. on 11/14/2012 1:13 PM CDT RAD^^^MA XR Hip Right 2 or more views 11/14/2012 13:13:00 Narrative 11/14/2012 1:20 PM CDT AP and lateral views of the right hip demonstrate a bipolar type prosthesis in satisfactory position. There is no fracture or dislocation. It should be cautioned that the lower aspects of the femoral component are not included on this study. Sclerotic degenerative changes of the lower right SI joint are incidentally noted. Impression: No acute pathology. Procedure Note Sukhdev Wyatt M.D. / ProviderJudd M.D. - 12/09/2016 AP and lateral views of the right hip demonstrate a bipolar type prosthesis in satisfactory position. There is no fracture or dislocation. It should be cautioned that the lower aspects of the femoral component are not included on this study. Sclerotic degenerative changes of the lower right SI joint are incidentally noted. Impression: No acute pathology. [place] Gleason R.TAnnie(R)(CT), R.T.(R) IMG DIAGNOSTIC IMAGING PROCEDURES * PT (Prothrombin Time) with INR (08/23/2012 3:45 PM [employer]) INR 1.1 0.8 - 1.2 POWERCHART Comment: Lot#[id number] Exp. 06/2013 Blood 08/23/2012 3:45 PM [employer] Emely Douglass APRN, C.N.P. LAB BLOOD ADD-ON POWERCHART * MR Shoulder Left without IV Contrast (08/03/2012 12:19 PM [employer]) Anatomical Region Laterality Modality Upper Extremity, Shoulder Left Magnet ic Resonance 08/03/2012 12:1 9 PM [employer] Addenda Addendum by Judd Gonzalez M.D. on 08/03/2012 12:19 PM [employer] RAD^^^MA MR Shoulder Left w/o contrast 08/03/2012 12:19:00 MR Shoulder Left w/o contrast Addendum by Judd Gonzalez M.D. on 08/03/2012 12:19 PM [employer] RAD^^^MA MR Shoulder Left w/o contrast 08/03/2012 12:19:00 MR Shoulder Left w/o contrast Addendum by Judd Gonzalze M.D. on 08/03/2012 1:12 PM [employer] RAD^^^MA MR Shoulder Left w/o contrast 08/03/2012 13:12:00 Impressions 08/03/2012 1:36 PM [employer] Very severe osteoarthritic changes glenohumeral joint as above Narrative 08/03/2012 1:36 PM [employer] EXAM: MR Shoulder Left w/o contrast INDICATION: LEFT SHOULDER PAIN, ARTHRITIS COMPARISON: None. FINDINGS: Type I acromion. Very severe degenerative changes at the glenohumeral joint with complete loss of articular cartilage. The glenoid labrum has been avulsed and there is [id number] present at the joint space. Large articular marginal osteophytes. There is superior subluxation of the humeral head. The infraspinatus and supraspinatus tendons are quite atrophic but no definite full-thickness tear. Benign appearing cystic changes are present in the humeral head attributed to the arthritic process. Long head of the biceps tendon is normally positioned. Procedure Note Carson Rutherford D.O. / Judd Gonzalez M.D. - 12/09/2016 EXAM: MR Shoulder Left w/o contrast INDICATION: LEFT SHOULDER PAIN, ARTHRITIS COMPARISON: None. FINDINGS: Type I acromion. Very severe degenerative changes at the glenohumeral joint with complete loss of articular cartilage. The glenoid labrum has been avulsed and there is [id number] present at the joint space. Large articular marginal osteophytes. There is superior subluxation of the humeral head. The infraspinatus and supraspinatus tendons are quite atrophic but no definite full-thickness tear. Benign appearing cystic changes are present in the humeral head attributed to the arthritic process. Long head of the biceps tendon is normally positioned. IMPRESSION: Very severe osteoarthritic changes glenohumeral joint as above Keisha Powell Colin R.T.(R)(CT), R.T.(R) IMG MRI PROCEDURES * DX Shoulder Left 2+ Views (07/04/2012 1:13 PM [employer]) Anatomical Region Laterality Modality Upper Extremity, Shoulder Left Radiog raphic Imaging 07/04/2012 1:13 PM [employer] Addenda Addendum by Judd Gonzalez M.D. on 07/04/2012 1:13 PM [employer] RAD^^^MA XR Shoulder Left 3 view 07/04/2012 13:13:00 XR Shoulder Left 3 view Addendum by Judd Gonzalez M.D. on 07/04/2012 1:13 PM [employer] RAD^^^MA XR Shoulder Left 3 view 07/04/2012 13:13:00 XR Shoulder Left 3 view Impressions 07/04/2012 2:48 PM [employer] Severe degenerative changes with bony remodeling, sclerosis and large osteophyte formation involving the glenohumeral articulation. Narrative 07/04/2012 2:48 PM [employer] Internal rotation, external rotation and axillary view of the left shoulder obtained. COMPARISON: No prior FINDINGS: There are severe degenerative change with bony remodeling of the humeral head, large bulky osteophytes. Sclerosis involving the osseous glenoid and articular portion of the humerus. Apparent intra-articular loose body projects over the scapula best seen on the external rotation image. Acromioclavicular joint remains intact with mild spurring. Visualized ribs and left lung apex history no acute abnormality. Procedure Note Kyle Lopez M.D. / Judd Gonzalez M.D. - 12/14/2016 Internal rotation, external rotation and axillary view of the left shoulder obtained. COMPARISON: No prior FINDINGS: There are severe degenerative change with bony remodeling of the humeral head, large bulky osteophytes. Sclerosis involving the osseous glenoid and articular portion of the humerus. Apparent intra-articular loose body projects over the scapula best seen on the external rotation image. Acromioclavicular joint remains intact with mild spurring. Visualized ribs and left lung apex history no acute abnormality. IMPRESSION: Severe degenerative changes with bony remodeling, sclerosis and large osteophyte formation involving the glenohumeral articulation. Apurva Balderrama(R)(CT), R.T.(R) IMG JEFFERY GNOSTIC IMAGING PROCEDURES Visit Diagnoses Diagnosis Start Date Diabetes Mellitus Type 2 Without Complication (HCC) 05/05/2017 Diabetes Mellitus Type 2 Without Complication (HCC) 10/17/2017 Need Vaccine Immunization 10/17/2017 Aftercare Total Hip Arthroplasty 10/18/2017 Aftercare Total Hip Arthroplasty 10/18/2017 Diabetes Mellitus Type 2 Without Complication (HCC) 04/26/2018 Diabetes Mellitus Type 2 Without Complication (HCC) 04/26/2018 Hyperlipidemia 05/02/2018 Diabetes Mellitus Type 2 (HCC) 05/02/2018 Annual Medicare Examination Return 09/21/2018 Annual Medicare Examination Return 10/31/2018 Diabetes Mellitus Type 2 (HCC) 10/31/2018 Screening Cancer Colon 11/06/2018 Diabetes Mellitus Type 2 (HCC) 11/06/2018 Diabetes Mellitus Type 2 (HCC) 05/06/2019 Diabetes Mellitus Type 2 (HCC) 05/20/2019 Hyperlipidemia 05/20/2019 Screening Colon Cancer Average Risk 05/20/2019 Need Vaccine Immunization 05/20/2019 Screening Colon Cancer Average Risk 08/19/2019 Diabetes Mellitus Type 2 (HCC) 08/19/2019 Diabetes Mellitus Type 2 (HCC) 08/22/2019 Diabetes Mellitus Type 2 (HCC) 09/03/2019 Diabetes Mellitus Type 2 (HCC) 09/17/2019 Diabetes Mellitus Type 2 (HCC) 09/17/2019 Hyperlipidemia 11/18/2019 Diabetes Mellitus Type 2 (HCC) 11/18/2019 Diabetes Mellitus Type 2 (HCC) 11/18/2019 Diabetes Mellitus Type 2 (HCC) 05/19/2020 Hyperlipidemia 05/19/2020 Diabetes Mellitus Type 2 (HCC) 05/21/2020 Diabetes Mellitus Type 2 (HCC) 05/28/2020 Hyperlipidemia 05/28/2020 Hyperlipidemia 06/27/2020 Diabetes Mellitus Type 2 (HCC) 06/27/2020 Diabetes Mellitus Type 2 (HCC) 08/21/2020 Screening Cancer Colon 08/24/2020 Diabetes Mellitus Type 2 (HCC) 08/24/2020 Hyperlipidemia 08/24/2020 Screening Cancer Colon 10/21/2020 Diabetes Mellitus Type 2 (HCC) 02/22/2021 Diabetes Mellitus Type 2 (HCC) 03/01/2021 Diabetes Mellitus Type 2 (HCC) 03/04/2021 Diabetes Mellitus Type 2 (HCC) 06/04/2021 Hyperlipidemia 06/04/2021 Diabetes Mellitus Type 2 (HCC) 06/04/2021 Diabetes Mellitus Type 2 (HCC) 06/08/2021 Hyperlipidemia 06/08/2021 Diabetes Mellitus Type 2 (HCC) 09/10/2021 Hyperlipidemia 09/10/2021 Diabetes Mellitus Type 2 (HCC) 09/13/2021 Hyperlipidemia 09/13/2021 Diabetes Mellitus Type 2 (HCC) 12/13/2021 Diabetes Mellitus Type 2 (HCC) 12/14/2021 Diabetes Mellitus Type 2 (HCC) 02/27/2022 Hyperlipidemia 02/27/2022 Diabetes Mellitus Type 2 (HCC) 04/08/2022 Diabetes Mellitus Type 2 (HCC) 04/12/2022 Screening Cancer Colon 05/24/2022 Diabetes Mellitus Type 2 (HCC) 05/24/2022 Screening Cancer Colon 06/07/2022 Diabetes Mellitus Type 2 (HCC) 06/21/2022 Diabetes Mellitus Type 2 (HCC) 07/11/2022 Diabetes Mellitus Type 2 (HCC) 08/02/2022 Diabetes Mellitus Type 2 (HCC) 08/05/2022 Diabetes Mellitus Type 2 (HCC) 08/16/2022 Diabetes Mellitus Type 2 (HCC) 08/30/2022 Diabetes Mellitus Type 2 (HCC) 09/19/2022 Diabetes Mellitus Type 2 (HCC) 11/14/2022 Diabetes Mellitus Type 2 (HCC) 11/16/2022 Diabetes Mellitus Type 2 (HCC) 11/24/2022 Diabetes Mellitus Type 2 (HCC) 12/16/2022 Diabetes Mellitus Type 2 (HCC) 02/07/2023 Diabetes Mellitus Type 2 (HCC) 02/24/2023 Diabetes Mellitus Type 2 (HCC) 03/03/2023 Hematuria 04/10/2023 Obstruction Intestinal (HCC) 04/10/2023 Diabetes Mellitus Type 2 (HCC) 04/24/2023 Diabetes Mellitus Type 2 (HCC) 04/28/2023 Laparotomy Exploratory Status Post 04/28/2023 Diabetes Mellitus Type 2 (HCC) 05/16/2023 Diabetes Mellitus Type 2 (HCC) 05/26/2023 Frequency Urinary 06/02/2023 Diabetes Mellitus Type 2 (HCC) 06/19/2023 Screening Cancer Colon 06/27/2023 Screening Cancer Colon 07/11/2023 Diabetes Mellitus Type 2 (HCC) 08/29/2023 Diabetes Mellitus Type 2 (HCC) 09/01/2023 Hematuria 09/07/2023 Diabetes Mellitus Type 2 (HCC) 09/14/2023 Hematuria Gross 09/14/2023 Hematuria Gross 09/19/2023 Hematuria Gross 09/26/2023 Hematuria Gross 09/27/2023 Retention Urinary 09/27/2023 Benign Prostatic Hyperplasia With Lower Urinary Tract Symptom 09/27/2023 Hematuria Gross 10/19/2023 Retention Urinary 10/19/2023 Benign Prostatic Hyperplasia With Lower Urinary Tract Symptom 10/19/2023 Hematuria Gross 10/19/2023 Diabetes Mellitus Type 2 (HCC) 10/19/2023 Benign Prostatic Hyperplasia With Lower Urinary Tract Symptom 10/23/2023 Hematuria Gross 10/23/2023 Retention Urinary 10/23/2023 Preoperative Exam 11/06/2023 Retention Urinary 11/06/2023 Hematuria Gross 11/06/2023 Hyperplasia Prostate Benign Localized Without Obstruction 11/06/2023 Benign Prostatic Hyperplasia With Lower Urinary Tract Symptom 11/07/2023 Benign Prostatic Hyperplasia With Lower Urinary Tract Symptom 11/14/2023 Benign Prostatic Hyperplasia With Lower Urinary Tract Symptom 11/14/2023 Benign Prostatic Hyperplasia With Lower Urinary Tract Symptom 11/14/2023 Benign Prostatic Hyperplasia With Lower Urinary Tract Symptom 11/14/2023 Benign Prostatic Hyperplasia With Lower Urinary Tract Symptom 11/29/2023 Benign Prostatic Hyperplasia With Lower Urinary Tract Symptom 11/29/2023 Diabetes Mellitus Type 2 (HCC) 11/30/2023 Benign Prostatic Hyperplasia With Lower Urinary Tract Symptom 11/30/2023 Diabetes Mellitus Type 2 Without Complication (HCC) 12/26/2023 Annual Medicare Examination Return 12/26/2023 Diabetes Mellitus Type 2 (HCC) 12/26/2023 Diabetes Mellitus Type 2 (HCC) 02/27/2024 Benign Prostatic Hyperplasia With Lower Urinary Tract Symptom 11/29/2023 Care Teams Communications Controller Relationship Specialty Start Date End Date Rio Duggan M.D. [facility] [place] [address] [facility] - General 01/20/17
--- OUTSIDE RECORDS SUMMARY | 2024-04-24 08:53 | XMS_ITS | Encounter Summary ---
Author Organization [facility] Address [address] [place] [address] Care Team Providers Care Human Geography Faculty Member Name Role Phone Rio Duggan M.D. Primary Care Provider [phone] Encounter Details Date Type Department Care Team (Late st Contact Info) Description 02/27/2024 Orders Only [facility] PCP TH MNT Rio Duggan M.D. [address] [facility] [place] [phone] Diabetes Mellitus Type 2 (HCC) Social History Tobacco Use Types Packs/Day Years Used Date Smoking Tobacco: Never Smokeless Tobacco: Never Alcohol Use Standard Drinks/Week Comments Never 0 (1 standard drink = 0.6 oz pur e alcohol) [facility] Utilities Answer Date Recorded In the past 12 months has [facility] [employer], gas, oil, or water [employer] threatened to shut off services in your [...] money to buy more. Never true 11/06/19 24 Within the past 12 months, t he [...] your living situation today? I have a [facility] place to live 11/06/2023 Sex and Gender Information Value Date Recorded Sex Assigned at Male 11/06/2023 1:20 PM CDT Gender Identity Male 11/06/2023 1:27 PM CDT Sexual Orientation Straight 11/06/2023 1: 27 PM CDT documented as of this encounter Plan of Treatment Upcoming Encounters Date Type Department Care Team (Late st Contact Info) Description 05/03/2024 8:50 AM CDT Appointment Department of Laboratory Medicine in [place] [address] [place] [address] Rio Duggan M.D. [address] [place] [address] Scheduled Orders Name Type Priority Associated Diagnoses Orde r Schedule Lipid Panel Lab Routine Diabetes Mellitus Type 2 (HCC) Expected: 03/12/2024, Expires: 08/25/2024 documented as of this encounter Visit Diagnoses Diagnosis Diabetes Mellitus Type 2 (HCC) documented in this encounter Care Teams Human Geography Faculty Member Relationship Specialty Start Date End Date Rio Duggan M.D. [address] [place] [phone] PCP - General 01/20/17 documented as of this encounter
--- OUTSIDE RECORDS SUMMARY | 2024-04-24 08:53 | XMS_ITS ---
Author Organization [facility] Address [address] [place] [address] Care Team Providers Care Assistant Finance Director Name Role Phone Unavailable Unavailable Unavailable Surgery Details Not on file Complications Check Surgery Details section. Procedure Estimated Blood Loss Check Surgery Details section. Procedure Findings Check Surgery Details section. Procedure Specimens Taken Check Surgery Details section.
--- OUTSIDE RECORDS SUMMARY | 2024-04-24 08:53 | XMS_ITS | Referral Summary ---
Author Organization [facility] Address [address] [place] [address] Care Team Providers Care Medical Instrument Technician Name Role Phone Rio Duggan M.D. Primary Care Provider [phone] Source Comments Patient records contain information from all sites at [facility]. For routine questions regarding patient records, call [phone] during business hours, M-F 8:00 AM - 5:00 PM Central Time. Record requests for emergency care only can be directed to [phone] at any time.[facility] Encounters Date Type Department Care Team Description 02/27/2024 Orders Only [facility] PCP TH BRENDANT Rio Duggan M.D. Diabetes Mellitus Type 2 (HCC) from Last 3 Months Allergies Active Allergy Reactions Criticality Noted Date Comments Hjhutaz-Xuo-Qln Reductase Inhibitors Hepatic Failure High 12/26/2023 Medications [...] SBO with small bowel resection - 04/15. [facility]. Opacity Vitreous Right 03/31/2021 Age Related Nuclear [...] 12/16/2014 influenza trivalent high dose (HD)(PF) 9,04/18/2017 Social History Tobacco Use Types Packs/Day Years Used Date Smoking Tobacco: Never Smokeless Tobacco: Never Tobacco Cessation:Counseling Given: Not Answered Alcohol Use Standard Drinks/Week Comments Never 0 (1 standard drink = 0.6 oz pur e alcohol) [facility] Utilities Answer Date Recorded In the past 12 months has th e electric, gas, oil, or water [employer] threatened to shut off services in your [...] your living situation today? I have a [facility] place to live 11/06/2023 Sex and Gender [...] CDT Appointment Department of Laboratory Medicine in [place], [place] [address] [place] [address] Rio Duggan M.D. [address] [place] [phone] Medical Devices Implanted Type Area Grocery Clerk Device Identifier Shelf Expiration Date Model / Serial / Lot Hip Implant Hip Implant Hip Description:Bilateral total hip, one in 2003 and one in 2008 Mesh Or Patch Mesh or Patch Abdomen Procedures Procedure Name Priority Date/Time Associated Diagnosis Comments ALBUMIN, RANDOM, U Routine 12/26/2023 10:06 AM CDT Diabetes Mellitus Type 2 (HCC) HEMOGLOBIN A1C, B Routine 11/30/2023 8:4 1 AM CDT Diabetes Mellitus Type 2 (HCC) BASIC METABOLIC PANEL, S/P Routine 11/14/2023 9:34 AM CDT Benign Prostatic Hyperplasia With Lower Urinary Tract Symptom COLOGUARD Routine 07/18/2023 8:30 AM CONSUMER LOAN OFFICER Screening Cancer Colon CT ABDOMEN PELVIS WITH IV CONTRAST RAD - Semiurgent (Fast; most ED patients; some inpatients) 04/10/2023 4:17 PM CDT LIPID PANEL, S Routine 09/10/2021 8:35 AM CONSUMER LOAN OFFICER Hyperlipidemia from Last 3 Months or Most Recently Relevant to Health Maintenance Results * (ABNORMAL) Albumin, Random, Urine (12/26/2023 10:06 AM CDT) Microalbumin 41.0 mg/L 12/26/2023 4:23 PM CDT NPRG Creatinine 72 mg/dL 12/26/2023 4:23 PM CDT NPRG Albumin/Creatinin e Ratio 57(H) <17 mg/g 12/26/2023 4:23 PM CDT NPRG Urine (Urine, Midstream) 12/26/2023 10:06 AM CDT 12/26/2023 3:40 PM CDT Rio Duggan M.D. LAB URINE ORDERAB LES [facility] [address] [place] [address], [facility] NPRG [facility] [address] [place] [address] * (ABNORMAL) Hemoglobin A1c (11/30/2023 8:41 AM CDT) Hemoglobin A1c, B 7.8(H) 4.2 - 5.6 [...] CDT Rio Duggan M.D. LAB BLOOD ADD-ON [facility] [address] [place] [address], [facility] NPRG [place] [address] [place] [address] * (ABNORMAL) Basic Metabolic Panel (11/14/2023 9:34 AM CDT) Potassium, P 4.7 3.6 - 5.2 mmol/L [...] CDT Raul Acevedo M.D. LAB BLOOD ADD-ON [facility] [address] [place] [address], [facility] NPRG [facility] [place] [address] * Cologuard - Sent Out Lab (07/18/2023 8:30 AM CONSUMER LOAN OFFICER) [facility] Signature Result Negative Negative 07/21/2023 5:12 PM CONSUMER LOAN OFFICER EXLI Comment: NEGATIVE TEST RESULT. A negative [...] screened with both Cologuard and colonoscopy. (Mariah Reddy et al, N Engl J Med 2014;370(14):0598-5082) The normal value (reference range) for this assay is negative. COLOGUARD RE-SCREENING RECOMMENDATION: Periodic colorectal cancer screening is an important part of preventive healthcare for asymptomatic individuals at average risk for colorectal cancer. ??Following a negative Cologuard result, the [place] [employer] Society and U.S. Multi-Society Task Force screening guidelines recommend a Cologuard re-screening interval of 3 years. References: [place] [employer] Guideline for Colorectal Cancer Screening: https://www.cancer.org/cancer/asswq-quxqpo-lbjftd/detection- diagnosis-staging/acs-recommendations.html.; Baljinder DK, Kam REYES, Radha PowellK, Colorectal Cancer Screening: Recommendations for Physicians and Patients from the U.S. Multi-Society Task Force on Colorectal Cancer Screening , Am J Gastroenterology 2017; 112:4424-5950. TEST DESCRIPTION: Composite algorithmic analysis of stool [...] screened with both Cologuard and colonoscopy. (Mariah Reddy et al, N Engl J Med 2014;370(14):6399-2929.) Cologuard may produce a false negative or false positive result (no colorectal cancer or precancerous polyp present at colonoscopy follow up). A negative Cologuard test result does not guarantee the absence of CRC or advanced adenoma (pre-cancer). The current Cologuard screening interval is every 3 years. ([place] [employer] Society and U.S. Multi-Society Task Force). Cologuard performance data in a 10,000 patient pivotal study using colonoscopy as the reference method can be accessed at the following location: www.Baboom/results. Additional description of the Cologuard test process, warnings and precautions can be found at www.DianxinogLivemochard.Vuzit. Stool (Stool) 07/18/2023 8:3 0 AM CONSUMER LOAN OFFICER 07/19/2023 1:50 PM CONSUMER LOAN OFFICER Rio Duggan M.D. LAB BODY FLUIDS A ND STOOLS ORDERABLES [employer] [address] [place] [address] EXLI [employer] [address] [facility], [address] [place] [address] * CT Abdomen Pelvis with IV Contrast [...] Bebo Allison M.D. IMG CT PROCEDURES * Lipid Panel (09/10/2021 8:35 AM CONSUMER LOAN OFFICER) Cholesterol, Total 117 mg/dL 2021 12:19 PM CONSUMER LOAN OFFICER NPRG Comment: ----REFERENCE VALUE---- Desirable: < 200 Borderline high: 200 - 239 High: > or = 240 Triglycerides 91 mg/dL 09/10/2021 12:19 PM CONSUMER LOAN OFFICER NPRG Comment: ----REFERENCE VALUE---- Normal: <150 Borderline high: 150-199 High: 200-499 Very high: > or =500 Cholesterol, HDL 47 >=40 mg/dL 09/10/19 12:19 PM CONSUMER LOAN OFFICER NPRG Calculated LDL 52 mg/dL 09/10/2021 12:19 PM CONSUMER LOAN OFFICER NPRG Comment: ----REFERENCE VALUE---- Desirable: <100 mg/dL Above Desirable: 100-129 mg/dL Borderline High: 130-159 mg/dL High: 160-189 mg/dL Very High: >=190 mg/dL Cholesterol, Non-HDL, Calculated 70 mg/dL 09/10/2021 12:19 PM CONSUMER LOAN OFFICER NPRG Comment: ----REFERENCE VALUE---- Desirable: <130 Above Desirable: 130-159 Borderline high: 160-189 High: 190-219 Very high: > or =220 Blood (Blood, Venous) 09/10/2021 8:35 AM CONSUMER LOAN OFFICER 09/10/2021 11:45 AM CONSUMER LOAN OFFICER Rio Duggan M.D. LAB BLOOD ADD-ON [facility] [address] [place] [address], [place] NPRG [facility] [address] [place] [address] from Last 3 Months or Most Recently Relevant to Health Maintenance Care Teams Medical Instrument Technician Relationship Specialty Start Date End Date Rio Duggan M.D. [address] [place] [address] BRENDAN Jacobo [phone] PCP - General 01/20/17
--- NOTE | 2024-04-24 09:15 | CRLHL7_ITS ---
For Patients: As a result of the Century Cures Act, medical imaging exams and procedure reports are released immediately into your electronic medical record. You may view this report before your referring provider. If you have questions, please contact your health care provider. INDICATION: Pancreatic pseudocyst. COMPARISON: Abdominal MRIs dated 29 June 2023 and 04 May 2023. TECHNIQUE: Abdominal MRI with T1 in- and out of phase, T2, diffusion weighted, and progressively delayed post-contrast images. Intravenous gadolinium administered. FINDINGS: No fatty infiltration of the liver. A few very small cysts in the liver. No other focal abnormalities identified in the visualized portions of the liver, spleen, and adrenal glands. The bilateral renal cysts with the largest extending off the superior pole of the right kidney measuring 6.7 cm. The kidneys are otherwise unremarkable. No hydronephrosis. No adenopathy. 3.0 x 2.8 x 2.2 cm cyst in the tail of the pancreas is not significantly changed in size but now contains hemorrhagic debris. The pancreas is otherwise unremarkable. 2.0 cm right retrocrural cyst is new. No bile duct dilation. Normal size of the main pancreatic duct. Impression : 1. The cyst in the tail of the pancreas is not significantly changed in size but now contains hemorrhagic debris. This may represent an evolving pseudocyst. Recommend follow-up MRI in 3-6 months for further evaluation. 2. New 2.0 cm right retrocrural cyst could also represent a pseudocyst. Dictated by George Acosta MD @ 04/26/2024 9:25:42 AM (Electronically Signed)
== END 2024-04-24 08:48 | disposition home or self-care (01) ==
LOC: MRI 08:48
PROVIDERS: PCP Family Medicine; Visit Provider Surgery
DX: K86.3 Pseudocyst of pancreas (principal); K86.2 Cyst of pancreas
CPT/HCPCS: 74183; A9575

== ENCOUNTER 2024-05-18 18:48 | Emergency (ER) | payer MEDICARE, BC, SELFPAY ==
[2024-05-18 19:23] VITALS: BP 132/78; PULSE 93; RESP 16; TEMP 36.6; O2SAT 96; BMI 29.3
--- NOTE | 2024-05-18 19:50 | CRLHL7_ITS ---
For Patients: As a result of the Century Cures Act, medical imaging exams and procedure reports are released immediately into your electronic medical record. You may view this report before your referring provider. If you have questions, please contact your health care provider. INDICATION: Abdominal pain, nausea TECHNIQUE: CT Abdomen and pelvis with and without i.v. contrast. Coronal and sagittal reformats were obtained. CONTRAST: 98 mL Isovue 370 COMPARISON: MRI 04/24/2024, CT 05/01/2023 FINDINGS: The sensitivity and specificity of the exam are moderately limited by beam hardening artifacts from scanning with the left arm by the patient`s side. Lower chest: Small bilateral pulmonary nodules are present measuring up to 9 mm. Liver: Unremarkable. Spleen: Unremarkable. Pancreas: There is a cystic lesion present in the pancreatic tail measuring 3.5 cm and better assessed on recent MRI. Gallbladder: Unremarkable. Kidney: Bilateral renal cysts are present, measuring up to 4.5 cm. Adrenal: Unremarkable. Bowel: Moderate amount of stool is present throughout the colon which may be due to chronic constipation. The stomach, small bowel, and colon are unremarkable. The appendix is not identified. Vascular: Numerous collateral vessels are seen along the greater curvature of the stomach. Lymph: Unremarkable. Peritoneum: A right retrocrural cystic lesion is present measuring 1.8 x 3 cm and is new from prior CT but unchanged from recent MRI. No pneumoperitoneum is seen. A small amount of pelvic ascites is present and is of uncertain etiology and significance. Pelvis: Evaluation of the pelvic soft tissues, distal ureters and osseous structures are limited by beam hardening artifacts from the bilateral hip prosthesis. Soft tissue: Mild eventration of the abdominal wall is seen in the right paraumbilical region. Bone: There are new sclerotic lesions present in the sacrum, T10 and T11 vertebral bodies as well as the right iliac bone. Expansile lytic lesion is seen surrounding the right acetabular cup which may be due to particle disease. IMPRESSIONS: 1. There is a cystic lesion present in the pancreatic tail measuring 3.5 cm and better assessed on recent MRI. 2. A small amount of pelvic ascites is present and is of uncertain etiology and significance. 3. There are new sclerotic lesions present in the sacrum, T10 and T11 vertebral bodies as well as the right iliac bone. The appearance is consistent with metastatic disease. Bilateral pulmonary nodules are also noted and suspicious for pulmonary metastases. 4. Expansile lytic lesion is seen surrounding the right acetabular cup which may be due to particle disease. Dictated by David Cobb MD @ 05/18/2024 10:00:03 PM Please note that all CT scans at this facility use dose modulation, iterative reconstruction, and/or weight-based dosing when appropriate to reduce radiation dose to as low as reasonably achievable. Dictated by: David Cobb MD @ 05/18/2024 22:00:22 (Electronically Signed)
--- NOTE | 2024-05-18 20:10 | ED_ITS ---
HPI - General Adult General Date Seen: 05/18/24 <Regine Mckinnon MD - Last Filed: 05/19/24 23:38> Chief complaint: Abdominal Pain <Regine Mckinnon MD - Last Filed: 05/19/24 23:38> Stated complaint: gas, bowel obstruction <Regine Mckinnon MD - Last Filed: 05/19/24 23:38> Time Seen by Provider: 05/18/24 19:02 <Regine Mckinnon MD - Last Filed: 05/19/24 23:38> Source: patient and family <Regine Mckinnon MD - Last Filed: 05/19/24 23:38> Mode of arrival: ambulatory <Regine Mckinnon MD - Last Filed: 05/19/24 23:38> Limitations: no limitations <Regine Mckinnon MD - Last Filed: 05/19/24 23:38> History of Present Illness HPI narrative: Patient is a 74-year-old male with pertinent past medical history of what he describes as ?twisted intestines, by his report it sounds that this required surgery, prostatectomy November of this year, and he says 4-5 months of problems with increased gas and abdominal pain. He is here today because he had apparently fairly severe abdominal pain last night overnight into this afternoon, his daughter who is a nurse here on [employer] was worried about recurrent obstruction and wanted him to have a CT scan. He does note that over the past few hours the pain seems to have abated. He did not have any nausea or vomiting, has been passing gas today. He does note chronic constipation, particularly since his prostate surgery. He says that he had significant problems with urinary incontinence after the surgery and just did not want to drink any fluids because it made it worse, and as a result he thinks he is more constipated. He does not use anything specifically for constipation. <Regine Mckinnon MD - Last Filed: 05/19/24 23:38> Related Data Home medications: Home Medications ?Medication ?Instructions ?Recorded ?Confirmed aspirin 325 mg tablet 325 mg PO DAILY 04/10/23 05/18/24 insulin detemir U-100 100 unit/mL 25 unit subcut BID 05/18/23 05/18/24 (3 mL) subcutaneous pen (Levemir FlexPen) Previous Rx's ?Medication ?Instructions ?Recorded calcium alginate 4 X 4 bandage #10 ea 05/18/23 <Regine Mckinnon MD - Last Filed: 05/19/24 23:38> Allergies/adverse reactions: Allergies Allergy/AdvReac Type Severity Reaction Status Date / Time No Known Drug Allergies Allergy Verified 06/28/23 09:58 <Regine Mckinnon MD - Last Filed: 05/19/24 23:38> Review of Systems Status of ROS: Reports: 6 or more systems reviewed and unremarkable except as noted in History and below <Regine Mckinnon MD - Last Filed: 05/19/24 23:38> [facility] Medical History: Medical History Volume overload ?E87.70 - Fluid overload, unspecified (ICD-10) 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 - Varicose veins of other specified sites (ICD-10) Small bowel obstruction ?K56.609 - Unspecified intestinal obstruction, unspecified as to partial versus complete obstruction (ICD-10) Hyperlipidemia ?E78.5 - Hyperlipidemia, unspecified (ICD-10) BPH (benign prostatic hyperplasia) ?N40.0 - Benign prostatic hyperplasia without lower urinary tract symptoms (ICD-10) Diabetes mellitus ?E11.9 - Type 2 diabetes mellitus without complications (ICD-10) <Regine Mckinnon MD - Last Filed: 05/19/24 23:38> Surgical History: Surgical History S/P exploratory laparotomy ?Z98.890 - Other specified postprocedural states (ICD-10) History of bunionectomy ?Z98.890 - Other specified postprocedural states (ICD-10) History of arthroplasty of left shoulder ?Z96.612 - Presence of left artificial shoulder joint (ICD-10) H/O umbilical hernia repair ?Z98.890 - Other specified postprocedural states (ICD-10) ?Z87.19 - Personal history of other diseases of the digestive system (ICD-10) H/O bilateral inguinal hernia repair ?Z98.890 - Other specified postprocedural states (ICD-10) ?Z87.19 - Personal history of other diseases of the digestive system (ICD-10) History of bilateral hip replacements ?Z96.643 - Presence of artificial hip joint, bilateral (ICD-10) <Regine Mckinnon MD - Last Filed: 05/19/24 23:38> Family History: Family History Father Diabetes Mother CHF (congestive heart failure) Stroke Other Prostate cancer <Regine Mckinnon MD - Last Filed: 05/19/24 23:38> Social History: Social History Narrative: He lives with his in [place]. 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 He does not smoke. He does not drink alcohol. Code status is DNR. 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 What is your current living situation?: I presently have a place to live Problems where you live: no known problems Problems where you live details: NA In the past 12 months, utilities in danger of being shut off: no In past 12 months, lack of transportation kept you from medical appts, meetings, work, or getting things needed for daily living: no In the past 12 mos, have been you worried that your food would run out before you had money to buy more?: never true In the past 12 mos, the food you bought just didn't last and you didn't have money to buy more?: never true Smoking Status: Never smoker Do you use any of these nicotine containing products: None Second hand tobacco smoke exposure: No How often do you have a drink containing alcohol: never How often do you have six or more drinks on one occasion: Never AUDIT-C Alcohol total score: 0 Non-prescribed substance use: denies use Caffeine: No How often does anyone, including family, friends and others, physically hurt you : never How often does anyone, including family, friends and others, insult or talk down to you: never How often does anyone, including family, friends and others, threaten you with harm: never How often does anyone, including family, friends and others, scream or curse at you: never service: No <Regine Mckinnon MD - Last Filed: 05/19/24 23:38> Exam Narrative: Exam Narrative: Vital signs as noted above. In general, an alert, well-appearing patient. Head: Normocephalic, atraumatic. Eyes: Pupils are equal reactive. Extraocular movements are full. Conjunctivae are normal. ENT: Mucous membranes are moist. Throat is normal. Neck: Supple without lymphadenopathy. Heart: Regular rate and rhythm. No murmur or rub. Lungs: Clear bilaterally. No increased work of breathing, crackles or wheezes. Abdomen: Soft and nontender. No organomegaly. Extremities: Well perfused. No edema. No calf tenderness. Pulses intact. Neurologic: Patient is alert and oriented to person and place. Speech is fluen t. Face is symmetric. Moves all extremities equally. Affect: Normal. Skin: Warm and dry. Well perfused. <Regine Mckinnon MD - Last Filed: 05/19/24 23:38> Const: Vital Signs, click to edit/add: Vital Signs - 24 hr 05/18/24 19:23 05/18/24 21:50 Temperature 98 F 99.0 F Pulse Rate [Pulse Oximeter] 93 79 Respiratory Rate 16 16 Blood Pressure [Ri ght Upper Arm] 132/78 130/89 Pulse Oximetry 96 97 Oxygen Delivery Me thod Room Air Room Air <Regine Mckinnon MD - Last Filed: 05/19/24 23:38> Vital Signs, click to edit/add: Vital Signs - 24 hr 05/18/24 19:23 05/18/24 21:50 Temperature 98 F 99.0 F Pulse Rate [Pulse Oximeter] 93 79 Respiratory Rate 16 16 Blood Pressure [Ri ght Upper Arm] 132/78 130/89 Pulse Oximetry 96 97 Oxygen Delivery Me thod Room Air Room Air <Aprly Castañeda MD - Last Filed: 05/20/24 09:53> Documenting provider has reviewed patient's vital signs: yes <Regine Mckinnon MD - Last Filed: 05/19/24 23:38> Course Course ED Course: Discussed with them that my suspicion for bowel obstruction at this moment is low given that his symptoms have improved, but will do a CT scan, some basic labs looking for other contributing problems. We had a fairly long conversation about management of his constipation, which it sounds like is probably contributing to his months long abdominal symptoms. Discussed that I would not expect bowel obstruction to be an explanation for abdominal pain for 4-5 months. I have asked Dr. Castañeda to follow-up on patient's lab and CT results as these are pending at the end of my shift. Final disposition and plan her her addendum. <Regine Mckinnon MD - Last Filed: 05/19/24 23:38> Vital Signs Vital signs: Initial Vital Signs Temperature 98 F 05/18/24 19:23 Temperature Source Temporal Artery Scan 05/18/24 19:23 Pulse Rate 93 05/18/24 19:23 Respiratory Rate 16 05/18/24 19:23 Blood Pressure 132/78 05/18/24 19:23 Blood Pressure Mean 96 05/18/24 19:23 Blood Pressure Position Sitting 05/18/24 19:23 Pulse Oximetry 96 05/18/24 19:23 Oxygen Delivery Method Room Air 05/18/24 19:23 Vital Signs Temperature 98 F 05/18/24 19:23 Pulse Rate 93 05/18/24 19:23 Respiratory Rate 16 05/18/24 19:23 Blood Pressure 132/78 05/18/24 19:23 Pulse Oximetry 96 05/18/24 19:23 Oxygen Delivery Method Room Air 05/18/24 19:23 Temperature 99.0 F 05/18/24 21:50 Pulse Rate 79 05/18/24 21:50 Respiratory Rate 16 05/18/24 21:50 Blood Pressure 130/89 05/18/24 21:50 Pulse Oximetry 97 05/18/24 21:50 Oxygen Delivery Method Room Air 05/18/24 21:50 <Regine Mckinnon MD - Last Filed: 05/19/24 23:38> Initial Vital Signs Temperature 98 F 05/18/24 19:23 Temperature Source Temporal Artery Scan 05/18/24 19:23 Pulse Rate 93 05/18/24 19:23 Respiratory Rate 16 05/18/24 19:23 Blood Pressure 132/78 05/18/24 19:23 Blood Pressure Mean 96 05/18/24 19:23 Blood Pressure Position Sitting 05/18/24 19:23 Pulse Oximetry 96 05/18/24 19:23 Oxygen Delivery Method Room Air 05/18/24 19:23 Vital Signs Temperature 98 F 05/18/24 19:23 Pulse Rate 93 05/18/24 19:23 Respiratory Rate 16 05/18/24 19:23 Blood Pressure 132/78 05/18/24 19:23 Pulse Oximetry 96 05/18/24 19:23 Oxygen Delivery Method Room Air 05/18/24 19:23 Temperature 99.0 F 05/18/24 21:50 Pulse Rate 79 05/18/24 21:50 Respiratory Rate 16 05/18/24 21:50 Blood Pressure 130/89 05/18/24 21:50 Pulse Oximetry 97 05/18/24 21:50 Oxygen Delivery Method Room Air 05/18/24 21:50 <Apryl Castañeda MD - Last Filed: 05/20/24 09:53> Medical Decision Making MDM Narrative Medical decision making narrative: I was asked to follow-up on the labs and CT scan of this patient. CBC showed a hemoglobin of 9.3. This is a 1 point drop from last year when he was 10.3. Sodium was a little bit low at 133, remainder of chemistries unremarkable. Glucose 224. Alkaline phosphatase a little bit elevated at 239, remainder of LFTs unremarkable. Normal total protein and albumin. Normal lipase. Normal UA. Abdominal CT scan showing moderate amount of stool. Unfortunately it also show sclerotic lesions of the thoracic spine, iliac bone and sacrum. Pulmonary nodule also present I discussed these findings with the patient and his son. Patient has no personal history of cancer. States that his last colonoscopy was 10 years ago and that they have been doing ?stool tests ever since. Patient denies any unintentional weight changes, night sweats, shortness of breath, cough, nausea. He denies any blood in his stools, dark tarry stools. No blood in his urine. We discussed doing a chest CT in the ED today. However patient wishes to follow up with his primary care provider to discuss next steps. Patient states that he can get into his primary care provider this week. I encouraged him to call us back 1st thing on Monday if he cannot get an appointment this week so that we can get him into our system here as this does need to be seen right away. Patient states that he understands and had no other questions. We discussed MiraLax for his constipation. <Apryl Castañeda MD - Last Filed: 05/20/24 09:53> Lab Data Lab results reviewed: Yes I reviewed the patient's lab results <Apryl Castañeda MD - Last Filed: 05/20/24 09:53> Labs: Lab Results 05/18/24 05/18/24 Range/Units 20:09 20:15 WBC 8.46 (4.50-11.00) K/uL RBC 3.05 L (4.30-5.90) m/uL Hgb 9.3 L (13.5-17.5) gm/dL Hct 28.6 L (37.0-53.0) % MCV 94 (80-100) fL MCH 31 (26-34) pg MCHC 33 (32-36) gm/dL RDW Coeff of [place] 13.1 (11.5-15.5) % Plt Count 255 (140-440) K/uL Neut % (Auto) 80.1 H (42.0-72.0) % Lymph % (Auto) 9.7 L (20-44) % [place] % (Auto) 8.5 (0.0-11.0) % Eos % (Auto) 1.1 (0.0-7.0) % Baso % (Auto) 0.4 (0.0-3.0) % Neut # (Auto) 6.80 (1.7-7.0) K/uL Lymph # (Auto) 0.80 L (0.90-2.90) K/uL [place] # (Auto) 0.70 (0.00-0.90) K/UL Eos # (Auto) 0.09 (0.00-0.50) K/uL Baso # (Auto) 0.03 (0.00-0.30) K/uL Abs Immat Gran (auto) 0.02 (0.00-0.30) K/uL Imm/Tot Granulo (auto) 0.2 % Sodium 133 L (135-149) mmol/L Potassium 4.2 (3.6-5.1) mmol/L Chloride 100 (96-114) mmol/L Carbon Dioxide 23 (20-32) mmol/L Anion Gap 10 (7-15) mEq/L BUN 21 (7-30) mg/dL Creatinine 0.8 (0.5-1.5) mg/dL Estimated Creat Clear 67.98 Estimated GFR 92 ml/min Glucose 224 H (60-115) mg/dL Lactate 1.2 (0.5-1.9) mmol/L Calcium 8.8 (8.4-10.6) mg/dL Total Bilirubin 0.4 (0.1-1.5) mg/dL Direct Bilirubin 0.1 (0.0-0.5) mg/dL AST 31 (12-35) U/L ALT 26 (4-50) U/L Alkaline Phosphatase 239 H (40-150) U/L C-Reactive Protein < 0.5 L (0.5-1.0) mg/dL Total Protein 6.8 (6.0-8.3) g/dL Albumin 3.8 (3.3-5.0) g/dL Lipase 41 (23-300) U/L Urine Color Yellow (Yellow) Urine Appearance Clear (Clear) Urine pH 6.0 (5.0-8.5) Ur Specific [place] 1.010 (1.000-1.030) Urine Protein Negative (Negative) Urine Glucose (UA) Negative (Negative) Urine Ketones Negative (Negative) Urine Blood Negative (Negative) Urine Nitrite Negative (Negative) Urine Bilirubin Negative (Negative) Urine Urobilinogen 0.2 (0.2-1.0) Ur Leukocyte Esterase Negative (Negative) Urine RBC 0-2 (0-2) Urine WBC 0-2 (0-5) Ur Squamous Epith Cells None (None-Few) Urine Bacteria None (None) <Regine Mckinnon MD - Last Filed: 05/19/24 23:38> Lab Results 05/18/24 05/18/24 Range/Units 20:09 20:15 WBC 8.46 (4.50-11.00) K/uL RBC 3.05 L (4.30-5.90) m/uL Hgb 9.3 L (13.5-17.5) gm/dL Hct 28.6 L (37.0-53.0) % MCV 94 (80-100) fL MCH 31 (26-34) pg MCHC 33 (32-36) gm/dL RDW Coeff of [place] 13.1 (11.5-15.5) % Plt Count 255 (140-440) K/uL Neut % (Auto) 80.1 H (42.0-72.0) % Lymph % (Auto) 9.7 L (20-44) % [place] % (Auto) 8.5 (0.0-11.0) % Eos % (Auto) 1.1 (0.0-7.0) % Baso % (Auto) 0.4 (0.0-3.0) % Neut # (Auto) 6.80 (1.7-7.0) K/uL Lymph # (Auto) 0.80 L (0.90-2.90) K/uL [place] # (Auto) 0.70 (0.00-0.90) K/UL Eos # (Auto) 0.09 (0.00-0.50) K/uL Baso # (Auto) 0.03 (0.00-0.30) K/uL Abs Immat Gran (auto) 0.02 (0.00-0.30) K/uL Imm/Tot Granulo (auto) 0.2 % Sodium 133 L (135-149) mmol/L Potassium 4.2 (3.6-5.1) mmol/L Chloride 100 (96-114) mmol/L Carbon Dioxide 23 (20-32) mmol/L Anion Gap 10 (7-15) mEq/L BUN 21 (7-30) mg/dL Creatinine 0.8 (0.5-1.5) mg/dL Estimated Creat Clear 67.98 Estimated GFR 92 ml/min Glucose 224 H (60-115) mg/dL Lactate 1.2 (0.5-1.9) mmol/L Calcium 8.8 (8.4-10.6) mg/dL Total Bilirubin 0.4 (0.1-1.5) mg/dL Direct Bilirubin 0.1 (0.0-0.5) mg/dL AST 31 (12-35) U/L ALT 26 (4-50) U/L Alkaline Phosphatase 239 H (40-150) U/L C-Reactive Protein < 0.5 L (0.5-1.0) mg/dL Total Protein 6.8 (6.0-8.3) g/dL Albumin 3.8 (3.3-5.0) g/dL Lipase 41 (23-300) U/L Urine Color Yellow (Yellow) Urine Appearance Clear (Clear) Urine pH 6.0 (5.0-8.5) Ur Specific [place] 1.010 (1.000-1.030) Urine Protein Negative (Negative) Urine Glucose (UA) Negative (Negative) Urine Ketones Negative (Negative) Urine Blood Negative (Negative) Urine Nitrite Negative (Negative) Urine Bilirubin Negative (Negative) Urine Urobilinogen 0.2 (0.2-1.0) Ur Leukocyte Esterase Negative (Negative) Urine RBC 0-2 (0-2) Urine WBC 0-2 (0-5) Ur Squamous Epith Cells None (None-Few) Urine Bacteria None (None) <Apryl Castañeda MD - Last Filed: 05/20/24 09:53> Imaging Data CT scan - abdomen: Attestation: I have reviewed the pertinent imaging results. <Apryl Castañeda MD - Last Filed: 05/20/24 09:53> Radiologist's impression: TECHNIQUE: CT Abdomen and pelvis with and without i.v. contrast. Coronal and sagittal reformats were obtained. CONTRAST: 98 mL Isovue 370 COMPARISON: MRI 04/24/2024, CT 05/01/2023 FINDINGS: The sensitivity and specificity of the exam are moderately limited by beam hardening artifacts from scanning with the left arm by the patient`s side. Lower chest: Small bilateral pulmonary nodules are present measuring up to 9 mm. Liver: Unremarkable. Spleen: Unremarkable. Pancreas: There is a cystic lesion present in the pancreatic tail measuring 3.5 cm and better assessed on recent MRI. Gallbladder: Unremarkable. Kidney: Bilateral renal cysts are present, measuring up to 4.5 cm. Adrenal: Unremarkable. Bowel: Moderate amount of stool is present throughout the colon which may be due to chronic constipation. The stomach, small bowel, and colon are unremarkable. The appendix is not identified. Vascular: Numerous collateral vessels are seen along the greater curvature of the stomach. Lymph: Unremarkable. Peritoneum: A right retrocrural cystic lesion is present measuring 1.8 x 3 cm and is new from prior CT but unchanged from recent MRI. No pneumoperitoneum is seen. A small amount of pelvic ascites is present and is of uncertain etiology and significance. Pelvis: Evaluation of the pelvic soft tissues, distal ureters and osseous structures are limited by beam hardening artifacts from the bilateral hip prosthesis. Soft tissue: Mild eventration of the abdominal wall is seen in the right paraumbilical region. Bone: There are new sclerotic lesions present in the sacrum, T10 and T11 vert ebral bodies as well as the right iliac bone. Expansile lytic lesion is seen surrounding the right acetabular cup which may be due to particle disease. IMPRESSIONS: 1. There is a cystic lesion present in the pancreatic tail measuring 3.5 cm and better assessed on recent MRI. 2. A small amount of pelvic ascites is present and is of uncertain etiology and significance. 3. There are new sclerotic lesions present in the sacrum, T10 and T11 vertebral bodies as well as the right iliac bone. The appearance is consistent with metastatic disease. Bilateral pulmonary nodules are also noted and suspicious for pulmonary metastases. 4. Expansile lytic lesion is seen surrounding the right acetabular cup which may be due to particle disease. <Apryl Castañeda MD - Last Filed: 05/20/24 09:53> Discharge Plan Discharge Clinical Impression: Abdominal pain, Constipation, Abnormal finding on CT scan <Regine Mckinnon MD - Last Filed: 05/19/24 23:38> Instructions: Constipation (DC), Abdominal Pain (ED) <Regine Mckinnon MD - Last Filed: 05/19/24 23:38> Additional Instructions: Your abdominal CT scan showed no evidence of bowel obstruction. The CT scan did show a moderate amount of stool which means that constipation is likely the problem and I would recommend that you add MiraLax, 1 capful daily to your regimen to help with this. Make sure you are getting enough fiber and fluids as well. Your CT scan also showed some abnormal sclerotic lesions on several areas of your spine and pelvis. You also had a small pulmonary nodule noted. You should have a chest CT to further look at the chest. Lastly your hemoglobin was low at 9.3. It appears that the last time you are in her hospital last year it was also a bit low at 10.3. You need to follow-up with your primary care provider this week to discuss next steps to find out what is causing these lesions and your low hemoglobin. If you cannot get in to see your primary care provider or one of their colleagues this week, then you should call back to [facility] so that we can get you in with someone else. Follow-up for repeat MRI for your pancreatic cyst as planned in 6 months. Return any time for severe uncontrolled pain, vomiting, fevers or other worsening. <Regine Mckinnon MD - Last Filed: 05/19/24 23:38> Prescriptions: No Action Levemir FlexPen 100 unit/mL (3 mL) insulin pen 25 unit subcut BID (DME) calcium alginate 4 X 4 bandage See Rx Instructions .Route Qty: 10 0RF Rx Instructions: As directed aspirin 325 mg tablet 325 mg PO DAILY <Regine Mckinnon MD - Last Filed: 05/19/24 23:38> Follow Up/Referrals: Rio Duggan MD [Primary Care Provider] - <Regine Mckinnon MD - Last Filed: 05/19/24 23:38> Stand Alone Forms: MyHealth Info Instructions <Regine Mckinnon MD - Last Filed: 05/19/24 23:38>
[2024-05-18 20:18] LABS: Appearance Urine Clear (Clear); Bilirubin Urine Negative (Negative); Blood Urine Negative (Negative); Color Urine Yellow (Yellow); Glucose Urine Negative (Negative); Ketones Urine Negative (Negative); Leukocyte Esterase Urine Negative (Negative); Nitrite Urine Negative (Negative); Protein Urine Negative (Negative); Urobilinogen Urine 0.2 (0.2-1.0)
[2024-05-18 20:24] LABS: Lactate Sepsis w/Reflex* 1.2 mmol/L (0.5-1.9)
[2024-05-18 20:27] LABS: Basophils Absolute Auto 0.03 K/uL (0.00-0.30); Basophils Percent Auto 0.4 % (0.0-3.0); Eosinophils Absolute Auto 0.09 K/uL (0.00-0.50); Eosinophils Percent Auto 1.1 % (0.0-7.0); Hematocrit 28.6 % (37.0-53.0); Hemoglobin* 9.3 gm/dL (13.5-17.5); Immature Granulocytes Abs Auto 0.02 K/uL (0.00-0.30); Immature Granulocytes Pct Auto 0.2 %; Lymphocytes Percent Auto 9.7 % (20-44); Mean Corpuscular HGB Conc 33 gm/dL (32-36); Mean Corpuscular Hemoglobin 31 pg (26-34); Mean Corpuscular Volume 94 fL (80-100); Monocytes Percent Auto 8.5 % (0.0-11.0); Neutrophils Percent Auto 80.1 % (42.0-72.0); Platelet Count* 255 K/uL (140-440); RDW Coefficient of Variation % 13.1 % (11.5-15.5); Red Blood Count 3.05 m/uL (4.30-5.90); White Blood Count* 8.46 K/uL (4.50-11.00)
[2024-05-18 20:59] LABS: Slide Review Reflex No
[2024-05-18 21:02] LABS: Albumin* 3.8 g/dL (3.3-5.0); Chloride* 100 mmol/L (96-114)
[2024-05-18 21:03] LABS: Potassium* 4.2 mmol/L (3.6-5.1); Sodium* 133 mmol/L (135-149)
[2024-05-18 21:05] LABS: Creatinine* 0.8 mg/dL (0.5-1.5); Est. Creatinine Clearance* 67.98; Estimated Glomerular Filt Rate 92 ml/min
[2024-05-18 21:06] LABS: Alanine Aminotransferase* 26 U/L (4-50); Alkaline Phosphatase* 239 U/L (40-150); Anion Gap 10 mEq/L (7-15); Aspartate Amino Transferase* 31 U/L (12-35); Bilirubin Direct* 0.1 mg/dL (0.0-0.5); Bilirubin Total* 0.4 mg/dL (0.1-1.5); Blood Urea Nitrogen* 21 mg/dL (7-30); Calcium* 8.8 mg/dL (8.4-10.6); Carbon Dioxide* 23 mmol/L (20-32); Glucose* 224 mg/dL (60-115); Lipase* 41 U/L (23-300); Total Protein* 6.8 g/dL (6.0-8.3)
[2024-05-18 21:12] LABS: C Reactive Protein* < 0.5 mg/dL (0.5-1.0)
[2024-05-18 21:22] LABS: RBC Urine 0-2 (0-2); WBC Urine 0-2 (0-5)
[2024-05-18 21:50] VITALS: BP 130/89; PULSE 79; RESP 16; TEMP 37.2; O2SAT 97
== END 2024-05-18 23:11 | disposition home or self-care (01) ==
PROVIDERS: Emergency Medicine; Emergency Provider Family Medicine; PCP Family Medicine; Visit Provider Family Medicine
DX: R10.9 Unspecified abdominal pain (principal); K59.00 Constipation, unspecified; R93.89 Abnormal findings on diagnostic imaging of other specified body structures
CPT/HCPCS: 36415; 74177; 80048; 80076; 81001; 83605; 83690; 85025; 86140; 99284; 99285; Q9967

== ENCOUNTER 2024-05-23 10:08 | Outpatient (CLI) | payer MEDICARE, BC, SELFPAY ==
--- OUTSIDE RECORDS SUMMARY | 2024-05-23 10:19 | XMS_ITS | Encounter Summary ---
Author Organization [facility] Address [address] [place] [address] Care Team Providers Care Licensed Embalmer Name Role Phone Rio Duggan M.D. Primary Care Provider [phone] Encounter Details Date Type Department Care Team (Late st Contact Info) Description 02/27/2024 Orders Only [facility] PCP TH MNT Rio Duggan M.D. [address] [facility] [place] [phone] Diabetes Mellitus Type 2 (HCC) Social History Tobacco Use Types Packs/Day Years Used Date Smoking Tobacco: Never Smokeless Tobacco: Never Alcohol Use Standard Drinks/Week Comments Never 0 (1 standard drink = 0.6 oz pur e alcohol) [facility] Utilities Answer Date Recorded In the past 12 months has [facility] [employer], gas, oil, or water [employer] threatened to shut off services in your [...] your living situation today? [facility] 11/06/2023 Sex and Gender Information Value Date Recorded Sex Assigned at Male 11/06/2023 1:20 PM CDT Legal Sex Male 5:56 PM [employer] Gender Identity Male 11/06/2023 1:27 PM CDT Sexual Orientation Straight 11/06/2023 1: 27 PM CDT documented as of this encounter Plan of Treatment Scheduled Orders Name Type Priority Associated Diagnoses Orde r Schedule Lipid Panel Lab Routine Diabetes Mellitus Type 2 (HCC) Expected: 08/05/2024, Expires: 08/25/2024 documented as of this encounter Visit Diagnoses Diagnosis Diabetes Mellitus Type 2 (HCC) documented in this encounter Care Teams Licensed Embalmer Relationship Specialty Start Date End Date Rio Duggan M.D. [address] [place] [phone] PCP - General 01/20/17 documented as of this encounter
--- OUTSIDE RECORDS SUMMARY | 2024-05-23 10:19 | XMS_ITS | Referral Summary ---
Author Organization [facility] Address [address] [place] [address] Care Team Providers Care Tire Service Technician Name Role Phone Rio Duggan M.D. Primary Care Provider +1 [phone] Source Comments Patient records contain information from all sites at [facility]. For routine questions regarding patient records, call [phone] during business hours, M-F 8:00 AM - 5:00 PM Central Time. Record requests for emergency care only can be directed to [phone] at any time.[facility] Encounters Date Type Department Care Team Description 05/23/2024 Orders Only Department of Family Medicine in [place], [place] [address] [place] [phone] Rio Duggan M.D. Diabetes Mellitus Type 2 Without Complication (HCC) (Primary Dx) 05/22/2024 Orders Only Department of Family Medicine in [place], [place] [address] [place] [phone] Rio Duggan M.D. Cyst Pancreas (Primary Dx) 05/16/2024 Clinical Communication Department of Family Medicine in [place], [place] [address] [place] [phone] Rio Duggan M.D. 05/14/2024 Clinical Communication Department of Family Medicine in [place], [place] [address] [place] [phone] Rio Duggan M.D. Health Maintenance 05/07/2024 Orders Only Department of Family Medicine in [place], [place] [address] [place] [address] Rio Duggan M.D. Diabetes Mellitus Type 2 Without Complication (HCC) (Primary Dx) 05/03/2024 8:37 AM CDT - 05/03/2024 11:59 PM CDT Hospital Encounter Department of Laboratory Medicine in [place], [place] [address] [place] [address] Rio Duggan M.D. Diabetes Mellitus Type 2 Without Complication (HCC) Discharge Disposition: Home or Self Care 02/27/2024 Orders Only [facility] PCP [facility] MNT Rio Duggan M.D. Diabetes Mellitus Type 2 (HCC) from Last 3 Months Allergies Active Allergy Reactions Criticality Noted Date Comments Lrvifnb-Igh-Mdb Reductase Inhibitors Hepatic Failure High 12/26/2023 Medications amoxicillin (AMOXIL) 500 mg capsule Take 2,000 mg by mouth once. 1 hour before dental appointment 1 8 Active pen needle, diabetic (Pen Needle) 31 gauge x 5/16 needleIndicatio ns:Diabetes Mellitus Type 2 (HCC) Inject 2 Injection under the skin daily. Use to inject Levemir 100 each 11 3 Active insulin glargine (Lantus Solostar U-100 Insulin) 100 unit/mL (3 mL) injection Inject 28 Units under the skin 2 (two) times a day. 28 units twice a day 15 mL 11 4 Active acetaminophen (TYLENOL) 500 mg tablet Take 1 tablet (500 mg total) by mouth every 6 (six) hours as needed for pain, mild pain or score 1-3 of 10 or moderate pain or score 4-6 of 10. Do not take continuously for more than 2 weeks Do not take more than 4000 mg in one day 4 Active aspirin 325 mg tablet Take 325 [...] 12/26/2023 Malnutrition Moderate Protein-Calorie 12/26/2023 Hyponatremia 12/26/2023 Benign Prostatic Hyperplasia With Lower Urinary Tract Symptom 11/07/2023 Nodule Prostate 10/19/2023 Cyst Pancreas 10/19/2023 Overview (05/22/2024): F/U CT abdomen pelvis 3 months - Jul 2024 Laparotomy Exploratory Status Post 05/02/2023 Overview (05/02/2023): SBO with small bowel resection - 04/15. [facility]. Opacity Vitreous Right 03/31/2021 Age Related Nuclear Cataract Bilateral 0 Astigmatism Regular Bilateral 09/25/2017 Diabetes Mellitus Type 2 Without Complication Presbyopia 09/25/2017 Hyperopia Bilateral 09/25/2017 Hyperlipidemia 06/17/2013 Resolved Problems Problem Noted Date Diagnosed Date Resolved Date Infection Following A Proced ure Other Surgical Site Initial Encounter 10/19/2023 12/26/19 24 Retention Urinary 09/27/2023 12/26/2023 Diabetes Mellitus Type [...] drink = 0.6 oz pur e alcohol) [facility] Utilities Answer Date Recorded In the past 12 months has th e electric, gas, oil, or water company threatened to [...] your living situation today? 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 OPERATOR Gender Identity Male 11/06/2023 1:27 PM CDT [...] 12/26/2023 10:00 AM CDT Plan of Treatment Not on file Medical Devices Implanted Type Area Electro Optics Engineer Device Identifier Shelf Expiration Date Model / Serial / Lot Hip Implant Hip Implant Hip Description:Bilateral total hip, one in 2003 and one in 2008 Mesh Or Patch Mesh or Patch Abdomen Procedures Procedure Name Priority Date/Time Associated Diagnosis Comments HEMOGLOBIN A1C, B Routine 05/03/2024 8: 43 AM CDT Diabetes Mellitus Type 2 Without Complication (HCC) ALBUMIN, RANDOM, U Routine 12/26/2023 10:06 AM CDT Diabetes Mellitus Type 2 (HCC) BASIC METABOLIC PANEL, S/P Routine 11/14/2023 9:34 AM CDT Benign Prostatic Hyperplasia With Lower Urinary Tract Symptom COLOGUARD Routine 07/18/2023 8:30 AM POUNCING MACHINE OPERATOR Screening Cancer Colon CT ABDOMEN PELVIS WITH IV CONTRAST RAD - Semiurgent (Fast; most ED patients; some inpatients) 04/10/2023 4:17 PM CDT LIPID PANEL, S Routine 09/10/2021 8:35 AM POUNCING MACHINE OPERATOR Hyperlipidemia from Last 3 Months or Most Recently Relevant to Health Maintenance Results * (ABNORMAL) Hemoglobin A1c (05/03/2024 8:43 AM CDT) Hemoglobin A1c, B 8.9(H) 4.2 - 5.6 % 05/03/2024 12:22 PM CDT NPRG Comment: Hemoglobin A1c values greater than or equal to 6.5 percent are diagnostic for diabetes mellitus. ??Diagnosis should be confirmed by repeat testing. ??In diabetic patients, HbA1c goals should be discussed with healthcare provider. Blood (Blood, Venous) 05/03/2024 8:43 AM CDT 05/03/2024 11:35 AM CDT us Rio Duggan M.D. LAB BLOOD ADD-ON Final Re sult Performing Organization Address [facility] Co de Phone Number [facility] [address] [place] [address], [facility] NPRG [address] [address] * (ABNORMAL) Albumin, Random, Urine (12/26/2023 10:06 AM CDT) Microalbumin 41.0 mg/L 12/26/2023 4:23 PM CDT NPRG Creatinine 72 mg/dL 12/26/2023 4:23 PM CDT NPRG Albumin/Creatinin e Ratio 57(H) <17 mg/g 12/26/2023 4:23 PM CDT NPRG Urine (Urine, Midstream) 12/26/2023 10:06 AM CDT 12/26/2023 3:40 PM CDT us Rio Duggan M.D. LAB URINE ORDERABLES Francoise l Result Performing Organization Address [facility] Co de Phone Number [facility] [address] [place] [address], [facility] NPRG [address] [address] * (ABNORMAL) Basic Metabolic Panel (11/14/2023 9:34 [...] 9:34 AM CDT 11/14/2023 9:47 AM CDT us Raul Acevedo M.D. LAB BLOOD ADD-ON Final Resu lt [facility] [address] [place] [address], [facility] NPRG [facility] [address] [place] [address] * Cologuard - Sent Out Lab (07/18/2023 8:30 AM POUNCING MACHINE OPERATOR) [facility] Result Negative Negative 07/21/2023 5:12 PM POUNCING MACHINE OPERATOR EXLI Comment: NEGATIVE TEST RESULT. A negative [...] screened with both Cologuard and colonoscopy. (Mariah Flanagan, N Engl J Med 2014;370(14):5433-9960) The normal value (reference range) for this assay is negative. COLOGUARD RE-SCREENING RECOMMENDATION: Periodic colorectal cancer screening is an important part of preventive healthcare for asymptomatic individuals at average risk for colorectal cancer. ??Following a negative Cologuard result, the [place] Cancer Society and U.S. Multi-Society Task Force screening guidelines recommend a Cologuard re-screening interval of 3 years. References: [place] Cancer Society Guideline for Colorectal Cancer Screening: https://www.cancer.org/cancer/dgvcb-xphctn-niplza/detection- diagnosis-staging/acs-recommendations.html.; Baljinder DK, Kam REYES, Radha PowellK, Colorectal Cancer Screening: Recommendations for Physicians and Patients from the U.S. Multi-Society Task Force on Colorectal Cancer Screening , Am J Gastroenterology 2017; 112:6039-8373. TEST DESCRIPTION: Composite algorithmic analysis of stool [...] screened with both Cologuard and colonoscopy. (Mariah Flanagan, N Engl J Med 2014;370(14):9436-5305.) Cologuard may produce a false negative or false positive result (no colorectal cancer or precancerous polyp present at colonoscopy follow up). A negative Cologuard test result does not guarantee the absence of CRC or advanced adenoma (pre-cancer). The current Cologuard screening interval is every 3 years. ([place] Cancer Society and U.S. Multi-Society Task Force). Cologuard performance data in a 10,000 patient pivotal study using colonoscopy as the reference method can be accessed at the following location: www.Imgur.com/results. Additional description of the Cologuard test process, warnings and precautions can be found at www.Fieldbookrd.com. Stool (Stool) 07/18/2023 8:3 0 AM POUNCING MACHINE OPERATOR 07/19/2023 1:50 PM POUNCING MACHINE OPERATOR us Rio Duggan M.D. LAB BODY FLUIDS AND STOOL S ORDERABLES Final Result [facility] [address] [place] [address] EX[facility] [employer] [address] [place] [address], [address] [place] [address] * CT Abdomen Pelvis with IV Contrast [...] prostatomegaly. Bebo Allison M.D. IMG CT PROCEDURES Final Resu lt * Lipid Panel (09/10/2021 8:35 AM POUNCING MACHINE OPERATOR) Pathologist [facility] Cholesterol, Total 117 mg/dL 2021 12:19 PM POUNCING MACHINE OPERATOR NPRG Comment: ----REFERENCE VALUE---- Desirable: < 200 Borderline high: 200 - 239 High: > or = 240 Triglycerides 91 mg/dL 09/10/2021 12:19 PM POUNCING MACHINE OPERATOR NPRG Comment: ----REFERENCE VALUE---- Normal: <150 Borderline high: 150-199 High: 200-499 Very high: > or =500 Cholesterol, HDL 47 >=40 mg/dL 09/10/19 12:19 PM POUNCING MACHINE OPERATOR NPRG Calculated LDL 52 mg/dL 09/10/2021 12:19 PM POUNCING MACHINE OPERATOR NPRG Comment: ----REFERENCE VALUE---- Desirable: <100 mg/dL Above Desirable: 100-129 mg/dL Borderline High: 130-159 mg/dL High: 160-189 mg/dL Very High: >=190 mg/dL Cholesterol, Non-HDL, Calculated 70 mg/dL 09/10/2021 12:19 PM POUNCING MACHINE OPERATOR NPRG Comment: ----REFERENCE VALUE---- Desirable: <130 Above Desirable: 130-159 Borderline high: 160-189 High: 190-219 Very high: > or =220 Blood (Blood, Venous) 09/10/2021 8:35 AM POUNCING MACHINE OPERATOR 09/10/2021 11:45 AM POUNCING MACHINE OPERATOR Rio Duggan M.D. LAB BLOOD ADD-ON Final Re sult [facility] [address] [place] [address], [facility] NPRG [facility] [address] [place] [address] from Last 3 Months or Most Recently Relevant to Health Maintenance Insurance [facility] [address] MEDICARE Care Teams Tire Service Technician Relationship Specialty Start Date End Date Rio Duggan M.D. [address] [place], [place] [address] [place] [address] PCP - General 01/20/17
--- OUTSIDE RECORDS SUMMARY | 2024-05-23 10:19 | XMS_ITS | Encounter Summary ---
Author Organization [facility] Address [address] [place] [address] Care Team Providers Care Search Coordinator Name Role Phone Rio Duggan M.D. Primary Care Provider [phone] [phone] Reason for Referral * Outpatient (Routine) - Authorized Specialty Diagnoses / Procedures Referred By Contezequiel t Referred To Contact Family Medicine Rio Duggan M.D. [address] [place] [address] Phone: tel: fax: [facility] Region Referral ID Status Reason Start Date Expiration Date V isits Requested Visits Authorized [id number] Authorized 05/23/2024 11/22/2025 1 1 Encounter Details Date Type Department Care Team (Late st Contact Info) Description 05/23/2024 Orders Only Department of Family Medicine in [place], [place] [address] [place] [address] Rio Duggan M.D. [address] [place] [address] Diabetes Mellitus Type 2 Without Complication (HCC) (Primary Dx) Social History Tobacco Use Types Packs/Day Years Used Date Smoking Tobacco: Never Smokeless Tobacco: Never Alcohol Use Standard Drinks/Week Comments Never 0 (1 standard drink = 0.6 oz pur e alcohol) [facility] Utilities Answer Date Recorded In the past 12 months has e electric, gas, oil, or water company [...] your living situation today? 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 Gender Identity Male 11/06/2023 1:27 PM CDT Sexual Orientation Straight 11/06/2023 1: 27 PM CDT documented as of this encounter Plan of Treatment Scheduled Orders Name Type Priority Associated Diagnoses Orde r Schedule Hemoglobin A1c Lab Routine Diabetes Mellitus Type 2 Without Complication (HCC) Expected: 07/31/2024 (Approximate), Expires: 08/23/2025 Scheduled Referrals Name Type Priority Associated Diagnoses Orde r Schedule Family Medicine office visit (clinic) Outpatient Referral Routine Expected: 07/31/2024 (Approximate), Expires: 08/23/2025 documented as of this encounter Visit Diagnoses Diagnosis Diabetes Mellitus Type 2 Without Complication (HCC)- Primary documented in this encounter Care Teams Search Coordinator Relationship Specialty Start Date End Date Rio Duggan M.D. [address] [place] [address] PCP - General 01/20/17 documented as of this encounter
--- OUTSIDE RECORDS SUMMARY | 2024-05-23 10:19 | XMS_ITS | Encounter Summary ---
Author Organization [facility] Address [address] [place] [address] Care Team Providers Care Traffic Engineer Name Role Phone Rio Duggan M.D. Primary Care Provider [phone] [phone] Reason for Visit * Reason Onset Date Comments Health Maintenance 05/14/2024 Encounter Details Date Type Department Care Team (Latest Contact Info) Description 05/14/2024 Clinical Communication Department of Family Medicine in [place], [place] [address] [place] [phone] Rio Duggna M.D. [address] [place] [phone] Health Maintenance Social History Tobacco Use Types Packs/Day Years Used Date Smoking Tobacco: Never Smokeless Tobacco: Never Alcohol Use Standard Drinks/Week Comments Never 0 (1 standard drink = 0.6 oz pur e alcohol) [facility] Utilities Answer Date Recorded In the past 12 months has [employer], gas, oil, or water [employer] threatened to shut off services in your [...] your living situation today? I have a [facility] place to live 11/06/2023 Sex and Gender Information Value Date Recorded Sex Assigned at Male 11/06/2023 1:20 PM CDT Legal Sex Male 5:56 PM CAMERA MACHINIST Gender Identity Male 11/06/2023 1:27 PM CDT Sexual Orientation Straight 11/06/2023 1: 27 PM CDT documented as of this encounter Miscellaneous Notes * Telephone Encounter - Lissy Staley L.PAnnieN. - 05/14/2024 12:46 PM CDT I reached out to the patient today via phone call and I was unable to reach the patient. This is the 1st contact by the [facility] team to schedule preventive care services. The preventive care topics I outreached about include: Diabetes Follow Up Visit Hemoglobin A1C and Lipid Panel The outcome of this communication includes: Left Message and Sent Portal Message The [facility] team will contact the patient again in 2 weeks. Next Primary Care appointment: does not have a visit scheduled in Primary Care Last appointment with their PCP: 12/26/2023 Additional services offered: None Lissy Lara LPN Preventative Health Specialist documented in this encounter Plan of Treatment Not on file documented as of this encounter Visit Diagnoses Not on filedocumented in this encounter Care Teams Traffic Engineer Relationship Specialty Start Date End Date [place] [address] PCP - General 01/20/17 documented as of this encounter
--- OUTSIDE RECORDS SUMMARY | 2024-05-23 10:19 | XMS_ITS | Encounter Summary ---
Author Organization [facility] Address [address] [place] [address] Care Team Providers Care Section Crews Activities Clerk Name Role Phone Rio Duggan M.D. Primary Care Provider [phone] [phone] Encounter Details Date Type Department Care Team (Latest Contact Info) Description 05/03/2024 8:37 AM CDT - 05/03/2024 11:59 PM CDT Hospital Encounter Department of Laboratory Medicine in [place], [place] [address] [place] [phone] Rio Duggan M.D. [address] [place] [phone] Diabetes Mellitus Type 2 Without Complication (HCC) Discharge Disposition: Home or Self Care Social History Tobacco Use Types Packs/Day Years Used Date Smoking Tobacco: Never Smokeless Tobacco: Never Alcohol Use Standard Drinks/Week Comments Never 0 (1 standard drink = 0.6 oz pur e alcohol) [facility] Utilities Answer Date Recorded In the past 12 months has [employer], gas, oil, or water company threatened to [...] your living situation today? 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 Do not take continuously for more than 2 weeks Do not take more than 4000 mg in one day 11/29/2023 amoxicillin (AMOXIL) 500 mg capsule Take 2,000 mg by mouth once. 1 hour before dental appointment 1 04/11/2018 aspirin 325 mg tablet Take 325 mg by mouth every 6 (six) hours as needed for pain. insulin glargine (Lantus Solostar U-100 Insulin) 100 unit/mL (3 mL) injection Inject 28 Units under the skin 2 (two) times a day. 28 units twice a day 15 mL 11 09/26/2023 pen needle, diabetic (Pen Needle) 31 gauge x 5/16 needleIndication s:Diabetes Mellitus Type 2 (HCC) Inject 2 Injection under the skin daily. Use to inject Levemir 100 each 11 06/19/2023 documented as of this encounter Plan of Treatment Not on file documented as of this encounter Procedures Procedure Name Priority Date/Time Associated Diagnosis Comments HEMOGLOBIN A1C, B Routine 05/03/2024 8:4 3 AM CDT Diabetes Mellitus Type 2 Without Complication (HCC) documented in this encounter Results * (ABNORMAL) Hemoglobin A1c (05/03/2024 8:43 [...] M.D. LAB BLOOD ADD-ON Final Re sult [facility] [address] [place] [address], [facility] NPRG [facility] [address] [place] [address] documented in this encounter Visit Diagnoses Diagnosis Diabetes Mellitus Type 2 Without Complication (HCC) documented in this encounter Care Teams Section Crews Activities Clerk Relationship Specialty Start Date End Date Rio Duggan M.D. [address] [place] [address] PCP - General 01/20/17 documented as of this encounter
--- OUTSIDE RECORDS SUMMARY | 2024-05-23 10:19 | XMS_ITS | Encounter Summary ---
Author Organization [facility] Address [address] [place] [address] Care Team Providers Care Medicine Technologist Name Role Phone Rio Duggan M.D. Primary Care Provider [phone] [phone] Encounter Details Date Type Department Care Team (Late st Contact Info) Description 05/22/2024 Orders Only Department of Family Medicine in [place], [place] [address] [place] [phone] Rio Duggan M.D. [address] [place] [phone] Cyst Pancreas (Primary Dx) Social History Tobacco Use Types Packs/Day Years Used Date Smoking Tobacco: Never Smokeless Tobacco: Never Alcohol Use Standard Drinks/Week Comments Never 0 (1 standard drink = 0.6 oz pur e alcohol) [facility] Utilities Answer Date Recorded In the past 12 months has e [employer], gas, oil, or water [employer] threatened to shut off services in your [...] your living situation today? 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 [address] [place] [phone] PCP - General 01/20/17 documented as of this encounter
--- OUTSIDE RECORDS SUMMARY | 2024-05-23 10:19 | XMS_ITS | Encounter Summary ---
Author Organization [facility] Address [address] [place] [address] Care Team Providers Care Afterschool Babysitter Name Role Phone Rio Duggan M.D. Primary Care Provider [phone] [phone] Reason for Referral * Outpatient (Routine) - Authorized Specialty Diagnoses / Procedures Referred By Makayla locke Referred To Contact Family Medicine Diagnoses Diabetes Mellitus Type 2 Without Complication (HCC) Rio Duggan M.D. [address] [place] [address] Phone: tel: fax: Rio Dugagn M.D. [address] [place] [address] Phone: tel: fax: Referral ID Status Reason Start Date Expiration Date V isits Requested Visits Authorized [id number] Authorized 05/08/2024 11/07/2025 1 1 Encounter Details Date Type Department Care Team (Late st Contact Info) Description 05/07/2024 Orders Only Department of Family Medicine in [place], [place] [address] [place] [address] Rio Duggan M.D. [address] [place] [address] Diabetes Mellitus Type 2 Without Complication (HCC) (Primary Dx) Social History Tobacco Use Types Packs/Day Years Used Date Smoking Tobacco: Never Smokeless Tobacco: Never Alcohol Use Standard Drinks/Week Comments Never 0 (1 standard drink = 0.6 oz pur e alcohol) [facility] Utilities Answer Date Recorded In the past [...] your living situation today? 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 Gender Identity Male 11/06/2023 1:27 PM CDT Sexual Orientation Straight 11/06/2023 1: 27 PM CDT documented as of this encounter Plan of Treatment Scheduled Orders Name Type Priority Associated Diagnoses Orde r Schedule Hemoglobin A1c Lab Routine Diabetes Mellitus Type 2 Without Complication (HCC) Expected: 08/05/2024, Expires: 08/07/2025 Scheduled Referrals Name Type Priority Associated Diagnoses Orde r Schedule Family Medicine office visit (clinic) Outpatient Referral Routine Diabetes Mellitus Type 2 Without Complication (HCC) Expected: 08/07/2024, Expires: 08/07/2025 documented as of this encounter Visit Diagnoses Diagnosis Diabetes Mellitus Type 2 Without Complication (HCC)- Primary documented in this encounter Care Teams Afterschool Babysitter Relationship Specialty Start Date End Date Rio Duggan M.D. [address] [place] [address] PCP - General 01/20/17 documented as of this encounter
--- OUTSIDE RECORDS SUMMARY | 2024-05-23 10:19 | XMS_ITS ---
Author Organization [facility] Address [address] [place] [address] Care Team Providers Care Electronic Funds Transfer Coordinator Name Role Phone Unavailable Unavailable Unavailable Surgery Details Not on file Complications Check Surgery Details section. Procedure Estimated Blood Loss Check Surgery Details section. Procedure Findings Check Surgery Details section. Procedure Specimens Taken Check Surgery Details section.
--- OUTSIDE RECORDS SUMMARY | 2024-05-23 10:19 | XMS_ITS | Continuity of Care Document ---
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 Primary Care Provider [phone] Source Comments Patient records contain information from all sites at [facility]. For routine questions regarding patient records, call [phone] during business hours, M-F 8:00 AM - 5:00 PM Central Time. Record requests for emergency care only can be directed to [phone] at any time.[facility] Encounters Date Type Department Care Team Description 05/23/2024 Orders Only Department of Family Medicine in [place], [place] [address] [place] [address] Rio Duggan M.D. Diabetes Mellitus Type 2 Without Complication (HCC) (Primary Dx) 05/22/2024 Orders Only Department of Family Medicine in [place], [place] [address] [place] [address] Rio Duggan M.D. Cyst Pancreas (Primary Dx) 05/16/2024 Clinical Communication Department of Family Medicine in [place], [place] [address] [place] [address] Rio Duggan M.D. 05/14/2024 Clinical Communication Department of Family Medicine in [place], [place] [address] [place] [address] Rio Duggan M.D. Health Maintenance 05/07/2024 Orders Only Department of Family Medicine in [place] [address] [place] [address] Rio Duggan M.D. Diabetes Mellitus Type 2 Without Complication (HCC) (Primary Dx) 05/03/2024 8:37 AM CDT - 05/03/2024 11:59 PM CDT Hospital Encounter Department of Laboratory Medicine in [place] [address] [place] [address] Rio Duggan M.D. Diabetes Mellitus Type 2 Without Complication (HCC) Discharge Disposition: Home or Self Care 02/27/2024 Orders Only [facility] Rio Duggan M.D. Diabetes Mellitus Type 2 (HCC) 12/26/2023 10:30 AM CDT Office Visit Department of Family Medicine in [address] [address] Rio Duggan M.D. Diabetes Mellitus Type 2 Without Complication (HCC) (Primary Dx) 12/26/2023 10:00 AM CDT Office Visit Department of Family Medicine in [place] [address] [place] [address] Rio Duggan M.D. Fonseca, Nicole A, Mina. Annual Medicare Examination Return (Primary Dx) 12/26/2023 9:30 AM CDT - 12/26/2023 11:59 PM CDT Hospital Encounter Department of Laboratory Medicine in [place] [address] [place] [address] Rio Duggan M.D. Diabetes Mellitus Type 2 (HCC) Discharge Disposition: Home or Self Care 11/30/2023 8:35 AM CDT - 11/30/2023 11:59 PM CDT Hospital Encounter Department of Laboratory Medicine in [place], [place] [address] [place] [address] Rio Duggan M.D. Diabetes Mellitus Type 2 (HCC) Discharge Disposition: Home or Self Care 11/30/2023 8:00 AM CDT Nurse Only Department of Urology in [address] [address] Raul Acevedo M.D. Mayer, Paula R, RAnnieNAnnie Nurse Visit (Pt is here today for fill and pull per order after HoLEP procedure with Dr. Acevedo on 11/29/23.) Discharge Disposition: Home or Self Care 11/29/2023 10:15 AM CDT Ancillary Procedure Department of General Surgery 11/29/2023 10:26 AM CDT - 11/29/2023 12:46 PM CDT Surgery Outpatient Procedure Center in [address] [address] Raul Acevedo M.D. ENUCLEATION HOLMIUM LASER PROSTATE 70 - 150 GRAMS (100 cc) 11/29/2023 10:45 AM CDT Anesthesia Event Outpatient Procedure Center in [address] [address] Veronica Bowman APRN, CIGARETTE PAPER TESTER Vaishali Easley APRN, CRNA 11/29/2023 8:53 AM CDT - 11/29/2023 3:57 PM CDT Hospital Encounter Outpatient Procedure Center in [address] [address] Raul Acevedo M.D. Benign Prostatic Hyperplasia With Lower Urinary Tract Symptom (Primary Dx) Discharge Disposition: Home or Self Care 11/14/2023 9:30 AM CDT Nurse Only Department of Urology in [address] [address] Raul Acevedo M.D. Mayer, Paula R, R.NAnnie Nurse Visit (Pt is here today with daughter Kendra for HoLEP procedure surgery education teaching for upcoming procedure on 11/29/[address] Acevedo. ) Discharge Disposition: Home or Self Care 11/14/2023 9:14 AM CDT Hospital Encounter Department of Laboratory Medicine in [place], [place] [address] [place] [address] Raul Acevedo M.D. Benign Prostatic Hyperplasia With Lower Urinary Tract Symptom Discharge Disposition: Home or Self Care 11/14/2023 9:15 AM CDT - 11/14/2023 11:59 PM CDT Hospital Encounter Department of Laboratory Medicine in [place], [place] [address] [place] [address] Raul Acevedo M.D. Benign Prostatic Hyperplasia With Lower Urinary Tract Symptom Discharge Disposition: Home or Self Care 11/14/2023 9:15 AM CDT - 11/14/2023 11:59 PM CDT Hospital Encounter Department of Laboratory Medicine in [place], [place] [address] [place] [address] Raul Acevedo M.D. Benign Prostatic Hyperplasia With Lower Urinary Tract Symptom Discharge Disposition: Home or Self Care 11/07/2023 Orders Only Department of Urology in [address] [address] Raul Acevedo M.D. Benign Prostatic Hyperplasia With Lower Urinary Tract Symptom (Primary Dx) 11/06/2023 Clinical Communication Department of Urology in [address] [address] Raul Acevedo M.D. 11/06/2023 1:30 PM CDT Office Visit Department of Family Medicine in [place], [place] [address] [place] [address] Kris Vargas M.D. Preoperative Exam (Primary Dx); Retention Urinary; Hematuria Gross; Hyperplasia Prostate Benign Localized Without Obstruction 10/30/2023 Clinical Communication Department of Urology in [address] [address] Raul Acevedo M.D. Upcoming appts 10/23/2023 Clinical Communication Department of Urology in [place], [place] [address] [place] [address] Raul Acevedo M.D. 10/19/2023 10:00 AM CDT Procedure visit Department of Urology in [address] [address] Raul Acevedo M.D. Hematuria Gross Discharge Disposition: Home or Self Care 10/19/2023 10:30 AM CDT Office Visit Department of Urology in [address] [address] Raul Acevedo M.D. Retention Urinary (Primary Dx); Benign Prostatic Hyperplasia With Lower Urinary Tract Symptom; Hematuria Gross; Diabetes Mellitus Type 2 (HCC) 09/27/2023 2:00 PM MORTGAGE ACCOUNTING CLERK Comprehensive Visit Department of Urology in [address] [address] Alejandro Lopez M.D. Hematuria Gross (Primary Dx); Retention Urinary; Benign Prostatic Hyperplasia With Lower Urinary Tract Symptom Discharge Disposition: Home or Self Care 09/26/2023 2:26 PM MORTGAGE ACCOUNTING CLERK - 09/26/2023 11:59 PM MORTGAGE ACCOUNTING CLERK Hospital Encounter Department of Laboratory Medicine in [address] [address] Rio Duggan M.D. Hematuria Gross Discharge Disposition: Home or Self Care 09/26/2023 Clinical Communication Department of Family Medicine in [place], [place] [address] [place] [address] Rio Duggan M.D. Follow-up (Rx discrepency) 09/19/2023 3:40 PM MORTGAGE ACCOUNTING CLERK - 09/19/2023 11:59 PM MORTGAGE ACCOUNTING CLERK Hospital Encounter Department of Radiology in [address] [address] Rio Duggan M.D. Hematuria Gross Discharge Disposition: Home or Self Care 09/14/2023 9:30 AM MORTGAGE ACCOUNTING CLERK Office Visit Department of Family Medicine in [place], [place] [address] [place] [address] Rio Duggan M.D. Hematuria Gross (Primary Dx); Diabetes Mellitus Type 2 (HCC) 09/07/2023 12:15 PM MORTGAGE ACCOUNTING CLERK Office Visit Urgent Care, [facility], in [place], [place] [address] [place] [address] Saba Lerma APRN, C.N.P., D.N.P., M.S.N. Hematuria (Primary Dx) Discharge Disposition: Home or Self Care 09/07/2023 Nurse Triage Department of Family Medicine in [place], [place] [address] [place] [address] Ekta Moy M.S., R.N. Blood in Urine 09/01/2023 Orders Only Department of Family Medicine in [place], [place] [address] [place] [address] Rio Duggan M.D. 09/01/2023 Clinical Communication Department of Family Medicine in [place] [address] [place] [address] Rio Duggan M.D. 09/01/2023 8:22 AM MORTGAGE ACCOUNTING CLERK - 09/01/2023 11:59 PM MORTGAGE ACCOUNTING CLERK Hospital Encounter Department of Laboratory Medicine in [address] [address] Rio Duggan M.D. Diabetes Mellitus Type 2 (HCC) Discharge Disposition: Home or Self Care 08/29/2023 Orders Only [facility]uggan M.[facility]. Diabetes Mellitus Type 2 (HCC) 07/11/2023 Orders Only [facility] SELF TEST [facility] [address] [place] [address] Rio Duggan M.D. Screening Cancer Colon 06/27/2023 Orders Only [facility] SELF [facility] [address] [place] [address] Rio Duggan M.D. Screening Cancer Colon 06/19/2023 3:30 PM MORTGAGE ACCOUNTING CLERK Virtual Visit Department of Family Medicine in [place], [place] [address] [place] [address] Rio Duggan M.D. Kelly, Ellen S, Pharm.D., R.Ph. Diabetes Mellitus Type 2 (HCC) (Primary Dx) 06/05/2023 Refill Department of Family Medicine in [address] [address] Rio Duggan M.D. Med Refill 06/02/2023 1:30 PM MORTGAGE ACCOUNTING CLERK Office Visit Department of Family Medicine in [address] [address] Rio Duggan M.D. Frequency Urinary (Primary Dx) 05/30/2023 Refill Department of Family Medicine in [address] [address] Rio Duggan M.D. Med Refill 05/30/2023 Clinical Communication Department of Family [facility] in [address] [address] Rio Duggan M.D. 05/29/2023 Refill Department of Family Medicine in [address] [address] Rio Duggan M.D. Med Refill 05/26/2023 2:00 PM CDT Virtual Visit Department of Family Medicine in [place], [place] [address] [place] [address] Rio Duggan M.D. Kelly, Ellen S, Pharm.D., R.Ph. Diabetes Mellitus Type 2 (HCC) (Primary Dx) 05/16/2023 2:00 PM CDT Virtual Visit Department of Family Medicine in [place] [address] [place] [address] Rio Duggan M.D. Courtney Nielson, Pharm.D., R.Ph. Diabetes Mellitus Type 2 (HCC) (Primary Dx) 05/10/2023 Clinical Communication Department of Family Medicine in [place] [address] [place] [address] Courtney Nielson, Pharm.D., R.Ph. 05/04/2023 Clinical Communication Department of Family Medicine in [place], [place] [address] [place] [address] Rio Duggan M.D. High Blood sugars 05/01/2023 Nurse Triage Department of Family [facility] in [place] [address] [place] [address] Puja Malcolm RAnnieN. Nurse Assessment 05/01/2023 Clinical Communication Department of Family [facility] in [place] [address] [place] [address] Rio Duggan M.D. After Visit Question 04/28/2023 Clinical Communication Department of [facility] in [address] [address] Rio Duggan M.D. Med Question 04/28/2023 2:00 PM CDT Office Visit Department of Family [facility] in [address] [address] Rio Duggan M.D. Diabetes Mellitus Type 2 (HCC) (Primary Dx); Laparotomy Exploratory Status Post 04/25/2023 Nurse Triage Department of Family [facility] in [address] [address] Puja Fox RAnnieNAnnie Blood Sugar Problem 04/24/2023 3:30 PM CDT Virtual Visit Department of Family Medicine in [place] [address] [place] [address] Rio Duggan M.D. Kelly, Ellen S, Pharm.D., R.Ph. Diabetes Mellitus Type 2 (HCC) (Primary Dx) 04/10/2023 Intake [facility] 04/10/2023 2:42 PM CDT - 04/10/2023 9:58 PM CDT Emergency [facility] [address] [place] [address] Bebo Allison M.D. Brogan, Autumn M, M.D., M.P.H. Hematuria (Primary Dx); Obstruction Intestinal (HCC) Discharge Disposition: Acute Care Hospital 04/10/2023 Nurse Triage Department of Family Medicine in [place], [place] [address] [place] [address] Buster Diaz R.N. Abdominal Pain 03/03/2023 10:30 AM CDT Virtual Visit Department of Family Medicine in [place], [place] [address] [place] [address] Rio Duggan M.D. Kelly, Ellen S, Pharm.D., R.Ph. Diabetes Mellitus Type 2 (HCC) (Primary Dx) 02/24/2023 8:32 AM CDT - 02/24/2023 11:59 PM CDT Hospital Encounter Department of Laboratory Medicine in [place], [place] [address] [place] [address] Rio Duggan M.D. Diabetes Mellitus Type 2 (HCC) Discharge Disposition: Home or Self Care 02/07/2023 Refill Department of Family Medicine in [place], [place] [address] [place] [address] Rio Duggan M.D. Med Refill 12/16/2022 10:30 AM CDT Virtual Visit Department of Family Medicine in [place], [place] [address] [place] [address] [employer] daily M.D. Kelly, Ellen S PharmAnnieDAnnie, R.Ph. Diabetes Mellitus Type 2 (HCC) (Primary Dx) 12/15/2022 Orders Only [facility] Rio Zheng M.D. 11/24/2022 Orders Only Department of Family Medicine in [place], [place] [address] [place] [address] Rio Duggan M.D. Diabetes Mellitus Type 2 (HCC) (Primary Dx) 11/23/2022 Orders Only Department of Family Medicine in [place], [place] [address] [place] [address] Rio Duggan M.D. 11/16/2022 1:00 PM CDT Virtual Visit Department of Family Medicine in [place] [address] [place] [address] Rio Duggan M.D. Kelly, Ellen S, PharmAnnieD., R.Ph. Diabetes Mellitus Type 2 (HCC) (Primary Dx) 11/14/2022 8:37 AM CDT - 11/14/2022 11:59 PM CDT Hospital Encounter Department of Laboratory Medicine in [place], [place] [address] [place] [address] Rio Duggan M.D. Diabetes Mellitus Type 2 (HCC); Diabetes Mellitus Type 2 (HCC) Discharge Disposition: Home or Self Care 09/19/2022 1:00 PM MORTGAGE ACCOUNTING CLERK Virtual Visit Department of Family Medicine in [place] [address] [place] [address] Rio Duggan M.D. Kelly, Ellen S, Pharm.D., R.Ph. Diabetes Mellitus Type 2 (HCC) (Primary Dx) 08/30/2022 Orders Only [facility] Rio Zheng M.D. Diabetes Mellitus Type 2 (HCC) 08/16/2022 11:30 AM MORTGAGE ACCOUNTING CLERK Office Visit Department of Family Medicine in [place], [place] [address] [place] [address] Rio Duggan M.D. Diabetes Mellitus Type 2 (HCC) 08/05/2022 9:30 AM MORTGAGE ACCOUNTING CLERK Virtual Visit Department of Family Medicine in [place], [place] [address] [place] [address] Rio Duggan M.D. Kelly, Ellen S, Pharm.D., R.Ph. Diabetes Mellitus Type 2 (HCC) (Primary Dx) 08/02/2022 10:05 AM MORTGAGE ACCOUNTING CLERK - 08/02/2022 11:59 PM MORTGAGE ACCOUNTING CLERK Hospital Encounter Department of Laboratory Medicine in [place], [place] [address] [place] [address] Rio Duggan M.D. Diabetes Mellitus Type 2 (HCC) Discharge Disposition: Home or Self Care 07/11/2022 1:30 PM MORTGAGE ACCOUNTING CLERK Virtual Visit Department of Family Medicine in [place] [address] [place] [address] Rio Duggan M.D. Kelly, Ellen S, Pharm.D., R.Ph. Diabetes Mellitus Type 2 (HCC) 06/21/2022 1:00 PM MORTGAGE ACCOUNTING CLERK Office Visit Department of Family Medicine in [place] [address] [place] [address] Rio Duggan M.D. Kelly, Ellen S, Pharm.D., R.Ph. Diabetes Mellitus Type 2 (HCC) 06/07/2022 Orders Only [facility] SELF [facility] [address] [place] [address] Rio Duggan M.D. Screening Cancer Colon 05/24/2022 Orders Only [facility] [address] [place] [address] Rio Duggan M.D. Screening Cancer Colon 05/24/2022 2:00 PM CDT Office Visit Department of Family [facility] in [place] [address] [place] [address] Rio Duggan M.D. Kelly, Ellen S, D., R.Ph. Diabetes Mellitus Type 2 (HCC) (Primary Dx) 05/03/2022 Refill Department of Family Medicine in [place] [address] [place] [address] Rio Duggan M.D. Med Refill 04/12/2022 Orders Only Department of Family Medicine in [place] [address] [place] [address] Rio Duggan M.D. Diabetes Mellitus Type 2 (HCC) (Primary Dx) 04/08/2022 8:23 AM CDT - 04/08/2022 11:59 PM CDT Hospital Encounter Department of Laboratory Medicine in [place] [address] [place] [address] Rio Duggan M.D. Diabetes Mellitus Type 2 (HCC) Discharge Disposition: Home or Self Care 02/27/2022 Refill Department of Family Medicine in [place] [address] [place] [address] Rio Duggan M.D. Med Refill 12/14/2021 Orders Only Department of Family Medicine in [address] [address] Rio Duggan M.D. Diabetes Mellitus Type 2 (HCC) (Primary Dx) 12/14/2021 Orders Only Department of Family Medicine in [place] [address] [place] [address] Rio Duggan M.D. 12/13/2021 8:12 AM CDT - 12/13/2021 11:59 PM CDT Hospital Encounter Department of Laboratory Medicine in [place] [address] [place] [address] Rio Duggan M.D. Diabetes Mellitus Type 2 (HCC) Discharge Disposition: Home or Self Care 09/13/2021 9:00 AM MORTGAGE ACCOUNTING CLERK Office Visit Department of Family Medicine in [address] [address] Rio Duggan M.D. Hyperlipidemia (Primary Dx); Diabetes Mellitus Type 2 (HCC) 09/10/2021 8:29 AM MORTGAGE ACCOUNTING CLERK - 09/10/2021 11:59 PM MORTGAGE ACCOUNTING CLERK Hospital Encounter Department of Laboratory Medicine in [address] [address] Rio Duggan M.D. Diabetes Mellitus Type 2 (HCC); Hyperlipidemia Discharge Disposition: Home or Self Care 06/08/2021 Orders Only Department of Family Medicine in [address] [address] Rio Duggan M.D. Diabetes Mellitus Type 2 (HCC) (Primary Dx); Hyperlipidemia 06/04/2021 Refill Department of Family Medicine in [address] [address] Rio Dugagn M.D. Med Refill 06/04/2021 8:40 AM MORTGAGE ACCOUNTING CLERK - 06/04/2021 11:59 PM MORTGAGE ACCOUNTING CLERK Hospital Encounter Department of Laboratory Medicine in [address] [address] Rio Duggan M.D. Diabetes Mellitus Type 2 (HCC) Discharge Disposition: Home or Self Care 03/04/2021 Orders Only Department of Family Medicine in [address] [address] Rio Duggan M.D. Diabetes Mellitus Type 2 (HCC) (Primary Dx) 03/01/2021 Orders Only [facility] PCP [facility] BRENDANT Rio Duggan M.D. Diabetes Mellitus Type 2 (HCC) 02/22/2021 8:55 AM CDT - 02/22/2021 11:59 PM CDT Hospital Encounter Department of Laboratory Medicine in [address] [place] [address] Rio Duggan M.D. Diabetes Mellitus Type 2 (HCC) Discharge Disposition: Home or Self Care 10/21/2020 12:46 PM CDT - 10/21/2020 11:59 PM CDT Hospital Encounter Department of Laboratory Medicine in [address] [address] Rio Duggan M.D. Screening Cancer Colon Discharge Disposition: Home or Self Care 09/16/2020 Orders Only [facility] Juan Luis Sanchez Jr., M.D. 08/24/2020 9:15 AM MORTGAGE ACCOUNTING CLERK Office Visit Department of Family Medicine in [address] [address] Rio Duggan M.D. Screening Cancer Colon (Primary Dx); Diabetes Mellitus Type 2 (HCC); Hyperlipidemia 08/21/2020 8:37 AM MORTGAGE ACCOUNTING CLERK - 08/21/2020 11:59 PM MORTGAGE ACCOUNTING CLERK Hospital Encounter Department of Laboratory Medicine in [address] [address] Rio Duggan M.D. Diabetes Mellitus Type 2 (HCC) Discharge Disposition: Home or Self Care 06/27/2020 Refill Department of Family Medicine in [address] [address] Emely Douglass APRN, C.N.P. Med Refill 05/28/2020 Refill Department of Family Medicine in [address] [address] Rio Duggan M.D. Med Refill 05/21/2020 Orders Only Department of Family Medicine in [address] [address] Rio Duggan M.D. Diabetes Mellitus Type 2 (HCC) (Primary Dx) 05/19/2020 8:30 AM CDT - 05/19/2020 11:59 PM CDT Hospital Encounter Department of Laboratory Medicine in [place], [place] [address] [place] [address] Rio Duggan M.D. Diabetes Mellitus Type 2 (HCC); Hyperlipidemia Discharge Disposition: Home or Self Care 11/18/2019 Orders Only Department of Family Medicine in [place], [place] [address] [place] [address] Rio Duggan M.D. Hyperlipidemia (Primary Dx); Diabetes Mellitus Type 2 (HCC) 11/18/2019 9:10 AM CDT - 11/18/2019 11:59 PM CDT Hospital Encounter Department of Laboratory Medicine in [place], [place] [address] [place] [address] Rio Duggan M.D. Diabetes Mellitus Type 2 (HCC) Discharge Disposition: Home or Self Care 09/17/2019 Clinical Communication Department of Nutrition in [place] [address] [place] [address] Liliam Augustine, R.N. Diabetes ( 3 month A1C follow up) 09/17/2019 10:00 AM MORTGAGE ACCOUNTING CLERK Clinical Support Department of Nutrition in [place] [address] [place] [address] Rio Duggan M.D. Schema, Julie A, R.N. Diabetes Mellitus Type 2 (HCC) (Primary Dx) 09/03/2019 12:30 PM MORTGAGE ACCOUNTING CLERK Clinical Support Department of Nutrition in [place] [address] [place] [address] Rio Duggan M.D. Schema, Julie A, R.NAnnie Diabetes Mellitus Type 2 (HCC) 08/22/2019 Orders Only Department of Family Medicine in [place], [place] [address] [place] [address] Rio Duggan M.D. Diabetes Mellitus Type 2 (HCC) (Primary Dx) 08/19/2019 8:25 AM MORTGAGE ACCOUNTING CLERK - 08/19/2019 11:59 PM MORTGAGE ACCOUNTING CLERK Hospital Encounter Department of Laboratory Medicine in [address] [address] Rio Duggan M.D. Screening Colon Cancer Average Risk Discharge Disposition: Home or Self Care 08/19/2019 8:24 AM MORTGAGE ACCOUNTING CLERK Hospital Encounter Department of Laboratory Medicine in [address] [address] Rio Duggan M.D. Diabetes Mellitus Type 2 (HCC) Discharge Disposition: Home or Self Care 05/20/2019 9:30 AM CDT Office Visit Department of Family Medicine in [address] [address] Rio Duggan M.D. Diabetes Mellitus Type 2 (HCC) (Primary Dx); Hyperlipidemia; Screening Colon Cancer Average Risk; Need Vaccine Immunization 05/06/2019 8:26 AM CDT - 05/06/2019 11:59 PM CDT Hospital Encounter Department of Laboratory Medicine in [address] [address] Rio Duggan M.D. Diabetes Mellitus Type 2 (HCC) Discharge Disposition: Home or Self Care 11/30/2018 Orders Only Department of Family Medicine in [address] [address] Tamar Nguyễn 11/06/2018 9:00 AM CDT Office Visit Department of Family Medicine in [address] [address] Rio Duggan M.D. Screening Cancer Colon (Primary Dx); Diabetes Mellitus Type 2 (HCC) 10/31/2018 9:15 AM CDT Office Visit Department of Family Medicine in [address] [address] Rio Duggan M.D. [place], Nancy A, R.N. Annual Medicare Examination Return 10/31/2018 8:51 AM CDT - 10/31/2018 11:59 PM CDT Hospital Encounter Department of Laboratory Medicine in [place] [address] [place] [address] Rio Duggan M.D. Diabetes Mellitus Type 2 (HCC) Discharge Disposition: Home or Self Care 09/21/2018 Clinical Communication Department of Family Medicine in [place] [address] [place] [address] Christine Simms R.N., [facility]- RN Medicare Visit 08/21/2018 Clinical Communication Department of Family Medicine in [address] [address] Rio Duggan M.D. 08/09/2018 Clinical Communication Department of Family Medicine in [address] [address] Rio Duggan M.D. Communication (change of pharmacy) 05/28/2018 Refill Department of Family Medicine in [address] [address] Rio Duggan M.D. Med Refill (Januvia and Simastatin) 05/02/2018 2:45 PM CDT Office Visit Department of Family Medicine in [address] [address] Rio Duggan M.D. Hyperlipidemia (Primary Dx); Diabetes Mellitus Type 2 (HCC) 04/26/2018 8:58 AM CDT - 04/26/2018 11:59 PM CDT Hospital Encounter Department of Laboratory Medicine in [address] [address] Rio Duggan M.D. Diabetes Mellitus Type 2 Without Complication (HCC) Discharge Disposition: Home or Self Care 04/26/2018 8:58 AM CDT - 04/26/2018 11:59 PM CDT Hospital Encounter Department of Laboratory Medicine in [address] [address] Rio Duggan M.D. Diabetes Mellitus Type 2 Without Complication (HCC) Discharge Disposition: Home or Self Care 02/14/2018 Refill Department of Family Medicine in [place], [place] [address] [place] [address] Rio Duggan M.D. Med Refill 01/31/2018 Clinical Communication Department of Family Medicine in [place], [place] [address] [place] [address] Teagan Carroll R.N. 01/31/2018 Clinical Communication Department of Family Medicine in [place] [address] [place] [address] Rio Santos Med Refill 11/30/2017 Orders Only Department of Family Medicine in [place] [address] [place] [address] Tamar Nguyễn 10/18/2017 1:12 PM CDT - 10/18/2017 11:59 PM CDT Hospital Encounter Department of Radiology, [facility], in [address] [address] Archie Hernández M.D. Aftercare Total Hip Arthroplasty Discharge Disposition: Home or Self Care 10/18/2017 1:15 PM CDT Comprehensive Visit Department of Orthopedic Surgery in [address] [address] Archie Hernández M.D. Aftercare Total Hip Arthroplasty (Primary Dx) 10/17/2017 11:30 AM CDT Office Visit Department of Family Medicine in [place] [address] [place] [address] Rio Duggan M.D. Need Vaccine Immunization (Primary Dx); Diabetes Mellitus Type 2 Without Complication (HCC) 09/25/2017 Refill Department of Family Medicine in [place] [address] [place] [address] Rio Duggan M.D. Med Refill 06/05/2017 Refill Department of Family Medicine in [place], [place] [address] [place] [address] Gabriela Swan L.P.N. Med Refill 06/01/2017 Refill Department of Family Medicine in [place], [place] [address] [place] [address] Katherine Isaacs L.P.N. Med Refill 05/29/2017 Abstract Department of Family Medicine in [place], [place] [address] [facility] [place] [address] Provider, Historical 05/05/2017 Orders Only Department of Family Medicine in [place], [place] [address] [facility] [place] [address] Rio Duggan M.D. Diabetes Mellitus Type 2 Without Complication (HCC) 04/18/2017 4:34 AM CDT - 04/18/2017 11:59 PM CDT Hospital Encounter HX NO Rio Jiménez M.D. 04/18/2017 8:47 AM CDT - 04/18/2017 11:59 PM CDT Hospital Encounter HX [facility] Rio Reyes M.D. 02/06/2017 4:56 AM CDT - 02/06/2017 11:59 PM CDT Hospital Encounter HX NO [facility] Marissa Banks APRN, C.N.P. 02/06/2017 9:19 AM CDT - 02/06/2017 11:59 PM CDT Hospital Encounter HX [facility] Marissa Venegas APRN, C.N.P. 01/27/2017 1:15 PM CDT - 01/27/2017 11:59 PM CDT Hospital Encounter HX [facility] Layton Avalos D.O. 01/11/2017 9:01 AM CDT - 01/11/2017 11:59 PM CDT Hospital Encounter HX [facility] Rio Reyes M.D. 2017 9:25 AM CDT - 2017 11:59 PM CDT Hospital Encounter HX [facility] CALHOUN Rio Duggan M.D. 07/15/2016 8:56 AM MORTGAGE ACCOUNTING CLERK - 07/15/2016 11:59 PM MORTGAGE ACCOUNTING CLERK Hospital Encounter HX [facility] Rio Duggan M.D. 04/11/2016 10:21 AM CDT - 04/11/2016 11:59 PM CDT Hospital Encounter HX [facility] HERN[facility]NDEZ Rio Duggan M.D. 04/11/2016 6:17 AM CDT - 04/11/2016 11:59 PM CDT Hospital Encounter HX NO MAPPING Rio Duggan M.D. 10/02/2015 8:28 AM MORTGAGE ACCOUNTING CLERK - 10/02/2015 11:59 PM MORTGAGE ACCOUNTING CLERK Hospital Encounter HX [facility] CALHOUN Rio Duggan M.D. 06/29/2015 9:25 AM MORTGAGE ACCOUNTING CLERK - 06/29/2015 11:59 PM MORTGAGE ACCOUNTING CLERK Hospital Encounter HX [facility] BRIAN DEBRARACHEL Rio Duggan M.D. 06/22/2015 8:33 AM MORTGAGE ACCOUNTING CLERK - 06/22/2015 11:59 PM MORTGAGE ACCOUNTING CLERK Hospital Encounter HX [facility]HOUN Rio Duggan M.D. 12/16/2014 1:47 PM CDT - 12/16/2014 11:59 PM CDT Hospital Encounter HX [facility] DEBRAIVELISSERio Mckenna M.D. 12/08/2014 8:54 AM CDT - 12/08/2014 11:59 PM CDT Hospital Encounter HX [facility]HOUN Rio Duggan M.D. 12/08/2014 12:04 AM CDT - 12/08/2014 11:59 PM CDT Hospital Encounter HX NO [facility] Rio Duggan M.D. 08/15/2014 8:15 AM MORTGAGE ACCOUNTING CLERK - 08/15/2014 11:59 PM MORTGAGE ACCOUNTING CLERK Hospital Encounter HX [facility] B[facility] CALHOUN Rio Duggan M.D. 04/17/2014 8:23 AM CDT - 04/17/2014 11:59 PM CDT Hospital Encounter HX [facility] BRIAN Rio Hayward M.D. 01/10/2014 1:11 PM CDT - 01/10/2014 11:59 PM CDT Hospital Encounter HX [facility] BRIAN DEBRAIVELISSERio Mckenna M.D. 01/10/2014 8:22 AM CDT - 01/10/2014 11:59 PM CDT Hospital Encounter HX [facility] BRI[facility] CALHOUN Rio Duggan M.D. 06/17/2013 1:13 PM MORTGAGE ACCOUNTING CLERK - 06/17/2013 11:59 PM MORTGAGE ACCOUNTING CLERK Hospital Encounter HX [facility] BRIAN DEBRARACHEL Rio Duggan M.D. 06/05/2013 9:23 AM MORTGAGE ACCOUNTING CLERK - 06/05/2013 11:59 PM MORTGAGE ACCOUNTING CLERK Hospital Encounter HX [facility] BRIAN CALHOUN Rio Duggan M.D. 03/08/2013 7:04 AM CDT - 03/08/2013 11:59 PM CDT Hospital Encounter HX [facility] DELORIS Rio Metcalf M.D. 02/18/2013 7:57 AM CDT - 02/18/2013 11:59 PM CDT Hospital Encounter HX [facility] DELORIS LEERio Lindsay M.D. 01/30/2013 1:38 PM CDT - 01/30/2013 11:59 PM CDT Hospital Encounter HX [facility] BRIAN DEBRAIVELISSERio Mckenna M.D. 01/10/2013 8:55 AM CDT - 01/10/2013 11:59 PM CDT Hospital Encounter HX [facility] BRIAN CLAHOUN Rio Duggan M.D. 09/03/2012 2:15 PM MORTGAGE ACCOUNTING CLERK - 11/16/2012 5:00 PM CDT Hospital Encounter HX [facility] DELORIS PT Vijay Underwood M.D. 11/14/2012 12:14 PM CDT - 11/14/2012 11:59 PM CDT Hospital Encounter HX NO MAPPING Archie Hernández M.D. 08/23/2012 3:04 PM MORTGAGE ACCOUNTING CLERK - 08/23/2012 11:59 PM MORTGAGE ACCOUNTING CLERK Hospital Encounter HX [facility] BRIAN HERNÁNDEZ Emely Douglass APRN, C.N.PAnnie 08/03/2012 12:37 AM MORTGAGE ACCOUNTING CLERK - 08/03/2012 11:59 PM MORTGAGE ACCOUNTING CLERK Hospital Encounter HX NO MAPPING Vijay Underwood M.D. 07/04/2012 1:03 AM MORTGAGE ACCOUNTING CLERK - 07/04/2012 11:59 PM MORTGAGE ACCOUNTING CLERK Hospital Encounter HX NO MAPPING Archie Hernández M.D. Allergies Active Allergy Reactions Criticality Noted Date Comments Gsqfxuq-Hvf-Hjl Reductase Inhibitors Hepatic Failure High 12/26/2023 Medications amoxicillin (AMOXIL) 500 mg capsule Take 2,000 mg by mouth once. 1 hour before dental appointment 1 8 Active pen needle, diabetic (Pen Needle) 31 gauge x /16 needleIndicatio ns:Diabetes Mellitus Type 2 (HCC) Inject [...] SBO with small bowel resection - 04/15. [facility]. Opacity Vitreous Right 03/31/2021 [...] Mother Social History Smoking Status as of 05/23/2024 Tobacco Use Types Packs/Day Years Used Date Smoking Tobacco: Never Assessed [facility] Utilities Answer Date Recorded In the past 12 months has th e [employer] gas, oil, or water [employer] threatened to shut off services in your [...] your living situation today? I have a [facility] place to live 11/06/2023 Sex and Gender Information Value Date Recorded Sex Assigned at Male 11/06/2023 1:20 PM CDT Legal Sex Male 5:56 PM MORTGAGE ACCOUNTING CLERK Gender Identity Male 11/06/2023 1:27 PM [...] CDT Plan of Treatment Not on file Procedures Procedure Name Priority Date/Time Associated Diagnosis Comments HEMOGLOBIN A1C, B Routine 05/03/2024 8:43 AM CDT Diabetes Mellitus Type 2 Without [...] Prostatic Hyperplasia With Lower Urinary Tract Symptom FL CYSTOURETHROSCOPY Routine 10/19/2023 10:00 AM CDT Hematuria Gross URINALYSIS WITH MICROSCOPIC Routine 09/26/2023 2:46 PM MORTGAGE ACCOUNTING CLERK Hematuria Gross CT UROGRAM WITHOUT AND WITH IV CONTRAST RAD - Routine (most inpatients and all outpatients) 09/19/2023 4:20 PM MORTGAGE ACCOUNTING CLERK Hematuria Gross CREATININE WITH EGFR, S/P Routine 09/14/2023 10:11 AM MORTGAGE ACCOUNTING CLERK Hematuria Gross HC URINALYSIS AUTO W MICRO STAT 09/07/2023 12:09 PM MORTGAGE ACCOUNTING CLERK URINALYSIS WITH MICROSCOPIC IF INDICATED, U STAT 09/07/2023 12:09 PM MORTGAGE ACCOUNTING CLERK Hematuria BACTERIAL CULTURE, AEROBIC + SUSC, URINE STAT 09/07/2023 12:09 PM MORTGAGE ACCOUNTING CLERK Hem[place]ia HEMOGLOBIN A1C, B Routine 09/01/2023 8:40 AM MORTGAGE ACCOUNTING CLERK Diabetes Mellitus Type 2 (HCC) COLOGUARD Routine 07/18/2023 8:30 AM MORTGAGE ACCOUNTING CLERK Screening Cancer Colon PROSTATE-SPECIFIC AG (PSA) DIAGNOSTIC, S Routine 06/02/2023 2:16 PM MORTGAGE ACCOUNTING CLERK Frequency Urinary GLUCOSE POCT, B Routine 04/10/2023 [...] HEMOGLOBIN A1C, B Routine 08/02/2022 10:14 AM MORTGAGE ACCOUNTING CLERK Diabetes Mellitus Type 2 (HCC) HEMOGLOBIN A1C, B Routine 04/08/2022 8:31 AM CDT Diabetes Mellitus Type 2 (HCC) HEMOGLOBIN A1C, B Routine 12/13/2021 8:16 AM CDT Diabetes Mellitus Type 2 (HCC) HEMOGLOBIN A1C, B Routine 09/10/2021 8:35 AM MORTGAGE ACCOUNTING CLERK Diabetes Mellitus Type 2 (HCC) LIPID PANEL, S Routine 09/10/2021 8:35 AM MORTGAGE ACCOUNTING CLERK Hyperlipidemia COMPREHENSIVE METABOLIC PANEL, S/P Routine 09/10/2021 8:35 AM MORTGAGE ACCOUNTING CLERK Diabetes Mellitus Type 2 (HCC) Hyperlipidemia CBC WITHOUT DIFFERENTIAL, B Routine 09/10/2021 8:35 AM MORTGAGE ACCOUNTING CLERK Diabetes Mellitus Type 2 (HCC) ALBUMIN, RANDOM, U Routine 09/10/2021 8:34 AM MORTGAGE ACCOUNTING CLERK Diabetes Mellitus Type 2 (HCC) HEMOGLOBIN A1C, B Routine 06/04/2021 8:43 AM MORTGAGE ACCOUNTING CLERK Diabetes Mellitus Type 2 (HCC) HEMOGLOBIN A1C, B Routine 02/22/2021 8:59 AM CDT Diabetes Mellitus Type 2 (HCC) OCCULT BLOOD, QL, IMMUNOCHEMICAL, F Routine 10/21/2020 1:46 PM CDT Screening Cancer Colon HEMOGLOBIN A1C, B Routine 08/21/2020 8:42 AM MORTGAGE ACCOUNTING CLERK Diabetes Mellitus Type 2 (HCC) ALBUMIN, RANDOM, [...] QL, IMMUNOCHEMICAL, F Routine 08/19/2019 8:35 AM MORTGAGE ACCOUNTING CLERK Screening Colon Cancer Average Risk HEMOGLOBIN A1C, B Routine 08/19/2019 8:27 AM MORTGAGE ACCOUNTING CLERK Diabetes Mellitus Type 2 (HCC) ALBUMIN, RANDOM, [...] HEMOGLOBIN A1C, B Routine 07/15/2016 8:55 AM MORTGAGE ACCOUNTING CLERK LIPID PANEL, S Routine 04/11/2016 11:10 AM CDT HEMOGLOBIN A1C, B Routine 04/11/2016 11:10 AM CDT COMPREHENSIVE METABOLIC PANEL, S/P Routine 04/11/2016 11:10 AM CDT ALBUMIN, RANDOM, U Routine 04/11/2016 11:00 AM CDT HEMOGLOBIN A1C, B Routine 10/02/2015 8:30 AM MORTGAGE ACCOUNTING CLERK HEMOGLOBIN A1C, B Routine 06/22/2015 8:40 AM MORTGAGE ACCOUNTING CLERK ALBUMIN, RANDOM, U Routine 12/08/2014 9:00 AM CDT COMPREHENSIVE METABOLIC PANEL, S/P Routine 12/08/2014 8:55 AM CDT LIPID PANEL, S Routine 12/08/2014 8:55 AM CDT HEMOGLOBIN A1C, B Routine 12/08/2014 8:55 AM CDT HEMOGLOBIN A1C, B Routine 08/15/2014 8:20 AM MORTGAGE ACCOUNTING CLERK HEMOGLOBIN A1C, B Routine 04/17/2014 8:25 AM CDT ALBUMIN, RANDOM, U Routine 01/10/2014 8:30 AM CDT HEMOGLOBIN A1C, B Routine 01/10/2014 8:25 AM CDT LIPID PANEL, S Routine 01/10/2014 8:25 AM CDT COMPREHENSIVE METABOLIC PANEL, S/P Routine 01/10/2014 8:25 AM CDT HEMOGLOBIN A1C, B Routine 06/05/2013 9:25 AM MORTGAGE ACCOUNTING CLERK HEMOGLOBIN A1C, B Routine 01/10/2013 9:05 AM [...] PM CDT ECG Routine 08/23/2012 3:56 PM MORTGAGE ACCOUNTING CLERK AUTOMATED DIFFERENTIAL, B Routine 08/23/2012 3:45 PM MORTGAGE ACCOUNTING CLERK CBC WITH DIFFERENTIAL, B Routine 08/23/2012 3:45 PM MORTGAGE ACCOUNTING CLERK PROTHROMBIN TIME (PT), P Routine 08/23/2012 3:45 PM MORTGAGE ACCOUNTING CLERK HEMOGLOBIN A1C, B Routine 08/23/2012 3:45 PM MORTGAGE ACCOUNTING CLERK BASIC METABOLIC PANEL, S/P Routine 08/23/2012 3:45 PM MORTGAGE ACCOUNTING CLERK MR SHOULDER LEFT WITHOUT IV CONTRAST Routine 08/03/2012 12:19 PM MORTGAGE ACCOUNTING CLERK DX SHOULDER LEFT 2+ VIEWS Routine 07/04/2012 1:13 PM MORTGAGE ACCOUNTING CLERK Results * (ABNORMAL) Hemoglobin A1c (05/03/2024 8:43 AM CDT) Only the most recent of32 resultswithin the time period is included. Hemoglobin A1c, B 8.9(H) 4.2 - 5.6 [...] M.D. LAB BLOOD ADD-ON Final Re sult [facility] [address] [place] [address], [place] NPRG [facility] [address] [place] [address] * (ABNORMAL) Albumin, Random, Urine (12/26/2023 10:06 [...] M.D. LAB URINE ORDERABLES Francoise l Result [facility] [address] [place] [address], [facility] NPRG [address] [address] * Glucose, POCT (11/29/2023 1:49 PM CDT) Only the most recent of4 resultswithin the time period is included. Glucose, POCT, B 99 70 - 140 mg/dL 11/29/2023 1:49 PM CDT NPRG Blood 11/29/2023 1:49 PM CDT 11/29/2023 2:01 PM CDT us Generic Rals LAB POCT ORDERABLES-MANUAL Final Result Performing Organization Address City/[facility]/ZIP Co de Phone Number [facility] [address] [place] [address], [address] [address] * Surgical Pathology (11/29/2023 11:08 AM CDT) [...] 6 x 2.5 cm. RS, 12 blocks. 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 11/30/2023 2:36 PM CDT MKTO Tissue (Prostate) 11/29/2023 11:08 AM CDT us Raul Acevedo M.D. LAB SURG PATH ORDERABLES Fi nal Result [facility] [place] [address], [facility] MKTO [facility] [place] [address] * LDA ANE NON-SURGICAL AIRWAY (11/29/2023 10:54 AM CDT) Narrative Veronica Bowman APRN, CRNA - 11/29/2023 10:54 AM CDT Veronica Bowman APRN, CRNA ? 11/29/2023 11:04 AM Airway Date/Time: 11/29/2023 [...] outcome: successful ?? Notable Events: no complications us Veronica Bowman APRN, CRNA ANESTHESIA ORDERABLES Fi nal Result * General Surgery Image Exam-General Surgery Image Exam (11/29/2023 10:15 AM CDT) 11/29/2023 10:1 1 AM CDT Narrative IIMS - 11/29/2023 12:26 PM CDT This order has been created and auto-finalized to support the import of images acquired without order. The clinical documentation to support these images can be found on the encounter that produced images. us Provider Not In System IMG NON RAD IMAGING PROCE DURES Final Result Performing Organization Address City/[facility] Co de Phone Number [facility] NA * Bacterial Culture, Aerobic + Susceptibility, Urine (11/14/2023 10:58 AM CDT) Only the most recent of2 resultswithin the time period is included. Urine Culture No growth after 1 day of incubation. 11/15/2023 12:24 PM CDT [facility] Urine (Urine, Midstream) 11/14/2023 10:58 AM CDT 11/14/2023 3:12 PM CDT Comment:Specimen Source Site : Urine us Raul Acevedo M.D. LAB MICROBIOLOGY - GENERAL ORDERABLES Final Result Performing Organization Address City/[facility]/ZIP Co de Phone Number [facility] [address] [place] [address], [facility] MKTO [facility] in [place] [address] [place] [address] * Urinalysis, with Microscopic: Urine, Midstream (11/14/2023 [...] 8.0 11/14/2023 11:03 AM CDT NPRG Specific [place] 1.015 1.001 - 1.035 11/14/2023 11:03 AM [...] 10:58 AM CDT 11/14/2023 10:58 AM CDT us Raul Acevedo M.D. LAB URINE ORDERABLES Final Result [facility] [address] [place] [address], [place] NPR[place] [facility] [address] [place] [address] * (ABNORMAL) Basic Metabolic Panel (11/14/2023 9:34 [...] M.D. LAB BLOOD ADD-ON Final Resu lt [facility] [address] [place] [address], [place] [facility] [address] [place] [address] * ECG 12 Lead (11/14/2023 9:14 AM CDT) Only the most recent of2 resultswithin the time period is included. Ventricular Rate ECG/Min 54 BPM MUSE FL Interval 182 ms MUSE QRSD Interval 104 ms MUSE QT Interval 448 ms MUSE QTC Interval 424 ms MUSE P Erie 27 degrees MUSE R E[place] 21 degrees MUSE T Wave [place] 41 degrees MUSE 11/14/2023 9:14 AM CDT [...] change was found Reviewed by ILSA Rai us Raul Acevedo M.D. ECG ORDERABLES Final Resul t MUSE NA * FL CYSTOURETHROSCOPY (10/19/2023 10:00 AM CDT) Narrative Raul [...] was educated on post procedure instructions. ?? us Rio Duggan M.D. UROLOGY ORDERABLES Edited Result - Final * CT Urogram without and with IV Contrast (09/19/2023 4:20 PM MORTGAGE ACCOUNTING CLERK) Anatomical Region Laterality Modality Abdomen, Pelvis, Abdominal R ST LOS, Abdominal ARZ LOS, Abdominal FLA LOS N/A Computed Tomography 09/19/2023 4:25 PM MORTGAGE ACCOUNTING CLERK Impressions 09/19/2023 5:00 PM MORTGAGE ACCOUNTING CLERK 1. No renal calculus or obstructive uropathy. [...] the colonic distribution. Narrative 09/19/2023 5:00 PM MORTGAGE ACCOUNTING CLERK EXAM: CT UROGRAM WITHOUT AND WITH IV [...] Multilevel disc space narrowing with partially fused [id number]. Multilevel endplate marginal spurring with facet arthropathy.Multilevel [...] acuteinflammatory process. Extensive stool throughout the colonicdistribution. us Rio Duggan M.D. Karen CT PROCEDURES Final R esult * Creatinine with Estimated GFR (09/14/2023 10:11 AM MORTGAGE ACCOUNTING CLERK) Creatinine 0.80 0.74 - 1.35 mg/dL 09/14/2023 4:09 PM MORTGAGE ACCOUNTING CLERK NPRG Estimated GFR (eGFR) >90 >=60 mL/min/BSA 09/14/2023 4:09 PM MORTGAGE ACCOUNTING CLERK NPRG Comment: Estimated GFR calculated using the 2020 CKD_EPI creatinine equation. Blood (Blood, Venous) 09/14/2023 10:11 AM MORTGAGE ACCOUNTING CLERK 09/14/2023 3:30 PM MORTGAGE ACCOUNTING CLERK us Rio Duggan M.D. LAB BLOOD ADD-ON Final Re sult [facility] [address] [place] [address], [place] NPR[place] [facility] [address] [place] [address] * (ABNORMAL) Urinalysis with Microscopic if Indicated (09/07/2023 12:09 PM MORTGAGE ACCOUNTING CLERK) Only the most recent of2 resultswithin the time period is included. Source Urine, Urine, Midstream 09/07/2023 12:16 PM MORTGAGE ACCOUNTING CLERK NPRG Clarity Clear Clear 09/07/2023 12:25 PM MORTGAGE ACCOUNTING CLERK NPRG Color Yellow 09/07/2023 12:25 PM MORTGAGE ACCOUNTING CLERK NPRG Comment: ----REFERENCE VALUE---- Colorless Yellow Gayle Blood Moderate(A) Negative 09/07/2023 12:25 PM MORTGAGE ACCOUNTING CLERK NPRG Nitrite Negative Negative 09/07/2023 12:25 PM MORTGAGE ACCOUNTING CLERK NPRG Leukocyte Esterase Negative Negative 09/07/2023 12:25 PM MORTGAGE ACCOUNTING CLERK NPRG Protein Negative mg/dL 09/07/2023 12:25 PM MORTGAGE ACCOUNTING CLERK NPRG Comment: ----REFERENCE VALUE---- Negative Trace Glucose Negative Negative mg/dL 09/07/2023 12:25 PM MORTGAGE ACCOUNTING CLERK NPRG Ketones, QI(U) Negative Negative mg/dL 09/07/2023 12:25 PM MORTGAGE ACCOUNTING CLERK NPRG Bilirubin Negative Negative 09/07/2023 12:25 PM MORTGAGE ACCOUNTING CLERK NPRG pH 5.5 5.0 - 8.0 09/07/2023 12:25 PM MORTGAGE ACCOUNTING CLERK NPRG Specific [place] <=1.005 1.001 - 1.035 09/07/2023 12:25 PM MORTGAGE ACCOUNTING CLERK NPRG Urobilinogen 0.2 0.2 - 1.0 mg/dL 09/07/2023 12:25 PM MORTGAGE ACCOUNTING CLERK NPRG Urine (Urine, Midstream) 09/07/2023 12:09 PM MORTGAGE ACCOUNTING CLERK 09/07/2023 12:16 PM MORTGAGE ACCOUNTING CLERK Kyra Tidwell APRN.N.PAnnie, Jayden.N.P., M.S.N. LAB UR INE ORDERABLES Final Result Performing Organization Address [facility] de Phone Number [facility] [address] [place] [address], [place] [address] [place] [address] * Microscopic Manual (09/07/2023 12:09 PM MORTGAGE ACCOUNTING CLERK) Only the most recent of2 resultswithin the time period is included. White Blood Cells None Seen /hpf 09/07/2023 12:44 PM MORTGAGE ACCOUNTING CLERK [facility] Comment: ----REFERENCE VALUE---- Males: 0-3 Females: 0-10 Unknown: 0-10 Red Blood Cells Occ-2 0 - 2 /hpf 09/07/2023 12:44 PM MORTGAGE ACCOUNTING CLERK NPRG Urine 09/07/2023 12:0 9 PM MORTGAGE ACCOUNTING CLERK 09/07/2023 12:16 PM MORTGAGE ACCOUNTING CLERK Kyra Tidwell APRN.N.P., Jayden.N.P., M.S.N. LAB UR INE ORDERABLES Final Result Performing Organization Address [facility] de Phone Number [facility] [address] [place] [address], [place] [address] [place] [address] * Cologuard - Sent Out Lab (07/18/2023 8:30 AM MORTGAGE ACCOUNTING CLERK) Result Negative Negative 07/21/2023 5:12 PM MORTGAGE ACCOUNTING CLERK EXLI Comment: NEGATIVE TEST RESULT. A negative [...] (Mariah Palumbo al, N Engl J Med 2014;370(14):7778-0525) The normal value (reference range) for this assay is negative. COLOGUARD RE-SCREENING RECOMMENDATION: Periodic colorectal cancer screening is an important part of preventive healthcare for asymptomatic individuals at average risk for colorectal cancer. ??Following a negative Cologuard result, the [place] and U.S. Multi-Society Task Force screening guidelines recommend a Cologuard re-screening interval of 3 years. References: [place] Guideline for Colorectal Cancer Screening: https://www.cancer.org/cancer/nhsdx-gdcfwc-gbayfw/detection- diagnosis-staging/acs-recommendations.html.; Baljinder DK, Kam REYES, Radha PowellK, Colorectal Cancer Screening: Recommendations for Physicians and Patients from the U.S. Multi-Society Task Force on Colorectal Cancer Screening , Am J Gastroenterology 2017; 112:9865-7737. TEST DESCRIPTION: Composite algorithmic analysis of stool [...] (Mariah Palumbo al, N Engl J Med 2014;370(14):5659-7278.) Cologuard may produce a false negative or false positive result (no colorectal cancer or precancerous polyp present at colonoscopy follow up). A negative Cologuard test result does not guarantee the absence of CRC or advanced adenoma (pre-cancer). The current Cologuard screening interval is every 3 years. ([employer] and U.S. Multi-Society Task Force). Cologuard performance data in a 10,000 patient pivotal study using colonoscopy as the reference method can be accessed at the following location: www.[employer]/results. Additional description of the Cologuard test process, warnings and precautions can be found at www.cologVouchARrd.[facility] Assessment Centres. Stool (Stool) 07/18/2023 8:3 0 AM MORTGAGE ACCOUNTING CLERK 07/19/2023 1:50 PM MORTGAGE ACCOUNTING CLERK Rio Duggan M.D. LAB BODY FLUIDS AND STOOL S ORDERABLES Final Result [employer] [address] [place] [address] EX [facility] [address] [place] [address], [address] [place] [address] * PSA (Prostate-Specific Antigen), Diagnostic (06/02/2023 2:16 PM MORTGAGE ACCOUNTING CLERK) Prostate-Specific Ag 2.2 <=6.5 ng/mL 06/02/2023 7:20 PM MORTGAGE ACCOUNTING CLERK NPRG Comment: ----ADDITIONAL INFORMATION---- The testing method is an electrochemiluminescence assay manufactured by [employer] and performed on the Modular or Paddy system. Values obtained with different assay methods or kits may be different and cannot be used interchangeably. Test results cannot be interpreted as absolute evidence for the presence or absence of malignant disease. Blood (Blood, Venous) 06/02/2023 2:16 PM MORTGAGE ACCOUNTING CLERK 06/02/2023 6:43 PM MORTGAGE ACCOUNTING CLERK us Rio Duggan M.D. LAB BLOOD ADD-ON Final Re sult Performing Organization Address City/[facility]/ZIP Co de Phone Number [facility] [address] [place] [address], [facility] NPRG [place] [address] [place] [address] * Lactate (04/10/2023 8:16 PM CDT) Lactate, P 1.7 0.5 - 2.2 mmol/L 04/10/2023 8:40 PM CDT NPRG Blood (Blood, Venous) 04/10/2023 8:16 PM CDT 04/10/2023 8:19 PM CDT us Nancy De Dios M.D., M.P.H. LAB BLOOD NON ADD-O N Final Result Performing Organization Address City/[facility]/ZIP Co de Phone Number [facility] [address] [place] [phone], [facility] [address] [address] * DX Abdomen Portable Anterior Posterior 1 [...] side-portprojecting over expected position of the stomach. us Bebo Allison M.D. IMG DIAGNOSTIC IMAGING SHOAIB ROBERTS Final Result * CT Abdomen Pelvis with IV Contrast [...] CT for further evaluation. 3. Moderate prostatomegaly. us Bebo Allison M.D. IMG CT PROCEDURES Final Resu lt * (ABNORMAL) CBC with Differential, Blood (04/10/2023 [...] CDT Bebo Allison M.D. LAB BLOOD ADD-ON Final Resul t Performing Organization Address City/[facility]/ZIP Co de Phone Number [facility] [address] [place] [phone], [facility] NPRG [address] [address] * Lipase (04/10/2023 3:25 PM CDT) Only the most recent of2 resultswithin the time period is included. Lipase, P 20 13 - 60 U/L 04/10/2023 4: 01 PM CDT NPRG Blood (Blood, Venous) 04/10/2023 3:25 PM CDT 04/10/2023 3:43 PM CDT Bebo Allison M.D. LAB BLOOD ADD-ON Final Resul t Performing Organization Address City/[facility]/ZIP Co de Phone Number [facility] [address] [place] [address], [facility] NPRG [address] [address] * (ABNORMAL) Comprehensive Metabolic Panel (04/10/2023 3:25 PM CDT) Only the most recent of8 resultswithin the time period is included. Potassium, P 4.0 3.6 - 5.2 mmol/L [...] 3:25 PM CDT 04/10/2023 3:43 PM CDT us Bebo Allison M.D. LAB BLOOD ADD-ON Final Resul t [facility] [address] [place] [address], [facility] NPRG [place] [address] [place] [address] * Lipid Panel (09/10/2021 8:35 AM MORTGAGE ACCOUNTING CLERK) Only the most recent of9 resultswithin the time period is included. [facility] Signature Cholesterol, Total 117 mg/dL 2021 12:19 PM MORTGAGE ACCOUNTING CLERK NPRG Comment: ----REFERENCE VALUE---- Desirable: < 200 Borderline high: 200 - 239 High: > or = 240 Triglycerides 91 mg/dL 09/10/2021 12:19 PM MORTGAGE ACCOUNTING CLERK NPRG Comment: ----REFERENCE VALUE---- Normal: <150 Borderline high: 150-199 High: 200-499 Very high: > or =500 Cholesterol, HDL 47 >=40 mg/dL 09/10/19 12:19 PM MORTGAGE ACCOUNTING CLERK NPRG Calculated LDL 52 mg/dL 09/10/2021 12:19 PM MORTGAGE ACCOUNTING CLERK NPRG Comment: ----REFERENCE VALUE---- Desirable: <100 mg/dL Above Desirable: 100-129 mg/dL Borderline High: 130-159 mg/dL High: 160-189 mg/dL Very High: >=190 mg/dL Cholesterol, Non-HDL, Calculated 70 mg/dL 09/10/2021 12:19 PM MORTGAGE ACCOUNTING CLERK NPRG Comment: ----REFERENCE VALUE---- Desirable: <130 Above Desirable: 130-159 Borderline high: 160-189 High: 190-219 Very high: > or =220 Blood (Blood, Venous) 09/10/2021 8:35 AM MORTGAGE ACCOUNTING CLERK 09/10/2021 11:45 AM MORTGAGE ACCOUNTING CLERK us Rio Duggan M.D. LAB BLOOD ADD-ON Final Re sult [facility] [address] [place] [address], [facility] NPRG [facility] [address] [place] [address] * (ABNORMAL) CBC without Differential (09/10/2021 8:35 AM MORTGAGE ACCOUNTING CLERK) Only the most recent of3 resultswithin the time period is included. Hemoglobin 13.5 13.2 - 16.6 g/dL 09/10/2021 12:13 PM MORTGAGE ACCOUNTING CLERK NPRG Hematocrit 40.3 38.3 - 48.6 % 09/10/2021 12:13 PM MORTGAGE ACCOUNTING CLERK NPRG Erythrocytes 4.24(L) 4.35 - 5.65 x10(12)/L 09/10/2021 12:13 PM MORTGAGE ACCOUNTING CLERK NPRG MCV 95.0 78.2 - 97.9 fL 09/10/2021 12:13 PM MORTGAGE ACCOUNTING CLERK NPRG RBC Distrib Width 12.7 11.8 - 14.5 % 09/10/2021 12:13 PM MORTGAGE ACCOUNTING CLERK NPRG Platelet Count 215 135 - 317 x10(9)/L 09/10/2021 12:13 PM MORTGAGE ACCOUNTING CLERK NPRG Leukocytes 4.3 3.4 - 9.6 x10(9)/L 09/10/2021 12:13 PM MORTGAGE ACCOUNTING CLERK NPRG Blood (Blood, Venous) 09/10/2021 8:35 AM MORTGAGE ACCOUNTING CLERK 09/10/2021 11:45 AM MORTGAGE ACCOUNTING CLERK Rio Duggan M.D. LAB BLOOD ADD-ON Final Re sult [facility] [address] [place] [address], [facility] NPRG [facility] [address] [place] [address] * Fecal Occult Blood, Colorectal Cancer Screen, Qualitative, Immunochemical (10/21/2020 1:46 PM CDT) Only the most recent of2 resultswithin the time period is included. Occult Blood, Fecal Negative Negative 10/22/2020 11:39 AM CDT DTL Comment: Negative result. ??This test will not detect upper gastrointestinal bleeding; the HemoQuant test (8362)should be ordered if clinically indicated. Stool (Stool) 10/21/2020 1:4 6 PM CDT 10/22/2020 10:52 AM CDT us Rio Duggan M.D. LAB BODY FLUIDS AND STOOL S ORDERABLES Final Result [facility] [address] [place] [address], [place] DTL [facility] [address] [place] [address] * ALT (Alanine Aminotransferase) (05/19/2020 8:40 AM CDT) Only the most recent of2 resultswithin the time period is included. Alanine Aminotransferase (ALT), P 19 7 - 55 U/L 05/19/2020 12:58 PM CDT NPRG Blood (Blood, Venous) 05/19/2020 8:40 AM CDT 05/19/2020 12:09 PM CDT us Rio Duggan M.D. LAB BLOOD ADD-ON Final Re sult Performing Organization Address City/[facility] Co de Phone Number [facility] [address] [place] [address], [facility] NPRG [place] [address] [address] [place] [address] * AST (Aspartate Aminotransferase) (05/19/2020 8:40 AM CDT) Only the most recent of2 resultswithin the time period is included. Aspartate Aminotransferase (AST), P 27 8 - 48 U/L 05/19/2020 12:58 PM CDT NPRG Blood (Blood, Venous) 05/19/2020 8:40 AM CDT 05/19/2020 12:09 PM CDT us Rio Duggan M.D. LAB BLOOD ADD-ON Final Re sult Performing Organization Address City/[facility]/ZIP Co de Phone Number [facility] [address] [place] [address], [place] [address] [place] [address] * DX Hip Bilateral 2+ Views (10/18/2017 [...] Stable positioning. Archie Hernández M.D. IMG DIAGNOSTIC IMAGING PROCED URES Final Result * (ABNORMAL) Urinalysis, Routine (02/06/2017 10:05 AM CDT) HXUr Color Yellow Colorless POWERCHART Clarity Clear Clear POWERCHART Glucose Negative Negative MGDL POWERCHART HXBILIRUBIN Negative Negative POWERCHART Ketones, QL(U) Negative Negative MGDL POWERCHART Specific [place], POCT, U 1.020 POWERCHART Comment: Reference Range Specific [place]: 1.000-1.035 HXBLOOD Trace(A) Negative POWERCHART pH, POCT, Urine 6.5 <5.0 POWERCHART Comment: Reference Range pH: 5.0-8.0 Protein, Ur, Dip Negative Negative MGDL POWERCHA RT Urobilinogen 0.2 0.2 MGDL POWERCHART Comment: Reference Range Urobilinogen: 0.2-1.0 mg/dL HXNITRITE Negative Negative POWERCHART Leukocyte Esterase Negative Negative POWERCHART Urine, First Voided 02/06/2017 10:05 AM CDT us Marissa Banks APRN, C.N.P. LAB URINE ORDERABLES Final Result POWERCHART NA * (ABNORMAL) Urine Microscopic (02/06/2017 10:05 AM CDT) HXUR WBC. Occ-3 None Seen HPF POWERCHART HXUR RBC. Occ-2 None Seen HPF POWERCHART HXUR Bacteria, Present(A) None Seen POWERCHART Squamous Epithelial Occ-3(A) None Seen HPF POWERCHART Urine, First Voided 02/06/2017 10:05 AM CDT 02/06/2017 10:05 AM CDT us Marissa Banks APRN, C.N.P. LAB URINE ORDERABLES Final Result Performing Organization Address [facility] de Phone Number POWERCHART [...] 9:55 AM CDT 02/06/2017 9:55 AM CDT us Marissa Banks APRN, C.N.P. LAB BLOOD ADD-ON Francoise l Result Performing Organization Address [facility] de Phone Number POWERCHART [...] fracture, dorsal cortex, distal radial metaphysis. Lydia Balderrama(R) IMG DIAGNOSTIC IMAGING P ROCEDURES Edited Result - Final * DX Hip Left 2+ Views (11/14/2012 [...] helpful. Degenerative change in the pubic symphysis. us Chelsea Gleason R.T.(R)( CT), R.T.(R) IMG DIAGNOSTIC IMAGING PROCEDURES Edited Result - Final * DX Femur Right 2 Views (11/14/2012 [...] FINDINGS/ Procedure Note Siddhartha Orourke M.D. / ProviderJudd M.D. - 12/09/2016 EXAM: XR Femur Right [...] Mild degenerative arthritis right knee. Chelsea Gleason R.T.(R)( CT), R.T.(R) IMG DIAGNOSTIC IMAGING PROCEDURES Edited Result - Final * DX Hip Right 2+ Views (11/14/2012 [...] noted. Impression: No acute pathology. Chelsea Gleason R.T.(R)( CT), R.T.(R) IMG DIAGNOSTIC IMAGING PROCEDURES Edited Result - Final * PT (Prothrombin Time) with INR (08/23/2012 3:45 PM MORTGAGE ACCOUNTING CLERK) INR 1.1 0.8 - 1.2 POWERCHART Comment: Lot#[id number] Exp. 06/2013 Blood 08/23/2012 3:45 PM MORTGAGE ACCOUNTING CLERK Aditya Forde APRNNLinh LAB BLOOD ADD-ON Final Result MIKAEL * MR Shoulder Left without IV Contrast (08/03/2012 12:19 PM MORTGAGE ACCOUNTING CLERK) Anatomical Region Laterality Modality Upper Extremity, Shoulder Left Magnet ic Resonance 08/03/2012 12:1 9 PM MORTGAGE ACCOUNTING CLERK Addenda Addendum by Judd Gonzalez M.D. on 08/03/2012 12:19 PM MORTGAGE ACCOUNTING CLERK RAD^^^MA MR Shoulder Left w/o contrast 08/03/2012 12:19:00 MR Shoulder Left w/o contrast Addendum by Judd Gonzalez M.D. on 08/03/2012 12:19 PM MORTGAGE ACCOUNTING CLERK RAD^^^MA MR Shoulder Left w/o contrast 08/03/2012 12:19:00 MR Shoulder Left w/o contrast Addendum by Judd Gonzalez M.D. on 08/03/2012 1:12 PM MORTGAGE ACCOUNTING CLERK RAD^^^MA MR Shoulder Left w/o contrast 08/03/2012 13:12:00 Impressions 08/03/2012 1:36 PM MORTGAGE ACCOUNTING CLERK Very severe osteoarthritic changes glenohumeral joint as above Narrative 08/03/2012 1:36 PM MORTGAGE ACCOUNTING CLERK EXAM: MR Shoulder Left w/o contrast INDICATION: LEFT SHOULDER PAIN, ARTHRITIS COMPARISON: None. FINDINGS: Type I acromion. Very severe degenerative changes at the glenohumeral joint with complete loss of articular cartilage. The glenoid labrum has been avulsed and there is [id number] present at the joint space. Large articular [...] labrum has been avulsed and there is [id number] present at the joint space. Large articular marginal osteophytes. There is superior subluxation of the humeral head. The infraspinatus and supraspinatus tendons are quite atrophic but no definite full-thickness tear. Benign appearing cystic changes are present in the humeral head attributed to the arthritic process. Long head of the biceps tendon is normally positioned. IMPRESSION: Very severe osteoarthritic changes glenohumeral joint as above us Keisha Shaw R.TAnnie(R)(CT), R.TAnnie(R) IMG MRI PROCEDURES Edited Result - Final * DX Shoulder Left 2+ Views (07/04/2012 1:13 PM MORTGAGE ACCOUNTING CLERK) Anatomical Region Laterality Modality Upper Extremity, Shoulder Left Radiog raphic Imaging 07/04/2012 1:13 PM MORTGAGE ACCOUNTING CLERK Addenda Addendum by Judd Gonzalez M.D. on 07/04/2012 1:13 PM MORTGAGE ACCOUNTING CLERK RAD^^^MA XR Shoulder Left 3 view 07/04/2012 13:13:00 XR Shoulder Left 3 view Addendum by Judd Gonzalez M.D. on 07/04/2012 1:13 PM MORTGAGE ACCOUNTING CLERK RAD^^^MA XR Shoulder Left 3 view 07/04/2012 13:13:00 XR Shoulder Left 3 view Impressions 07/04/2012 2:48 PM MORTGAGE ACCOUNTING CLERK Severe degenerative changes with bony remodeling, sclerosis and large osteophyte formation involving the glenohumeral articulation. Narrative 07/04/2012 2:48 PM MORTGAGE ACCOUNTING CLERK Internal rotation, external rotation and axillary view [...] large osteophyte formation involving the glenohumeral articulation. us Apurva RuelasTAnnie(R)(CT), R.T.(R) IMG JEFFERY GNOSTIC IMAGING PROCEDURES Edited Result - Final Visit Diagnoses Diagnosis Start Date Diabetes Mellitus [...] 12/26/2023 Diabetes Mellitus Type 2 (HCC) 02/27/2024 Diabetes Mellitus Type 2 Without Complication (HCC) 05/03/2024 Diabetes Mellitus Type 2 Without Complication (HCC) 05/07/2024 Cyst Pancreas 05/22/2024 Diabetes Mellitus Type 2 Without Complication (HCC) 05/23/2024 Benign Prostatic Hyperplasia With Lower Urinary Tract Symptom 11/29/2023 Care Teams [employer] Par[employer] Manager Relationship Specialty Start Date End Date Rio Duggan [place]. [place] [phone] PCP - General 01/20/17
--- OUTSIDE RECORDS SUMMARY | 2024-05-23 10:19 | XMS_ITS | Encounter Summary ---
Author Organization [facility] Address [address] [place] [address] Care Team Providers Care Welding Process Specialist Name Role Phone Rio Duggan M.D. Primary Care Provider [phone] Encounter Details Date Type Department Care Team (Late st Contact Info) Description 05/16/2024 Clinical Communication Department of Family Medicine in [place], [place] [address] [place] [phone] Rio Duggan M.D. [address] [place] [phone] Social History Tobacco Use Types Packs/Day Years Used Date Smoking Tobacco: Never Smokeless Tobacco: Never Alcohol Use Standard Drinks/Week Comments Never 0 (1 standard drink = 0.6 oz pur e alcohol) [facility] Utilities Answer Date Recorded In the past 12 months has [employer], gas, oil, or water [employer] threatened to shut off services in your [...] your living situation today? [facility] 11/06/2023 Sex and Gender Information Value Date Recorded Sex Assigned at Male 11/06/2023 1:20 PM CDT Legal Sex Male 5:56 PM [employer] Gender Identity Male 11/06/2023 1:27 PM CDT Sexual Orientation Straight 11/06/2023 1: 27 PM CDT documented as of this encounter Miscellaneous Notes * Telephone Encounter - Gabriela Swan L.P.N. - 05/22/2024 9:11 AM CDT Medical records in care everywhere and will followup on the cyst at his next visit, repeat testing in 3-6 months, * Telephone Encounter - Gabriela Swan L.PAnnieN. - 05/17/2024 1:53 PM CDT Requesting medical records from [facility] Talked with Cyndi galarza of the nurses and would like for Dr. 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 Just had a C.T. scan and was advised to repeat in 3-6 months. documented in this encounter Plan of Treatment Not on file documented as of this encounter Visit Diagnoses Not on filedocumented in this encounter Care Teams Welding Process Specialist Relationship Specialty Start Date End Date [place] [phone] PCP - General 01/20/17 documented as of this encounter
== END 2024-05-23 10:09 | disposition home or self-care (01) ==
PROVIDERS: PCP Family Medicine; Visit Provider Family Medicine
DX: D64.9 Anemia, unspecified (principal); C79.51 Secondary malignant neoplasm of bone; R23.0 Cyanosis; Z12.5 Encounter for screening for malignant neoplasm of prostate
CPT/HCPCS: 82607; 82728; 82747; 84165; 85025; 85045; G0103

== ENCOUNTER 2024-06-10 13:00 | Outpatient (RCR) | payer MEDICARE, BC, SELFPAY ==
[2024-06-03 13:08] VITALS: BP 122/78; PULSE 72; RESP 16; TEMP 36.9; O2SAT 100
[2024-06-03] MEDS: FERRIC CARBOXYMALTOSE 750 MG in 0.9 % SODIUM CHLORIDE 250 ml 250 ML 550 MG IVPB (13:22)
[2024-06-03 13:57] VITALS: BP 115/75; PULSE 76
[2024-06-03 14:24] VITALS: BP 130/75; PULSE 66; RESP 16; TEMP 36.7; O2SAT 97
--- NOTE | 2024-06-03 14:33 | URNOTE ---
Prior authorization is not required for IN[employer]([id number]). Services are based on medical necessity and follow medicare guidelines
[2024-06-10 13:01] VITALS: BP 145/73; PULSE 71; RESP 16; TEMP 36.1; O2SAT 98
[2024-06-10] MEDS: FERRIC CARBOXYMALTOSE 750 MG in 0.9 % SODIUM CHLORIDE 250 ml 250 ML 850 MG IVPB (13:11)
[2024-06-10 13:37] VITALS: BP 118/69; PULSE 57; RESP 16; O2SAT 100
[2024-06-10 14:14] VITALS: BP 116/63; PULSE 60; RESP 18; TEMP 36.2; O2SAT 99
== END 2024-07-25 23:59 | disposition home or self-care (01) ==
LOC: CCIC 13:00
PROVIDERS: PCP Family Medicine; Visit Provider Family Medicine
DX: D50.9 Iron deficiency anemia, unspecified (principal)
CPT/HCPCS: 96365; J1439; J7050

== ENCOUNTER 2024-06-11 05:18 | Inpatient (IN) | payer MEDICARE, BC, SELFPAY ==
--- NOTE | 2024-06-11 05:28 | ED_ITS ---
HPI - General Adult General Time Seen by Provider: 05:28 Date Seen: 06/11/24 Chief complaint: Abdominal Pain Stated complaint: painful gas Time Seen by Provider: 06/11/24 05:37 Source: patient and family Mode of arrival: ambulatory Limitations: no limitations History of Present Illness HPI narrative: 74-year-old male who comes in today with abdominal pain. Patient has a prior history of ex laps, umbilical hernia and bilateral inguinal hernia repair. Patient presents today with several months of ?gas pain. ? Patient notes migratory abdominal cramping and pain, feels like it is hard to pass gas although he is still passing stools. No nausea vomiting. Decreased oral intake yesterday. No relieving or exacerbating factors. Denies chest pain or shortness moved breath. Numerous abdominal surgeries in the past. Has not taken anything for these symptoms. Related Data Home Medications ?Medication ?Instructions ?Recorded ?Confirmed pen needle, diabetic 31 gauge x #100 ea 05/22/24 06/11/2407/27 (UltiCare Pen Needle) sennosides 8.6 mg tablet (Senna 17.2 mg PO BID 05/30/24 06/11/24 Laxative) Previous Rx's ?Medication ?Instructions ?Recorded ferrous sulfate 325 mg (65 mg 325 mg PO DAILY #100 tabs 06/15/24 iron) tablet insulin glargine 100 unit/mL (3 10 unit (0.1 mL) subcut BID #15 mL 06/15/24 mL) subcutaneous pen (Lantus Solostar U-100 Insulin) insulin glargine 100 unit/mL (3 14 unit (0.14 mL) subcut BID #15 mL 06/15/24 mL) subcutaneous pen (Lantus Solostar U-100 Insulin) omeprazole 20 mg capsule,delayed 20 mg PO BID #60 caps 06/15/24 release Allergies Allergy/AdvReac Type Severity Reaction Status Date / Time No Known Drug Allergies Allergy Verified 06/11/24 15:14 [facility] Medical History (Updated 06/16/24 @ 19:51 by Nicolas Pulliam MD) Type 2 diabetes mellitus ?E11.9 - Type 2 diabetes mellitus without complications (ICD-10) Age-related nuclear cataract of both eyes ?H25.13 - Age-related nuclear cataract, bilateral (ICD-10) Anemia ?D64.9 - Anemia, unspecified (ICD-10) Abnormal finding on CT scan ?R93.89 - Abnormal findings on diagnostic imaging of other specified body structures (ICD-10) Mass of pancreas ?K86.89 - Other specified diseases of pancreas (ICD-10) Hearing loss of both ears ?H91.93 - Unspecified hearing loss, bilateral (ICD-10) Constipation ?K59.00 - Constipation, unspecified (ICD-10) Abdominal wall abscess at site of surgical wound (05/01/23) ?T81.49XA - Infection following a procedure, other surgical site, initial encounter (ICD-10) 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 - Varicose veins of other specified sites (ICD-10) Small bowel obstruction ?K56.609 - Unspecified intestinal obstruction, unspecified as to partial versus complete obstruction (ICD-10) Hyperlipidemia ?E78.5 - Hyperlipidemia, unspecified (ICD-10) BPH (benign prostatic hyperplasia) ?N40.0 - Benign prostatic hyperplasia without lower urinary tract symptoms (ICD-10) Surgical History History of prostate surgery (11/29/23) ?Z98.890 - Other specified postprocedural states (ICD-10) S/P exploratory laparotomy (04/14/23) ?Z98.890 - Other specified postprocedural states (ICD-10) History of bunionectomy (06/28/04) ?Z98.890 - Other specified postprocedural states (ICD-10) History of arthroplasty of left shoulder (2012) ?Z96.612 - Presence of left artificial shoulder joint (ICD-10) H/O umbilical hernia repair (2005) ?Z98.890 - Other specified postprocedural states (ICD-10) ?Z87.19 - Personal history of other diseases of the digestive system (ICD-10) H/O bilateral inguinal hernia repair (2005) ?Z98.890 - Other specified postprocedural states (ICD-10) ?Z87.19 - Personal history of other diseases of the digestive system (ICD-10) History of bilateral hip replacements ?Z96.643 - Presence of artificial hip joint, bilateral (ICD-10) Family History Father Diabetes Mother CHF (congestive heart failure) Stroke Brother Prostate cancer Social History (Updated 06/16/24 @ 20:01 by Nicolas Pulliam MD) Narrative: He lives with [place] in [place]. 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 He does not smoke. He does not drink alcohol. He has 10 children. Code status is DNR. is healthcare power of estate planning attorney. What is your current living situation?: I presently have a place to live Problems where you live: no known problems Problems where you live details: NA In the past 12 months, utilities in danger of being shut off: no In the past 12 mos, have been you worried that your food would run out before you had money to buy more?: never true In the past 12 mos, the food you bought just didn't last and you didn't have money to buy more?: never true Highest level of school completed/degree received: Bachelor's degree Smoking Status: Never smoker Do you use any of these nicotine containing products: None Second hand tobacco smoke exposure: No How often do you have a drink containing alcohol: never How often do you have six or more drinks on one occasion: Never AUDIT-C Alcohol total score: 0 Non-prescribed substance use: denies use Caffeine: No How often does anyone, including family, friends and others, physically hurt you : never How often does anyone, including family, friends and others, insult or talk down to you: never How often does anyone, including family, friends and others, threaten you with harm: never How often does anyone, including family, friends and others, scream or curse at you: never service: No Exam 2 Narrative: Exam Narrative: General: Well-developed and well-nourished, no acute distress Head: Atraumatic and normocephalic Eyes: Pupils are equal reactive, extraocular motions intact, conjunctiva clear ENT: External nose and ears are normal, posterior pharynx without erythema or exudate Neck: No midline cervical tenderness, full spontaneous range of motion the neck, trachea midline, no adenopathy Heart: Regular rate and rhythm no murmurs or thrills Lungs: Clear to auscultation bilaterally without wheezes or crackles Abdomen: Soft, nontender, nondistended with active bowel sounds Musculoskeletal: No tenderness, deformity, or edema Neurologic: Awake, alert, and oriented x3, no gross focal neurologic deficits, cranial nerves intact as tested Psych: Mood and affect are appropriate Skin: No rashes Const: Vital Signs, click to edit/add: Vital Signs - 24 hr 06/11/24 05:52 Temperature 98.5 F Pulse Rate [Pulse Oximeter] 105 H Respiratory Rate 20 Blood Pressure [Ri ght Upper Arm] 143/83 H Pulse Oximetry 96 Oxygen Delivery Me thod Room Air Course Course ED Course: Patient seen examined, reviewed most recent primary care visit from April 2024 which was follow-up for diabetes, hemoglobin A1c 8.9 indicating poor control. Patient seen and examined, presents with intermittent migratory abdominal pain a nd cramping which he describes as gas pains. On exam here, tachycardic but otherwise finally stable, no abdominal tenderness. Suspect possible partial obstruction, intestinal colic also possible. Labs are ordered along with IV fluids, CT scan to evaluate for intra-abdominal pathology, and Bentyl. Reevaluation(s) Time of Reevaluation #1: 06:56 Reevaluation #1: CT scan of the abdomen and pelvis demonstrates findings of small-bowel obstruction. Time of Reevaluation #2: 07:15 Reevaluation #2: Labs independently interpreted by me with anemia which is stable, normal platelets, mild hyponatremia but otherwise reassuring basic panel, normal lactate, elevated alkaline phosphatase. Review of chart shows the patient is being evaluated for malignancy, known metastatic lesions to the pelvis and spine with a pancreatic lesion that is being followed. Reviewed radiology interpretation CT scan shows numerous pulmonary nodules and osseous lesions concerning for metastatic disease, several hepatic lesions likely hepatic metastases and possible intrahepatic portal vein occlusion. Patient will be admitted for further evaluation improvement in his small-bowel obstruction. Time of Reevaluation #3: 07:44 Reevaluation #3: Care discussed with Dr. Castro, general surgery given slightly complex case. Her she feels patient could benefit from transfer to [facility] but also could be admitted here for initial care. Will I did contact [facility], they are not accepting transfers and so patient will be admitted to [facility]. Care discussed with Payton Chopra PA-C for admission Vital Signs Vital signs: Initial Vital Signs Temperature 98.5 F 06/11/24 05:52 Temperature Source Temporal Artery Scan 06/11/24 05:52 Pulse Rate 105 H 06/11/24 05:52 Pulse Strength 3+ Normal 06/11/24 05:52 Respiratory Rate 20 06/11/24 05:52 Blood Pressure 143/83 H 06/11/24 05:52 Blood Pressure Mean 103 06/11/24 05:52 Blood Pressure Position Semi-Fowlers 06/11/24 05:52 Pulse Oximetry 96 06/11/24 05:52 Oxygen Delivery Method Room Air 06/11/24 05:52 Vital Signs Temperature 98.5 F 06/11/24 05:52 Pulse Rate 105 H 06/11/24 05:52 Respiratory Rate 20 06/11/24 05:52 Blood Pressure 143/83 H 06/11/24 05:52 Pulse Oximetry 96 06/11/24 05:52 Oxygen Delivery Method Room Air 06/11/24 05:52 Temperature 98.2 F 06/15/24 08:25 Pulse Rate 81 06/15/24 08:25 Respiratory Rate 18 06/15/24 08:25 Blood Pressure 137/82 06/15/24 08:25 Pulse Oximetry 97 06/15/24 08:25 Oxygen Delivery Method Room Air 06/15/24 08:25 Medications Administered Medications: Discontinued Medications Generic Name Dose Route Start Last Admin Trade Name Gianfrancoq PRN Reason Stop Dose Admin Aspirin 325 mg 06/12/24 09:00 06/14/24 08:49 Aspirin Ec 325 Mg Tablet PO 325 mg DAILY [facility] Administration Dicyclomine HCl 10 mg 06/11/24 06:18 06/11/24 06:50 Dicyclomine Hcl 10 Mg Capsule PO 06/11/24 06:19 10 mg ONCE ONE Administration Enoxaparin Sodium 40 mg 06/11/24 21:00 06/12/24 21:17 Enoxaparin 40 Mg/0.4 Ml Inj SUBCUT 40 mg HS [facility] Administration Ferrous Sulfate 325 mg 06/13/24 10:40 06/14/24 08:14 Ferrous Sulfate 325 Mg Tablet PO Not Given BIDWM [facility] Ferrous Sulfate 325 mg 06/13/24 18:00 06/15/24 10:58 Ferrous Sulfate 325 Mg Tablet PO Not Given BIDWM [facility] Hydromorphone HCl 0.5 mg 06/11/24 08:59 06/11/24 18:49 Hydromorphone 0.5 Mg/0.5 Ml Inj IVP 0.5 mg Q1H PRN Administration Sodium Chloride 1,000 mls @ 1,000 mls/hr 06/11/24 06:30 06/11/24 08:00 0.9 % Sodium Chloride 1000 Ml IV 06/11/24 07:29 Infused .Q1H [facility]FR[facility] Infusion Sodium Chloride 1,000 mls @ 100 mls/hr 06/11/24 08:59 06/14/24 08:14 0.9 % Sodium Chloride 1000 Ml IV Infused .Q10H [facility] Infusion Sodium Chloride 1,000 mls @ 75 mls/hr 06/14/24 10:18 06/14/24 11:32 0.9 % Sodium Chloride 1000 Ml IV 75 mls/hr .[id number] [facility] Administration Insulin Aspart 0 unit 06/13/24 08:00 06/15/24 10:58 Insulin Aspart 100 Unit/Ml SUBCUT Not Given TIDWM [facility] Protocol Insulin Glargine 10 unit 06/11/24 21:00 06/15/24 10:59 Insulin Glargine,Hum.Rec.Anlog 100 Unit/Ml Insuln.Pen SUBCUT Not Given BID [facility] Omeprazole 20 mg 06/14/24 21:00 06/15/24 11:00 [address]epraz[address] PO Not Given BID [facility] Pantoprazole Sodium 40 mg 06/14/24 09:48 06/14/24 11:32 Pantoprazole Sodium 40 Mg Inj IVP 06/14/24 09:49 40 mg ONCE ONE Administration Sodium Chloride 5 ml 06/11/24 09:00 06/15/24 11:00 Sodium Chloride 0.9 % (Flush) 10 Ml Syringe IVF Not Given BID [facility] Medical Decision Making Lab Data Labs: Lab Results 06/11/24 Range/Units 06:30 WBC 6.52 (4.50-11.00) K/uL RBC 2.74 L (4.30-5.90) m/uL Hgb 8.2 L (13.5-17.5) gm/dL Hct 25.9 L (37.0-53.0) % MCV 95 (80-100) fL MCH 30 (26-34) pg MCHC 32 (32-36) gm/dL RDW Coeff of Torey 17.1 H (11.5-15.5) % Plt Count 255 (140-440) K/uL Neut % (Auto) 85.1 H (42.0-72.0) % Lymph % (Auto) 7.7 L (20-44) % Bates % (Auto) 5.7 (0.0-11.0) % Eos % (Auto) 0.2 (0.0-7.0) % Baso % (Auto) 0.5 (0.0-3.0) % Neut # (Auto) 5.50 (1.7-7.0) K/uL Lymph # (Auto) 0.50 L (0.90-2.90) K/uL Bates # (Auto) 0.40 (0.00-0.90) K/UL Eos # (Auto) 0.01 (0.00-0.50) K/uL Baso # (Auto) 0.03 (0.00-0.30) K/uL Abs Immat Gran (auto) 0.05 (0.00-0.30) K/uL Imm/Tot Granulo (auto) 0.8 % Sodium 132 L (135-149) mmol/L Potassium 4.0 (3.6-5.1) mmol/L Chloride 101 (96-114) mmol/L Carbon Dioxide 24 (20-32) mmol/L Anion Gap 7 (7-15) mEq/L BUN 19 (7-30) mg/dL Creatinine 0.7 (0.5-1.5) mg/dL Estimated Creat Clear 67.98 Estimated GFR 96 ml/min Glucose 192 H (60-115) mg/dL Lactate 0.9 (0.5-1.9) mmol/L Calcium 8.5 (8.4-10.6) mg/dL Magnesium 2.0 (1.5-2.6) mg/dL Total Bilirubin 0.3 (0.1-1.5) mg/dL Direct Bilirubin 0.1 (0.0-0.5) mg/dL AST 24 (12-35) U/L ALT 22 (4-50) U/L Alkaline Phosphatase 301 H (40-150) U/L Total Protein 6.1 (6.0-8.3) g/dL Albumin 3.6 (3.3-5.0) g/dL Lipase 32 (23-300) U/L CEA (off-site) 67.3 ng/mL CA 19-9 Antigen 51851 H (<=35) U/mL PSA Diagnostic 0.84 (0.10-4.00) ng/mL Discharge Plan Discharge Clinical Impression: Mass of pancreas, Anemia, Malignant neoplasm metastatic to lumbar spine with unknown primary site, Small bowel obstruction, Metastasis to liver of unknown origin, Lung nodule, multiple Condition: Improved Activity Level: No Restrictions Discharge Diet: Diabetic and Low Fiber
[2024-06-11 05:52] VITALS: BP 143/83; PULSE 105; RESP 20; TEMP 36.9; O2SAT 96; BMI 28.6
--- NOTE | 2024-06-11 06:16 | CRLHL7_ITS ---
For Patients: As a result of the Century Cures Act, medical imaging exams and procedure reports are released immediately into your electronic medical record. You may view this report before your referring provider. If you have questions, please contact your health care provider. Indication: Generalized abdominal pain, bloating. Technique: CT of the abdomen and pelvis was performed following the administration of 101 mL Isovue 370. Comparison: 05/18/2024. 04/24/2024. 05/01/2023. Findings: Visualized lung bases: There are several small noncalcified pulmonary nodules in the visualized lung bases, for example a 5 mm right lower lobe pulmonary nodule on series 4, image 5. Atherosclerotic coronary artery calcifications. Liver: There are scattered too small to characterize hypodensities within the right hepatic lobe, which are more conspicuous than on prior examinations. Additionally, there is a branching linear hypodensity within the left hepatic lobe anteriorly. Diffuse hepatic steatosis. Normal gallbladder. Common bile duct is normal in diameter. Pancreas: Similar hypodense lesion within the pancreatic tail measuring approximately 7.7 x 2.9 cm, better evaluated on prior MRI. Similar mild prominence of the pancreatic duct. Spleen: Unremarkable. Adrenals: Unremarkable. Kidneys: Right upper pole renal cyst measures 6.8 cm. Left lower pole renal cyst measures 5.9 cm. Additional too small to characterize hypodensities within both kidneys. No nephrolithiasis or hydronephrosis. Distal ureters obscured by orthopedic hardware. Aorta/IVC: Mild atherosclerotic aortic calcifications without aneurysmal dilation. Lymph nodes: Scattered subcentimeter retroperitoneal lymph nodes. Bowel: Increase in small-bowel dilation measuring up to 5 cm. Transition point is seen within the mid abdomen in close proximity to small bowel chain suture material. Colon is decompressed. Appendix is not definitively visualized. Small amount of free fluid within the pelvis. Several gastric collateral vessels are present. Pelvis: Obscured by beam hardening artifact from the patient`s hip prostheses. Bones/body wall: Partially visualized bilateral hip prostheses. Similar appearance of the 4.9 by 2.1 cm lytic region along the posterior superior aspect of the right acetabular component. There are several sclerotic lesions within the pelvis, some of which are unchanged compared to 05/01/2023 CT. There is a 3.4 by 1.7 cm sclerotic lesion within the right posterior ilium that is new. Additionally, a 1.1 cm sclerotic lesion within the right posterior ilium has increased in size. New sclerotic lesions within several vertebral bodies, the largest at T11. Sclerotic lesions within the sacrum are new compared to 202. Impression: 1. Increased small bowel dilation with transition point in the mid abdomen in close proximity to chain suture material concerning for small bowel obstruction. 2. Increased conspicuity of several hepatic lesions which are nonspecific but concerning for hepatic metastases. Branching hypodensity within the left hepatic lobe may represent intrahepatic portal vein occlusion. 3. Multiple pulmonary nodules and sclerotic osseous lesions concerning for metastases. 4. Similar appearance of the hypodense lesion within the pancreatic tail, better evaluated on prior MRI. 5. 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 Please note that all CT scans at this facility use dose modulation, iterative reconstruction, and/or weight-based dosing when appropriate to reduce radiation dose to as low as reasonably achievable. Dictated by Roya Hopkins MD @ 06/11/2024 7:13:19 AM (Electronically Signed)
[2024-06-11 06:37] LABS: Lactate* 0.9 mmol/L (0.5-1.9)
[2024-06-11] MEDS: DICYCLOMINE HCL 10 MG CAPSULE PO (06:50)
[2024-06-11] MEDS: 0.9 % SODIUM CHLORIDE 1000 ml 1,000 ML IV (06:51)
[2024-06-11 06:53] LABS: Basophils Absolute Auto 0.03 K/uL (0.00-0.30); Basophils Percent Auto 0.5 % (0.0-3.0); Eosinophils Absolute Auto 0.01 K/uL (0.00-0.50); Eosinophils Percent Auto 0.2 % (0.0-7.0); Hematocrit 25.9 % (37.0-53.0); Hemoglobin* 8.2 gm/dL (13.5-17.5); Immature Granulocytes Abs Auto 0.05 K/uL (0.00-0.30); Immature Granulocytes Pct Auto 0.8 %; Lymphocytes Percent Auto 7.7 % (20-44); Mean Corpuscular HGB Conc 32 gm/dL (32-36); Mean Corpuscular Hemoglobin 30 pg (26-34); Mean Corpuscular Volume 95 fL (80-100); Monocytes Percent Auto 5.7 % (0.0-11.0); Neutrophils Percent Auto 85.1 % (42.0-72.0); Platelet Count* 255 K/uL (140-440); RDW Coefficient of Variation % 17.1 % (11.5-15.5); Red Blood Count 2.74 m/uL (4.30-5.90); White Blood Count* 6.52 K/uL (4.50-11.00)
[2024-06-11 06:55] LABS: Slide Review Reflex No
--- OUTSIDE RECORDS SUMMARY | 2024-06-11 06:55 | XMS_ITS | Continuity of Care Document ---
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 Primary Care Provider [phone] Source Comments Patient records contain information from all sites at [facility]. For routine questions regarding patient records, call [phone] during business hours, M-F 8:00 AM - 5:00 PM Central Time. Record requests for emergency care only can be directed to [phone] at any time.[facility] Encounters Date Type Department Care Team Description 06/03/2024 [facility] [address] [place] [address] Nicolas Pulliam M.D. 05/28/2024 Clinical Communication Department of Family Medicine in [place], [place] [address] [place] [address] Rio Duggan M.D. Health Maintenance 05/23/2024 Clinical Communication Department of Family Medicine in [place], [place] [address] [place] [phone] Rio Duggan M.D. missed call 05/23/2024 Orders Only Department of Family Medicine in [place], [place] [address] [place] [address] Rio Duggan M.D. Diabetes Mellitus Type 2 Without Complication (HCC) (Primary Dx) 05/22/2024 Orders Only Department of Family Medicine in [place], [place] [address] [place] [address] Rio Duggan M.D. Cyst Pancreas (Primary Dx) 05/16/2024 Clinical Communication Department of Family [facility] in [place], [place] [address] [place] [address] Rio Duggan M.D. 05/14/2024 Clinical Communication Department of Family Medicine in [place], [place] [address] [place] [address] Rio Duggan M.D. Health Maintenance 05/07/2024 Orders Only Department of Family Medicine in [place], [place] [address] [place] [address] Rio Duggan M.D. Diabetes Mellitus Type 2 Without Complication (HCC) (Primary Dx) 05/03/2024 8:37 AM CDT - 05/03/2024 11:59 PM CDT Hospital Encounter Department of Laboratory Medicine in [place] [address] [place] [address] Rio Duggan M.D. Diabetes Mellitus Type 2 Without Complication (HCC) Discharge Disposition: Home or Self Care 02/27/2024 Orders Only [facility] Rio Duggan M.D. Diabetes Mellitus Type 2 (HCC) 12/26/2023 10:30 AM CDT Office Visit Department of Family Medicine in [place], [place] [address] [place] [address] Rio Duggan M.D. Diabetes Mellitus Type 2 Without Complication (HCC) (Primary Dx) 12/26/2023 10:00 AM CDT Office Visit Department of Family Medicine in [place], [place] [address] [place] [address] Rio Duggan M.D. Fonseca, Nicole A, R.N. Annual Medicare Examination Return (Primary Dx) 12/26/2023 9:30 AM CDT - 12/26/2023 11:59 PM CDT Hospital Encounter Department of Laboratory Medicine in [place] [address] [place] [address] Rio Duggan M.D. Diabetes Mellitus Type 2 (HCC) Discharge Disposition: Home or Self Care 11/30/2023 8:35 AM CDT - 11/30/2023 11:59 PM CDT Hospital Encounter Department of Laboratory Medicine in [address] [address] Rio Duggan M.D. Diabetes Mellitus Type 2 (HCC) Discharge Disposition: Home or Self Care 11/30/2023 8:00 AM CDT Nurse Only Department of Urology in [address] [phone] Raul Acevedo M.D. Mayer, Paula R, R.N. Nurse Visit (Pt is here today for fill and pull per order after HoLEP procedure with Dr. Acevedo on 11/29/23.) Discharge Disposition: Home or Self Care 11/29/2023 10:15 AM CDT Ancillary Procedure Department of General Surgery 11/29/2023 10:26 AM CDT - 11/29/2023 12:46 PM CDT Surgery Outpatient Procedure Center in [address] [phone] Raul Acevedo M.D. ENUCLEATION HOLMIUM LASER PROSTATE 70 - 150 GRAMS (100 cc) 11/29/2023 10:45 AM CDT Anesthesia Event Outpatient Procedure Center in [address] [phone] Veronica Bowman APRN, Vaishali Drummond APRN, CRNA 11/29/2023 8:53 AM CDT - 11/29/2023 3:57 PM CDT Hospital Encounter Outpatient Procedure Center in [address] [address] Raul Acevedo M.D. Benign Prostatic Hyperplasia With Lower Urinary Tract Symptom (Primary Dx) Discharge Disposition: Home or Self Care 11/14/2023 9:30 AM CDT Nurse Only Department of Urology in [address] [address] Raul Acevedo M.D. Mayer, Paula R, R.N. Nurse Visit (Pt is here today with daughter Kendra for HoLEP procedure surgery education teaching for upcoming procedure on 11/29/[address] Acevedo. ) Discharge Disposition: Home or Self Care 11/14/2023 9:14 AM CDT Hospital Encounter Department of Laboratory Medicine in [address] [address] Raul Acevedo M.D. Benign Prostatic Hyperplasia With Lower Urinary Tract Symptom Discharge Disposition: Home or Self Care 11/14/2023 9:15 AM CDT - 11/14/2023 11:59 PM CDT Hospital Encounter Department of Laboratory Medicine in [address] [address] Raul Acevedo M.D. Benign Prostatic Hyperplasia With Lower Urinary Tract Symptom Discharge Disposition: Home or Self Care 11/14/2023 9:15 AM CDT - 11/14/2023 11:59 PM CDT Hospital Encounter Department of Laboratory Medicine in [address] [address] Raul Acevedo M.D. Benign Prostatic Hyperplasia With Lower Urinary Tract Symptom Discharge Disposition: Home or Self Care 11/07/2023 Orders Only Department of Urology in [address] [address] Raul Acevedo M.D. Benign Prostatic Hyperplasia With Lower Urinary Tract Symptom (Primary Dx) 11/06/2023 Clinical Communication Department of Urology in [address] [address] Raul Acevedo M.D. 11/06/2023 1:30 PM CDT Office Visit Department of Family Medicine in [place], [place] [address] [place] [address] Kris Vargas M.D. Preoperative Exam (Primary Dx); Retention Urinary; Hematuria Gross; Hyperplasia Prostate Benign Localized Without Obstruction 10/30/2023 Clinical Communication Department of Urology in [address] [address] Raul Acevedo M.D. Upcoming appts 10/23/2023 Clinical Communication Department of Urology in [address] [address] Raul Acevedo M.D. 10/19/2023 10:00 AM CDT Procedure visit Department of Urology in [address] [address] Raul Acevedo M.D. Hematuria Gross Discharge Disposition: Home or Self Care 10/19/2023 10:30 AM CDT Office Visit Department of Urology in [address] [address] Raul Acevedo M.D. Retention Urinary (Primary Dx); Benign Prostatic Hyperplasia With Lower Urinary Tract Symptom; Hematuria Gross; Diabetes Mellitus Type 2 (HCC) 09/27/2023 2:00 PM ROVING TECHNICIAN Comprehensive Visit Department of Urology in [address] [address] Alejandro Lopez M.D. Hematuria Gross (Primary Dx); Retention Urinary; Benign Prostatic Hyperplasia With Lower Urinary Tract Symptom Discharge Disposition: Home or Self Care 09/26/2023 2:26 PM ROVING TECHNICIAN - 09/26/2023 11:59 PM ROVING TECHNICIAN Hospital Encounter Department of Laboratory Medicine in [place] [address] [place] [address] Rio Duggan M.D. Hematuria Gross Discharge Disposition: Home or Self Care 09/26/2023 Clinical Communication Department of Family Medicine in [address] [address] Rio Duggan M.D. Follow-up (Rx discrepency) 09/19/2023 3:40 PM ROVING TECHNICIAN - 09/19/2023 11:59 PM ROVING TECHNICIAN Hospital Encounter Department of Radiology in [address] [address] Rio Duggan M.D. Hematuria Gross Discharge Disposition: Home or Self Care 09/14/2023 9:30 AM ROVING TECHNICIAN Office Visit Department of Family Medicine in [address] [address] Rio Dugagn M.D. Hematuria Gross (Primary Dx); Diabetes Mellitus Type 2 (HCC) 09/07/2023 12:15 PM ROVING TECHNICIAN Office Visit Urgent Care, [facility], in [address] [address] Saba Lerma APRN, C.N.P., D.N.P., M.S.N. Hematuria (Primary Dx) Discharge Disposition: Home or Self Care 09/07/2023 Nurse Triage Department of Family [facility] in [address] [address] Ekta Moy M.S., R.N. Blood in Urine 09/01/2023 Orders Only Department of Family Medicine in [address] [address] Rio Duggan M.D. 09/01/2023 Clinical Communication Department of Family [facility] in [address] [address] Rio Duggan M.D. 09/01/2023 8:22 AM ROVING TECHNICIAN - 09/01/2023 11:59 PM ROVING TECHNICIAN Hospital Encounter Department of Laboratory Medicine in [place], [place] [address] [place] [address] Rio Duggan M.D. Diabetes Mellitus Type 2 (HCC) Discharge Disposition: Home or Self Care 08/29/2023 Orders Only [facility] Rio Duggan M.D. Diabetes Mellitus Type 2 (HCC) 07/11/2023 Orders Only [facility]F [facility] [address] [place] [address] Rio Duggan M.D. Screening Cancer Colon 06/27/2023 Orders Only [facility] [address] [place] [address] Rio Duggan M.D. Screening Cancer Colon 06/19/2023 3:30 PM ROVING TECHNICIAN Virtual Visit Department of Family Medicine in [place], [place] [address] [place] [address] Rio Duggan M.D. Kelly, Ellen S, Pharm.D., R.Ph. Diabetes Mellitus Type 2 (HCC) (Primary Dx) 06/05/2023 Refill Department of Family Medicine in [place] [address] [place] [address] Rio Duggan M.D. Med Refill 06/02/2023 1:30 PM ROVING TECHNICIAN Office Visit Department of Family Medicine in [place], [place] [address] [place] [address] Rio Duggan M.D. Frequency Urinary (Primary Dx) 05/30/2023 Refill Department of Family Medicine in [address] [address] Rio Duggan M.D. Med Refill 05/30/2023 Clinical Communication Department of Family [facility] in [place] [address] [place] [address] Rio Duggan M.D. 05/29/2023 Refill Department of Family Medicine in [place], [place] [address] [place] [address] Rio Duggan M.D. Med Refill 05/26/2023 2:00 PM CDT Virtual Visit Department of Family Medicine in [place], [place] [address] [place] [address] Rio Duggan M.D. Kelly, Ellen S, Pharm.D., R.Ph. Diabetes Mellitus Type 2 (HCC) (Primary Dx) 05/16/2023 2:00 PM CDT Virtual Visit Department of Family Medicine in [place], [place] [address] [place] [address] Rio Duggan M.D. Courtney Nielson, Pharm.D., R.Ph. Diabetes Mellitus Type 2 (HCC) (Primary Dx) 05/10/2023 Clinical Communication Department of Family Medicine in [place], [place] [address] [place] [address] Courtney Nielson, Pharm.D., R.Ph. 05/04/2023 Clinical Communication Department of Family [facility] in [place], [place] [address] [place] [address] Rio Duggan M.D. High Blood sugars 05/01/2023 Nurse Triage Department of Family [facility] in [place], [place] [address] [place] [address] Puja Malcolm R.N. Nurse Assessment 05/01/2023 Clinical Communication Department of Family [facility] in [place], [place] [address] [place] [address] Rio Duggan M.D. After Visit Question 04/28/2023 Clinical Communication Department of Family [facility] in [place], [place] [address] [place] [address] Rio Duggan M.D. Med Question 04/28/2023 2:00 PM CDT Office Visit Department of Family Medicine in [place], [place] [address] [place] [address] Rio Duggan M.D. Diabetes Mellitus Type 2 (HCC) (Primary Dx); Laparotomy Exploratory Status Post 04/25/2023 Nurse Triage Department of Family Medicine in [place], [place] [address] [place] [address] Puja Fox R.N. Blood Sugar Problem 04/24/2023 3:30 PM CDT Virtual Visit Department of Family Medicine in [place], [place] [address] [place] [address] Rio Duggan M.D. Courtney Nielson, Pharm.D., R.Ph. Diabetes Mellitus Type 2 (HCC) (Primary Dx) 04/10/2023 Intake [facility] 04/10/2023 2:42 PM CDT - 04/10/2023 9:58 PM CDT [facility] [address] [place] [address] Bebo Allison M.D. Nancy De Dios M.D., M.P.H. Hematuria (Primary Dx); Obstruction Intestinal (HCC) Discharge Disposition: Acute Care Hospital 04/10/2023 Nurse Triage Department of Family Medicine in [place], [place] [address] [place] [address] Buster Diaz R.N. Abdominal Pain 03/03/2023 10:30 AM CDT Virtual Visit Department of Family Medicine in [place], [place] [address] [place] [address] Rio Duggan M.D. Kelly, Ellen S, Pharm.D., R.Ph. Diabetes Mellitus Type 2 (HCC) (Primary Dx) 02/24/2023 8:32 AM CDT - 02/24/2023 11:59 PM CDT Hospital Encounter Department of Laboratory Medicine in [place], [place] [address] [place] [address] Rio Duggan M.D. Diabetes Mellitus Type 2 (HCC) Discharge Disposition: Home or Self Care 02/07/2023 Refill Department of Family Medicine in [place], [place] [address] [place] [address] Rio Duggan M.D. Med Refill 12/16/2022 10:30 AM CDT Virtual Visit Department of Family Medicine in [place], [place] [address] [place] [address] Rio Duggan M.D. Kelly, Ellen S, Pharm.D., R.Ph. Diabetes Mellitus Type 2 (HCC) (Primary Dx) 12/15/2022 Orders Only [facility] Rio Duggan M.D. 11/24/2022 Orders Only Department of Family Medicine in [place] [address] [place] [address] Rio Duggan M.D. Diabetes Mellitus Type 2 (HCC) (Primary Dx) 11/23/2022 Orders Only Department of Family Medicine in [place] [address] [place] [address] Rio Duggan M.D. 11/16/2022 1:00 PM CDT Virtual Visit Department of Family Medicine in [place], [place] [address] [place] [address] Rio Duggan M.D. Kelly, Ellen S, Pharm.D., R.Ph. Diabetes Mellitus Type 2 (HCC) (Primary Dx) 11/14/2022 8:37 AM CDT - 11/14/2022 11:59 PM CDT Hospital Encounter Department of Laboratory Medicine in [place], [place] [address] [place] [address] Rio Duggan M.D. Diabetes Mellitus Type 2 (HCC); Diabetes Mellitus Type 2 (HCC) Discharge Disposition: Home or Self Care 09/19/2022 1:00 PM ROVING TECHNICIAN Virtual Visit Department of Family Medicine in [place], [place] [address] [place] [address] Rio Duggan M.D. Kelly, Ellen S Pharm.D., R.Ph. Diabetes Mellitus Type 2 (HCC) (Primary Dx) 08/30/2022 Orders Only [facility] Rio Duggan M.D. Diabetes Mellitus Type 2 (HCC) 08/16/2022 11:30 AM ROVING TECHNICIAN Office Visit Department of Family Medicine in [place], [place] [address] [place] [address] Rio Duggan M.D. Diabetes Mellitus Type 2 (HCC) 08/05/2022 9:30 AM ROVING TECHNICIAN Virtual Visit Department of Family Medicine in [place] [address] [place] [address] Rio Duggan M.D. Kelly, Ellen S, PharmAnnieD., R.Ph. Diabetes Mellitus Type 2 (HCC) (Primary Dx) 08/02/2022 10:05 AM ROVING TECHNICIAN - 08/02/2022 11:59 PM ROVING TECHNICIAN Hospital Encounter Department of Laboratory Medicine in [place], [place] [address] [place] [address] Rio Duggan M.D. Diabetes Mellitus Type 2 (HCC) Discharge Disposition: Home or Self Care 07/11/2022 1:30 PM ROVING TECHNICIAN Virtual Visit Department of Family Medicine in [place], [place] [address] [place] [address] Rio Duggan M.D. Kelly, Ellen S, Pharm.D., R.Ph. Diabetes Mellitus Type 2 (HCC) 06/21/2022 1:00 PM ROVING TECHNICIAN Office Visit Department of Family Medicine in [place], [place] [address] [place] [address] [employer] M.D. Kelly, Ellen S, PharmAnnieD., R.Ph. Diabetes Mellitus Type 2 (HCC) 06/07/2022 Orders Only [facility] [address] [place] [address] Rio Duggan M.D. Screening Cancer Colon 05/24/2022 Orders Only [facility] [address] [place] [address] Rio Duggan M.D. Screening Cancer Colon 05/24/2022 2:00 PM CDT Office Visit Department of Family Medicine in [place], [place] [address] [place] [address] Rio Duggan M.D. Kelly, Ellen S, Pharm.D., R.Ph. Diabetes Mellitus Type 2 (HCC) (Primary Dx) 05/03/2022 Refill Department of Family Medicine in [address] [address] Rio Duggan M.D. Med Refill 04/12/2022 Orders Only Department of Family Medicine in [address] [address] Rio Duggan M.D. Diabetes Mellitus Type 2 (HCC) (Primary Dx) 04/08/2022 8:23 AM CDT - 04/08/2022 11:59 PM CDT Hospital Encounter Department of Laboratory Medicine in [address] [address] Rio Duggan M.D. Diabetes Mellitus Type 2 (HCC) Discharge Disposition: Home or Self Care 02/27/2022 Refill Department of Family Medicine in [address] [address] Rio Duggan M.D. Med Refill 12/14/2021 Orders Only Department of Family Medicine in [address] [address] Rio Duggan M.D. Diabetes Mellitus Type 2 (HCC) (Primary Dx) 12/14/2021 Orders Only Department of Family Medicine in [place] [address] [place] [address] Rio Duggan M.D. 12/13/2021 8:12 AM CDT - 12/13/2021 11:59 PM CDT Hospital Encounter Department of Laboratory Medicine in [place] [address] [place] [address] Rio Duggan M.D. Diabetes Mellitus Type 2 (HCC) Discharge Disposition: Home or Self Care 09/13/2021 9:00 AM ROVING TECHNICIAN Office Visit Department of Family Medicine in [address] [address] Rio Duggan M.D. Hyperlipidemia (Primary Dx); Diabetes Mellitus Type 2 (HCC) 09/10/2021 8:29 AM ROVING TECHNICIAN - 09/10/2021 11:59 PM ROVING TECHNICIAN Hospital Encounter Department of Laboratory Medicine in [address] [address] Rio Duggan M.D. Diabetes Mellitus Type 2 (HCC); Hyperlipidemia Discharge Disposition: Home or Self Care 06/08/2021 Orders Only Department of Family Medicine in [address] [address] Rio Duggan M.D. Diabetes Mellitus Type 2 (HCC) (Primary Dx); Hyperlipidemia 06/04/2021 Refill Department of Family Medicine in [address] [address] Rio Duggan M.D. Med Refill 06/04/2021 8:40 AM ROVING TECHNICIAN - 06/04/2021 11:59 PM ROVING TECHNICIAN Hospital Encounter Department of Laboratory Medicine in [address] [address] Rio Duggan M.D. Diabetes Mellitus Type 2 (HCC) Discharge Disposition: Home or Self Care 03/04/2021 Orders Only Department of Family Medicine in [address] [address] Rio Duggan M.D. Diabetes Mellitus Type 2 (HCC) (Primary Dx) 03/01/2021 Orders Only [facility] Rio Zheng M.D. Diabetes Mellitus Type 2 (HCC) 02/22/2021 8:55 AM CDT - 02/22/2021 11:59 PM CDT Hospital Encounter Department of Laboratory Medicine in [address] [address] Rio Duggan M.D. Diabetes Mellitus Type 2 (HCC) Discharge Disposition: Home or Self Care 10/21/2020 12:46 PM CDT - 10/21/2020 11:59 PM CDT Hospital Encounter Department of Laboratory Medicine in [address] [address] Rio Duggan M.D. Screening Cancer Colon Discharge Disposition: Home or Self Care 09/16/2020 Orders Only [facility] Juan Luis Sanchez Jr., M.D. 08/24/2020 9:15 AM ROVING TECHNICIAN Office Visit Department of Family Medicine in [address] [address] Rio Duggan M.D. Screening Cancer Colon (Primary Dx); Diabetes Mellitus Type 2 (HCC); Hyperlipidemia 08/21/2020 8:37 AM ROVING TECHNICIAN - 08/21/2020 11:59 PM ROVING TECHNICIAN Hospital Encounter Department of Laboratory Medicine in [address] [address] Rio Duggan M.D. Diabetes Mellitus Type 2 (HCC) Discharge Disposition: Home or Self Care 06/27/2020 Refill Department of Family Medicine in [address] [address] Emely Douglass APRN CAnnieNAnnieP. Med Refill 05/28/2020 Refill Department of Family Medicine in [address] [address] Rio Duggan M.D. Med Refill 05/21/2020 Orders Only Department of Family Medicine in [place] [address] [place] [address] Rio Duggan M.D. Diabetes Mellitus Type 2 (HCC) (Primary Dx) 05/19/2020 8:30 AM CDT - 05/19/2020 11:59 PM CDT Hospital Encounter Department of Laboratory Medicine in [address] [address] Rio Duggan M.D. Diabetes Mellitus Type 2 (HCC); Hyperlipidemia Discharge Disposition: Home or Self Care 11/18/2019 Orders Only Department of Family Medicine in [place] [address] [place] [address] Rio Duggan M.D. Hyperlipidemia (Primary Dx); Diabetes Mellitus Type 2 (HCC) 11/18/2019 9:10 AM CDT - 11/18/2019 11:59 PM CDT Hospital Encounter Department of Laboratory Medicine in [place] [address] [place] [address] Rio Duggan M.D. Diabetes Mellitus Type 2 (HCC) Discharge Disposition: Home or Self Care 09/17/2019 Clinical Communication Department of Nutrition in [place], [place] [address] [place] [address] Liliam Augustine R.N. Diabetes ( 3 month A1C follow up) 09/17/2019 10:00 AM [facility] Clinical Support Department of Nutrition in [place], [place] [address] [place] [address] Rio Duggan M.D. Schema, Julie A, R.N. Diabetes Mellitus Type 2 (HCC) (Primary Dx) 09/03/2019 12:30 PM ROVING TECHNICIAN Clinical Support Department of Nutrition in [place], [place] [address] [place] [address] Rio Duggan M.D. Schema, Julie A, R.N. Diabetes Mellitus Type 2 (HCC) 08/22/2019 Orders Only Department of Family Medicine in [address] [address] Rio Duggan M.D. Diabetes Mellitus Type 2 (HCC) (Primary Dx) 08/19/2019 8:25 AM ROVING TECHNICIAN - 08/19/2019 11:59 PM ROVING TECHNICIAN Hospital Encounter Department of Laboratory Medicine in [address] [address] Rio Duggan M.D. Screening Colon Cancer Average Risk Discharge Disposition: Home or Self Care 08/19/2019 8:24 AM ROVING TECHNICIAN Hospital Encounter Department of Laboratory Medicine in [address] [address] Rio Duggan M.D. Diabetes Mellitus Type 2 (HCC) Discharge Disposition: Home or Self Care 05/20/2019 9:30 AM CDT Office Visit Department of Family Medicine in [address] [address] Rio Duggan M.D. Diabetes Mellitus Type 2 (HCC) (Primary Dx); Hyperlipidemia; Screening Colon Cancer Average Risk; Need Vaccine Immunization 05/06/2019 8:26 AM CDT - 05/06/2019 11:59 PM CDT Hospital Encounter Department of Laboratory Medicine in [address] [address] Rio Duggan M.D. Diabetes Mellitus Type 2 (HCC) Discharge Disposition: Home or Self Care 11/30/2018 Orders Only Department of Family Medicine in [address] [address] Delma Tamar L 11/06/2018 9:00 AM CDT Office Visit Department of Family Medicine in [address] [address] Rio Duggan M.D. Screening Cancer Colon (Primary Dx); Diabetes Mellitus Type 2 (HCC) 10/31/2018 9:15 AM CDT Office Visit Department of Family Medicine in [address] [address] Rio Duggan M.D. [place], Nancy A RAlli. Annual Medicare Examination Return 10/31/2018 8:51 AM CDT - 10/31/2018 11:59 PM CDT Hospital Encounter Department of Laboratory Medicine in [address] [address] Rio Duggan M.D. Diabetes Mellitus Type 2 (HCC) Discharge Disposition: Home or Self Care 09/21/2018 Clinical Communication Department of Family Medicine in [address] [address] Christine Simms M.S.N., R.N., [facility]- RN Medicare Visit 08/21/2018 Clinical Communication Department of Family Medicine in [address] [address] Rio Duggan M.D. 08/09/2018 Clinical Communication Department of Family Medicine in [address] [address] Rio Duggan M.D. Communication (change of pharmacy) 05/28/2018 Refill Department of Family Medicine in [address] [address] Rio Duggan M.D. Med Refill (Januvia and Simastatin) 05/02/2018 2:45 PM CDT Office Visit Department of Family Medicine in [address] [address] Rio Duggan M.D. Hyperlipidemia (Primary Dx); Diabetes Mellitus Type 2 (HCC) 04/26/2018 8:58 AM CDT - 04/26/2018 11:59 PM CDT Hospital Encounter Department of Laboratory Medicine in [place], [place] [address] [place] [address] Rio Duggan M.D. Diabetes Mellitus Type 2 Without Complication (HCC) Discharge Disposition: Home or Self Care 04/26/2018 8:58 AM CDT - 04/26/2018 11:59 PM CDT Hospital Encounter Department of Laboratory Medicine in [address] [address] Rio Duggan M.D. Diabetes Mellitus Type 2 Without Complication (HCC) Discharge Disposition: Home or Self Care 02/14/2018 Refill Department of Family Medicine in [place] [address] [place] [address] Rio Duggan M.D. Med Refill 01/31/2018 Clinical Communication Department of Family Medicine in [address] [address] Teagan Carroll REsteban 01/31/2018 Clinical Communication Department of Family Medicine in [place] [address] [place] [address] Rio Santos Med Refill 11/30/2017 Orders Only Department of Family Medicine in [place], [place] [address] [place] [phone] Tamar Nguyễn 10/18/2017 1:12 PM CDT - 10/18/2017 11:59 PM CDT Hospital Encounter Department of Radiology, [facility], in [place], [place] [address] [place] [address] Archie Hernández M.D. Aftercare Total Hip Arthroplasty Discharge Disposition: Home or Self Care 10/18/2017 1:15 PM CDT Comprehensive Visit Department of Orthopedic Surgery in [place], [place] [address] [place] [address] Archie Hernández M.D. Aftercare Total Hip Arthroplasty (Primary Dx) 10/17/2017 11:30 AM CDT Office Visit Department of Family Medicine in [place], [place] [address] [place] [address] Rio Duggan M.D. Need Vaccine Immunization (Primary Dx); Diabetes Mellitus Type 2 Without Complication (HCC) 09/25/2017 Refill Department of Family Medicine in [place], [place] [address] [place] [address] Rio Duggan M.D. Med Refill 06/05/2017 Refill Department of Family Medicine in [place], [place] [address] [place] [address] Gabriela Swan L.P.N. Med Refill 06/01/2017 Refill Department of Family Medicine in [place], [place] [address] [place] [address] Katherine Isaacs, L.P.N. Med Refill 05/29/2017 Abstract Department of Family Medicine in [place], [place] [address] [place] [address] Provider, Historical 05/05/2017 Orders Only Department of Family Medicine in [place], [place] [address] [place] [address] Rio Duggan M.D. Diabetes Mellitus Type 2 Without Complication (HCC) 04/18/2017 4:34 AM CDT - 04/18/2017 11:59 PM CDT Hospital Encounter HX Rio Valdivia M.D. 04/18/2017 8:47 AM CDT - 04/18/2017 11:59 PM CDT Hospital Encounter HX [facility] Rio Kim M.D. 02/06/2017 4:56 AM CDT - 02/06/2017 11:59 PM CDT Hospital Encounter HX NO COLLIN BensonMarissa monson APRN, C.N.P. 02/06/2017 9:19 AM CDT - 02/06/2017 11:59 PM CDT Hospital Encounter [facility]X [facility] BensonMarissa monson APRN, C.N.P. 01/27/2017 1:15 PM CDT - 01/27/2017 11:59 PM CDT Hospital Encounter [facility]X [facility] HERNÁNDEZ Layton Santiago D.O. 01/11/2017 9:01 AM CDT - 01/11/2017 11:59 PM CDT Hospital Encounter HX [facility] BRIAN PERDOMORio Mckenna M.D. 2017 9:25 AM CDT - 2017 11:59 PM CDT Hospital Encounter HX [facility] BRIAN CALHOUN Rio Duggan M.D. 07/15/2016 8:56 AM ROVING TECHNICIAN - 07/15/2016 11:59 PM ROVING TECHNICIAN Hospital Encounter HX [facility] BRIAN CALHOUN Rio Duggan M.D. 04/11/2016 10:21 AM CDT - 04/11/2016 11:59 PM CDT Hospital Encounter HX [facility] BRIAN Rio Reyes M.D. 04/11/2016 6:17 AM CDT - 04/11/2016 11:59 PM CDT Hospital Encounter HX [facility] Rio Duggan M.D. 10/02/2015 8:28 AM ROVING TECHNICIAN - 10/02/2015 11:59 PM ROVING TECHNICIAN Hospital Encounter HX [facility] BRIAN Rio Hayward M.D. 06/29/2015 9:25 AM ROVING TECHNICIAN - 06/29/2015 11:59 PM ROVING TECHNICIAN Hospital Encounter HX [facility] BRIAN Rio Reyes M.D. 06/22/2015 8:33 AM ROVING TECHNICIAN - 06/22/2015 11:59 PM ROVING TECHNICIAN Hospital Encounter HX [facility] BRIAN Rio Hayward M.D. 12/16/2014 1:47 PM CDT - 12/16/2014 11:59 PM CDT Hospital Encounter HX [facility] BRIAN Rio Reyes M.D. 12/08/2014 8:54 AM CDT - 12/08/2014 11:59 PM CDT Hospital Encounter HX [facility] Rio Duggan M.D. 12/08/2014 12:04 AM CDT - 12/08/2014 11:59 PM CDT Hospital Encounter HX NO MAPPING Rio Duggan M.D. 08/15/2014 8:15 AM ROVING TECHNICIAN - 08/15/2014 11:59 PM ROVING TECHNICIAN Hospital Encounter [facility]X [facility] Rio Duggan M.D. 04/17/2014 8:23 AM CDT - 04/17/2014 11:59 PM CDT Hospital Encounter [facility]X [facility] Rio Duggan M.D. 01/10/2014 1:11 PM CDT - 01/10/2014 11:59 PM CDT Hospital Encounter [facility]X [facility] DEBRAIVELISSERio Mckenna M.D. 01/10/2014 8:22 AM CDT - 01/10/2014 11:59 PM CDT Hospital Encounter HX [facility] BRIAN Rio Hayward M.D. 06/17/2013 1:13 PM ROVING TECHNICIAN - 06/17/2013 11:59 PM ROVING TECHNICIAN Hospital Encounter HX [facility] DEBRAIVELISSERio Mckenna M.D. 06/05/2013 9:23 AM ROVING TECHNICIAN - 06/05/2013 11:59 PM ROVING TECHNICIAN Hospital Encounter HX [facility] BRIAN Rio Hayward M.D. 03/08/2013 7:04 AM CDT - 03/08/2013 11:59 PM CDT Hospital Encounter HX [facility] GOSI[facility] Martell M.D. 02/18/2013 7:57 AM CDT - 02/18/2013 11:59 PM CDT Hospital Encounter [facility]X [facility] GOSI[facility] Martell M.D. 01/30/2013 1:38 PM CDT - 01/30/2013 11:59 PM CDT Hospital Encounter [facility]X [facility] Rio Reyes M.D. 01/10/2013 8:55 AM CDT - 01/10/2013 11:59 PM CDT Hospital Encounter HX [facility] BRIAN UNIQUE Rio Duggan M.D. 09/03/2012 2:15 PM ROVING TECHNICIAN - 11/16/2012 5:00 PM CDT Hospital Encounter HX [facility] MAQN PT Vijay Underwood M.D. 11/14/2012 12:14 PM CDT - 11/14/2012 11:59 PM CDT Hospital Encounter HX NO Archie Banuelos M.D. 08/23/2012 3:04 PM ROVING TECHNICIAN - 08/23/2012 11:59 PM ROVING TECHNICIAN Hospital Encounter HX [facility] Emely Daniels APRN, C.N.P. 08/03/2012 12:37 AM ROVING TECHNICIAN - 08/03/2012 11:59 PM ROVING TECHNICIAN Hospital Encounter HX NO Vijay Moreau M.D. 07/04/2012 1:03 AM ROVING TECHNICIAN - 07/04/2012 11:59 PM ROVING TECHNICIAN Hospital Encounter HX NO Archie Baunelos M.D. Allergies Active Allergy Reactions Criticality Noted Date Comments Yxxbhet-Psd-Vhw Reductase Inhibitors Hepatic Failure High 12/26/2023 Medications [...] SBO with small bowel resection - 04/15. [facility]. Opacity Vitreous Right 03/31/2021 [...] Mother Social History Smoking Status as of 06/11/2024 Tobacco Use Types Packs/Day Years Used Date Smoking Tobacco: Never Assessed [facility] Utilities Answer [...] PM CDT Legal Sex Male 5:56 PM ROVING TECHNICIAN Gender Identity Male 11/06/2023 1:27 PM CDT Sexual Orientation Straight 11/06/2023 1 :27 PM CDT Last Filed Vital Signs Vital Sign Reading Time Taken Comments Blood Pressure 110/64 12/26/2023 10:00 AM CDT Pulse 60 12/26/2023 10:00 AM CDT Temperature 36.4 C (97.5 F) 11/29/2023 2:14 PM CDT Respiratory Rate 18 11/29/2023 3:00 PM CDT Oxygen Saturation 96% 12/26/2023 10:00 AM CDT Inhaled Oxygen Concentration - - Weight 94.8 kg (209 lb) 12/26/2023 10:00 AM CDT Height 181 cm (5' 11.26) 12/26/2023 10:00 AM CD T Body Mass Index 28.94 12/26/2023 10:00 AM CDT Plan of Treatment Upcoming Encounters Date Type Department Care Team (Late st Contact Info) Description 06/13/2024 5:30 PM ROVING TECHNICIAN Appointment Department of Radiology, [facility], in [place], [place] [address] [place] [address] Nicolas Pulliam M.D. [address] [place] [address] Procedures Procedure Name Priority Date/Time Associated Diagnosis [...] Prostatic Hyperplasia With Lower Urinary Tract Symptom CO CYSTOURETHROSCOPY Routine 10/19/2023 10:00 AM CDT Hematuria Gross URINALYSIS WITH MICROSCOPIC Routine 09/26/2023 2:46 PM ROVING TECHNICIAN Hematuria Gross CT UROGRAM WITHOUT AND WITH IV CONTRAST RAD - Routine (most inpatients and all outpatients) 09/19/2023 4:20 PM ROVING TECHNICIAN Hematuria Gross CREATININE WITH EGFR, S/P Routine 09/14/2023 10:11 AM ROVING TECHNICIAN Hematuria Gross HC URINALYSIS AUTO W MICRO STAT 09/07/2023 12:09 PM ROVING TECHNICIAN URINALYSIS WITH MICROSCOPIC IF INDICATED, U STAT 09/07/2023 12:09 PM ROVING TECHNICIAN Hematuria BACTERIAL CULTURE, AEROBIC + SUSC, URINE STAT 09/07/2023 12:09 PM ROVING TECHNICIAN Hematuria HEMOGLOBIN A1C, B Routine 09/01/2023 8:40 AM ROVING TECHNICIAN Diabetes Mellitus Type 2 (HCC) COLOGUARD Routine 07/18/2023 8:30 AM ROVING TECHNICIAN Screening Cancer Colon PROSTATE-SPECIFIC AG (PSA) DIAGNOSTIC, S Routine 06/02/2023 2:16 PM ROVING TECHNICIAN Frequency Urinary GLUCOSE POCT, B Routine 04/10/2023 [...] HEMOGLOBIN A1C, B Routine 08/02/2022 10:14 AM ROVING TECHNICIAN Diabetes Mellitus Type 2 (HCC) HEMOGLOBIN A1C, B Routine 04/08/2022 8:31 AM CDT Diabetes Mellitus Type 2 (HCC) HEMOGLOBIN A1C, B Routine 12/13/2021 8:16 AM CDT Diabetes Mellitus Type 2 (HCC) HEMOGLOBIN A1C, B Routine 09/10/2021 8:35 AM ROVING TECHNICIAN Diabetes Mellitus Type 2 (HCC) LIPID PANEL, S Routine 09/10/2021 8:35 AM ROVING TECHNICIAN Hyperlipidemia COMPREHENSIVE METABOLIC PANEL, S/P Routine 09/10/2021 8:35 AM ROVING TECHNICIAN Diabetes Mellitus Type 2 (HCC) Hyperlipidemia CBC WITHOUT DIFFERENTIAL, B Routine 09/10/2021 8:35 AM ROVING TECHNICIAN Diabetes Mellitus Type 2 (HCC) ALBUMIN, RANDOM, U Routine 09/10/2021 8:34 AM ROVING TECHNICIAN Diabetes Mellitus Type 2 (HCC) HEMOGLOBIN A1C, B Routine 06/04/2021 8:43 AM ROVING TECHNICIAN Diabetes Mellitus Type 2 (HCC) HEMOGLOBIN A1C, B Routine 02/22/2021 8:59 AM CDT Diabetes Mellitus Type 2 (HCC) OCCULT BLOOD, QL, IMMUNOCHEMICAL, F Routine 10/21/2020 1:46 PM CDT Screening Cancer Colon HEMOGLOBIN A1C, B Routine 08/21/2020 8:42 AM ROVING TECHNICIAN Diabetes Mellitus Type 2 (HCC) ALBUMIN, RANDOM, [...] QL, IMMUNOCHEMICAL, F Routine 08/19/2019 8:35 AM ROVING TECHNICIAN Screening Colon Cancer Average Risk HEMOGLOBIN A1C, B Routine 08/19/2019 8:27 AM ROVING TECHNICIAN Diabetes Mellitus Type 2 (HCC) ALBUMIN, RANDOM, [...] HEMOGLOBIN A1C, B Routine 07/15/2016 8:55 AM ROVING TECHNICIAN LIPID PANEL, S Routine 04/11/2016 11:10 AM CDT HEMOGLOBIN A1C, B Routine 04/11/2016 11:10 AM CDT COMPREHENSIVE METABOLIC PANEL, S/P Routine 04/11/2016 11:10 AM CDT ALBUMIN, RANDOM, U Routine 04/11/2016 11:00 AM CDT HEMOGLOBIN A1C, B Routine 10/02/2015 8:30 AM ROVING TECHNICIAN HEMOGLOBIN A1C, B Routine 06/22/2015 8:40 AM ROVING TECHNICIAN ALBUMIN, RANDOM, U Routine 12/08/2014 9:00 AM CDT COMPREHENSIVE METABOLIC PANEL, S/P Routine 12/08/2014 8:55 AM CDT LIPID PANEL, S Routine 12/08/2014 8:55 AM CDT HEMOGLOBIN A1C, B Routine 12/08/2014 8:55 AM CDT HEMOGLOBIN A1C, B Routine 08/15/2014 8:20 AM ROVING TECHNICIAN HEMOGLOBIN A1C, B Routine 04/17/2014 8:25 AM CDT ALBUMIN, RANDOM, U Routine 01/10/2014 8:30 AM CDT HEMOGLOBIN A1C, B Routine 01/10/2014 8:25 AM CDT LIPID PANEL, S Routine 01/10/2014 8:25 AM CDT COMPREHENSIVE METABOLIC PANEL, S/P Routine 01/10/2014 8:25 AM CDT HEMOGLOBIN A1C, B Routine 06/05/2013 9:25 AM ROVING TECHNICIAN HEMOGLOBIN A1C, B Routine 01/10/2013 9:05 AM [...] PM CDT ECG Routine 08/23/2012 3:56 PM ROVING TECHNICIAN AUTOMATED DIFFERENTIAL, B Routine 08/23/2012 3:45 PM ROVING TECHNICIAN CBC WITH DIFFERENTIAL, B Routine 08/23/2012 3:45 PM ROVING TECHNICIAN PROTHROMBIN TIME (PT), P Routine 08/23/2012 3:45 PM ROVING TECHNICIAN HEMOGLOBIN A1C, B Routine 08/23/2012 3:45 PM ROVING TECHNICIAN BASIC METABOLIC PANEL, S/P Routine 08/23/2012 3:45 PM ROVING TECHNICIAN MR SHOULDER LEFT WITHOUT IV CONTRAST Routine 08/03/2012 12:19 PM ROVING TECHNICIAN DX SHOULDER LEFT 2+ VIEWS Routine 07/04/2012 1:13 PM ROVING TECHNICIAN Results * (ABNORMAL) Hemoglobin A1c (05/03/2024 8:43 AM CDT) Only the most recent of32 resultswithin the time period is included. Hemoglobin A1c, B 8.9(H) 4.2 - 5.6 % 05/03/2024 12:22 PM CDT NPRG Comment: Hemoglobin A1c values greater than or equal to 6.5 percent are diagnostic for diabetes mellitus. Diagnosis should be confirmed by repeat testing. In diabetic patients, HbA1c goals should be discussed with healthcare provider. Blood (Blood, Venous) 05/03/2024 8:43 AM CDT 05/03/2024 11:35 AM CDT Rio Duggan M.D. LAB BLOOD ADD-ON Final Re sult Performing Organization Address [facility] Co de Phone Number [facility] [address] [place] [id number], [facility] NPRG [address] [address] * (ABNORMAL) Albumin, Random, Urine (12/26/2023 10:06 AM CDT) Only the most recent of10 resultswithin the time period is included. Microalbumin 41.0 mg/L 12/26/2023 4:23 PM CDT NPRG Creatinine 72 mg/dL 12/26/2023 4:23 PM CDT NPRG Albumin/Creatinin e Ratio 57(H) <17 mg/g 12/26/2023 4:23 PM CDT NPRG Urine (Urine, Midstream) 12/26/2023 10:06 AM CDT 12/26/2023 3:40 PM CDT Rio Duggan M.D. LAB URINE ORDERABLES Francoise l Result Performing Organization Address [facility] Co de Phone Number [facility] [address] [place] [address], [facility] NPRG [address] [place] [address] * Glucose, POCT (11/29/2023 1:49 PM CDT) Only the most recent of4 resultswithin the time period is included. Glucose, POCT, B 99 70 - 140 mg/dL 11/29/2023 1:49 PM CDT NPRG Blood 11/29/2023 1:49 PM CDT 11/29/2023 2:01 PM CDT us Generic Rals LAB POCT ORDERABLES-MANUAL Final Result [facility] [address] [place] [address], [facility] NPRG [address] [address] * Surgical Pathology (11/29/2023 11:08 AM CDT) [...] LAB SURG PATH ORDERABLES Fi nal Result [facility] [address] [place] [address], [facility] MKTO [address] [facility] [address] [place] [address] * LDA ANE NON-SURGICAL AIRWAY (11/29/2023 10:54 AM CDT) Narrative Veronica Bowman APRN, CRNA - 11/29/2023 10:54 AM CDT Veronica Bowman APRN, CRNA 11/29/2023 11:04 AM Airway Date/Time: 11/29/2023 10:54 AM Performed by: Veronica Bowman APRN, CRNA Authorized by: Veronica Bowman APRN, CRNA Patient location during procedure: OR / Procedure Area PROCEDURE DETAILS: Mask difficulty assessment: easy mask Final airway type: supraglottic airway Device size: 5 Number of attempt to successful placement: 2 Supraglottic device: igel Supraglottic device size: 5 Airway confirmation: bilateral breath sounds, positive ETCO2 and bilateral chest rise Other previous techniques attempted: none PRE PROCEDURE DETAILS: Pre evaluation for airway management: procedure Urgency: elective Preop assessment of probable difficulty: no difficulty anticipated Preoxygenation: bag valve mask SEDATION / ANESTHESIA Anesthesia method: anesthesia POST PROCEDURE DETAILS: Procedure outcome: successful Notable Events: no complications Veronica Bowman APRN, CRNA ANESTHESIA ORDERABLES Fi [...] NON RAD IMAGING PROCE DURES Final Result IIMS NA * Bacterial Culture, Aerobic + Susceptibility, Urine (11/14/2023 10:58 AM CDT) Only the most recent of2 resultswithin the time period is included. Urine Culture No growth after 1 day of incubation. 11/15/2023 12:24 PM CDT MK Urine (Urine, Midstream) 11/14/2023 10:58 AM CDT 11/14/2023 3:12 PM CDT Comment:Specimen Source Site : Urine us Raul Acevedo M.D. LAB MICROBIOLOGY - GENERAL ORDERABLES Final Result [facility] [address] [place] [address], [facility] MKTO [facility] [place] [address] [place] [address] * Urinalysis, with Microscopic: Urine, Midstream (11/14/2023 [...] 8.0 11/14/2023 11:03 AM CDT NPRG Specific [place] 1.015 1.001 - 1.035 11/14/2023 11:03 AM [...] Acevedo M.D. LAB URINE ORDERABLES Final Result [facility] [address] [place] [address], [facility] NPRG [facility] [address] [place] [address] * (ABNORMAL) Basic Metabolic Panel (11/14/2023 9:34 [...] CDT Raul Acevedo M.D. LAB BLOOD ADD-ON Final Resu lt Performing Organization Address City/[facility]/ZIP Co de Phone Number [facility] [address] [place] [address], [place] NPRG [facility] [address] [place] [address] * ECG 12 Lead (11/14/2023 9:14 AM CDT) Only the most recent of2 resultswithin the time period is included. Ventricular Rate ECG/Min 54 BPM MUSE CO Interval 182 ms MUSE QRSD Interval 104 ms MUSE QT Interval 448 ms MUSE QTC Interval 424 ms MUSE P [place] 27 degrees MUSE R [place] 21 degrees MUSE T Wave [place] 41 degrees MUSE 11/14/2023 9:14 AM CDT [...] Acevedo M.D. ECG ORDERABLES Final Resul t Performing Organization Address City/[facility]/ZIP Co de Phone Number MUSE NA * CO CYSTOURETHROSCOPY (10/19/2023 10:00 AM CDT) Narrative Raul Acevedo M.D. - 10/19/2023 10:00 AM CDT Raul Acevedo M.D. 10/19/2023 10:22 AM URO Cystoscopy (general) Performed by: Raul Acevedo M.D. Authorized by: Rio Duggan M.D. IMPRESSION negative cystoscopy Additional procedures performed: cystoscopy PROCEDURE DETAILS: Anterior urethra: Normal: yes Posterior urethra: Normal: yes Prostate: Characteristics: High riding and hyperplasia - bilobar Sphincter: Characteristics: Coapting Ureters: Characteristics: Effluxing clear urine Effluxing clear urine - side: Bilateral Bladder: Normal: yes Capacity: Moderate Quality of urine: Clear Residual upon entry: Small Retroflex view: Normal: yes Blue light imaging agent used: no A flexible cystoscope was inserted through the urethra into the bladder. Cystoscope was removed at the end of procedure. Mr. Alcantara is a 73 y.o. male I recently saw in the clinic for gross hematuria. Please see my consult note for full details. Review of system: - independently reviewed the CT urogram recently obtained. No renal masses, kidney stones, ureteral filling defects. Prostate measures roughly 100-110 cc. Cystoscopy: Appropriate patient identification, patient was prepped draped usual fashion. Placed in supine position. Flexible cystoscopy is performed through viscous jelly. Anterior urethra was grossly normal. Sphincter coapted appropriately. Posterior urethra with evidence of anatomic bladder outlet obstruction bilobar hypertrophy, high-riding bladder neck. Upon into the bladder nix cystoscopy was performed. Urine within the bladder was clear. There was a significant amount of residual urine retained within the urine at the time of cystoscopy. Ureteral orifices were identified in orthotopic position. The bladder was without suspicious bladder tumor, bladder lesion, or bladder calculi. Scope was retroflexed and bladder neck appeared normal. Scope was then unflexed and ultimately removed. Multiple pictures were taken. Patient tolerated the procedure well. Plan: 1. Please see additional consultation note for full details. Negative hematuria evaluation. CONSENT Consent obtained: verbal Consent [...] a procedural pause. PRE-PROCEDURE DETAILS Procedure purpose: Diagnostic Indications: Hematuria Appropriate hand hygiene, gown, cap, mask, protective eyewear, sterile gloves, skin preparation, sterile drape, and strict aseptic technique were utilized as applicable for the procedure.: yes Site preparation: Povidone-iodine SEDATION / ANESTHESIA Anesthesia method: none POST-PROCEDURE DETAILS Procedure completed successfully: yes Complications: no apparent complications Comments The ordering provider is responsible for reviewing results of the procedure and communicating the findings to the patient. Patient was educated on post procedure instructions. us Rio Duggan M.D. UROLOGY ORDERABLES Edited Result - Final * CT Urogram without and with IV Contrast (09/19/2023 4:20 PM ROVING TECHNICIAN) Anatomical Region Laterality Modality Abdomen, Pelvis, Abdominal R ST LOS, Abdominal ARZ LOS, Abdominal FLA LOS N/A Computed Tomography 09/19/2023 4:25 PM ROVING TECHNICIAN Impressions 09/19/2023 5:00 PM ROVING TECHNICIAN 1. No renal calculus or obstructive uropathy. [...] the colonic distribution. Narrative 09/19/2023 5:00 PM ROVING TECHNICIAN EXAM: CT UROGRAM WITHOUT AND WITH IV [...] Multilevel disc space narrowing with partially fused [id number]. Multilevel endplate marginal spurring with facet arthropathy.Multilevel [...] throughout the colonicdistribution. us Rio Duggan M.D. IMG CT PROCEDURES Final R esult * Creatinine with Estimated GFR (09/14/2023 10:11 AM ROVING TECHNICIAN) Creatinine 0.80 0.74 - 1.35 mg/dL 09/14/2023 4:09 PM ROVING TECHNICIAN NPRG Estimated GFR (eGFR) >90 >=60 mL/min/BSA 09/14/2023 4:09 PM ROVING TECHNICIAN NPRG Comment: Estimated GFR calculated using the 2020 CKD_EPI creatinine equation. Blood (Blood, Venous) 09/14/2023 10:11 AM ROVING TECHNICIAN 09/14/2023 3:30 PM ROVING TECHNICIAN Rio Duggan M.D. LAB BLOOD ADD-ON Final Re sult [facility] [address] [place] [address], [facility] NPRG [facility] [address] [place] [address] * (ABNORMAL) Urinalysis with Microscopic if Indicated (09/07/2023 12:09 PM ROVING TECHNICIAN) Only the most recent of2 resultswithin the time period is included. Source Urine, Urine, Midstream 09/07/2023 12:16 PM ROVING TECHNICIAN NPRG Clarity Clear Clear 09/07/2023 12:25 PM ROVING TECHNICIAN NPRG Color Yellow 09/07/2023 12:25 PM ROVING TECHNICIAN NPRG Comment: ----REFERENCE VALUE---- Colorless Yellow Gayle Blood Moderate(A) Negative 09/07/2023 12:25 PM ROVING TECHNICIAN NPRG Nitrite Negative Negative 09/07/2023 12:25 PM ROVING TECHNICIAN NPRG Leukocyte Esterase Negative Negative 09/07/2023 12:25 PM ROVING TECHNICIAN NPRG Protein Negative mg/dL 09/07/2023 12:25 PM ROVING TECHNICIAN NPRG Comment: ----REFERENCE VALUE---- Negative Trace Glucose Negative Negative mg/dL 09/07/2023 12:25 PM ROVING TECHNICIAN NPRG Ketones, QI(U) Negative Negative mg/dL 09/07/2023 12:25 PM ROVING TECHNICIAN NPRG Bilirubin Negative Negative 09/07/2023 12:25 PM ROVING TECHNICIAN NPRG pH 5.5 5.0 - 8.0 09/07/2023 12:25 PM ROVING TECHNICIAN NPRG Specific [place] <=1.005 1.001 - 1.035 09/07/2023 12:25 PM ROVING TECHNICIAN NPRG Urobilinogen 0.2 0.2 - 1.0 mg/dL 09/07/2023 12:25 PM ROVING TECHNICIAN NPRG Urine (Urine, Midstream) 09/07/2023 12:09 PM ROVING TECHNICIAN 09/07/2023 12:16 PM ROVING TECHNICIAN Kyra Tidwell APRN.N.P., Jayden.N.P., M.S.N. LAB UR INE ORDERABLES Final Result Performing Organization Address City/[facility] Co de Phone Number [facility] [address] [place] [address], [facility] NPRG [place] [address] [place] [address] * Microscopic Manual (09/07/2023 12:09 PM ROVING TECHNICIAN) Only the most recent of2 resultswithin the time period is included. White Blood Cells None Seen /hpf 09/07/2023 12:44 PM ROVING TECHNICIAN NPRG Comment: ----REFERENCE VALUE---- Males: 0-3 Females: 0-10 Unknown: 0-10 Red Blood Cells Occ-2 0 - 2 /hpf 09/07/2023 12:44 PM ROVING TECHNICIAN NPRG Urine 09/07/2023 12:0 9 PM ROVING TECHNICIAN 09/07/2023 12:16 PM ROVING TECHNICIAN Kyra Tidwell APRN.N.P., Jayden.N.P., M.S.N. LAB UR INE ORDERABLES Final Result [facility] [address] [place] [address], [facility] NPRG [facility] [address] [place] [address] * Cologuard - Sent Out Lab (07/18/2023 8:30 AM ROVING TECHNICIAN) [facility] Signature Result Negative Negative 07/21/2023 5:12 PM ROVING TECHNICIAN EXLI Comment: NEGATIVE TEST RESULT. A negative Cologuard result indicates a low likelihood that a colorectal cancer (CRC) or advanced adenoma (adenomatous polyps with more advanced pre-malignant features) is present. The chance that a person with a negative Cologuard test has a colorectal cancer is less than 1 in 1500 (negative predictive value >99.9%) or has an advanced adenoma is less than 5.3% (negative predictive value 94.7%). These data are based on a prospective cross-sectional study of 10,000 individuals at average risk for colorectal cancer who were screened with both Cologuard and colonoscopy. (Mariah Palumbo al, N Engl J Med 2014;370(14):4956-5956) The normal value (reference range) for this assay is negative. COLOGUARD RE-SCREENING RECOMMENDATION: Periodic colorectal cancer screening is an important part of preventive healthcare for asymptomatic individuals at average risk for colorectal cancer. Following a negative Cologuard result, the [place] [employer] and U.S. Multi-Society Task Force screening guidelines recommend a Cologuard re-screening interval of 3 years. References: [place] [employer] Guideline for Colorectal Cancer Screening: https://www.cancer.org/cancer/sbhcg-nrzrqo-snwhik/detection- diagnosis-staging/acs-recommendations.html.; Baljinder KNOWLES, Kam CR, Radha PowellK, Colorectal Cancer Screening: Recommendations for Physicians and Patients from the U.S. Multi-Society Task Force on Colorectal Cancer Screening , Am J Gastroenterology 2017; 112:3555-8944. TEST DESCRIPTION: Composite algorithmic analysis of stool DNA-biomarkers with hemoglobin immunoassay. Quantitative values of individual biomarkers are not [...] (Mariah Palumbo al, N Engl J Med 2014;370(14):1873-3998.) Cologuard may produce a false negative or false positive result (no colorectal cancer or precancerous polyp present at colonoscopy follow up). A negative Cologuard test result does not guarantee the absence of CRC or advanced adenoma (pre-cancer). The current Cologuard screening interval is every 3 years. ([place] [employer] and U.S. Multi-Society Task Force). Cologuard performance data in a 10,000 patient pivotal study using colonoscopy as the reference method can be accessed at the following location: www.[employer]/results. Additional description of the Cologuard test process, warnings and precautions can be found at www.cologOperaxrd.com. Stool (Stool) 07/18/2023 8:3 0 AM ROVING TECHNICIAN 07/19/2023 1:50 PM ROVING TECHNICIAN us Rio Duggan M.D. LAB BODY FLUIDS AND STOOL S ORDERABLES Final Result [facility] [address] [place] [address] EXLI [facility] [address] [facility], [address] [place] [address] * PSA (Prostate-Specific Antigen), Diagnostic (06/02/2023 2:16 PM ROVING TECHNICIAN) Prostate-Specific Ag 2.2 <=6.5 ng/mL 06/02/2023 7:20 PM ROVING TECHNICIAN NPRG Comment: ----ADDITIONAL INFORMATION---- The testing method is an electrochemiluminescence assay manufactured by [employer] and performed on the Modular or Paddy system. Values obtained with different assay methods or kits may be different and cannot be used interchangeably. Test results cannot be interpreted as absolute evidence for the presence or absence of malignant disease. Blood (Blood, Venous) 06/02/2023 2:16 PM ROVING TECHNICIAN 06/02/2023 6:43 PM ROVING TECHNICIAN us Rio Duggan M.D. LAB BLOOD ADD-ON Final Re sult Performing Organization Address [facility]/ZIP Co de Phone Number [facility] [address] [place] [address], [facility] NPRG [address] [address] * Lactate (04/10/2023 8:16 PM CDT) Lactate, P 1.7 0.5 - 2.2 mmol/L 04/10/2023 8:40 PM CDT NPRG Blood (Blood, Venous) 04/10/2023 8:16 PM CDT 04/10/2023 8:19 PM CDT us Nancy De Dios M.D., M.P.H. LAB BLOOD NON ADD-O N Final Result Performing Organization Address City/[facility]/ZIP Co de Phone Number [facility] [address] [place] [address], [facility] NPRG [address] [address] * DX Abdomen Portable Anterior Posterior 1 [...] the stomach. Bebo Allison M.D. IMG DIAGNOSTIC IMAGING [facility] Final Result * CT Abdomen Pelvis with [...] ADD-ON Final Resul t Performing Organization Address City/[facility]/ZIP Co de Phone Number [facility] [address] [place] [address], [facility] NPRG [place] [address] [address] [place] [address] * Lipase (04/10/2023 3:25 PM CDT) Only the most recent of2 resultswithin the time period is included. Lipase, P 20 13 - 60 U/L 04/10/2023 4: 01 PM CDT NPRG Blood (Blood, Venous) 04/10/2023 3:25 PM CDT 04/10/2023 3:43 PM CDT us Bebo Allison M.D. LAB BLOOD ADD-ON Final Resul t [facility] [address] [place] [place] [address], [place] NPRG [facility] [address] [place] [place] [address] * (ABNORMAL) Comprehensive Metabolic Panel (04/10/2023 3:25 [...] M.D. LAB BLOOD ADD-ON Final Resul t [facility] [address] [place] [address], [facility] NPRG [facility] [address] [place] [address] * Lipid Panel (09/10/2021 8:35 AM ROVING TECHNICIAN) Only the most recent of9 resultswithin the time period is included. Pathologist [facility] Cholesterol, Total 117 mg/dL 2021 12:19 PM ROVING TECHNICIAN NPRG Comment: ----REFERENCE VALUE---- Desirable: < 200 Borderline high: 200 - 239 High: > or = 240 Triglycerides 91 mg/dL 09/10/2021 12:19 PM ROVING TECHNICIAN NPRG Comment: ----REFERENCE VALUE---- Normal: <150 Borderline high: 150-199 High: 200-499 Very high: > or =500 Cholesterol, HDL 47 >=40 mg/dL 09/10/19 12:19 PM ROVING TECHNICIAN NPRG Calculated LDL 52 mg/dL 09/10/2021 12:19 PM ROVING TECHNICIAN NPRG Comment: ----REFERENCE VALUE---- Desirable: <100 mg/dL Above Desirable: 100-129 mg/dL Borderline High: 130-159 mg/dL High: 160-189 mg/dL Very High: >=190 mg/dL Cholesterol, Non-HDL, Calculated 70 mg/dL 09/10/2021 12:19 PM ROVING TECHNICIAN NPRG Comment: ----REFERENCE VALUE---- Desirable: <130 Above Desirable: 130-159 Borderline high: 160-189 High: 190-219 Very high: > or =220 Blood (Blood, Venous) 09/10/2021 8:35 AM ROVING TECHNICIAN 09/10/2021 11:45 AM ROVING TECHNICIAN us Rio Duggan M.D. LAB BLOOD ADD-ON Final Re sult Performing Organization Address City/[facility] Co de Phone Number [facility] [address] [place] [address], [facility] NPRG [place] [address] [place] [address] * (ABNORMAL) CBC without Differential (09/10/2021 8:35 AM ROVING TECHNICIAN) Only the most recent of3 resultswithin the time period is included. Hemoglobin 13.5 13.2 - 16.6 g/dL 09/10/2021 12:13 PM ROVING TECHNICIAN NPRG Hematocrit 40.3 38.3 - 48.6 % 09/10/2021 12:13 PM ROVING TECHNICIAN NPRG Erythrocytes 4.24(L) 4.35 - 5.65 x10(12)/L 09/10/2021 12:13 PM ROVING TECHNICIAN NPRG MCV 95.0 78.2 - 97.9 fL 09/10/2021 12:13 PM ROVING TECHNICIAN NPRG RBC Distrib Width 12.7 11.8 - 14.5 % 09/10/2021 12:13 PM ROVING TECHNICIAN NPRG Platelet Count 215 135 - 317 x10(9)/L 09/10/2021 12:13 PM ROVING TECHNICIAN NPRG Leukocytes 4.3 3.4 - 9.6 x10(9)/L 09/10/2021 12:13 PM ROVING TECHNICIAN NPRG Blood (Blood, Venous) 09/10/2021 8:35 AM ROVING TECHNICIAN 09/10/2021 11:45 AM ROVING TECHNICIAN us Rio Duggan M.D. LAB BLOOD ADD-ON Final Re sult Performing Organization Address City/[facility]/ZIP Co de Phone Number [facility] [address] [place] [address], [facility] NPRG [facility] [address] [place] [address] * Fecal Occult Blood, Colorectal Cancer Screen, Qualitative, Immunochemical (10/21/2020 1:46 PM CDT) Only the most recent of2 resultswithin the time period is included. Occult Blood, Fecal Negative Negative 10/22/2020 11:39 AM CDT DTL Comment: Negative result. This test will not detect upper gastrointestinal bleeding; the HemoQuant test (8420)should be ordered if clinically indicated. Stool (Stool) 10/21/2020 1:4 6 PM CDT 10/22/2020 10:52 AM CDT Rio Duggan M.D. LAB BODY FLUIDS AND STOOL S ORDERABLES Final Result Performing Organization Address City/[facility]/ZIP Co de Phone Number [facility] [address] [place] [address], [facility] [address] [place] [address] * ALT (Alanine Aminotransferase) (05/19/2020 8:40 AM CDT) Only the most recent of2 resultswithin the time period is included. Alanine Aminotransferase (ALT), P 19 7 - 55 U/L 05/19/2020 12:58 PM CDT NPRG Blood (Blood, Venous) 05/19/2020 8:40 AM CDT 05/19/2020 12:09 PM CDT Rio Duggan M.D. LAB BLOOD ADD-ON Final Re sult [facility] [address] [place] [address], [place] [facility] [address] [place] [address] * AST (Aspartate Aminotransferase) (05/19/2020 8:40 AM CDT) Only the most recent of2 resultswithin the time period is included. Aspartate Aminotransferase (AST), P 27 8 - 48 U/L 05/19/2020 12:58 PM CDT NPRG Blood (Blood, Venous) 05/19/2020 8:40 AM CDT 05/19/2020 12:09 PM CDT us Rio Duggan M.D. LAB BLOOD ADD-ON Final Re sult [facility] [address] [place] [address], [facility] NPRG [facility] [address] [place] [address] * DX Hip Bilateral 2+ Views (10/18/2017 [...] positioned withoutindication of loosening. IMPRESSION: Stable positioning. us Archie Hernández M.D. IMG DIAGNOSTIC IMAGING PROCED URES Final Result * (ABNORMAL) Urinalysis, Routine (02/06/2017 10:05 AM CDT) HXUr Color Yellow Colorless POWERCHART Clarity Clear Clear POWERCHART Glucose Negative Negative MGDL POWERCHART HXBILIRUBIN Negative Negative POWERCHART Ketones, QL(U) Negative Negative MGDL POWERCHART Specific [place], POCT, U 1.020 POWERCHART Comment: Reference Range Specific [place]: 1.000-1.035 HXBLOOD Trace(A) Negative POWERCHART pH, POCT, Urine 6.5 <5.0 POWERCHART Comment: Reference Range pH: 5.0-8.0 Protein, Ur, Dip Negative Negative MGDL POWERCHA RT Urobilinogen 0.2 0.2 MGDL POWERCHART Comment: Reference Range Urobilinogen: 0.2-1.0 mg/dL HXNITRITE Negative Negative POWERCHART Leukocyte Esterase Negative Negative POWERCHART Urine, First Voided 02/06/2017 10:05 AM CDT Marissa Banks APRN, C.N.P. LAB URINE ORDERABLES Final Result Performing Organization Address [facility] Phone Number POWERCHART NA * (ABNORMAL) Urine Microscopic (02/06/2017 10:05 AM CDT) HXUR WBC. Occ-3 None Seen HPF POWERCHART HXUR RBC. Occ-2 None Seen HPF POWERCHART HXUR Bacteria, Present(A) None Seen POWERCHART Squamous Epithelial Occ-3(A) None Seen HPF POWERCHART Urine, First Voided 02/06/2017 10:05 AM CDT 02/06/2017 10:05 AM CDT Marissa Banks APRN, C.N.P. LAB URINE ORDERABLES Final Result Performing Organization Address [facility] Phone Number POWERCHART NA * Automated Differential (02/06/2017 9:55 AM CDT) Only the most recent of2 resultswithin the time period is included. Pathologist [facility] Absolute Neutrophils 2.53 1.70 - 7.00 109L POWERCHART Lymphocytes 1.25 0.90 - 2.90 X109L POWERCHART Monocytes 0.40 0.30 - 0.90 X109L POWERCHART Eosinophils 0.11 0.05 - 0.50 X109L POWERCHART Absolute Basophil 0.03 0.00 - 0.30 X109L POWERCHART Blood 02/06/2017 9:55 AM CDT 02/06/2017 9:55 AM CDT Marissa Banks APRN, C.N.P. LAB BLOOD ADD-ON Francoise l Result Performing Organization Address [facility] Phone Number POWERCHART NA * DX Wrist Left 3+ Views (01/27/2017 1:44 PM CDT) Anatomical Region Laterality Modality Upper Extremity, Wrist Left Radiograp hic Imaging 01/27/2017 1:44 PM CDT Addenda Addendum by Judd Gonzalez M.D. on 01/27/2017 [...] 11/14/2012 1:17 PM CDT Addenda Addendum by ProviderJudd M.D. on 11/14/2012 1:17 PM CDT RAD^^^MA [...] change in the pubic symphysis. Chelsea Gleason R.T.(R)( CT), R.T.(R) IMG DIAGNOSTIC [...] further evaluate. Mild degenerative arthritis right knee. us Chelsea Gleason R.T.(R)( CT), R.T.(R) IMG DIAGNOSTIC IMAGING PROCEDURES Edited Result - Final * DX Hip Right 2+ Views (11/14/2012 1:13 PM CDT) Anatomical Region Laterality Modality Lower Extremity, Hip Right Radiographi c Imaging 11/14/2012 1:13 PM CDT Addenda Addendum by ProviderJudd M.D. on 11/14/2012 1:13 PM CDT RAD^^^MA [...] are incidentally noted. Impression: No acute pathology. Cehlsea Gleason R.T.(R)( CT), R.T.(R) IMG DIAGNOSTIC IMAGING PROCEDURES Edited Result - Final * PT (Prothrombin Time) with INR (08/23/2012 3:45 PM ROVING TECHNICIAN) INR 1.1 0.8 - 1.2 POWERCHART Comment: Lot#[id number] Exp. 06/2013 Blood 08/23/2012 3:45 PM ROVING TECHNICIAN Emely Douglass APRN, C.N.P. LAB BLOOD ADD-ON Final Result POWERCHART * MR Shoulder Left without IV Contrast (08/03/2012 12:19 PM ROVING TECHNICIAN) Anatomical Region Laterality Modality Upper Extremity, Shoulder Left Magnet ic Resonance 08/03/2012 12:1 9 PM ROVING TECHNICIAN Addenda Addendum by Judd Gonzalez M.D. on 08/03/2012 12:19 PM ROVING TECHNICIAN RAD^^^MA MR Shoulder Left w/o contrast 08/03/2012 12:19:00 MR Shoulder Left w/o contrast Addendum by Judd Gonzalez M.D. on 08/03/2012 12:19 PM ROVING TECHNICIAN RAD^^^MA MR Shoulder Left w/o contrast 08/03/2012 12:19:00 MR Shoulder Left w/o contrast Addendum by Judd Gonzalez M.D. on 08/03/2012 1:12 PM ROVING TECHNICIAN RAD^^^MA MR Shoulder Left w/o contrast 08/03/2012 13:12:00 Impressions 08/03/2012 1:36 PM ROVING TECHNICIAN Very severe osteoarthritic changes glenohumeral joint as above Narrative 08/03/2012 1:36 PM ROVING TECHNICIAN EXAM: MR Shoulder Left w/o contrast INDICATION: LEFT SHOULDER PAIN, ARTHRITIS COMPARISON: None. FINDINGS: Type I acromion. Very severe degenerative changes at the glenohumeral joint with complete loss of articular cartilage. The glenoid labrum has been avulsed and there is [id number] present at the joint space. Large articular [...] labrum has been avulsed and there is [id number] present at the joint space. Large articular [...] Shoulder Left 2+ Views (07/04/2012 1:13 PM ROVING TECHNICIAN) Anatomical Region Laterality Modality Upper Extremity, Shoulder Left Radiog raphic Imaging 07/04/2012 1:13 PM ROVING TECHNICIAN Addenda Addendum by Judd Gonzalez M.D. on 07/04/2012 1:13 PM ROVING TECHNICIAN RAD^^^MA XR Shoulder Left 3 view 07/04/2012 13:13:00 XR Shoulder Left 3 view Addendum by Judd Gonzalez M.D. on 07/04/2012 1:13 PM ROVING TECHNICIAN RAD^^^MA XR Shoulder Left 3 view 07/04/2012 13:13:00 XR Shoulder Left 3 view Impressions 07/04/2012 2:48 PM ROVING TECHNICIAN Severe degenerative changes with bony remodeling, sclerosis and large osteophyte formation involving the glenohumeral articulation. Narrative 07/04/2012 2:48 PM ROVING TECHNICIAN Internal rotation, external rotation and axillary view [...] abnormality. Procedure Note Kyle Lopez M.D. / ProviderJudd M.D. - 12/14/2016 Internal rotation, external rotation [...] osteophyte formation involving the glenohumeral articulation. Apurva Streeter.T.(R)(CT), R.T.(R) IMG JEFFERY GNOSTIC IMAGING PROCEDURES Edited [...] Lower Urinary Tract Symptom 11/29/2023 Care Teams Paper Bag Making Machinist Relationship Specialty Start Date End Date Rio Duggan M.D. [address] [place] [address] PCP - General 01/20/17
--- OUTSIDE RECORDS SUMMARY | 2024-06-11 06:55 | XMS_ITS | Encounter Summary ---
Author Organization [facility] Address [address] [place] [address] Care Team Providers Care Billet Cutter Name Role Phone Rio Duggan M.D. Primary Care Provider [phone] Reason for Visit * Reason Onset Date Comments Health Maintenance 05/28/2024 Encounter Details Date Type Department Care Team (Latest Contact Info) Description 05/28/2024 Clinical Communication Department of Family Medicine in [place], [place] [address] [place] [phone] Rio Duggan M.D. [address] [place] [phone] Health Maintenance Social History Tobacco Use Types Packs/Day Years Used Date Smoking Tobacco: Never Smokeless Tobacco: Never Alcohol Use Standard Drinks/Week Comments Never 0 (1 standard drink = 0.6 oz pur e alcohol) [facility] Utilities Answer Date Recorded In the [...] your living situation today? I have a [facility] place to live 11/06/2023 Sex and Gender Information Value Date Recorded Sex Assigned at Male 11/06/2023 1:20 PM CDT Legal Sex Male 5:56 PM MOTION STUDY ANALYST Gender Identity Male 11/06/2023 1:27 PM CDT Sexual Orientation Straight 11/06/2023 1: 27 PM CDT documented as of this encounter Miscellaneous Notes * Telephone Encounter - Lissy Staley L.PAnnieNAnnie - 05/28/2024 10:59 AM MOTION STUDY ANALYST I reached out to the patient today via phone call and I was unable to reach the patient. This is the 2nd contact by the [facility] team to schedule preventive care services. The preventive care topics I outreached about include: Follow Up PCP Visit Hemoglobin A1C and Lipid Panel The outcome of this communication includes: Left Message and Sent Portal Message The PHS team will contact the patient again next time they're due for preventive care. Next Primary Care appointment: does not have a visit scheduled in Primary Care Last appointment with their PCP: 12/26/2023 Additional services offered: None Lissy Lara LPN Preventative Health Specialist ON STUDY ANALYST documented in this encounter Plan of Treatment Upcoming Encounters Date Type Department Care Team (Late st Contact Info) Description 06/13/2024 5:30 PM MOTION STUDY ANALYST Appointment Department of Radiology, [facility], in [place], [place] [address] [place] [phone] Nicolas Pulliam M.D. [address] [place] [phone] documented as of this encounter Visit Diagnoses Not on filedocumented in this encounter Care Teams Billet Cutter Relationship Specialty Start Date End Date Rio Duggan M.D. [address] [place] [phone] PCP - General 01/20/17 documented as of this encounter
--- OUTSIDE RECORDS SUMMARY | 2024-06-11 06:55 | XMS_ITS ---
Author Organization [facility] Address [address] [place] [address] Care Team Providers Care Forensic Document Examiner Name Role Phone Unavailable Unavailable Unavailable Surgery Details Not on file Complications Check Surgery Details section. Procedure Estimated Blood Loss Check Surgery Details section. Procedure Findings Check Surgery Details section. Procedure Specimens Taken Check Surgery Details section.
--- OUTSIDE RECORDS SUMMARY | 2024-06-11 06:55 | XMS_ITS | Referral Summary ---
Author Organization [facility] Address [address] [place] [address] Care Team Providers Care Continuing Education Dean Name Role Phone Rio Duggan M.D. Primary Care Provider +1 -[phone] Source Comments Patient records contain information from all sites at [facility]. For routine questions regarding patient records, call [phone] during business hours, M-F 8:00 AM - 5:00 PM Central Time. Record requests for emergency care only can be directed to [phone] at any time.[facility] Encounters Date Type Department Care Team Description 06/03/2024 [facility] AND [facility] [address] [place] [address] Nicolas Pulliam M.D. 05/28/2024 Clinical Communication Department of Family Medicine in [place], [place] [address] [place] [phone] Rio Duggan M.D. Health Maintenance 05/23/2024 Clinical Communication Department of Family Medicine in [place], [place] [address] [place] [phone] Rio Duggan M.D. missed call 05/23/2024 Orders Only Department of Family Medicine in [place], [place] [address] [place] [phone] Rio Duggan M.D. Diabetes Mellitus Type 2 Without Complication (HCC) (Primary Dx) 05/22/2024 Orders Only Department of Family Medicine in [place], [place] [address] [place] [address] Rio Duggan M.D. Cyst Pancreas (Primary Dx) 05/16/2024 Clinical Communication Department of [facility] in [place], [place] [address] [place] [address] Rio Duggan M.D. 05/14/2024 Clinical Communication Department of Family Medicine in [place], [place] [address] [place] [address] Rio Duggan M.D. Health Maintenance 05/07/2024 Orders Only Department of Family Medicine in [place], [place] [address] [place] [address] Rio Duggan M.D. Diabetes Mellitus Type 2 Without Complication (HCC) (Primary Dx) 05/03/2024 8:37 AM CDT - 05/03/2024 11:59 PM CDT Hospital Encounter Department of Laboratory Medicine in [place] [address] [place] [address] Rio Duggan M.D. Diabetes Mellitus Type 2 Without Complication (HCC) Discharge Disposition: Home or Self Care from Last 3 Months Allergies Active Allergy Reactions Criticality Noted Date Comments Uiivias-Olk-Wxz Reductase Inhibitors Hepatic Failure High 12/26/2023 Medications [...] SBO with small bowel resection - 04/15. [facility]. Opacity Vitreous Right 03/31/2021 Age Related [...] Influenza, Unspecified 04/18/2017 PCV13 04/11/2016 PPSV23 10/17/2017 FABIOLAV (SHINGRIX) 08/24/2020(Deferred: Patient Ref used) Td (Adult), adsorbed 10/03/2003,11/18/1992 Tdap 12/16/2014 influenza trivalent high dose (HD)(PF) 9,04/18/2017 Social History Tobacco Use Types Packs/Day Years Used Date Smoking Tobacco: Never Smokeless Tobacco: Never Tobacco Cessation:Counseling Given: Not Answered Alcohol Use Standard Drinks/Week Comments Never 0 (1 standard drink = 0.6 oz pur e alcohol) [facility] Utilities Answer Date Recorded In the past 12 months has th e [employer], gas, oil, or water [employer] threatened to shut off services in your [...] your living situation today? I have a [facility] place to live 11/06/2023 Sex and Gender Information Value Date Recorded Sex Assigned at Male 11/06/2023 1:20 PM CDT Legal Sex Male 5:56 PM RENAL TECHNICIAN Gender Identity Male 11/06/2023 1:27 PM [...] st Contact Info) Description 06/13/2024 5:30 PM RENAL TECHNICIAN Appointment Department of Radiology, [facility], in [place], [place] [address] [place] [address] Nicolas Pulliam M.D. [address] [place] [phone] Medical Devices Implanted Type Area Surfboard Maker Device Identifier Shelf Expiration Date Model / [...] Tract Symptom COLOGUARD Routine 07/18/2023 8:30 AM RENAL TECHNICIAN Screening Cancer Colon CT ABDOMEN PELVIS WITH IV CONTRAST RAD - Semiurgent (Fast; most ED patients; some inpatients) 04/10/2023 4:17 PM CDT LIPID PANEL, S Routine 09/10/2021 8:35 AM RENAL TECHNICIAN Hyperlipidemia from Last 3 Months or Most [...] M.D. LAB BLOOD ADD-ON Final Re sult [facility] [address] [place] [address], [facility] NPRG [facility] [address] [place] [address] * (ABNORMAL) Albumin, Random, Urine (12/26/2023 10:06 AM CDT) Microalbumin 41.0 mg/L 12/26/2023 4:23 PM CDT NPRG Creatinine 72 mg/dL 12/26/2023 4:23 PM CDT NPRG Albumin/Creatinin e Ratio 57(H) <17 mg/g 12/26/2023 4:23 PM CDT NPRG Urine (Urine, Midstream) 12/26/2023 10:06 AM CDT 12/26/2023 3:40 PM CDT us Rio Duggan M.D. LAB URINE ORDERABLES Francoise l Result [facility] [address] [place] [address], [facility] [address] [place] [address] * (ABNORMAL) Basic Metabolic Panel (11/14/2023 9:34 [...] M.D. LAB BLOOD ADD-ON Final Resu lt [facility] [address] [place] [address], [facility] NPRG [facility] [address] [place] [address] * Cologuard - Sent Out Lab (07/18/2023 8:30 AM RENAL TECHNICIAN) [facility] Signature Result Negative Negative 07/21/2023 5:12 PM RENAL TECHNICIAN EXLI Comment: NEGATIVE TEST RESULT. A [...] Reddy et al, N Engl J Med 2014;370(14):1817-3350) The normal value (reference range) for this assay is negative. COLOGUARD RE-SCREENING RECOMMENDATION: Periodic colorectal cancer screening is an important part of preventive healthcare for asymptomatic individuals at average risk for colorectal cancer. Following a negative Cologuard result, the [place] Cancer Society and U.S. Multi-Society Task Force screening guidelines recommend a Cologuard re-screening interval of 3 years. References: [place] Cancer Society Guideline for Colorectal Cancer Screening: https://www.cancer.org/cancer/mkgrm-wutvrl-jvfmyi/detection- diagnosis-staging/acs-recommendations.html.; Baljinder KNOWLES, Kam REYES, Radha PowellK, Colorectal Cancer Screening: Recommendations for Physicians and Patients from the U.S. Multi-Society Task Force on Colorectal Cancer Screening , Am J Gastroenterology 2017; 112:7529-9963. TEST DESCRIPTION: Composite algorithmic analysis of stool [...] screened with both Cologuard and colonoscopy. (Mariah Maldonado. et al, N Engl J Med 2014;370(14):8921-7253.) Cologuard may produce a false negative or false positive result (no colorectal cancer or precancerous polyp present at colonoscopy follow up). A negative Cologuard test result does not guarantee the absence of CRC or advanced adenoma (pre-cancer). The current Cologuard screening interval is every 3 years. ([place] Cancer Society and U.S. Multi-Society Task Force). Cologuard performance data in a 10,000 patient pivotal study using colonoscopy as the reference method can be accessed at the following location: www.[employer]/results. Additional description of the Cologuard test process, warnings and precautions can be found at www.cologuard.com. Stool (Stool) 07/18/2023 8:3 0 AM RENAL TECHNICIAN 07/19/2023 1:50 PM RENAL TECHNICIAN us Rio Duggan M.D. LAB BODY FLUIDS AND STOOL S ORDERABLES Final Result [facility] [address] [place] [address] EXLI [place] [address] [facility], [address] [place] [address] * CT Abdomen Pelvis with IV Contrast [...] lt * Lipid Panel (09/10/2021 8:35 AM RENAL TECHNICIAN) Pathologist [facility] Cholesterol, Total 117 mg/dL 2021 12:19 PM RENAL TECHNICIAN NPRG Comment: ----REFERENCE VALUE---- Desirable: < 200 Borderline high: 200 - 239 High: > or = 240 Triglycerides 91 mg/dL 09/10/2021 12:19 PM RENAL TECHNICIAN NPRG Comment: ----REFERENCE VALUE---- Normal: <150 Borderline high: 150-199 High: 200-499 Very high: > or =500 Cholesterol, HDL 47 >=40 mg/dL 09/10/19 12:19 PM RENAL TECHNICIAN NPRG Calculated LDL 52 mg/dL 09/10/2021 12:19 PM RENAL TECHNICIAN NPRG Comment: ----REFERENCE VALUE---- Desirable: <100 mg/dL Above Desirable: 100-129 mg/dL Borderline High: 130-159 mg/dL High: 160-189 mg/dL Very High: >=190 mg/dL Cholesterol, Non-HDL, Calculated 70 mg/dL 09/10/2021 12:19 PM RENAL TECHNICIAN NPRG Comment: ----REFERENCE VALUE---- Desirable: <130 Above Desirable: 130-159 Borderline high: 160-189 High: 190-219 Very high: > or =220 Blood (Blood, Venous) 09/10/2021 8:35 AM RENAL TECHNICIAN 09/10/2021 11:45 AM RENAL TECHNICIAN us Rio Duggan M.D. LAB BLOOD ADD-ON Final Re sult [facility] [address] [place] [place] [address], [facility] [address] [place] [place] [address] from Last 3 Months or Most Recently Relevant to Health Maintenance Insurance [employer] [facility] [employer] Care Teams Continuing Education Dean Relationship Specialty Start Date End Date Rio Duggan M.D. [address] [place] [phone] PCP - General 01/20/17
--- OUTSIDE RECORDS SUMMARY | 2024-06-11 06:55 | XMS_ITS | Encounter Summary ---
Author Organization [facility] Address [address] [place] [address] Care Team Providers Care Pipe Caulker Name Role Phone Rio Duggan M.D. Primary Care Provider +1 -[phone] Encounter Details Date Type Department Care Team (Late st Contact Info) Description 06/03/2024 [facility] [address] [place] [address] Nicolas Pulliam M.D. [address] [place] [phone] Social History Tobacco Use Types Packs/Day Years Used Date Smoking Tobacco: Never Smokeless Tobacco: Never Alcohol Use Standard Drinks/Week Comments Never 0 (1 standard drink = 0.6 oz pur e alcohol) [facility] Utilities Answer Date Recorded In the past 12 months has [employer], gas, oil, or water [employer] threatened to shut off services in your [...] living situation today? I have a [facility] place to live 11/06/2023 Sex and Gender Information Value Date Recorded Sex Assigned at Male 11/06/2023 1:20 PM CDT Legal Sex Male 5:56 PM SOUTH ASIAN HISTORY PROFESSOR Gender Identity Male 11/06/2023 1:27 PM CDT Sexual Orientation Straight 11/06/2023 1: 27 PM CDT documented as of this encounter Plan of Treatment Upcoming Encounters Date Type Department Care Team (Late st Contact Info) Description 06/13/2024 5:30 PM SOUTH ASIAN HISTORY PROFESSOR Appointment Department of Radiology, [facility], in [place], [place] [address] [place] [address] Nicolas Pulliam M.D. [address] [place] [address] documented as of this encounter Visit Diagnoses Not on filedocumented in this encounter Care Teams Pipe Caulker Relationship Specialty Start Date End Date Rio Duggan M.D. [address] [place] [phone] PCP - General 01/20/17 documented as of this encounter
--- OUTSIDE RECORDS SUMMARY | 2024-06-11 06:56 | XMS_ITS | Encounter Summary ---
Author Organization [facility] Address [address] [place] [address] Care Team Providers Care Sanitation Worker Cleaning Equipment Name Role Phone Rio Duggan M.D. Primary Care Provider +1 -[phone] Reason for Visit * Reason Onset Date Comments missed call 05/23/2024 Encounter Details Date Type Department Care Team (Late st Contact Info) Description 05/23/2024 Clinical Communication Department of Family Medicine in [place], [place] [address] [place] [phone] Rio Duggan M.D. [address] [place] [phone] missed call Social History Tobacco Use Types Packs/Day Years Used Date Smoking Tobacco: Never Smokeless Tobacco: Never Alcohol Use Standard Drinks/Week Comments Never 0 (1 standard drink = 0.6 oz pur e alcohol) [facility] Utilities Answer Date Recorded In [...] your living situation today? I have a [facility] place to live 11/06/2023 Sex and Gender Information Value Date Recorded Sex Assigned at Male 11/06/2023 1:20 PM CDT Legal Sex Male 5:56 PM RN INTEGRATED Gender Identity Male 11/06/2023 1:27 PM CDT Sexual Orientation Straight 11/06/2023 1: 27 PM CDT documented as of this encounter Miscellaneous Notes * Telephone Encounter - Teagan Carroll RAlli. - 05/23/2024 1:36 PM CDT Left message. Floor Helper can't tell who has been trying to reach patient. The person could be from our scheduling department. If she has any further questions, she may contact the clinic. documented in this encounter Plan of Treatment Upcoming Encounters Date Type Department Care Team (Late st Contact Info) Description 06/13/2024 5:30 PM RN INTEGRATED Appointment Department of Radiology, [facility], in [place], [place] [address] [place] [address] Nicolas Pulliam M.D. [address] [place] [address] documented as of this encounter Visit Diagnoses Not on filedocumented in this encounter Care Teams Sanitation Worker Cleaning Equipment Relationship Specialty Start Date End Date Rio Duggan M.D. [address] [place] [phone] PCP - General 01/20/17 documented as of this encounter
--- OUTSIDE RECORDS SUMMARY | 2024-06-11 06:56 | XMS_ITS | Encounter Summary ---
Author Organization [facility] Address [address] [place] [address] Care Team Providers Care Dry Cleaning Machine Operator Name Role Phone Rio Duggan M.D. Primary Care Provider +1 -[phone] Reason for Visit * Reason Onset Date Comments Health Maintenance 05/14/2024 Encounter Details Date Type Department Care Team (Latest Contact Info) Description 05/14/2024 Clinical Communication Department of Family Medicine in [place], [place] [address] [place] [phone] Rio Duggan M.D. [address] [place] [phone] Health Maintenance Social History Tobacco Use Types Packs/Day Years Used Date Smoking Tobacco: Never Smokeless Tobacco: Never Alcohol Use Standard Drinks/Week Comments Never 0 (1 standard drink = 0.6 oz pur e alcohol) [facility] Utilities Answer Date Recorded In the [...] your living situation today? 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 [address] [place] [address] documented as of this encounter Visit Diagnoses Not on filedocumented in this encounter Care Teams Dry Cleaning Machine Operator Relationship Specialty Start Date End Date Rio Duggan M.D. [address] [place] [phone] PCP - General 01/20/17 documented as of this encounter
--- OUTSIDE RECORDS SUMMARY | 2024-06-11 06:56 | XMS_ITS | Encounter Summary ---
Author Organization [facility] Address [address] [place] [address] Care Team Providers Care General Manager Name Role Phone Rio Duggan M.D. Primary Care Provider +1 -[phone] Reason for Referral * Outpatient (Routine) - Authorized Specialty Diagnoses / Procedures Referred By Makayla locke Referred To Contact Family Medicine Diagnoses Diabetes Mellitus Type 2 Without Complication (HCC) Rio Duggan M.D. [address] [place] [address] Phone: tel: fax: Rio Duggan M.D. [address] [place] [address] Phone: tel: fax: Referral ID Status Reason Start Date Expiration Date V isits Requested Visits Authorized [id number] Authorized 05/08/2024 11/07/2025 1 1 Encounter Details Date Type Department Care Team (Late st Contact Info) Description 05/07/2024 Orders Only Department of Family Medicine in [place], [place] [address] [place] [address] Rio Duggan M.D. [address] [place] [address] Diabetes Mellitus Type 2 Without Complication (HCC) (Primary Dx) Social History Tobacco Use Types Packs/Day Years Used Date Smoking Tobacco: Never Smokeless Tobacco: Never Alcohol Use Standard Drinks/Week Comments Never 0 (1 standard drink = 0.6 oz pur e alcohol) [facility] Utilities Answer Date Recorded In the [...] your living situation today? I have a [facility] place to live 11/06/2023 Sex and Gender Information Value Date Recorded Sex Assigned at Male 11/06/2023 1:20 PM CDT Legal Sex Male 5:56 PM DIRECTOR OF PARTNERSHIPS Gender Identity Male 11/06/2023 1:27 PM CDT Sexual Orientation Straight 11/06/2023 1: 27 PM CDT documented as of this encounter Plan of Treatment Upcoming Encounters Date Type Department Care Team (Late st Contact Info) Description 06/13/2024 5:30 PM DIRECTOR OF PARTNERSHIPS Appointment Department of Radiology, [facility], in [place], [place] [address] [place] [address] Nicolas Pulliam M.D. [address] [place] [address] Scheduled Orders Name Type Priority Associated Diagnoses [...] Primary documented in this encounter Care Teams General Manager Relationship Specialty Start Date End Date Rio Duggan M.D. [address] [place] [phone] PCP - General 01/20/17 documented as of this encounter
--- OUTSIDE RECORDS SUMMARY | 2024-06-11 06:56 | XMS_ITS | Encounter Summary ---
Author Organization [facility] Address [address] [place] [address] Care Team Providers Care Smearer Name Role Phone Rio Duggan M.D. Primary Care Provider +1 -[phone] Encounter Details Date Type Department Care Team (Latest Contact Info) Description 05/03/2024 8:37 AM CDT - 05/03/2024 11:59 PM CDT Hospital Encounter Department of Laboratory Medicine in [place], [place] [address] [place] [address] Rio Duggan M.D. [address] [place] [phone] Diabetes Mellitus Type 2 Without Complication (HCC) Discharge Disposition: Home or Self Care Social History Tobacco Use Types Packs/Day Years Used Date Smoking Tobacco: Never Smokeless Tobacco: Never Alcohol Use Standard Drinks/Week Comments Never 0 (1 standard drink = 0.6 oz pur e alcohol) [facility] Utilities Answer Date Recorded In the past 12 months has e [employer], gas, oil, or water company threatened to [...] your living situation today? I have a [facility] place to live 11/06/2023 Sex and Gender Information Value Date Recorded Sex Assigned at Male 11/06/2023 1:20 PM CDT Legal Sex Male 5:56 PM LOCATION ANALYST Gender Identity Male 11/06/2023 1:27 PM [...] st Contact Info) Description 06/13/2024 5:30 PM LOCATION ANALYST Appointment Department of Radiology, [facility] in [place], [place] [address] [place] [address] Nicolas Pulliam M.D. [address] [place] [phone] documented as of this encounter Procedures Procedure [...] M.D. LAB BLOOD ADD-ON Final Re sult [facility] [address] [place] [address], [place] NPRG [facility] [address] [place] [address] documented in this encounter Visit Diagnoses Diagnosis Diabetes Mellitus Type 2 Without Complication (HCC) documented in this encounter Care Teams Smearer Relationship Specialty Start Date End Date Rio Duggan M.D. [address] [place] [phone] PCP - General 01/20/17 documented as of this encounter
--- OUTSIDE RECORDS SUMMARY | 2024-06-11 06:56 | XMS_ITS | Encounter Summary ---
Author Organization [facility] Address [address] [place] [address] Care Team Providers Care Postal Inspector Name Role Phone Rio Duggan M.D. Primary Care Provider +1 -[phone] Reason for Referral * Outpatient (Routine) - Authorized Specialty Diagnoses / Procedures Referred By Makayla t Referred To Contact Family Medicine Rio Duggan M.D. [address] [place] [address] Phone: tel: fax: [facility] Referral ID Status Reason Start Date Expiration Date V isits Requested Visits Authorized [id number] Authorized 05/23/2024 11/22/2025 1 1 Encounter Details Date Type Department Care Team (Late st Contact Info) Description 05/23/2024 Orders Only Department of Family Medicine in [place], [place] [address] [place] [phone] Rio Duggan M.D. [address] [place] [address] Diabetes Mellitus Type 2 Without Complication (HCC) (Primary Dx) Social History Tobacco Use Types Packs/Day Years Used Date Smoking Tobacco: Never Smokeless Tobacco: Never Alcohol Use Standard Drinks/Week Comments Never 0 (1 standard drink = 0.6 oz pur e alcohol) [facility] Utilities Answer Date Recorded In the past [...] your living situation today? I have a [facility] place to live 11/06/2023 Sex and Gender Information Value Date Recorded Sex Assigned at Male 11/06/2023 1:20 PM CDT Legal Sex Male 5:56 PM VICE PRESIDENT COMPLIANCE Gender Identity Male 11/06/2023 1:27 PM CDT Sexual Orientation Straight 11/06/2023 1: 27 PM CDT documented as of this encounter Plan of Treatment Upcoming Encounters Date Type Department Care Team (Late st Contact Info) Description 06/13/2024 5:30 PM VICE PRESIDENT COMPLIANCE Appointment Department of Radiology, [facility], in [place], [place] [address] [place] [address] Nicolas Pulliam M.D. [address] [place] [address] Scheduled Orders Name Type Priority Associated Diagnoses [...] Primary documented in this encounter Care Teams Postal Inspector Relationship Specialty Start Date End Date Rio Duggan M.D. [address] [place] [phone] PCP - General 01/20/17 documented as of this encounter
--- OUTSIDE RECORDS SUMMARY | 2024-06-11 06:56 | XMS_ITS | Encounter Summary ---
Author Organization [facility] Address [address] [place] [address] Care Team Providers Care Soft Mud Molder Name Role Phone Rio Duggan M.D. Primary Care Provider +1 -[phone] Encounter Details Date Type Department Care Team (Late st Contact Info) Description 05/22/2024 Orders Only Department of Family Medicine in [place], [place] [address] [place] [phone] Rio Duggan M.D. [address] [place] [address] Cyst Pancreas (Primary Dx) Social History Tobacco Use Types Packs/Day Years Used Date Smoking Tobacco: Never Smokeless Tobacco: Never Alcohol Use Standard Drinks/Week Comments Never 0 (1 standard drink = 0.6 oz pur e alcohol) [facility] Utilities Answer Date Recorded In the past 12 months has [facility] [employer], gas, oil, or water [employer] threatened to shut off services in your [...] your living situation today? I have a [facility] place to live 11/06/2023 Sex and Gender Information Value Date Recorded Sex Assigned at Male 11/06/2023 1:20 PM CDT Legal Sex Male 5:56 PM GATE TECHNICIAN Gender Identity Male 11/06/2023 1:27 PM CDT Sexual Orientation Straight 11/06/2023 1: 27 PM CDT documented as of this encounter Plan of Treatment Upcoming Encounters Date Type Department Care Team (Late st Contact Info) Description 06/13/2024 5:30 PM GATE TECHNICIAN Appointment Department of Radiology, [facility], in [place], [place] [address] [place] [address] Nicolas Pulliam M.D. [address] [place] [address] documented as of this encounter Visit Diagnoses Diagnosis Cyst Pancreas- Primary documented in this encounter Care Teams Soft Mud Molder Relationship Specialty Start Date End Date Rio Duggan M.D. [address] [place] [phone] PCP - General 01/20/17 documented as of this encounter
--- OUTSIDE RECORDS SUMMARY | 2024-06-11 06:56 | XMS_ITS | Encounter Summary ---
Author Organization [facility] Address [address] [place] [address] Care Team Providers Care Blending Kettle Tender Name Role Phone Rio Duggan M.D. Primary Care Provider [phone] Encounter Details Date Type Department Care Team (Late st Contact Info) Description 05/16/2024 Clinical Communication Department of Family Medicine in [place], [place] [address] [place] [phone] Rio Duggan M.D. [address] [place] [address] Social History Tobacco Use Types Packs/Day Years Used Date Smoking Tobacco: Never Smokeless Tobacco: Never Alcohol Use Standard Drinks/Week Comments Never 0 (1 standard drink = 0.6 oz pur e alcohol) [facility] Utilities Answer Date Recorded In the past 12 months has [employer], gas, oil, or water [employer] threatened to shut off services in your [...] your living situation today? I have a [facility] place to live 11/06/2023 Sex and Gender Information Value Date Recorded Sex Assigned at Male 11/06/2023 1:20 PM CDT Legal Sex Male 5:56 PM [employer] Gender Identity Male 11/06/2023 1:27 PM CDT [...] 1:53 PM CDT Requesting medical records from [facility] Talked with Cyndi galarza of the nurses and would like for Dr. 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 Just had a C.T. scan and was advised to repeat in 3-6 months. documented in this encounter Plan of Treatment Upcoming Encounters Date Type Department Care Team (Late st Contact Info) Description 06/13/2024 5:30 PM [employer] WORKER Appointment Department of Radiology, [facility], in [place], [place] [address] [place] [address] Nicolas Pulliam M.D. [address] [place] [phone] documented as of this encounter Visit Diagnoses Not on filedocumented in this encounter Care Teams Blending Kettle Tender Relationship Specialty Start Date End Date Rio Duggan M.D. [address] [place] [phone] PCP - General 01/20/17 documented as of this encounter
[2024-06-11 07:03] LABS: Albumin* 3.6 g/dL (3.3-5.0)
[2024-06-11 07:04] LABS: Chloride* 101 mmol/L (96-114); Sodium* 132 mmol/L (135-149)
[2024-06-11 07:06] LABS: Anion Gap 7 mEq/L (7-15); Aspartate Amino Transferase* 24 U/L (12-35); Bilirubin Direct* 0.1 mg/dL (0.0-0.5); Bilirubin Total* 0.3 mg/dL (0.1-1.5); Blood Urea Nitrogen* 19 mg/dL (7-30); Carbon Dioxide* 24 mmol/L (20-32); Creatinine* 0.7 mg/dL (0.5-1.5); Est. Creatinine Clearance* 67.98; Estimated Glomerular Filt Rate 96 ml/min; Total Protein* 6.1 g/dL (6.0-8.3)
[2024-06-11 07:07] LABS: Alanine Aminotransferase* 22 U/L (4-50); Alkaline Phosphatase* 301 U/L (40-150); Calcium* 8.5 mg/dL (8.4-10.6); Glucose* 192 mg/dL (60-115); Lipase* 32 U/L (23-300)
[2024-06-11 08:16] VITALS: BP 151/92; PULSE 90; RESP 16; O2SAT 97
--- NOTE | 2024-06-11 08:19 | PM.IMHP1 ---
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 Patient complains of abdominal pain, along with gas pain for the past several months. Abdominal pain described as cramping, gassy. He had 2 large bowel movements over the last 48 hours. He has had nausea without vomiting. Decreased appetite with decreased oral intake. Denies headache or dizziness. Denies chest pain or shortness of breath. Denies recent fevers. No change in urination. Has had previous multiple abdominal surgeries, umbilical hernia, bilateral inguinal hernia repair, the last was in 2022, an ex lap for a small-bowel obstruction. In the ED, CT abdomen shows increase small bowel dilation with transition point in the mid abdomen in close proximity to chain suture material concerning for small bowel obstruction. No leukocytosis. Chronic anemia. Afebrile, vitally stable. ED provider discussed with General surgery, Dr. Castro, who initially recommended transfer given significant complicated past medical history. [facility] had no bed availability so patient is admitted here. Review of Systems Narrative: REVIEW OF SYSTEMS: Complete review of systems performed and negative unless otherwise stated in HPI or below. [facility] Medical History Type 2 diabetes mellitus ?E11.9 - Type 2 diabetes mellitus without complications (ICD-10) Age-related nuclear cataract of both eyes ?H25.13 - Age-related nuclear cataract, bilateral (ICD-10) Anemia ?D64.9 - Anemia, unspecified (ICD-10) Abnormal finding on CT scan ?R93.89 - Abnormal findings on diagnostic imaging of other specified body structures (ICD-10) Mass of pancreas ?K86.89 - Other specified diseases of pancreas (ICD-10) Hearing loss of both ears ?H91.93 - Unspecified hearing loss, bilateral (ICD-10) Constipation ?K59.00 - Constipation, unspecified (ICD-10) Abdominal wall abscess at site of surgical wound (05/01/23) ?T81.49XA - Infection following a procedure, other surgical site, initial encounter (ICD-10) 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 - Varicose veins of other specified sites (ICD-10) Small bowel obstruction ?K56.609 - Unspecified intestinal obstruction, unspecified as to partial versus complete obstruction (ICD-10) Hyperlipidemia ?E78.5 - Hyperlipidemia, unspecified (ICD-10) BPH (benign prostatic hyperplasia) ?N40.0 - Benign prostatic hyperplasia without lower urinary tract symptoms (ICD-10) Surgical History History of prostate surgery (11/29/23) ?Z98.890 - Other specified postprocedural states (ICD-10) S/P exploratory laparotomy (04/14/23) ?Z98.890 - Other specified postprocedural states (ICD-10) History of bunionectomy (06/28/04) ?Z98.890 - Other specified postprocedural states (ICD-10) History of arthroplasty of left shoulder (2012) ?Z96.612 - Presence of left artificial shoulder joint (ICD-10) H/O umbilical hernia repair (2005) ?Z98.890 - Other specified postprocedural states (ICD-10) ?Z87.19 - Personal history of other diseases of the digestive system (ICD-10) H/O bilateral inguinal hernia repair (2005) ?Z98.890 - Other specified postprocedural states (ICD-10) ?Z87.19 - Personal history of other diseases of the digestive system (ICD-10) History of bilateral hip replacements ?Z96.643 - Presence of artificial hip joint, bilateral (ICD-10) Family History Father Diabetes Mother CHF (congestive heart failure) Stroke Brother Prostate cancer Social History Narrative: He lives with his in [place]. 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 He does not smoke. He does not drink alcohol. Code status is DNR. is healthcare power of workers compensation attorney. What is your current living situation?: I presently have a place to live Problems where you live: no known problems Problems where you live details: NA In the past 12 months, utilities in danger of being shut off: no In the past 12 mos, have been you worried that your food would run out before you had money to buy more?: never true In the past 12 mos, the food you bought just didn't last and you didn't have money to buy more?: never true Highest level of school completed/degree received: Bachelor's degree Smoking Status: Never smoker Do you use any of these nicotine containing products: None Second hand tobacco smoke exposure: No How often do you have a drink containing alcohol: never How often do you have six or more drinks on one occasion: Never AUDIT-C Alcohol total score: 0 Non-prescribed substance use: denies use Caffeine: No How often does anyone, including family, friends and others, physically hurt you: never How often does anyone, including family, friends and others, insult or talk down to you: never How often does anyone, including family, friends and others, threaten you with harm: never How often does anyone, including family, friends and others, scream or curse at you: never service: No Meds Home Medications and Allergies Home Medications ?Medication ?Instructions ?Recorded ?Confirmed ?Type aspirin 325 mg tablet 325 mg PO DAILY 04/10/23 06/11/24 History pen needle, diabetic 31 gauge x #100 ea 05/22/24 06/11/24 History 1/4 (UltiCare Pen Needle) insulin glargine 100 unit/mL (3 28 unit subcut BID 05/30/24 06/11/24 History mL) subcutaneous pen (Lantus Solostar U-100 Insulin) sennosides 8.6 mg tablet (Senna 17.2 mg PO BID 05/30/24 06/11/24 History Laxative) Allergies Allergy/AdvReac Type Severity Reaction Status Date / Time No Known Drug Allergies Allergy Verified 06/10/24 12:54 Exam Narrative: Exam Narrative: PHYSICAL EXAM General: Pleasant, conversant, hard of hearing, NAD HEENT: Normocephalic, atraumatic, sclera white, EOMI, oral mucosa moist Cardiovascular: RRR, S1S2. No pitting edema Pulmonary: CTA bilaterally without rhonchi, rales, expiratory wheezes. No dyspnea Abdominal: Soft, nondistended, diffuse mild tenderness. Quiet Neurological: Alert, answering questions appropriately, cranial nerves intact, no focal findings Extremities: No gross joint deformity or swelling. AROMI. Neurovascularly intact Skin: Warm, dry. Const: Vital Signs, click to edit/add: Vital Signs - 24 hr 06/11/24 05:52 06/11/24 08:16 Temperature 98.5 F Pulse Rate [Pulse Oximeter] 105 H 90 Respiratory Rate 20 16 Blood Pressure [Ri ght Upper Arm] 143/83 H 151/92 H Pulse Oximetry 96 97 Oxygen Delivery Me thod Room Air Room Air Hospitalist - H&P: Result Labs Labs: Short CBC 06/11/24 Range/Units 06:30 WBC 6.52 (4.50-11.00) K/uL Hgb 8.2 L (13.5-17.5) gm/dL Hct 25.9 L (37.0-53.0) % Plt Count 255 (140-440) K/uL BMP 06/11/24 06:30 Sodium 132 L Potassium 4.0 Chloride 101 Carbon Dioxide 24 BUN 19 Creatinine 0.7 Glucose 192 H Calcium 8.5 Liver Function 06/11/24 Range/Units 06:30 Total Bilirubin 0.3 (0.1-1.5) mg/dL Direct Bilirubin 0.1 (0.0-0.5) mg/dL AST 24 (12-35) U/L ALT 22 (4-50) U/L Alkaline Phosphatase 301 H (40-150) U/L Albumin 3.6 (3.3-5.0) g/dL Imaging CT abdomen pelvis: Attestation: I have reviewed the pertinent imaging results. Radiologist's impression: Visualized lung bases: There are several small noncalcified pulmonary nodules in the visualized lung bases, for example a 5 mm right lower lobe pulmonary nodule on series 4, image 5. Atherosclerotic coronary artery calcifications. Liver: There are scattered too small to characterize hypodensities within the right hepatic lobe, which are more conspicuous than on prior examinations. Additionally, there is a branching linear hypodensity within the left hepatic lobe anteriorly. Diffuse hepatic steatosis. Normal gallbladder. Common bile duct is normal in diameter. Pancreas: Similar hypodense lesion within the pancreatic tail measuring approximately 7.7 x 2.9 cm, better evaluated on prior MRI. Similar mild prominence of the pancreatic duct. Spleen: Unremarkable. Adrenals: Unremarkable. Kidneys: Right upper pole renal cyst measures 6.8 cm. Left lower pole renal cyst measures 5.9 cm. Additional too small to characterize hypodensities within both kidneys. No nephrolithiasis or hydronephrosis. Distal ureters obscured by orthopedic hardware. Aorta/IVC: Mild atherosclerotic aortic calcifications without aneurysmal dilation. Lymph nodes: Scattered subcentimeter retroperitoneal lymph nodes. Bowel: Increase in small-bowel dilation measuring up to 5 cm. Transition point is seen within the mid abdomen in close proximity to small bowel chain suture material. Colon is decompressed. Appendix is not definitively visualized. Small amount of free fluid within the pelvis. Several gastric collateral vessels are present. Pelvis: Obscured by beam hardening artifact from the patient`s hip prostheses. Bones/body wall: Partially visualized bilateral hip prostheses. Similar appearance of the 4.9 by 2.1 cm lytic region along the posterior superior aspect of the right acetabular component. There are several sclerotic lesions within the pelvis, some of which are unchanged compared to 05/01/2023 CT. There is a 3.4 by 1.7 cm sclerotic lesion within the right posterior ilium that is new. Additionally, a 1.1 cm sclerotic lesion within the right posterior ilium has increased in size. New sclerotic lesions within several vertebral bodies, the largest at T11. Sclerotic lesions within the sacrum are new compared to 202. Impression: 1. Increased small bowel dilation with transition point in the mid abdomen in close proximity to chain suture material concerning for small bowel obstruction. 2. Increased conspicuity of several hepatic lesions which are nonspecific but concerning for hepatic metastases. Branching hypodensity within the left hepatic lobe may represent intrahepatic portal vein occlusion. 3. Multiple pulmonary nodules and sclerotic osseous lesions concerning for metastases. 4. Similar appearance of the hypodense lesion within the pancreatic tail, better evaluated on prior MRI. 5. 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 Assessment and Plan Assessment and plan (1) Small bowel obstruction: Problem comment: -abdominal pain, nausea without vomiting, passing gas, last BM 06/10 -NPO, IVF -No NGT -pain and nausea management -General Surgery consulted, Dr. Castro following Status: Acute (2) Type 2 diabetes mellitus: Problem comment: -A1c 8.9, 05/03/24 -usual home dose glargine 28 units bid though patient is telling me he adjusts this on his own based on his oral intake. For now, will start will 10 units bid -glucose checks ACHS. No sliding scale for now given NPO and self adjusting glargine. Add as necessary Status: Chronic (3) Anemia: Problem comment: -hgb 8.2 asymptomatic, recent iron infusion -baseline 8.6-9.3 -follow Status: Acute (4) Lung nodule, multiple: Problem comment: -General Surgery discussed with Radiology. Requesting CT chest for further assessment Status: Acute (5) Metastasis to liver of unknown origin: Problem comment: -US liver per General Surgery for further assessment Status: Acute (6) Malignant neoplasm metastatic to lumbar spine with unknown primary site: Problem comment: -noted, PCP following - Referral for [facility] sent Rescheduling PET scan that was supposed to be this Status: Acute (7) Mass of pancreas: Problem comment: - initial CT 04/09/23 shows hypodense mass tail of the pancreas. MRI [facility] 04/24/24 Pancreatic Pseudocyst. - further imaging since that date, PCP following, referral for [facility] sent Status: Acute Total Time Spent Total Time Spent: Total time spent caring for the patient today was 70 minutes. This includes time spent for the visit reviewing the chart, time spent during the visit, time spent after the visit and documentation and planning in coordination of care.
[2024-06-11 08:59] VITALS: BP 134/73; PULSE 84; RESP 16; TEMP 37.4; O2SAT 97; BMI 28.6
[2024-06-11] MEDS: 0.9 % SODIUM CHLORIDE 1000 ml 1,000 ML 100 ML IV ×2 (09:13→18:49)
[2024-06-11] MEDS: SODIUM CHLORIDE 0.9 % (FLUSH) 10 ML SYRINGE 5 ML IVF ×2 (09:14→21:17)
[2024-06-11] MEDS: HYDROmorphone 0.5 mg/0.5 ml inj IVP ×3 (09:56→18:49)
--- NOTE | 2024-06-11 14:13 | CRLHL7_ITS ---
For Patients: As a result of the Century Cures Act, medical imaging exams and procedure reports are released immediately into your electronic medical record. You may view this report before your referring provider. If you have questions, please contact your health care provider. INDICATION: Liver masses. TECHNIQUE: CT chest with 100 cc Omnipaque 350 IV contrast. COMPARISON: None. FINDINGS: Lungs and pleura: Numerous bilateral solid pulmonary nodules involving all lung lobes (greater than 30), some of which show central cavitation. The largest of these is in the left lower lobe measures 8 mm (3/99). Scattered subpleural. No pleural effusions or pneumothorax. Heart and vasculature: Heart size is normal. Thoracic aorta and pulmonary artery are normal in caliber. Lymph nodes/mediastinum: No mediastinal, hilar, or axillary adenopathy. Chest wall: No masses. Upper abdomen: Please see the separately dictated same day CT abdomen pelvis Bones: Numerous scattered sclerotic bone lesions in the thoracic spine, sternum IMPRESSION: 1. Numerous bilateral solid pulmonary nodules, concerning for metastases. 2. Numerous scattered sclerotic bone lesions, also concerning for metastases. Please note that all CT scans at this facility use dose modulation, iterative reconstruction, and/or weight-based dosing when appropriate to reduce radiation dose to as low as reasonably achievable. Dictated by Jose Hoffman MD @ 06/11/2024 3:42:16 PM (Electronically Signed)
--- NOTE | 2024-06-11 14:26 | PC.NURSE ---
End of shift: Pt AxOx4, cooperative, and pleasant. Pt was admitted this AM. Pt rated pain 1-4/10 to the abdomen, personal lines underwriter utilized PRN medication, repositioning, and applied heat to the abdomen. Pt denies nausea, SOB, CP. Pt ambulated during the afternoon down the halls. Pt tolerating NPO diet well. Pt indep in room, continent of the bladder. Pt passing flatus and burping. Family at bedside throughout the shift. Pt appears resting with call light in reach.
[2024-06-11 15:00] VITALS: BP 136/73; PULSE 74; RESP 16; TEMP 36.7; O2SAT 97
--- NOTE | 2024-06-11 15:00 | CRLHL7_ITS ---
For Patients: As a result of the Century Cures Act, medical imaging exams and procedure reports are released immediately into your electronic medical record. You may view this report before your referring provider. If you have questions, please contact your health care provider. INDICATION: Liver masses COMPARISON: Same day CT chest/abdomen/pelvis TECHNIQUE: Ultrasound abdomen limited, liver. Real time renteria scale imaging and color Doppler analysis was performed of the abdomen. FINDINGS: Liver: The liver is within normal limits in size with faint diffusely increased echogenicity, suggestive of hepatic steatosis. No focal liver lesions identified. Vascular: The main portal vein is patent with normal flow direction. Other: No ascites IMPRESSION: 1. The liver is within normal limits in size with faint diffusely increased echogenicity, suggestive of mild hepatic steatosis. 2. No focal liver lesions identified. Dictated by Sudhakar Stanley MD @ 06/11/2024 3:59:28 PM (Electronically Signed)
--- NOTE | 2024-06-11 15:38 | PM.GSCN ---
History of Present Illness Consult details Date Seen: 06/11/24 Consult date: 06/11/24 Narrative: Patient presented to the emergency department with several months of abdominal pain. For the last 2 months he feels like he has had ?gas pain?. It is felt hard to pass gas and overall he has felt constipated. No nausea or vomiting. He had 2 large bowel movements yesterday, but nothing since this morning. He came to the emergency department this morning for an increase in abdominal pain. He has passed gas since being here in the hospital. Patient's past surgical history is positive for an ex lap 1 year ago with small-bowel resection and anastomosis. This was done for a small-bowel obstruction. During that hospitalization a cystic lesion of the pancreas was identified on CT scan. An MRI of the pancreas was obtained which showed a complex fluid collection in the tail of the pancreas concerning for possible pseudocyst. Recommendations were for repeat imaging, which was done with a repeat abdominal MRI on 06/29/2023 and 04/24/2024. Both of these images showed stability of this cystic lesion and characteristics consistent with an evolving pseudocyst. Last month on 05/18/2024 he presented to the emergency department for similar symptoms described above, with CT imaging at that time showing new sclerotic lesions in the sacrum, T10 and T11 vertebral bodies as well as the right iliac bone. Bilateral pulmonary nodules were also noted. These lesions were suspicious for metastatic disease. On repeat CT imaging today these lesions are again demonstrated, as well as new lesions of the liver. It is important to note that these lesions were not seen on his abdominal MRI 4 weeks earlier. Patient does have a history of BPH and underwent prostate surgery for this in November 2023. He does not know when his last PSA was. He hasn't had a colonoscopy for 10 years, but does a yearly FOBT which has always been negative. Patient does report significant fatigue over the last several months as well as changes in his stool, gas pain and constipation. He denies any unintentional weight loss. Review of Systems Status of ROS: Reports: 10 or more systems reviewed and unremarkable except as noted in History and below [facility] Medical History Type 2 diabetes mellitus ?E11.9 - Type 2 diabetes mellitus without complications (ICD-10) Age-related nuclear cataract of both eyes ?H25.13 - Age-related nuclear cataract, bilateral (ICD-10) Anemia ?D64.9 - Anemia, unspecified (ICD-10) Abnormal finding on CT scan ?R93.89 - Abnormal findings on diagnostic imaging of other specified body structures (ICD-10) Mass of pancreas ?K86.89 - Other specified diseases of pancreas (ICD-10) Hearing loss of both ears ?H91.93 - Unspecified hearing loss, bilateral (ICD-10) Constipation ?K59.00 - Constipation, unspecified (ICD-10) Abdominal wall abscess at site of surgical wound (05/01/23) ?T81.49XA - Infection following a procedure, other surgical site, initial encounter (ICD-10) 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 - Varicose veins of other specified sites (ICD-10) Small bowel obstruction ?K56.609 - Unspecified intestinal obstruction, unspecified as to partial versus complete obstruction (ICD-10) Hyperlipidemia ?E78.5 - Hyperlipidemia, unspecified (ICD-10) BPH (benign prostatic hyperplasia) ?N40.0 - Benign prostatic hyperplasia without lower urinary tract symptoms (ICD-10) Surgical History History of prostate surgery (11/29/23) ?Z98.890 - Other specified postprocedural states (ICD-10) S/P exploratory laparotomy (04/14/23) ?Z98.890 - Other specified postprocedural states (ICD-10) History of bunionectomy (06/28/04) ?Z98.890 - Other specified postprocedural states (ICD-10) History of arthroplasty of left shoulder (2012) ?Z96.612 - Presence of left artificial shoulder joint (ICD-10) H/O umbilical hernia repair (2005) ?Z98.890 - Other specified postprocedural states (ICD-10) ?Z87.19 - Personal history of other diseases of the digestive system (ICD-10) H/O bilateral inguinal hernia repair (2005) ?Z98.890 - Other specified postprocedural states (ICD-10) ?Z87.19 - Personal history of other diseases of the digestive system (ICD-10) History of bilateral hip replacements ?Z96.643 - Presence of artificial hip joint, bilateral (ICD-10) Family History Father Diabetes Mother CHF (congestive heart failure) Stroke Brother Prostate cancer Social History Narrative: He lives with his in the [place]. 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 He does not smoke. He does not drink alcohol. Code status is DNR. 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 What is your current living situation?: I presently have a place to live Problems where you live: no known problems Problems where you live details: NA In the past 12 months, utilities in danger of being shut off: no In the past 12 mos, have been you worried that your food would run out before you had money to buy more?: never true In the past 12 mos, the food you bought just didn't last and you didn't have money to buy more?: never true Highest level of school completed/degree received: Bachelor's degree Smoking Status: Never smoker Do you use any of these nicotine containing products: None Second hand tobacco smoke exposure: No How often do you have a drink containing alcohol: never How often do you have six or more drinks on one occasion: Never AUDIT-C Alcohol total score: 0 Non-prescribed substance use: denies use Caffeine: No How often does anyone, including family, friends and others, physically hurt you: never How often does anyone, including family, friends and others, insult or talk down to you: never How often does anyone, including family, friends and others, threaten you with harm: never How often does anyone, including family, friends and others, scream or curse at you: never service: No Meds Home Medications and Allergies Home Medications ?Medication ?Instructions ?Recorded ?Confirmed ?Type aspirin 325 mg tablet 325 mg PO DAILY 04/10/23 06/11/24 History pen needle, diabetic 31 gauge x #100 ea 05/22/24 06/11/24 History 1/4 (UltiCare Pen Needle) insulin glargine 100 unit/mL (3 28 unit subcut BID 05/30/24 06/11/24 History mL) subcutaneous pen (Lantus Solostar U-100 Insulin) sennosides 8.6 mg tablet (Senna 17.2 mg PO BID 05/30/24 06/11/24 History Laxative) Allergies Allergy/AdvReac Type Severity Reaction Status Date / Time No Known Drug Allergies Allergy Verified 06/11/24 15:14 Exam Narrative: Exam Narrative: General: Alert and oriented, no acute distress Respiratory: Equal breath rise bilaterally, maintained on room air CV: Well perfused Abdomen: Soft, mild tenderness to deep palpation with no guarding or rebound. No significant distention. No peritoneal signs. Previously well-healed ex lap scar. Const: Vital Signs, click to edit/add: Vital Signs - 24 hr 06/11/24 05:52 06/11/24 08:16 06/11/24 08:59 Temperature 98.5 F 99.3 F Pulse Rate [Pulse Oximeter] 105 H 90 84 Respiratory Rate 20 16 16 Blood Pressure [Ri ght Arm] 134/73 Blood Pressure [Ri ght Upper Arm] 143/83 H 151/92 H Pulse Oximetry 96 97 97 Oxygen Delivery Me thod Room Air Room Air Room Air 06/11/24 08:59 06/11/24 08:59 Temperature 99.3 F Pulse Rate [Pulse Oximeter] 84 Respiratory Rate 16 Blood Pressure [Ri ght Arm] 134/73 Blood Pressure [Ri ght Upper Arm] Pulse Oximetry 97 Oxygen Delivery Me thod Room Air Room Air Results Labs Labs: Abnormal lab results 06/11/24 Range/Units 06:30 RBC 2.74 L (4.30-5.90) m/uL Hgb 8.2 L (13.5-17.5) gm/dL Hct 25.9 L (37.0-53.0) % RDW Coeff of Torey 17.1 H (11.5-15.5) % Neut % (Auto) 85.1 H (42.0-72.0) % Lymph % (Auto) 7.7 L (20-44) % Lymph # (Auto) 0.50 L (0.90-2.90) K/uL Sodium 132 L (135-149) mmol/L Glucose 192 H (60-115) mg/dL Alkaline Phosphatase 301 H (40-150) U/L Diabetes panel 06/11/24 Range/Units 06:30 Sodium 132 L (135-149) mmol/L Potassium 4.0 (3.6-5.1) mmol/L Chloride 101 (96-114) mmol/L Carbon Dioxide 24 (20-32) mmol/L BUN 19 (7-30) mg/dL Creatinine 0.7 (0.5-1.5) mg/dL Glucose 192 H (60-115) mg/dL Calcium 8.5 (8.4-10.6) mg/dL AST 24 (12-35) U/L ALT 22 (4-50) U/L Alkaline Phosphatase 301 H (40-150) U/L Total Protein 6.1 (6.0-8.3) g/dL Albumin 3.6 (3.3-5.0) g/dL Calcium panel 06/11/24 Range/Units 06:30 Calcium 8.5 (8.4-10.6) mg/dL Albumin 3.6 (3.3-5.0) g/dL Pituitary panel 06/11/24 Range/Units 06:30 Sodium 132 L (135-149) mmol/L Potassium 4.0 (3.6-5.1) mmol/L Chloride 101 (96-114) mmol/L Carbon Dioxide 24 (20-32) mmol/L BUN 19 (7-30) mg/dL Creatinine 0.7 (0.5-1.5) mg/dL Glucose 192 H (60-115) mg/dL Calcium 8.5 (8.4-10.6) mg/dL Adrenal panel 06/11/24 Range/Units 06:30 Sodium 132 L (135-149) mmol/L Potassium 4.0 (3.6-5.1) mmol/L Chloride 101 (96-114) mmol/L Carbon Dioxide 24 (20-32) mmol/L BUN 19 (7-30) mg/dL Creatinine 0.7 (0.5-1.5) mg/dL Glucose 192 H (60-115) mg/dL Calcium 8.5 (8.4-10.6) mg/dL Total Bilirubin 0.3 (0.1-1.5) mg/dL AST 24 (12-35) U/L ALT 22 (4-50) U/L Alkaline Phosphatase 301 H (40-150) U/L Total Protein 6.1 (6.0-8.3) g/dL Albumin 3.6 (3.3-5.0) g/dL All other labs normal. Imaging Abdomen CT scan report/results: report reviewed and image reviewed Progress Note:A&P Assessment and plan (1) Small bowel obstruction: Status: Acute Assessment and Plan: Patient presents for 2 days worsening abdominal pain and CT scan showing dilated small bowel with transition around previous anastomosis. This is most likely secondary to adhesions, although cannot rule out a mass given new findings on imaging concerning for metastatic disease of unknown origin. Patient does continue to pass gas, consistent with a partial small-bowel obstruction. No need for NG tube at this time with patient not reporting any nausea or vomiting. Agree with medical management and bowel rest. (2) Metastasis to liver of unknown origin: Status: Acute Assessment and Plan: On imaging in the emergency department patient with new lesions of the liver, bone and lung concerning for metastatic disease. Unknown origin at this time. He is scheduled for a PET-CT as an outpatient. His current bowel obstruction could be associated with metastatic disease, so would recommend further workup while he is in the hospital. After reviewing images with Radiology recommend pursuing a chest CT and liver ultrasound. Labs for CEA, CA 19 9 and PSA were also ordered. Will continue to follow the patient closely. Please call with any acute clinical changes.
[2024-06-11 18:44] LABS: PSA Diagnostic* 0.84 ng/mL (0.10-4.00)
[2024-06-11 19:00] VITALS: BP 126/77; PULSE 84; RESP 18; TEMP 36.4; O2SAT 95
[2024-06-11] MEDS: ENOXAPARIN 40 MG/0.4 ML INJ SUBCUT (21:17)
--- NOTE | 2024-06-11 23:45 | PC.NURSE ---
End of Shift: Patient pleasant and cooperative. Afebrile. Rating pain in abdomen 2/10 and PRN Dilaudid given x1. Passing flatus. Up walking in hallway several times this shift.
[2024-06-12] VITALS (7 sets, daily range): BP systolic 118–142; BP diastolic 62–98; PULSE 76–94; RESP 16–20; TEMP 36.5–36.9; O2SAT 94–99
[2024-06-12] MEDS: 0.9 % SODIUM CHLORIDE 1000 ml 1,000 ML 100 ML IV ×2 (05:00→15:09)
--- NOTE | 2024-06-12 06:29 | PC.NURSE ---
End of shift [id number]: Pt has been A&O, afebrile and VSS. He is independent in his room with a steady gait. Denies pain, nausea and dizziness overnight. No BM overnight but continues to pass gas. HS B > 0200 B. PIV in left AC C/D/I and infusing NaCl @ 100 mL/hr. Pt remained NPO overnight. Slept well in between cares. ?
[2024-06-12 06:42] LABS: Hematocrit 24.9 % (37.0-53.0); Mean Corpuscular HGB Conc 31 gm/dL (32-36); Mean Corpuscular Hemoglobin 30 pg (26-34); Mean Corpuscular Volume 97 fL (80-100); Platelet Count* 211 K/uL (140-440); Red Blood Count 2.58 m/uL (4.30-5.90)
[2024-06-12 06:52] LABS: Albumin* 3.1 g/dL (3.3-5.0); Chloride* 105 mmol/L (96-114); Potassium* 4.2 mmol/L (3.6-5.1); Sodium* 134 mmol/L (135-149)
[2024-06-12 06:54] LABS: Creatinine* 0.8 mg/dL (0.5-1.5); Est. Creatinine Clearance* 67.98; Estimated Glomerular Filt Rate 92 ml/min
[2024-06-12 06:55] LABS: Alanine Aminotransferase* 17 U/L (4-50); Alkaline Phosphatase* 265 U/L (40-150); Anion Gap 3 mEq/L (7-15); Aspartate Amino Transferase* 21 U/L (12-35); Bilirubin Direct* 0.1 mg/dL (0.0-0.5); Bilirubin Total* 0.3 mg/dL (0.1-1.5); Blood Urea Nitrogen* 19 mg/dL (7-30); Carbon Dioxide* 26 mmol/L (20-32); Glucose* 124 mg/dL (60-115); Total Protein* 5.5 g/dL (6.0-8.3)
[2024-06-12 06:56] LABS: Calcium* 8.1 mg/dL (8.4-10.6)
[2024-06-12 06:57] LABS: Hemoglobin* 7.7 gm/dL (13.5-17.5); Slide Review Reflex No
--- NOTE | 2024-06-12 10:12 | P.GSPN_ITS ---
Subjective Subjective Date Seen: 06/12/24 Interval history: Patient is feeling better this morning. He has been able to walk the halls with only mild discomfort. He has not needed narcotic pain medicine for about 13 hours. He is feeling hungry. He continues to pass a lot of gas, no bowel movement. Exam Narrative: Exam Narrative: General: Alert and oriented, no acute distress Abdomen: Soft, nontender and nondistended. Const: Vital Signs, click to edit/add: Vital Signs - 24 hr 06/11/24 15:00 06/11/24 15:00 06/11/24 19:00 Temperature 98.0 F 97.5 F L Pulse Rate [Pulse Oximeter] 74 74 84 Respiratory Rate 16 16 18 Blood Pressure [Ri ght Arm] 136/73 126/77 Pulse Oximetry 97 95 Oxygen Delivery Me thod Room Air Room Air 06/12/24 00:00 06/12/24 02:30 06/12/24 08:00 Temperature 97.9 F 98.4 F Pulse Rate [Pulse Oximeter] 76 77 Respiratory Rate 18 18 20 Blood Pressure [Ri ght Arm] 133/79 131/81 Pulse Oximetry 98 98 Oxygen Delivery Me thod Room Air Room Air Labs/Imaging Labs Labs: Hemoglobin 7.7 Imaging Imaging: Chest CT: Bilateral pulmonary nodules concerning for metastatic disease Liver ultrasound: No lesions identified Progress Note:A&P Assessment and plan (1) Small bowel obstruction: Status: Acute Assessment and Plan: Patient presents for 2 days worsening abdominal pain and CT scan showing dilated small bowel with transition around previous anastomosis. This is most likely secondary to adhesions, although cannot rule out a mass given new findings on imaging concerning for metastatic disease of unknown origin. Patient with improved abdominal pain and continues to pass gas. Okay for clear liquids this morning, slow advancement of diet. (2) Metastasis to liver of unknown origin: Status: Acute Assessment and Plan: On imaging in the emergency department patient with new lesions of the liver, bone and lung concerning for metastatic disease. Unknown origin at this time. He is scheduled for a PET-CT as an outpatient. Labs for CEA, CA 19 [address] does demonstrate bilateral masses. One of them is on the periphery, which could be potentially biopsied by IR for tissue diagnosis. He is currently scheduled for evaluation by [facility]. Liver US does not demonstrate masses, which are seen on CT scan- may need further imaging evaluation with MRI, but this again can be done as an outpatient. I am most concerned about a possible GI malignancy given his recent changes in bowel habits. Will continue to follow the patient closely. Please call with any acute clinical changes.
[2024-06-12] MEDS: ASPIRIN EC 325 MG TABLET PO (11:22)
--- NOTE | 2024-06-12 12:31 | PM.IMPN1 ---
Progress Note: A&P Assessment and plan (1) Small bowel obstruction: Problem details: -abdominal pain, nausea without vomiting, passing gas, last BM 06/10 -NPO, IVF -No NGT -pain and nausea management -General Surgery consulted, Dr. Castro following 06/[address] Castro, has been advanced to clears, slowly advancing. Labs stable Status: Acute (2) Type 2 diabetes mellitus: Problem details: -A1c 8.9, 05/03/24 -usual home dose glargine 28 units bid though patient is telling me he adjusts this on his own based on his oral intake. For now, will start will 10 units bid -glucose checks ACHS. No sliding scale for now given NPO and self adjusting glargine. Add as necessary 06/12 Glucose 120-140 since admission. Holding home insulin for now, will add as increased oral intake and glucose increases Status: Chronic (3) Anemia: Problem details: -hgb 8.2 asymptomatic, recent iron infusion x 2 (06/10 and 06/03) -baseline 8.6-9.3 -follow 06/12 Hgb 7.7, remains asymptomatic. Has been on IVF since admission. Tells me they (PCP) have discussed transfusion for hgb 4-7. Will recheck at 1600pm Status: Acute (4) Lung nodule, multiple: Problem details: -General Surgery discussed with Radiology. Requesting CT chest for further assessment - shows numerous bilateral solid pulmonary nodules concerning for Mets, numerous scattered sclerotic bone lesions also concerning for Mets. Patient has been given this information Status: Acute (5) Metastasis to liver of unknown origin: Problem details: -US liver per General Surgery for further assessment - ultrasound reports the liver is within normal limits in size with faint diffusely increased echogenicity suggestive of mild hepatic steatosis, no focal liver lesions identified. Patient given this information Status: Acute (6) Malignant neoplasm metastatic to lumbar spine with unknown primary site: Problem details: -noted, PCP following - Referral for [facility] sent Rescheduling PET scan that was supposed to be this 06/13 Status: Acute (7) Mass of pancreas: Problem details: - initial CT 04/09/23 shows hypodense mass tail of the pancreas. MRI [facility] 04/24/24 Pancreatic Pseudocyst. - further imaging since that date, PCP following, referral for [facility] sent Status: Acute Plan Continue to slowly advance clears as tolerated without nausea, vomiting, increased pain. General surgery following. Monitor hemoglobin. Time Spent With Patient Total time spent: Total time spent caring for the patient today was 45 minutes. This includes time spent for the visit reviewing the chart, time spent during the visit, time spent after the visit and documentation and planning in coordination of care. Subjective Date Seen: 06/12/24 Interval history: Patient is seen sitting up in a chair, with family at bedside this morning. Talkative, smiling, feeling much better than yesterday. Pain has improved. Continues to pass much gas. Currently, tolerating clears. Remains belt she but this is chronic for him. Has just a bit of stomach upset but he tells me this is chronic as well. No nausea or vomiting. Remains afebrile. Exam Narrative: Exam Narrative: PHYSICAL EXAM General: Pleasant, conversant, hard of hearing, NAD Cardiovascular: RRR, S1S2. No pitting edema Pulmonary: CTA bilaterally without rhonchi, rales, expiratory wheezes. No dyspnea Abdominal: Soft, nondistended, nontender Neurological: Alert, answering questions appropriately, cranial nerves intact, no focal findings Extremities: No gross joint deformity or swelling. AROMI. Neurovascularly intact Skin: Warm, dry. Const: Vital Signs, click to edit/add: Vital Signs - 24 hr 06/11/24 15:00 06/11/24 15:00 06/11/24 19:00 Temperature 98.0 F 97.5 F L Pulse Rate [Pulse Oximeter] 74 74 84 Respiratory Rate 16 16 18 Blood Pressure [Ri ght Arm] 136/73 126/77 Pulse Oximetry 97 95 Oxygen Delivery Me thod Room Air Room Air 06/12/24 00:00 06/12/24 02:30 06/12/24 08:00 Temperature 97.9 F 98.4 F Pulse Rate [Pulse Oximeter] 76 77 Respiratory Rate 18 18 20 Blood Pressure [Ri ght Arm] 133/79 131/81 Pulse Oximetry 98 98 Oxygen Delivery Me thod Room Air Room Air 06/12/24 11:00 Temperature 98.2 F Pulse Rate [Pulse Oximeter] 90 Respiratory Rate 18 Blood Pressure [Ri ght Arm] 133/76 Pulse Oximetry 99 Oxygen Delivery Me thod Room Air Labs Labs: Laboratory Results - last 24 hr 06/11/24 06/12/24 06:30 05:55 WBC 4.80 RBC 2.58 L Hgb 7.7 L* Hct 24.9 L MCV 97 MCH 30 MCHC 31 L Plt Count 211 Sodium 134 L Potassium 4.2 Chloride 105 Carbon Dioxide 26 Anion Gap 3 L BUN 19 Creatinine 0.8 Estimated Creat Clear 67.98 Estimated GFR 92 Glucose 124 H Calcium 8.1 L Total Bilirubin 0.3 Direct Bilirubin 0.1 AST 21 ALT 17 Alkaline Phosphatase 265 H Total Protein 5.5 L Albumin 3.1 L PSA Diagnostic 0.84
[2024-06-12 16:11] LABS: Hemoglobin* 8.1 gm/dL (13.5-17.5)
--- NOTE | 2024-06-12 19:06 | PC.NURSE ---
shift note: pt up in halls x4. active BS x4. pt states he's burping and has intermittent episodes of flatus. pt started on clrs this a.m with slight increase in abd pain. pt encouraged to slow po intake. IV patent
[2024-06-12] MEDS: SODIUM CHLORIDE 0.9 % (FLUSH) 10 ML SYRINGE 5 ML IVF (21:17)
[2024-06-12] MEDS: ENOXAPARIN 40 MG/0.4 ML INJ SUBCUT (21:17)
[2024-06-13] VITALS (14 sets, daily range): BP systolic 110–143; BP diastolic 63–89; PULSE 52–85; RESP 14–18; TEMP 36.6–37.3; O2SAT 94–100
[2024-06-13] MEDS: 0.9 % SODIUM CHLORIDE 1000 ml 1,000 ML 100 ML IV (01:32)
--- NOTE | 2024-06-13 06:27 | PC.NURSE ---
Shift note ([id number]): Patient pleasant, alert and oriented. Ambulates independently in room. Continues on clear liquid diet. Denied pain. Took a shower at HS. BS 199 at HS. Patient reported he was going to have a snack at that time. MD updated due to no insulin orders. Per MD recheck BS after snack and give SS insulin if needed. Recheck BS 208 one hour after snack. Patient reported that he drops at night and declined insulin. MD updated. Pt BS 173 at 0130. ?
[2024-06-13 06:44] LABS: Hematocrit 23.8 % (37.0-53.0); Mean Corpuscular HGB Conc 32 gm/dL (32-36); Mean Corpuscular Hemoglobin 30 pg (26-34); Mean Corpuscular Volume 96 fL (80-100); Platelet Count* 200 K/uL (140-440); Red Blood Count 2.47 m/uL (4.30-5.90); White Blood Count* 4.21 K/uL (4.50-11.00)
[2024-06-13 06:54] LABS: Chloride* 108 mmol/L (96-114); Hemoglobin* 7.5 gm/dL (13.5-17.5); Potassium* 3.7 mmol/L (3.6-5.1); Slide Review Reflex No; Sodium* 136 mmol/L (135-149)
[2024-06-13 06:57] LABS: Anion Gap 5 mEq/L (7-15); Blood Urea Nitrogen* 16 mg/dL (7-30); Calcium* 7.9 mg/dL (8.4-10.6); Carbon Dioxide* 23 mmol/L (20-32); Creatinine* 0.7 mg/dL (0.5-1.5); Est. Creatinine Clearance* 67.98; Estimated Glomerular Filt Rate 96 ml/min; Glucose* 139 mg/dL (60-115)
[2024-06-13] MEDS: ASPIRIN EC 325 MG TABLET PO (10:02)
--- NOTE | 2024-06-13 10:14 | P.IMPN_ITS ---
Progress Note: A&P Assessment and plan (1) Small bowel obstruction: Problem details: -abdominal pain, nausea without vomiting, passing gas, last BM 06/10 -NPO, IVF -No NGT -pain and nausea management -General Surgery consulted, Dr. Castro following Dr. Castro, has been following, continuing to slowly advance diet, tolerating. BMP, LFTs stable. Would expect he may be able to discharge to home 1-2 days with ongoing improvement. Status: Acute (2) Type 2 diabetes mellitus: Problem details: -A1c 8.9, 05/03/24 -usual home dose glargine 28 units bid though patient is telling me he adjusts this on his own based on his oral intake. For now, will start will 10 units bid -glucose checks ACHS. No sliding scale for now given NPO and self adjusting glargine. Add as necessary 06/12 Glucose 120-140 since admission. Holding home insulin for now, will add as increased oral intake and glucose increases Status: Chronic (3) Anemia: Problem details: -hgb 8.2 asymptomatic, recent iron infusion x 2 (06/10 and 06/03) -baseline 8.6-9.3 -follow Over past 12 months, baseline hemoglobin 10.3-8.2, RBC 3.33-2.74, HCT 31.6-25.9, MCV/MCH/MCHC all WNL, no thrombocytopenia. 05/16: ferritin 11.4, folate 611, retic% 2.7. Active cancer with mets 06/12 Hgb 7.7, remains asymptomatic. Has been on IVF since admission. Tells me they (PCP) have discussed transfusion for hgb 4-7. Recheck is 8.1 06/13 hemoglobin back down to 7.5, still asymptomatic even with activity. Will discontinue IVF as now tolerating advancing diet. Recheck hemoglobin this afternoon. Declines transfusion at this time. Would consider this afternoon if no improvement or decreases -Add on TIBC, Fe, Vit B12. Recent labs as above. Start oral iron supplement. D/c enoxaparin. SCDs and encourage ambulation for VTE PPX Status: Acute (4) Lung nodule, multiple: Problem details: -General Surgery discussed with Radiology. Requesting CT chest for further assessment - shows numerous bilateral solid pulmonary nodules concerning for Mets, numerous scattered sclerotic bone lesions also concerning for Mets. Patient has been given this information Status: Acute (5) Metastasis to liver of unknown origin: Problem details: -US liver per General Surgery for further assessment - ultrasound reports the liver is within normal limits in size with faint diffusely increased echogenicity suggestive of mild hepatic steatosis, no focal liver lesions identified. Patient given this information Status: Acute (6) Malignant neoplasm metastatic to lumbar spine with unknown primary site: Problem details: -noted, PCP following - Referral for [facility] sent Rescheduling PET scan that was supposed to be this 06/13 Status: Acute (7) Mass of pancreas: Problem details: - initial CT 04/09/23 shows hypodense mass tail of the pancreas. MRI [facility] 04/24/24 Pancreatic Pseudocyst. - further imaging since that date, PCP following, referral for [facility] sent Status: Acute Plan Continuing to advance diet as tolerated. Continues to pass gas, no BM. Following hemoglobin. Possible discharge to home 1-2 days pending ongoing clinical improvement Time Spent With Patient Total time spent: Total time spent caring for the patient today was 45 minutes. This includes time spent for the visit reviewing the chart, time spent during the visit, time spent after the visit and documentation and planning in coordination of care. Subjective Date Seen: 06/13/24 Interval history: Patient is seen sitting up in a chair. Has just finished a small full liquid breakfast and reports no increasing pain, nausea, vomiting, belching. Tolerating thus far. Did fine with clears yesterday, having gradually increased volume. Remains afebrile. If anything, today is more emotional, having undergone several evaluations recently, most pointing towards cancer with metastases. Exam Narrative: Exam Narrative: PHYSICAL EXAM General: Pleasant, conversant, hard of hearing, NAD Cardiovascular: RRR, S1S2. No pitting edema Pulmonary: CTA bilaterally without rhonchi, rales, expiratory wheezes. No dyspnea Abdominal: Soft, nondistended, nontender Neurological: Alert, answering questions appropriately, cranial nerves intact, no focal findings Extremities: No gross joint deformity or swelling. AROMI. Neurovascularly intact Skin: Warm, dry. Const: Vital Signs, click to edit/add: Vital Signs - 24 hr 06/12/24 11:00 06/12/24 15:00 06/12/24 15:00 Temperature 98.2 F 97.7 F Pulse Rate [Pulse Oximeter] 90 94 94 Respiratory Rate 18 18 18 Blood Pressure [Le ft Arm] Blood Pressure [Ri ght Arm] 133/76 142/98 H Pulse Oximetry 99 99 Oxygen Delivery Me thod Room Air Room Air 06/12/24 21:30 06/12/24 22:39 06/13/24 03:00 Temperature 98.4 F 98.1 F 98.6 F Pulse Rate [Pulse Oximeter] 86 77 82 Respiratory Rate 20 16 17 Blood Pressure [Le ft Arm] 123/73 Blood Pressure [Ri ght Arm] 128/77 118/62 Pulse Oximetry 97 94 94 Oxygen Delivery Va thod Room Air Room Air Room Air Labs Labs: Laboratory Results - last 24 hr 06/12/24 06/13/24 16:07 05:48 WBC 4.21 L RBC 2.47 L Hgb 8.1 L 7.5 L* Hct 23.8 L MCV 96 MCH 30 MCHC 32 Plt Count 200 Sodium 136 Potassium 3.7 Chloride 108 Carbon Dioxide 23 Anion Gap 5 L BUN 16 Creatinine 0.7 Estimated Creat Clear 67.98 Estimated GFR 96 Glucose 139 H Calcium 7.9 L
[2024-06-13 10:54] LABS: Iron* 83 ug/dL (49-181)
[2024-06-13 11:04] LABS: Percent Iron Saturation 27 % (20-50); Total Iron Binding Capacity 304 ug/dL (261-462)
--- NOTE | 2024-06-13 11:41 | P.GSPN_ITS ---
Subjective Subjective Date Seen: 06/13/24 Interval history: Patient continues to pass gas, no bowel movement yet. Denies any abdominal pain. Tolerated clears yesterday without difficulty and feels this morning. No other concerns. Exam 2 Narrative: Exam Narrative: General: Alert and oriented, no acute distress Abdomen: Soft, nontender nondistended Const: Vital Signs, click to edit/add: Vital Signs - 24 hr 06/12/24 15:00 06/12/24 15:00 06/12/24 21:30 Temperature 97.7 F 98.4 F Pulse Rate [Pulse Oximeter] 94 94 86 Respiratory Rate 18 18 20 Blood Pressure [Le ft Arm] Blood Pressure [Ri ght Arm] 142/98 H 128/77 Pulse Oximetry 99 97 Oxygen Delivery Me thod Room Air Room Air 06/12/24 22:39 06/13/24 03:00 06/13/24 07:00 Temperature 98.1 F 98.6 F 98.1 F Pulse Rate [Pulse Oximeter] 77 82 81 Respiratory Rate 16 17 18 Blood Pressure [Le ft Arm] 123/73 134/69 Blood Pressure [Ri ght Arm] 118/62 Pulse Oximetry 94 94 97 Oxygen Delivery Me thod Room Air Room Air Room Air Labs/Imaging Labs Labs: No leukocytosis. Hemoglobin 7.5 Imaging Imaging: No new imaging Progress Note:A&P Assessment and plan (1) Small bowel obstruction: Status: Acute Assessment and Plan: Patient with return of bowel function and tolerating advancement of diet. Surgery to sign off, please call with any questions. (2) Metastasis to liver of unknown origin: Status: Acute Assessment and Plan: On imaging in the emergency department patient with new lesions of the liver, bone and lung concerning for metastatic disease. Unknown origin at this time. He is scheduled for a PET-CT as an outpatient. Labs for CEA, CA 19 [address] does demonstrate bilateral masses. One of them is on the periphery, which could be potentially biopsied by IR for tissue diagnosis. He is currently scheduled for evaluation by [facility]. Liver US does not demonstrate masses, which are seen on CT scan- may need further imaging evaluation with MRI, but this again can be done as an outpatient. Patient is currently scheduled for a PET-CT next week and will establish care with [facility].
[2024-06-13 12:01] LABS: Vitamin B12* 426 pg/mL (243-894)
[2024-06-13 12:12] LABS: Carcinoembryonic Antigen 67.3 ng/mL
[2024-06-13 16:42] LABS: Hemoglobin* 7.8 gm/dL (13.5-17.5)
[2024-06-13] MEDS: FERROUS SULFATE 325 MG TABLET PO (18:09)
--- NOTE | 2024-06-13 18:48 | PC.NURSE ---
End of shift 7-19: The patient is pleasant and alert and orientated. No reports of pain of shift, the patient reported mild abdominal discomfort initially this morning. The patient walked throughout the day in the halls with SBA. Advanced to a regular diet tonight for dinner, tolerated this well so far. BG was elevated and would require 1 unit of sliding scale, the patient refused this administration. BM after dinner, noted to be dark in color by the patient... I did not see this. MD is aware. Recheck hgb 7.8
--- NOTE | 2024-06-13 19:02 | PC.NURSE ---
The patient is pleasant and alert and oriented. Reported minimal abdominal discomfort this shift. VSS on RA. Advanced to regular diet this evening for dinner, so far he has tolerate this well. BM after dinner, the patient noted it to be dark in color, I did not observe the BM episode. MD is aware of this. HGB rechecked @ 1600- 7.8. Wilmer decided to transfuse, type and screen is in process. PO fluid intake is adequate and reassuring. SBA in the halls due to anemia. Up ad dia to BR in room. Call light within reach. The patients family visited this afternoon. Bowel sounds hypoactive, passing flatus and burping. Lea GARCIA BSN
[2024-06-14] VITALS (10 sets, daily range): BP systolic 109–133; BP diastolic 71–89; PULSE 60–90; RESP 16–18; TEMP 36.7–36.9; O2SAT 97–100
[2024-06-14] MEDS: INSULIN GLARGINE,HUM.REC.ANLOG 100 UNIT/ML INSULN.PEN 10 UNIT SUBCUT ×2 (00:09→08:49)
[2024-06-14] MEDS: SODIUM CHLORIDE 0.9 % (FLUSH) 10 ML SYRINGE 5 ML IVF ×3 (00:10→22:01)
[2024-06-14 06:32] LABS: Hematocrit 26.9 % (37.0-53.0); Hemoglobin* 8.6 gm/dL (13.5-17.5); Mean Corpuscular HGB Conc 32 gm/dL (32-36); Mean Corpuscular Hemoglobin 30 pg (26-34); Mean Corpuscular Volume 95 fL (80-100); Platelet Count* 213 K/uL (140-440); Red Blood Count 2.83 m/uL (4.30-5.90); White Blood Count* 5.23 K/uL (4.50-11.00)
--- NOTE | 2024-06-14 06:42 | PC.NURSE ---
Pt alert and oriented x3. Afebrile. Pt report 1/10 pain in abdomen, pain medications offered pt declined stating ?its fine right, now?. Pt received 1 unit of blood, tolerated well. Pt is up SBA when walking in halls, up ad dia in room and tolerating a regular diet. ?
[2024-06-14 06:48] LABS: Chloride* 107 mmol/L (96-114); Potassium* 3.8 mmol/L (3.6-5.1); Sodium* 134 mmol/L (135-149)
[2024-06-14 06:51] LABS: Anion Gap 1 mEq/L (7-15); Blood Urea Nitrogen* 11 mg/dL (7-30); Calcium* 8.3 mg/dL (8.4-10.6); Carbon Dioxide* 26 mmol/L (20-32); Creatinine* 0.7 mg/dL (0.5-1.5); Est. Creatinine Clearance* 67.98; Estimated Glomerular Filt Rate 96 ml/min; Glucose* 165 mg/dL (60-115); Slide Review Reflex No
[2024-06-14] MEDS: ASPIRIN EC 325 MG TABLET PO (08:49)
[2024-06-14] MEDS: FERROUS SULFATE 325 MG TABLET PO ×2 (08:49→18:24)
[2024-06-14] MEDS: 0.9 % SODIUM CHLORIDE 1000 ml 1,000 ML 75 ML IV (11:32)
[2024-06-14] MEDS: PANTOPRAZOLE SODIUM 40 MG INJ IVP (11:32)
--- NOTE | 2024-06-14 12:02 | PM.IMPN1 ---
Progress Note: A&P Assessment and plan (1) Small bowel obstruction: Problem details: Recurrent small-bowel obstruction. One year ago had small-bowel resection for bowel obstruction. Current transition point appears to be near the anastomosis from surgery 1 year ago. Clinically improving. Still having symptoms suggestive of partial small-bowel obstruction with postprandial nausea bloating and cramping. Status: Acute (2) Malignant neoplasm metastatic to lumbar spine with unknown primary site: Problem details: -noted, PCP following - Referral for [facility] sent Rescheduling PET scan that was supposed to be this 06/13 Status: Acute (3) Metastasis to liver of unknown origin: Problem details: -US liver per General Surgery for further assessment - ultrasound reports the liver is within normal limits in size with faint diffusely increased echogenicity suggestive of mild hepatic steatosis, no focal liver lesions identified. Patient given this information Status: Acute (4) Type 2 diabetes mellitus: Problem details: -A1c 8.9, 05/03/24 -usual home dose glargine 28 units bid though patient is telling me he adjusts this on his own based on his oral intake. For now, will start will 10 units bid -glucose checks ACHS. No sliding scale for now given NPO and self adjusting glargine. Add as necessary Status: Chronic (5) Anemia: Problem details: -hgb 8.2 asymptomatic, recent iron infusion x 2 (06/10 and 06/03) -baseline 8.6-9.3 -follow Over past 12 months, baseline hemoglobin 10.3-8.2, RBC 3.33-2.74, HCT 31.6-25.9, MCV/MCH/MCHC all WNL, no thrombocytopenia. 05/16: ferritin 11.4, folate 611, retic% 2.7. Active cancer with mets 06/12 Hgb 7.7, remains asymptomatic. Has been on IVF since admission. Tells me they (PCP) have discussed transfusion for hgb 4-7. Recheck is 8.1 06/13 hemoglobin back down to 7.5, still asymptomatic even with activity. Will discontinue IVF as now tolerating advancing diet. Recheck hemoglobin this afternoon. Declines transfusion at this time. Would consider this afternoon if no improvement or decreases -Add on TIBC, Fe, Vit B12. Recent labs as above. Start oral iron supplement. D/c enoxaparin. SCDs and encourage ambulation for VTE PPX Status: Acute (6) Mass of pancreas: Problem details: - initial CT 04/09/23 shows hypodense mass tail of the pancreas. MRI [facility] 04/24/24 Pancreatic Pseudocyst. Lesion appears stable on repeat imaging. - further imaging since that date, PCP following, referral for [facility] sent Status: Acute (7) Abdominal pain: Problem details: Patient has been having abdominal pain for the last couple months. I favor partial small-bowel obstruction as the cause for this verses metastatic disease or both. Small-bowel obstruction being managed conservatively. Cancer evaluation pending with PET scan at [facility] next week Status: Acute (8) Melanotic stools: Problem details: obtain EGD today Status: Acute Plan 74-year-old male with small-bowel obstruction, presumed metastatic cancer, anemia with melanotic stools will continue with evaluation in-hospital. Obtain EGD today. Advance diet as tolerated. When he is able to tolerate oral intake we will discharge him to home for outpatient follow-up. Time Spent With Patient Total time spent: Total time spent today is 65 minutes reviewing records, discussing with patient and daughter ongoing evaluation and management of these problems. Subjective Date Seen: 06/14/24 Interval history: Sulaiman Alcantara is a 74 year old male past medical history significant for diabetes mellitus, insulin dependent, hyperlipidemia, BPH, bilateral hearing loss, anemia, malignant neoplasm metastatic to lumbar spine with unknown primary site, concerning metastases to liver and pancreas is admitted to the medical floor from the ED for recurrent small-bowel obstruction. Patient complains of abdominal pain, along with gas pain for the past several months. Abdominal pain described as cramping, gassy. He had 2 large bowel movements over the last 48 hours. He has had nausea without vomiting. Decreased appetite with decreased oral intake. Denies headache or dizziness. Denies chest pain or shortness of breath. Denies recent fevers. No change in urination. Has had previous multiple abdominal surgeries, umbilical hernia, bilateral inguinal hernia repair, the last was in 2022, an ex lap with small-bowel resection for a small-bowel obstruction. In the ED, CT abdomen shows increase small bowel dilation with transition point in the mid abdomen in close proximity to chain suture material concerning for small bowel obstruction. No leukocytosis. Chronic anemia. Afebrile, vitally stable. ED provider discussed with General surgery, Dr. Castro, who initially recommended transfer given significant complicated past medical history. [facility] had no bed availability so patient is admitted here. Surgical consult: Patient presented to the emergency department with several months of abdominal pain. For the last 2 months he feels like he has had ?gas pain?. It is felt hard to pass gas and overall he has felt constipated. No nausea or vomiting. He had 2 large bowel movements yesterday, but nothing since this morning. He came to the emergency department this morning for an increase in abdominal pain. He has passed gas since being here in the hospital. Patient's past surgical history is positive for an ex lap 1 year ago with small-bowel resection and anastomosis. This was done for a small-bowel obstruction. During that hospitalization a cystic lesion of the pancreas was identified on CT scan. An MRI of the pancreas was obtained which showed a complex fluid collection in the tail of the pancreas concerning for possible pseudocyst. Recommendations were for repeat imaging, which was done with a repeat abdominal MRI on 06/29/2023 and 04/24/2024. Both of these images showed stability of this cystic lesion and characteristics consistent with an evolving pseudocyst. Last month on 05/18/2024 he presented to the emergency department for similar symptoms described above, with CT imaging at that time showing new sclerotic lesions in the sacrum, T10 and T11 vertebral bodies as well as the right iliac bone. Bilateral pulmonary nodules were also noted. These lesions were suspicious for metastatic disease. On repeat CT imaging today these lesions are again demonstrated, as well as new lesions of the liver. It is important to note that these lesions were not seen on his abdominal MRI 4 weeks earlier. Patient does have a history of BPH and underwent prostate surgery for this in November 2023. He does not know when his last PSA was. He hasn't had a colonoscopy for 10 years, but does a yearly FOBT which has always been negative. Patient does report significant fatigue over the last several months as well as changes in his stool, gas pain and constipation. He denies any unintentional weight loss. 06/14/2024: Patient reports that he is tolerating a clear liquid diet. He tried full liquids yesterday and then developed abdominal pain and fullness and nausea without vomiting. He has been passing gas. He had chicken noodle soup this morning and felt some abdominal cramping and fullness after that as well. Last evening he had a small black bowel movement. Prior to that his last bowel movement was on Monday, 4 days ago. That bowel movement was normal brown stool. He did start on oral iron replacement for his anemia. His 1st dose was last evening. He has had chronic anemia with a hemoglobin between 8 and 9 for the last month. Hemoglobin dropped to 7.5 yesterday. He received 1 unit of blood transfusion and his hemoglobin today is 8.6. Recent B12, folate, protein electrophoresis were unremarkable. Iron and iron binding are normal. Ferritin is low at 11.4 last month. Retic count last month 2.7 with a reticulocyte hemoglobin equivalent of 22.8 which is also low. Exam Narrative: Exam Narrative: He is alert and appears in no distress. Respirations are clear to auscultation. Cardiovascular: S1, S2, regular rate and rhythm. No murmur gallop or rub. Abdomen: Bowel sounds are present. Abdomen is soft without tenderness or mass. Extremities without edema. Const: Vital Signs, click to edit/add: Vital Signs - 24 hr 06/13/24 15:00 06/13/24 19:41 06/13/24 20:01 Temperature 98.4 F 97.9 F 97.9 F Pulse Rate 79 Pulse Rate [Pulse Oximeter] 69 82 Respiratory Rate 16 16 16 Blood Pressure 137/79 Blood Pressure [Le ft Arm] 118/76 Blood Pressure [Ri ght Arm] 114/89 Pulse Oximetry 99 100 99 O[facility] Delivery [facility] Room Air Room Air Room Air 06/13/24 20:17 06/13/24 20:45 06/13/24 21:00 Temperature 98.4 F 98.1 F Pulse Rate 75 78 72 Pulse Rate [Pulse Oximeter] Respiratory Rate 16 14 16 Blood Pressure 143/76 H 140/78 H 139/77 Blood Pressure [Le ft Arm] Blood Pressure [Ri ght Arm] Pulse Oximetry 98 97 99 Oxygen Delivery [facility] Room Air Room Air Room Air 06/13/24 21:30 06/13/24 22:00 06/13/24 22:30 Temperature 98.2 F 98.1 F Pulse Rate 62 70 78 Pulse Rate [Pulse Oximeter] Respiratory Rate 14 16 16 Blood Pressure 110/63 137/80 133/76 Blood Pressure [Le ft Arm] Blood Pressure [Ri ght Arm] Pulse Oximetry 99 97 99 Oxygen Delivery Me thod Room Air Room Air Room Air 06/13/24 23:03 06/13/24 23:45 06/14/24 00:13 Temperature 97.9 F 99.1 F 98.4 F Pulse Rate 77 52 L 83 Pulse Rate [Pulse Oximeter] Respiratory Rate 16 16 16 Blood Pressure 110/77 118/70 125/89 Blood Pressure [Le ft Arm] Blood Pressure [Ri ght Arm] Pulse Oximetry 96 97 99 Oxygen Delivery Me thod Room Air Room Air Room Air 06/14/24 06:13 Temperature 98.0 F Pulse Rate Pulse Rate [Pulse Oximeter] 90 Respiratory Rate 18 Blood Pressure Blood Pressure [Le ft Arm] Blood Pressure [Ri ght Arm] 128/71 Pulse Oximetry 100 Oxygen Delivery Me thod Room Air Documenting provider has reviewed patient's vital signs: yes Labs Labs: Laboratory Results - last 24 hr 06/11/24 06/13/24 06/13/24 06:30 05:48 16:23 WBC RBC Hgb 7.8 L* Hct MCV MCH MCHC Plt Count Sodium Potassium Chloride Carbon Dioxide Anion Gap BUN Creatinine Estimated Creat Clear Estimated GFR Glucose Calcium CEA (off-site) 67.3 Vitamin B12 426 Blood Type Antibody Screen Crossmatch ([facility]) 06/13/24 06/14/24 17:39 06:07 WBC 5.23 RBC 2.83 L Hgb 8.6 L Hct 26.9 L MCV 95 MCH 30 MCHC 32 Plt Count 213 Sodium 134 L Potassium 3.8 Chloride 107 Carbon Dioxide 26 Anion Gap 1 L BUN 11 Creatinine 0.7 Estimated Creat Clear 67.98 Estimated GFR 96 Glucose 165 H Calcium 8.3 L CEA (off-site) Vitamin B12 Blood Type O Positive Antibody Screen NEGATIVE Crossmatch ([facility]) See Detail
--- NOTE | 2024-06-14 17:33 | P.ANES_ITS ---
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
--- NOTE | 2024-06-14 19:37 | PC.NURSE ---
Patient had an EGD completed today. Vital signs Remained stable after EGD. Able to eat a full liquid diet(chicken noodle soup) which he tolerated. No concerns noted. No pain reported.
[2024-06-14] MEDS: OMEPRAZOLE 20 MG CAPSULE DR PO (22:01)
[2024-06-15 02:21] VITALS: BP 135/79; PULSE 82; RESP 18; TEMP 36.8; O2SAT 94
--- NOTE | 2024-06-15 06:30 | PC.NURSE ---
End of shift note [id number]: Pt alert & oriented x 4 and able to make needs known. Pt up independently in room and SBA when ambulating halls. Pt has been afebrile and on RA throughout the shift. Blood glucose values of 150 and 145 this shift. Pt has been denying pain and nausea when asked. Pt continent of bladder.
[2024-06-15 06:57] LABS: Hematocrit 26.5 % (37.0-53.0); Hemoglobin* 8.3 gm/dL (13.5-17.5); Mean Corpuscular HGB Conc 31 gm/dL (32-36); Mean Corpuscular Hemoglobin 30 pg (26-34); Mean Corpuscular Volume 95 fL (80-100); Platelet Count* 189 K/uL (140-440); Red Blood Count 2.78 m/uL (4.30-5.90); White Blood Count* 4.61 K/uL (4.50-11.00)
[2024-06-15 07:03] LABS: Slide Review Reflex No
[2024-06-15 07:14] LABS: Chloride* 106 mmol/L (96-114); Potassium* 3.6 mmol/L (3.6-5.1); Sodium* 135 mmol/L (135-149)
[2024-06-15 07:17] LABS: Anion Gap 5 mEq/L (7-15); Blood Urea Nitrogen* 14 mg/dL (7-30); Carbon Dioxide* 24 mmol/L (20-32); Creatinine* 0.6 mg/dL (0.5-1.5); Est. Creatinine Clearance* 67.98; Estimated Glomerular Filt Rate 101 ml/min; Glucose* 135 mg/dL (60-115)
[2024-06-15 07:18] LABS: Calcium* 8.2 mg/dL (8.4-10.6)
[2024-06-15 08:25] VITALS: BP 137/82; PULSE 81; RESP 18; TEMP 36.8; O2SAT 97
--- NOTE | 2024-06-15 13:23 | PC.NURSE ---
Pt tolerated full diet without increase in pain beyond his current baseline. Up independently. DC instructions given verbally and in writing. Answered all questions. IV DC'd with cath tip intact. DC with daughter to home. Follow up with previously scheduled appointments on calendar. DC @[id number]
--- NOTE | 2024-06-15 16:30 | PM.DS1 ---
DS: Providers Provider Date Seen: 06/15/24 Date of admission: 06/11/24 12:42 Primary care physician: Nicolas Pulliam MD Admitting Clinician: Valerie Okeefe MD Attending Physician on discharge: Aly Valdes MD Date of Discharge: 06/15/24 DS: Diagnosis Discharge Diagnosis (1) Small bowel obstruction: Status: Acute Problem details: Recurrent small-bowel obstruction. One year ago had small-bowel resection for bowel obstruction. Current transition point appears to be near the anastomosis from surgery 1 year ago. Clinically improving. Still having symptoms suggestive of partial small-bowel obstruction with postprandial nausea bloating and cramping. (2) Malignant neoplasm metastatic to lumbar spine with unknown primary site: Status: Acute Problem details: -noted, PCP following - Referral for [facility] sent Rescheduling PET scan that was supposed to be this 06/13 (3) Metastasis to liver of unknown origin: Status: Acute Problem details: -US liver per General Surgery for further assessment - ultrasound reports the liver is within normal limits in size with faint diffusely increased echogenicity suggestive of mild hepatic steatosis, no focal liver lesions identified. Patient given this information (4) Type 2 diabetes mellitus: Status: Chronic Problem details: -A1c 8.9, 05/03/24 -usual home dose glargine 28 units bid though patient is telling me he adjusts this on his own based on his oral intake. For now, will start will 10 units bid -glucose checks ACHS. No sliding scale for now given NPO and self adjusting glargine. Patient to continue to adjust insulin at home based on his oral intake and blood sugars. (5) Anemia: Status: Acute Problem details: Chronic anemia beginning in March of this year. Gradual decline in hemoglobin. Did have melanotic stool with gastritis. Does not have iron deficiency by iron panel but does have iron deficiency by low ferritin. On iron replacement. Suspect this could be related to malignancy. (6) Mass of pancreas: Status: Acute Problem details: - initial CT 04/09/23 shows hypodense mass tail of the pancreas. MRI [facility] 04/24/24 Pancreatic Pseudocyst. Lesion appears stable on repeat imaging. - further imaging since that date, PCP following, referral for [facility] sent (7) Abdominal pain: Status: Acute Problem details: Patient has been having abdominal pain for the last couple months. Considerations are ongoing partial small-bowel obstruction or metastatic disease or both. Small-bowel obstruction being managed conservatively. Cancer evaluation pending with PET scan at [facility] next week. Anticipate ongoing abdominal pain. It this is manageable he should follow-up with [facility] for ongoing oncology care. (8) Melanotic stools: Status: Acute Problem details: EGD showed gastritis. On PPI for treatment DS: Summary Hospital Course Hospital Course: Sulaiman Alcantara is a 74 year old male past medical history significant for diabetes mellitus, insulin dependent, hyperlipidemia, BPH, bilateral hearing loss, anemia, malignant neoplasm metastatic to lumbar spine with unknown primary site, concerning metastases to liver and pancreas is admitted to the medical floor from the ED for recurrent small-bowel obstruction. Patient complains of abdominal pain, along with gas pain for the past several months. Abdominal pain described as cramping, gassy. He had 2 large bowel movements over the last 48 hours. He has had nausea without vomiting. Decreased appetite with decreased oral intake. Denies headache or dizziness. Denies chest pain or shortness of breath. Denies recent fevers. No change in urination. Has had previous multiple abdominal surgeries, umbilical hernia, bilateral inguinal hernia repair, the last was in 2022, an ex lap with small-bowel resection for a small-bowel obstruction. In the ED, CT abdomen shows increase small bowel dilation with transition point in the mid abdomen in close proximity to chain suture material concerning for small bowel obstruction. No leukocytosis. Chronic anemia. Afebrile, vitally stable. ED provider discussed with General surgery, Dr. Castro, who initially recommended transfer given significant complicated past medical history. [facility] had no bed availability so patient is admitted here. Surgical consult: Patient presented to the emergency department with several months of abdominal pain. For the last 2 months he feels like he has had ?gas pain?. It is felt hard to pass gas and overall he has felt constipated. No nausea or vomiting. He had 2 large bowel movements yesterday, but nothing since this morning. He came to the emergency department this morning for an increase in abdominal pain. He has passed gas since being here in the hospital. Patient's past surgical history is positive for an ex lap 1 year ago with small-bowel resection and anastomosis. This was done for a small-bowel obstruction. During that hospitalization a cystic lesion of the pancreas was identified on CT scan. An MRI of the pancreas was obtained which showed a complex fluid collection in the tail of the pancreas concerning for possible pseudocyst. Recommendations were for repeat imaging, which was done with a repeat abdominal MRI on 06/29/2023 and 04/24/2024. Both of these images showed stability of this cystic lesion and characteristics consistent with an evolving pseudocyst. Last month on 05/18/2024 he presented to the emergency department for similar symptoms described above, with CT imaging at that time showing new sclerotic lesions in the sacrum, T10 and T11 vertebral bodies as well as the right iliac bone. Bilateral pulmonary nodules were also noted. These lesions were suspicious for metastatic disease. On repeat CT imaging today these lesions are again demonstrated, as well as new lesions of the liver. It is important to note that these lesions were not seen on his abdominal MRI 4 weeks earlier. Patient does have a history of BPH and underwent prostate surgery for this in November 2023. He does not know when his last PSA was. He hasn't had a colonoscopy for 10 years, but does a yearly FOBT which has always been negative. Patient does report significant fatigue over the last several months as well as changes in his stool, gas pain and constipation. He denies any unintentional weight loss. During his hospital stay he had improvement in his abdominal pain. He was passing gas and had small bowel movement. Was still having postprandial abdominal discomfort which has been chronic and was suspected to continue. Tolerating p.o. intake fairly well. EGD showed gastritis. Ferritin level was low suggesting iron deficiency. Status at Discharge Overall status at discharge: patient is not back to baseline Time Spent with Patient Time attestation: Total time spent providing and/or coordinating discharge services: 40 minutes Time spent: Greater than 30 minutes Exam Narrative: Exam Narrative: He is alert and appears in no distress. Respirations are clear to auscultation. Cardiovascular: S1, S2, regular rate and rhythm. Abdomen is soft with no tenderness. No mass. Extremities with trace edema. Const: Vital Signs, click to edit/add: Vital Signs - 24 hr 06/14/24 17:33 06/14/24 20:01 06/14/24 22:53 Temperature 98.2 F 98.4 F Pulse Rate [Pulse Oximeter] 66 61 85 Respiratory Rate 18 18 Blood Pressure [Le ft Arm] 128/84 Blood Pressure [Ri ght Arm] 109/72 121/87 Pulse Oximetry 97 98 98 Oxygen Delivery Me thod Room Air Room Air 06/14/24 23:00 06/15/24 02:21 06/15/24 08:25 Temperature 98.3 F Pulse Rate [Pulse Oximeter] 85 82 81 Respiratory Rate 18 18 18 Blood Pressure [Le ft Arm] Blood Pressure [Ri ght Arm] 135/79 Pulse Oximetry 94 Oxygen Delivery Me thod Room Air 06/15/24 08:25 Temperature 98.2 F Pulse Rate [Pulse Oximeter] 81 Respiratory Rate 18 Blood Pressure [Le ft Arm] Blood Pressure [Ri ght Arm] 137/82 Pulse Oximetry 97 Oxygen Delivery Me thod Room Air Documenting provider has reviewed patient's vital signs: yes DS: Data Data Completed and Pending Completed studies during hospitalization: Procedures Drainage of Abdomen Subcutaneous Tissue and Fascia, Percutaneous Approach (05/02/23) Drainage of Stomach with Drainage Device, Via Natural or Artificial Opening (04/10/23) Insertion of Infusion Device into Superior Vena Cava, Percutaneous Approach (04/10/23) Resection of Ileum, Open Approach (04/10/23) Ultrasonography of Superior Vena Cava, Guidance (04/10/23) Labs on day of discharge: Labs from last 24 hours 06/15/24 06:02 WBC 4.61 RBC 2.78 L Hgb 8.3 L Hct 26.5 L MCV 95 MCH 30 MCHC 31 L Plt Count 189 Sodium 135 Potassium 3.6 Chloride 106 Carbon Dioxide 24 Anion Gap 5 L BUN 14 Creatinine 0.6 Estimated Creat Clear 67.98 Estimated GFR 101 Glucose 135 H Calcium 8.[address] scan - abdomen: Radiologist's impression: Indication: Generalized abdominal pain, bloating. Technique: CT of the abdomen and pelvis was performed following the administration of 101 mL Isovue 370. Comparison: 05/18/2024. 04/24/2024. 05/01/2023. Findings: Visualized lung bases: There are several small noncalcified pulmonary nodules in the visualized lung bases, for example a 5 mm right lower lobe pulmonary nodule on series 4, image 5. Atherosclerotic coronary artery calcifications. Liver: There are scattered too small to characterize hypodensities within the right hepatic lobe, which are more conspicuous than on prior examinations. Additionally, there is a branching linear hypodensity within the left hepatic lobe anteriorly. Diffuse hepatic steatosis. Normal gallbladder. Common bile duct is normal in diameter. Pancreas: Similar hypodense lesion within the pancreatic tail measuring approximately 7.7 x 2.9 cm, better evaluated on prior MRI. Similar mild prominence of the pancreatic duct. Spleen: Unremarkable. Adrenals: Unremarkable. Kidneys: Right upper pole renal cyst measures 6.8 cm. Left lower pole renal cyst measures 5.9 cm. Additional too small to characterize hypodensities within both kidneys. No nephrolithiasis or hydronephrosis. Distal ureters obscured by orthopedic hardware. Aorta/IVC: Mild atherosclerotic aortic calcifications without aneurysmal dilation. Lymph nodes: Scattered subcentimeter retroperitoneal lymph nodes. Bowel: Increase in small-bowel dilation measuring up to 5 cm. Transition point is seen within the mid abdomen in close proximity to small bowel chain suture material. Colon is decompressed. Appendix is not definitively visualized. Small amount of free fluid within the pelvis. Several gastric collateral vessels are present. Pelvis: Obscured by beam hardening artifact from the patient`s hip prostheses. Bones/body wall: Partially visualized bilateral hip prostheses. Similar appearance of the 4.9 by 2.1 cm lytic region along the posterior superior aspect of the right acetabular component. There are several sclerotic lesions within the pelvis, some of which are unchanged compared to 05/01/2023 CT. There is a 3.4 by 1.7 cm sclerotic lesion within the right posterior ilium that is new. Additionally, a 1.1 cm sclerotic lesion within the right posterior ilium has increased in size. New sclerotic lesions within several vertebral bodies, the largest at T11. Sclerotic lesions within the sacrum are new compared to 2022. Impression: 1. Increased small bowel dilation with transition point in the mid abdomen in close proximity to chain suture material concerning for small bowel obstruction. 2. Increased conspicuity of several hepatic lesions which are nonspecific but concerning for hepatic metastases. Branching hypodensity within the left hepatic lobe may represent intrahepatic portal vein occlusion. 3. Multiple pulmonary nodules and sclerotic osseous lesions concerning for metastases. 4. Similar appearance of the hypodense lesion within the pancreatic tail, better evaluated on prior MRI. 5. 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 CT scan - chest: Radiologist's impression: INDICATION: Liver masses. TECHNIQUE: CT chest with 100 cc Omnipaque 350 IV contrast. COMPARISON: None. FINDINGS: Lungs and pleura: Numerous bilateral solid pulmonary nodules involving all lung lobes (greater than 30), some of which show central cavitation. The largest of these is in the left lower lobe measures 8 mm (3/99). Scattered subpleural. No pleural effusions or pneumothorax. Heart and vasculature: Heart size is normal. Thoracic aorta and pulmonary artery are normal in caliber. Lymph nodes/mediastinum: No mediastinal, hilar, or axillary adenopathy. Chest wall: No masses. Upper abdomen: Please see the separately dictated same day CT abdomen pelvis Bones: Numerous scattered sclerotic bone lesions in the thoracic spine, sternum IMPRESSION: 1. Numerous bilateral solid pulmonary nodules, concerning for metastases. 2. Numerous scattered sclerotic bone lesions, also concerning for metastases. US - abdomen: Radiologist's impression: INDICATION: Liver masses COMPARISON: Same day CT chest/abdomen/pelvis TECHNIQUE: Ultrasound abdomen limited, liver. Real time renteria scale imaging and color Doppler analysis was performed of the abdomen. FINDINGS: Liver: The liver is within normal limits in size with faint diffusely increased echogenicity, suggestive of hepatic steatosis. No focal liver lesions identified. Vascular: The main portal vein is patent with normal flow direction. Other: No ascites IMPRESSION: 1. The liver is within normal limits in size with faint diffusely increased echogenicity, suggestive of mild hepatic steatosis. 2. No focal liver lesions identified. Discharge Plan Discharge Disposition: Home, Self-Care Date of Admission: 06/11/24 12:42 Attending Provider on Discharge: Mark Valdes Consulting Providers: Otilia Castro Primary Care Provider: Nicolas Pulliam Condition: Improved Anticipated Discharge Date/Time: 06/15/24 09:00 Discharge Medications: New ferrous sulfate 325 mg (65 mg iron) Tablet 325 mg PO DAILY Qty: 100 0RF omeprazole 20 mg Capsule,Delayed Release(Dr/Ec) 20 mg PO BID Qty: 60 0RF insulin glargine [Lantus Solostar U-100 Insulin] 100 unit/mL (3 mL) Insulin Pen 10 unit subcut BID Qty: 15 0RF Continued (DME) pen needle, diabetic [UltiCare Pen Needle] 31 gauge x 1/4 needle See Rx Instructions .ROUTE DAILY Qty: 100 Rx Instructions: As directed sennosides [Senna Laxative] 8.6 mg tablet 17.2 mg PO BID Changed insulin glargine [Lantus Solostar U-100 Insulin] 100 unit/mL (3 mL) insulin pen 14 unit subcut BID Qty: 15 0RF Discontinued aspirin 325 mg tablet 325 mg PO DAILY Discharge Orders: Discharge Order (Routine); Ordered 06/15/24 Ordered By: Mark Valdes Patient Education: Iron Supplements (By mouth), Omeprazole (By mouth), Insulin Glargine (By injection), Bowel Obstruction (DC), Anemia (DC) Activity Level: No Restrictions Discharge Diet: Diabetic and Low Fiber Follow Up Appointments: Ashish Lorenzo MD [Staff Physician] - 06/24/24 10:15 am ([facility] for Follow-up appointment with Dr. Lorenzo. Call Clinic on Monday (06/17) to check for availability with Heraclio Mueller. ) Nicolas Pulliam MD [Primary Care Provider] - () Forms: [facility] Info Instructions
== END 2024-06-15 10:53 | disposition home or self-care (01) | DRG 388 ==
LOC: ED 06:52 → MEDSURG 08:21
PROVIDERS: Internal Medicine Gastroenterology; Physician Assistant; Surgery; Admitting Provider Family Medicine; Emergency Provider Family Medicine; PCP Family Medicine; Visit Provider Family Medicine
PROC: 0DJ08ZZ Inspection of Upper Intestinal Tract, Via Natural or Artificial Opening Endoscopic (ICD-10-PCS; principal; 2024-06-14 17:00)
DX: K56.699 Other intestinal obstruction unspecified as to partial versus complete obstruction (principal); K29.71 Gastritis, unspecified, with bleeding; C78.7 Secondary malignant neoplasm of liver and intrahepatic bile duct; C79.51 Secondary malignant neoplasm of bone; C78.02 Secondary malignant neoplasm of left lung; C78.01 Secondary malignant neoplasm of right lung; D50.8 Other iron deficiency anemias; E11.9 Type 2 diabetes mellitus without complications; Z79.4 Long term (current) use of insulin; K86.89 Other specified diseases of pancreas; C80.1 Malignant (primary) neoplasm, unspecified; R91.8 Other nonspecific abnormal finding of lung field; N40.0 Benign prostatic hyperplasia without lower urinary tract symptoms; Z96.643 Presence of artificial hip joint, bilateral; E78.5 Hyperlipidemia, unspecified
CPT/HCPCS: 00731; 36415; 36430; 43235; 71260; 74177; 76705; 80048; 80076; 82378; 82607; 82962; 83540; 83550; 83605; 83690; 83735; 84153; 85018; 85025; 85027; 86301; 86850; 86900; 86901; 86922; 99100; 99285; A9270; J1171; J1650; J1815; J2470; J2704; J7030; P9016; Q9967